=== PATIENT | female | born 1965 | race Caucasian/White ===

== ENCOUNTER 2016-07-04 14:58 | Emergency (ER) | payer MEDICARE, MEDICAID ==
--- NOTE | 2016-07-04 17:45 | ER Document Report ---
ED General <NICKOLAS GARCÍA - Last Filed: 07/04/16 20:34> - General Mode of Arrival: Ambulatory Information source: Patient TRAVEL OUTSIDE OF THE [place] IN LAST 30 DAYS: No - HPI Patient complains to provider of: Generalized Malaise Onset: Other - few days ago Associated symptoms: Other - see above <REINIER RAMOS - Last Filed: 07/04/16 23:05> - General Chief Complaint: Nausea/Vomiting Stated Complaint: WEAKNESS Notes: 50-year-old female with history of MS presents to the ED via EMS complaining of generalized malaise that began a few days ago. Patient states that she felt nauseous this morning and proceeded to have episodes of dry heaving and eventually vomited once. Patient denies any diarrhea. Patient states that this morning when she woke up she felt a little off and noticed that her blood sugar was 130 when it usually runs between 90 and 100. Patient states that she is borderline diabetic. Patient states that she has a history of UTIs. (REINIER RAMOS) - Related Data Allergies/Adverse Reactions: latex [Latex] Allergy (Unknown, Verified 07/22/14 17:35) Sulfa (Sulfonamide Antibiotics) Allergy (Verified 07/22/14 17:35) Past Medical History - General Information source: Patient - Social History Smoking Status: Unknown if Ever Smoked Family History: None, Reviewed & Not Pertinent - Past Medical History Cardiac Medical History: Reports: Hx Pulmonary Embolism - 2 years ago Endocrine Medical History: Reports: Hx Diabetes Mellitus Type 2 Musculoskeltal Medical History: Reports Hx Multiple Sclerosis Past Surgical History: Reports: Hx Section - x2, Hx Cholecystectomy - Immunizations Hx Diphtheria, Pertussis, Tetanus Vaccination: No <REINIER RAMOS - Last Filed: 07/04/16 23:05> Review of Systems - Review of Systems Constitutional: See HPI, Malaise EENT: No symptoms reported Cardiovascular: No symptoms reported Respiratory: No symptoms reported Gastrointestinal: See HPI, Nausea, Vomiting. denies: Diarrhea Genitourinary: No symptoms reported Female Genitourinary: No symptoms reported Musculoskeletal: No symptoms reported Skin: No symptoms reported Hematologic/Lymphatic: No symptoms reported Neurological/Psychological: No symptoms reported -: Yes All other systems reviewed and negative <REINIER RAMOS - Last Filed: 07/04/16 23:05> Physical Exam - General General appearance: Alert In distress: None - HEENT Head: Normocephalic, Atraumatic Eyes: Normal Extraocular movements intact: Yes Pupils: PERRL - Respiratory Respiratory status: No respiratory distress Breath sounds: Normal - Cardiovascular Rhythm: Regular Heart sounds: Normal auscultation - Abdominal Inspection: Normal Distension: No distension Bowel sounds: Normal Tenderness: Nontender - Back Back: Normal - Extremities General upper extremity: Normal inspection, Normal ROM General lower extremity: Normal inspection, Normal ROM - Neurological Neuro grossly intact: Yes Cognition: Normal Orientation: AAOx4 [place] Coma Scale Eye Opening: Spontaneous [place] Coma Scale Verbal: Oriented [place] Coma Scale Motor: Obeys Commands [place] Coma Scale Total: 15 Speech: Normal - Psychological Associated symptoms: Normal affect, Normal mood - Skin Skin Temperature: Warm Skin Moisture: Dry Skin Color: Normal <REINIER RAMOS - Last Filed: 07/04/16 23:05> - Vital signs Vitals: Temp Pulse Resp BP Pulse Ox 98.5 F 55 L 18 148/90 H 99 07/04/16 16:00 07/04/16 16:00 07/04/16 16:00 07/04/16 16:00 07/04/16 16:00 (NICKOLAS GARCÍA) Course - Laboratory Result Diagrams: 07/04/16 18:30 07/04/16 16:44 <NICKOLAS GARCÍA - Last Filed: 07/04/16 20:34> - Laboratory Result Diagrams: 07/04/16 18:30 07/04/16 16:44 <REINIER RAMOS - Last Filed: 07/04/16 23:05> - Re-evaluation Re-evalutation: 07/04/16 20:3 I personally performed the services described in the documentation, reviewed and edited the documentation which was dictated to my scribe in my presence, and it accurately records my words and actions. Patient with a history of multiple sclerosis bedbound nausea 2 episodes of vomiting and fatigue positive for urinary tract infection. No acute clinical concerns for pyelonephritis. Patient is able to tolerate by mouth fluids nausea vomiting is controlled fever shot of Rocephin will DC on Macrobid 1-2 day follow -up primary care physician and discussed reasons for ED return sooner (NICKOLAS GARCÍA) - Vital Signs Vital signs: Temp Pulse Resp BP Pulse Ox 98.5 F 55 L 18 148/90 H 99 07/04/16 16:00 07/04/16 16:00 07/04/16 16:00 07/04/16 16:00 07/04/16 16:00 (NICKOLAS GARCÍA) (REINIER RAMOS) - Laboratory Laboratory results interpreted by me: 07/04/16 07/04/16 16:44 19:02 Chloride 108 H Carbon Dioxide 21 L Creatinine 0.50 L Glucose 148 H Urine Ketones 20 H Urine Nitrite POSITIVE H Ur Leukocyte Esterase MODERATE H (NICKOLAS GARCÍA) Discharge <NICKOLAS GARCÍA - Last Filed: 07/04/16 20:34> <REINIER RAMOS - Last Filed: 07/04/16 23:05> - Discharge Clinical Impression: Vomiting Qualifiers: Vomiting type: unspecified Vomiting Intractability: unspecified Nausea presence : with nausea Qualified Code(s): R11.2 - Nausea with vomiting, unspecified UTI (urinary tract infection) Qualifiers: Urinary tract infection type: acute cystitis Hematuria presence: without hematuria Qualified Code(s): N30.00 - Acute cystitis without hematuria Condition: Stable Disposition: HOME, SELF-CARE Instructions: Urinary Tract Infection ([facility]), Vomiting ([facility]) Additional Instructions: Urinary Tract Infection Your evaluation indicates that you have a urinary tract infection. This is due to germs growing in the bladder. This is a common problem. This infection usually responds quickly to antibiotics. Your antibiotic should be taken exactly as prescribed. Drink plenty of fluids -- three to four quarts a day. Occasionally, a bladder anesthetic will be prescribed to help stop the feeling of urgency until the antibiotic has a chance to clear the infection. This may cause your urine to be dark orange. Certain urine infections require a culture. If the doctor obtained a culture, the results will be back in two days. You should call to see if a change in treatment is needed. A repeat urinalysis after you finish treatment is often recommended. The physician will let you know if further testing is required. Call the doctor if you develop fever, chills, flank pain, inability to urinate, or blood in the urine. Prescriptions: Nitrofurantoin/Nitrofuran Mac [Macrobid 100 mg Capsule] 1 tab PO BID #20 capsule Referrals: FRANK DESAI MD [Primary Care Provider] - Follow up tomorrow (in 1-2 days return to er sooner for increasing worsening or new symptoms) Scribe Documentation - Scribe Written by Earnest:: Earnest Awan, 07/04/2016 1854 acting as scribe for :: Nilson <REINIER RAMOS - Last Filed: 07/04/16 23:05>
[2016-07-04 17:47] LABS: ANION GAP 14 (5-19); BLOOD UREA NITROGEN 15 mg/dL (7-20); CARBON DIOXIDE 21 mmol/L (22-30); CHLORIDE 108 mmol/L (98-107); GLUCOSE 148 mg/dL (75-110); POTASSIUM 4.8 mmol/L (3.6-5.0); SODIUM 142.9 mmol/L (137-145)
[2016-07-04 19:04] LABS: ABSOLUTE EOSINOPHILS # (AUTO) 0.1 10^3/uL (0.0-0.6); ABSOLUTE LYMPHOCYTES (AUTO) 1.9 10^3/uL (0.5-4.7); ABSOLUTE MONOCYTES (AUTO) 0.5 10^3/uL (0.1-1.4); BASOPHILS % (AUTO) 0.2 % (0-2); EOSINOPHILS % (AUTO) 0.9 % (0-6); HEMATOCRIT 40.5 % (36.0-47.0); HEMOGLOBIN 13.5 g/dL (12.0-15.5); LYMPHOCYTES % (AUTO) 20.2 % (13-45); MEAN CORPUSCULAR HEMOGLOBIN 27.2 pg (27.0-33.4); MEAN CORPUSCULAR HGB CONC 33.4 g/dL (32.0-36.0); MEAN CORPUSCULAR VOLUME 82 fl (80-97); MONOCYTES % (AUTO) 5.5 % (3-13); RED BLOOD COUNT 4.97 10^6/uL (3.72-5.28); SEGMENTED NEUTROPHILS % (AUTO) 73.2 % (42-78); WHITE BLOOD COUNT 9.5 10^3/uL (4.0-10.5)
[2016-07-04 19:49] LABS: APPEARANCE,URINE SLIGHTLY-CLOUDY; BILIRUBIN,URINE NEGATIVE (NEGATIVE); GLUCOSE, URINE NEGATIVE (NEGATIVE); KETONES,URINE 20 mg/dL (NEGATIVE); LEUKOCYTE ESTERASE,URINE MODERATE (NEGATIVE); NITRITE,URINE POSITIVE (NEGATIVE); PROTEIN,URINE NEGATIVE (NEGATIVE); URINE SPECIFIC GRAVITY 1.013; UROBILINOGEN,URINE NEGATIVE mg/dL (<2.0)
[2016-07-04] MEDS ORDERED: CEFTRIAXONE INJ 1000 MG VIAL IM ONE (19:54)
[2016-07-04] MEDS ORDERED: LIDOCAINE 1% INJ-PF (10 MG/ML) 30 ML SDV ONE (20:54)
[2016-07-05 04:28] VITALS: BP 124/64
== END 2016-07-05 02:55 | disposition home or self-care (01) ==
LOC: ER 14:58
DX: N30.00 Acute cystitis without hematuria (principal); R11.2 Nausea with vomiting, unspecified; R53.1 Weakness; R53.81 Other malaise
CPT/HCPCS: 99285; 96372; 51701; 36415; 85025; 80048; 81001; 87804; J3490; J0696

== ENCOUNTER 2017-05-17 22:00 | Emergency (ER) | payer MEDICARE, MEDICAID ==
[2017-05-17] MEDS ORDERED: NORMAL SALINE 1000 ML 1,000 ML IV ONE (22:05)
--- NOTE | 2017-05-17 22:07 | ER Document Report ---
ED General - General Chief Complaint: Shortness Of Breath Stated Complaint: RESPIRATORY DISTRESS Time Seen by Provider: 05/17/17 22:05 Notes: 51-year-old lady with debilitating multiple sclerosis, bedbound at baseline with history of multiple infections, presenting with 1 week of "not feeling good " constant worsening now associated with moist cough and right-sided pleuritic chest pain. Hypoxic when EMS arrived. They did not describe any hypertension or tachycardia. No measured fevers. She has areas of concern on her skin in her left armpit and right buttock, the son states the right buttock is just a rash he has been addressing it, no skin breakdown. TRAVEL OUTSIDE OF THE [place] IN LAST 30 DAYS: No - Related Data Allergies/Adverse Reactions: latex [Latex] Allergy (Unknown, Verified 07/22/14 17:35) Sulfa (Sulfonamide Antibiotics) Allergy (Verified 07/22/14 17:35) Past Medical History - Social History Smoking Status: Never Smoker Family History: None, Reviewed & Not Pertinent - Past Medical History Cardiac Medical History: Reports: Hx Pulmonary Embolism - 2 years ago Denies: Hx Atrial Fibrillation, Hx Congestive Heart Failure, Hx Heart Attack , Hx Hypercholesterolemia, Hx Hypertension Pulmonary Medical History: Denies: Hx Asthma, Hx Bronchitis, Hx COPD, Hx Pneumonia, Hx Respiratory Failure, Hx Sleep Apnea, Hx Tuberculosis Neurological Medical History: Denies: Hx Cerebrovascular Accident, Hx Migraine, Hx Seizures Endocrine Medical History: Reports: Hx Diabetes Mellitus Type 2. Denies: Hx Diabetes Mellitus Type 1 Renal/ Medical History: Denies: Hx End Stage Renal Disease, Hx Kidney Stones Malignancy Medical History: Denies: Hx Leukemia, Hx Lung Cancer GI Medical History: Denies: Hx Gastroesophageal Reflux Disease, Hx Hiatal Hernia , Hx Ulcer Musculoskeltal Medical History: Denies Hx Arthritis, Reports Hx Multiple Sclerosis Psychiatric Medical History: Denies: Hx Attention Deficit Hyperactivity Disorder, Hx Bipolar Disorder, Hx Dementia, Hx Depression, Hx Schizophrenia Infectious Medical History: Denies: Hx HIV Past Surgical History: Reports: Hx Section - x2, Hx Cholecystectomy. Denies: Hx Appendectomy, Hx Bowel Surgery, Hx Coronary Artery Bypass Graft, Hx Gastric Bypass Surgery, Hx Herniorrhaphy, Hx Hysterectomy, Hx Mastectomy, Hx Pacemaker, Hx Tonsillectomy, Hx Tubal Ligation - Immunizations Hx Diphtheria, Pertussis, Tetanus Vaccination: No Review of Systems - Review of Systems Notes: REVIEW OF SYSTEMS GEN: D chills weakness ENT: Denies sore throat, nasal discharge, ear pain EYES: Denies blurry vision, eye pain, discharge CV: Denies chest pain, palpitations, edema RESP: D cough shortness of breath GI: Denies abdominal pain, nausea, vomiting, diarrhea MSK: Denies joint pain/swelling, edema, SKIN: Template redness LYMPH: Denies swollen glands/lymph nodes NEURO: Chronic debilitating weakness PSYCH: Denies depression, suicidal or homicidal ideation PHYSICAL EXAMINATION General: Mild respiratory distress chronically ill-appearing Head: Atraumatic, normocephalic ENT: Mouth normal, oropharynx moist, no exudates or tonsillar enlargement Eyes: Conjunctiva normal, pupils equal, lids normal Neck: No JVD, supple, no guarding CVS: Normal rate, regular rhythm, no murmurs Resp: Right-sided rhonchi, quite wet cough GI: Nondistended, soft, no tenderness to palpation, no rebound or guarding Ext: No deformities, no edema, normal range of motion in upper and lower ext Back: No CVA or midline TTP Skin: Erythema and maceration in the left armpit Lymphatic: No lymphadeopathy noted Neuro: Awake, alert. Face symmetric. GCS 15. Physical Exam - Vital signs Vitals: Resp 20 05/17/17 22:10 Course - Re-evaluation Re-evalutation: 05/17/17 22:07 Debilitated bedbound 51-year-old female presenting with signs and symptoms of pneumonia, sepsis. Sepsis protocol initiated. 05/17/17 22:52 Patient reassessed. Difficulty in getting IV access. Her chest x-ray does not show a pneumonia. We have not obtain a temperature either yet. Urine has not been done. On reexamining her, she has very low chest rise and is having trouble getting words out. She has a 4-6 L oxygen requirement. I think her MS is affecting her ability to breathe so I ordered a negative inspiratory force measurement. If this is decreased she will have to go to a higher level of care which has neurology. 05/17/17 23:24 Patient's negative inspiratory force is 3. This is compatible with neuromuscular respiratory failure. She is stable on 6 L of nasal cannula oxygen but is having trouble speaking. Ordered ABG and will transfer patient. Spoke with [facility] transfer center at 11:20 PM. 05/18/17 01:22 Continues to be stable. I looked at the CT scan and no it does show some fluid in the left subsegmental bronchi do not see any pulmonary emboli. Urine is positive and I have not given antibiotics yet. I verbalize an order for 1 g of Rocephin to the paramedics. I am comfortable with this given that the patient is not septic, she will be treated on the way to [facility]. [facility] transport is here for the patient and she is stable for transfer. 05/18/17 01:25 - Vital Signs Vital signs: Temp Pulse Resp BP Pulse Ox 18 134/78 H 95 05/18/17 01:06 05/17/17 23:51 05/18/17 01:06 - Laboratory Result Diagrams: 05/17/17 22:25 05/17/17 22:25 Laboratory results interpreted by me: 05/17/17 05/17/17 05/17/17 22:25 22:25 22:25 RDW 14.1 H ABG pO2 VBG pH 7.43 H Lactic Acid 0.6 L Urine Protein Urine Blood Urine Nitrite Urine Urobilinogen Ur Leukocyte Esterase 05/17/17 05/17/17 23:20 23:40 RDW ABG pO2 69.6 L VBG pH Lactic Acid Urine Protein 30 H Urine Blood LARGE H Urine Nitrite POSITIVE H Urine Urobilinogen 4.0 H Ur Leukocyte Esterase MODERATE H - Diagnostic Test Radiology reviewed: Image reviewed, Reports reviewed - EKG Interpretation by Me EKG shows normal: Sinus rhythm Rate: Normal Rhythm: NSR When compared to previous EKG there are: No significant change - Nonspecific lateral T-wave flattening unchanged Critical Care Note - Critical Care Note Total time excluding time spent on procedures (mins): 35 - The above patient is critically ill. Not including procedures, but including direct re-evaluations, speaking with patient and/or consultants, interpreting results, and documenting , I spent the total amount of minute listed listed above on critical care time Discharge - Discharge Clinical Impression: Acute respiratory failure with hypoxia Condition: Fair Disposition: [facility] Referrals: QUINN MARCANO MD [Primary Care Provider] - Follow up as needed
[2017-05-17 22:38] LABS: ABSOLUTE BASOPHILS # (AUTO) 0.1 10^3/uL (0.0-0.2); ABSOLUTE EOSINOPHILS # (AUTO) 0.2 10^3/uL (0.0-0.6); ABSOLUTE LYMPHOCYTES (AUTO) 2.1 10^3/uL (0.5-4.7); ABSOLUTE MONOCYTES (AUTO) 0.5 10^3/uL (0.1-1.4); ABSOLUTE NEUT (AUTO) 6.5 10^3/uL (1.7-8.2); EOSINOPHILS % (AUTO) 2.6 % (0-6); HEMATOCRIT 38.7 % (36.0-47.0); HEMOGLOBIN 12.9 g/dL (12.0-15.5); LYMPHOCYTES % (AUTO) 22.2 % (13-45); MEAN CORPUSCULAR HEMOGLOBIN 27.6 pg (27.0-33.4); MEAN CORPUSCULAR HGB CONC 33.4 g/dL (32.0-36.0); MEAN CORPUSCULAR VOLUME 83 fl (80-97); MONOCYTES % (AUTO) 5.3 % (3-13); RED BLOOD COUNT 4.68 10^6/uL (3.72-5.28); RED CELL DISTRIBUTION WIDTH 14.1 % (11.5-14.0); SEGMENTED NEUTROPHILS % (AUTO) 68.9 % (42-78); WHITE BLOOD COUNT 9.4 10^3/uL (4.0-10.5)
--- NOTE | 2017-05-17 22:39 | RADIOLOGY REPORT (SQ) ---
EXAM DESCRIPTION: CHEST SINGLE VIEW COMPLETED DATE/TIME: 05/17/2017 10:26 pm REASON FOR STUDY: SOB COMPARISON: 02/17/2016 EXAM PARAMETERS: NUMBER OF VIEWS: One view. TECHNIQUE: Single frontal radiographic view of the chest acquired. RADIATION DOSE: NA LIMITATIONS: None. FINDINGS: LUNGS AND PLEURA: No acute opacities, masses or pneumothorax. No pleural effusion. MEDIASTINUM AND HILAR STRUCTURES: No masses. Contour normal. HEART AND VASCULAR STRUCTURES: Heart normal in size. Normal vasculature. BONES: No acute findings. HARDWARE: None in the chest. OTHER: No other significant finding. IMPRESSION: NO ACUTE RADIOGRAPHIC FINDING IN THE CHEST. TECHNICAL DOCUMENTATION: JOB ID: [id number] [place]-72 2010 [employer]- All Rights Reserved
[2017-05-17 22:44] LABS: VENOUS BLOOD BASE EXCESS -0.4 mmol/L; VENOUS BLOOD HCO3 23.6 mmol/L (20-32); VENOUS BLOOD PCO2 36.5 mmHg (35-63); VENOUS BLOOD PH 7.43 (7.30-7.42)
[2017-05-17 22:51] LABS: PROTHROMBIN TIME 13.4 SEC (11.4-15.4)
[2017-05-17 23:00] LABS: ALANINE AMINOTRANSFERASE 33 U/L (9-52); ALBUMIN 4.2 g/dL (3.5-5.0); ALKALINE PHOSPHATASE 107 U/L (38-126); ANION GAP 13 (5-19); ASPARTATE AMINO TRANSFERASE 20 U/L (14-36); BILIRUBIN,DIRECT 0.3 mg/dL (0.0-0.4); BILIRUBIN,TOTAL 0.9 mg/dL (0.2-1.3); BLOOD UREA NITROGEN 15 mg/dL (7-20); CALCIUM 10.2 mg/dL (8.4-10.2); CARBON DIOXIDE 22 mmol/L (22-30); CHLORIDE 106 mmol/L (98-107); CREATININE RESULT 0.53 mg/dL (0.52-1.25); GLUCOSE 104 mg/dL (75-110); TOTAL PROTEIN 7.6 g/dL (6.3-8.2)
[2017-05-17 23:34] LABS: ARTERIAL BLOOD BASE EXCESS -0.6 mmol/L; ARTERIAL BLOOD O2 SATURATION 94.6 % (94-98)
[2017-05-18 00:05] VITALS: BP 134/78
[2017-05-18 00:07] LABS: APPEARANCE,URINE CLOUDY; BILIRUBIN,URINE NEGATIVE (NEGATIVE); GLUCOSE, URINE NEGATIVE (NEGATIVE); KETONES,URINE NEGATIVE (NEGATIVE); LEUKOCYTE ESTERASE,URINE MODERATE (NEGATIVE); NITRITE,URINE POSITIVE (NEGATIVE); PROTEIN,URINE 30 mg/dL (NEGATIVE); URINE SPECIFIC GRAVITY 1.018
--- NOTE | 2017-05-18 01:48 | RADIOLOGY REPORT (SQ) ---
EXAM DESCRIPTION: CTA CHEST CLINICAL HISTORY: 51 years Female, eval for PE. R pleuritic chest pain. COMPARISON: CR, same day. TECHNIQUE: 100 mL Isovue-370 IV contrast. Multiplanar reformatted. This exam was performed according to our departmental dose-optimization program, which includes automated exposure control, adjustment of the mA and/or kV according to patient size and/or use of iterative reconstruction technique. FINDINGS: Small left infrahilar, left lower lobar consolidate, and small streakiness of bilateral lung bases. No pulmonary embolus. No right ventricular strain. Inferior neck, axillae, mediastinum, cholecystectomy clips, upper abdomen, and musculoskeleton appear otherwise unremarkable. IMPRESSION: Small left lower lobar pneumonia. No pulmonary embolus.
--- NOTE | 2017-05-18 07:50 | EKG REPORT ---
SEVERITY:- ABNORMAL ECG - SINUS RHYTHM NONSPECIFIC T ABNORMALITIES, ANT-LAT LEADS : Confirmed by: Alin Gaspar MD 18-May-2017 07:49:18
== END 2017-05-18 01:21 | disposition short-term general hospital (02) ==
LOC: ER 22:00
DX: J96.01 Acute respiratory failure with hypoxia (principal); J18.9 Pneumonia, unspecified organism; R05 Cough; R07.81 Pleurodynia; R21 Rash and other nonspecific skin eruption; E11.9 Type 2 diabetes mellitus without complications; G35 Multiple sclerosis; Z74.01 Bed confinement status; Z91.040 Latex allergy status; Z88.2 Allergy status to sulfonamides; Z86.711 Personal history of pulmonary embolism; L53.9 Erythematous condition, unspecified
CPT/HCPCS: 93005; 99291; 96360; 51701; 36415; 87040; 87086; 82803 ×2; 85025; 85610; 87077; 87088; 80053; 81001; 87186; 83605; 71010; 71275; 93010; J7030

== ENCOUNTER 2018-06-20 01:09 | Inpatient (IN) | payer MEDICARE, MEDICAID ==
--- NOTE | 2018-06-20 02:00 | ER Document Report ---
ED Respiratory Problem - General Chief Complaint: Breathing Difficulty Stated Complaint: BREATHING PROBLEMS Time Seen by Provider: 06/20/18 01:41 Primary Care Provider: QUINN MARCANO MD [Primary Care Provider] - Follow up as needed Mode of Arrival: Stretcher Information source: Patient, Relative Cannot obtain history due to: Other - Weakness Notes: Patient is a 52-year-old female with a past medical history of multiple chronic health conditions including multiple sclerosis who presents with shortness of breath and weakness. Family states the patient has been having increased work of breathing for the past day, has had intermittent fevers, also redness to her left arm. Patient denies being in any pain. No cough or congestion. Onset: Yesterday Provocation: None Quality: Weakness, tightness Radiation: None Severity: Severe Timing: Constant TRAVEL OUTSIDE OF THE [place] IN LAST 30 DAYS: No - HPI Similar symptoms previously: No Recently seen / treated by doctor: No - Related Data Allergies/Adverse Reactions: latex [Latex] Allergy (Unknown, Verified 07/22/14 17:35) Sulfa (Sulfonamide Antibiotics) Allergy (Verified 07/22/14 17:35) Past Medical History - General Information source: Patient, Relative Cannot obtain history due to: Other - Weakness - Social History Smoking Status: Never Smoker Frequency of alcohol use: None Drug Abuse: None Lives with: Family Family History: None, Reviewed & Not Pertinent Patient has suicidal ideation: No Patient has homicidal ideation: No - Past Medical History Cardiac Medical History: Reports: Hx Pulmonary Embolism - 2 years ago Denies: Hx Atrial Fibrillation, Hx Congestive Heart Failure, Hx Heart Attack, Hx Hypercholesterolemia, Hx Hypertension Pulmonary Medical History: Reports: None Denies: Hx Asthma, Hx Bronchitis, Hx COPD, Hx Pneumonia, Hx Respiratory Failure, Hx Sleep Apnea, Hx Tuberculosis EENT Medical History: Reports: None Neurological Medical History: Reports: None. Denies: Hx Cerebrovascular Accident, Hx Migraine, Hx Seizures Endocrine Medical History: Reports: Hx Diabetes Mellitus Type 2. Denies: Hx Diabetes Mellitus Type 1 Renal/ Medical History: Reports: None. Denies: Hx End Stage Renal Disease, Hx Kidney Stones, Hx Peritoneal Dialysis Malignancy Medical History: Reports: None. Denies: Hx Leukemia, Hx Lung Cancer GI Medical History: Reports: None. Denies: Hx Gastroesophageal Reflux Disease, Hx Hiatal Hernia, Hx Ulcer Musculoskeletal Medical History: Denies Hx Arthritis, Reports Hx Multiple Sclerosis Skin Medical History: Reports None Psychiatric Medical History: Reports: None Denies: Hx Attention Deficit Hyperactivity Disorder, Hx Bipolar Disorder, Hx Dementia, Hx Depression, Hx Schizophrenia Traumatic Medical History: Reports: None Infectious Medical History: Reports: None. Denies: Hx HIV Past Surgical History: Reports: Hx Section - x2, Hx Cholecystectomy. Denies: Hx Appendectomy, Hx Bowel Surgery, Hx Coronary Artery Bypass Graft, Hx Gastric Bypass Surgery, Hx Herniorrhaphy, Hx Hysterectomy, Hx Mastectomy, Hx Pacemaker, Hx Tonsillectomy, Hx Tubal Ligation - Immunizations Immunizations up to date: Yes Hx Diphtheria, Pertussis, Tetanus Vaccination: Yes History of Influenza Vaccine for 02/2017 - 07/2017 Season: Unknown Review of Systems - Review of Systems Notes: REVIEW OF SYSTEMS: CONSTITUTIONAL : Positive fever, chills, and sweats. Denies recent illness. EENT: Denies eye, ear, throat, or mouth pain or symptoms. Denies nasal or sinus congestion. CARDIOVASCULAR: Denies chest pain. RESPIRATORY: Denies cough, cold, or chest congestion. Denies shortness of breath, difficulty breathing, or wheezing. GASTROINTESTINAL: Denies abdominal pain. Denies nausea, vomiting, or diarrhea. Denies constipation. GENITOURINARY: Denies difficulty urinating, painful urination, burning, frequency, or blood in urine. FEMALE GENITOURINARY: Denies vaginal bleeding, abnormal or irregular periods. MUSCULOSKELETAL: Denies neck or back pain or joint pain or swelling. Positive redness to the left arm. SKIN: Denies rash or skin lesions. HEMATOLOGIC : Denies easy bruising or bleeding. LYMPHATIC: Denies swollen, enlarged glands. NEUROLOGICAL: Denies altered mental status or loss of consciousness. Denies headache. Denies weakness or paralysis or loss of use of either side. Denies problems with gait or speech. Denies sensory or motor loss. PSYCHIATRIC: Denies anxiety or stress or depression. ALL OTHER SYSTEMS REVIEWED AND NEGATIVE. Physical Exam - Vital signs Vitals: Resp BP Pulse Ox 28 H 121/80 96 06/20/18 01:31 06/20/18 01:31 06/20/18 01:31 - Notes Notes: PHYSICAL EXAMINATION: GENERAL: Sick appearing in moderate to severe distress, diaphoretic, tachycardic, weak appearing. HEAD: Atraumatic, normocephalic. EYES: Pupils equal round and reactive to light, extraocular movements intact, sclera anicteric, conjunctiva are normal. ENT: nares patent, oropharynx clear without exudates. Moist mucous membranes. NECK: Normal range of motion, supple without lymphadenopathy LUNGS: Breath sounds diminished bilaterally with expiratory crackles and rhonchi, no wheezing. HEART: Tachycardia without murmurs, mildly delayed capillary refill. ABDOMEN: Soft, nontender, normoactive bowel sounds. No guarding, no rebound. No masses appreciated. EXTREMITIES: Normal range of motion, no pitting or edema. No cyanosis. NEUROLOGICAL: No focal neurological deficits. Moves all extremities spontaneously and on command. PSYCH: Normal mood, normal affect. SKIN: Warm, Dry, normal turgor, no rashes or lesions noted. Mild redness to the left upper and lower parts of the arm. Course - Re-evaluation Re-evalutation: 06/20/18 05:46 Labs are consistent with likely sepsis due to a urinary tract infection. Patient is admitted to the hospital. - Vital Signs Vital signs: Temp Pulse Resp BP Pulse Ox 27 H 109/77 96 06/20/18 03:30 06/20/18 03:30 06/20/18 03:30 - Laboratory Result Diagrams: 06/20/18 01:48 06/20/18 01:48 Laboratory results interpreted by me: 06/20/18 06/20/18 06/20/18 01:48 01:48 05:11 MCH 26.7 L RDW 14.2 H Seg Neutrophils % 88.8 H Lymphocytes % 7.1 L Carbonic Acid ABG pCO2 ABG HCO3 ABG Total CO2 Carbon Dioxide 21 L BUN 21 H Glucose 175 H Direct Bilirubin 0.6 H AST 55 H Alkaline Phosphatase 149 H Urine Protein >=500 H Urine Ketones 20 H Urine Blood SMALL H Urine Nitrite POSITIVE H Urine Urobilinogen 2.0 H Ur Leukocyte Esterase LARGE H 06/20/18 05:17 MCH RDW Seg Neutrophils % Lymphocytes % Carbonic Acid 0.95 L ABG pCO2 31.7 L ABG HCO3 19.0 L ABG Total CO2 19.9 L Carbon Dioxide BUN Glucose Direct Bilirubin AST Alkaline Phosphatase Urine Protein Urine Ketones Urine Blood Urine Nitrite Urine Urobilinogen Ur Leukocyte Esterase - Diagnostic Test Radiology reviewed: Image reviewed, Reports reviewed - EKG Interpretation by Me EKG shows normal: Sinus rhythm Rate: Tachycardia Rhythm: NSR [place]/QRS: No: Right axis deviation, Left axis deviation, RBBB, LBBB, IVCD, LAHB/LAFB, LPHB/LPFB, Bifasicular block Voltage: No: Increased voltage, Consistant with LVH, Decreased voltage, Throughout, Limb leads P Waves: No: EZEQUIEL, LAE, Absent, AV Dissociation, Other When compared to previous EKG there are: No significant change - Consults Dr. Marcano Time consulted: 05:45 - will admit Consulted provider: will come to ER Discharge - Discharge Clinical Impression: Sepsis Qualifiers: Sepsis type: sepsis due to unspecified organism Qualified Code(s): A41.9 - Sepsis, unspecified organism Urinary tract infection Qualifiers: Urinary tract infection type: acute cystitis Hematuria presence: without hematuria Qualified Code(s): N30.00 - Acute cystitis without hematuria Condition: Stable Disposition: ADMITTED INPATIENT Admitting Provider: Angie Unit Admitted: [facility] Referrals: QUINN MARCANO MD [Primary Care Provider] - Follow up as needed
--- NOTE | 2018-06-20 02:00 | ER Document Report ---
Sepsis - Sepsis Documentation Sepsis Patient: Yes - Vital Signs Interpretation: Tachycardic, Febrile - Cardiovascular Peripheral Pulse Strength: Normal Capillary refill: Delayed Rhythm: Tachycardia Heart Sounds: Normal auscultation - Respiratory Breath Sounds: Rhonchi, Decreased air movement Respiratory Status: Depressed respirations - Skin Skin Color: Pale, Mottled
[2018-06-20] MEDS ORDERED: VANCOMYCIN HCL INJ 1000 MG VIAL IV ONE (02:01)
[2018-06-20 02:17] LABS: ABSOLUTE LYMPHOCYTES (AUTO) 0.5 10^3/uL (0.5-4.7); ABSOLUTE MONOCYTES (AUTO) 0.3 10^3/uL (0.1-1.4); ABSOLUTE NEUT (AUTO) 6.9 10^3/uL (1.7-8.2); BASOPHILS % (AUTO) 0.3 % (0-2); HEMATOCRIT 42.7 % (36.0-47.0); LYMPHOCYTES % (AUTO) 7.1 % (13-45); MEAN CORPUSCULAR HEMOGLOBIN 26.7 pg (27.0-33.4); MEAN CORPUSCULAR HGB CONC 32.8 g/dL (32.0-36.0); MEAN CORPUSCULAR VOLUME 82 fl (80-97); MONOCYTES % (AUTO) 3.8 % (3-13); PLATELET COUNT 248 10^3/uL (150-450); RED BLOOD COUNT 5.24 10^6/uL (3.72-5.28); RED CELL DISTRIBUTION WIDTH 14.2 % (11.5-14.0); SEGMENTED NEUTROPHILS % (AUTO) 88.8 % (42-78); TOTAL CELLS COUNTED % (AUTO) 100 %; WHITE BLOOD COUNT 7.7 10^3/uL (4.0-10.5)
[2018-06-20 02:20] LABS: ALANINE AMINOTRANSFERASE 33 U/L (9-52); ALBUMIN 4.3 g/dL (3.5-5.0); ALKALINE PHOSPHATASE 149 U/L (38-126); ANION GAP 12 (5-19); ASPARTATE AMINO TRANSFERASE 55 U/L (14-36); BILIRUBIN,DIRECT 0.6 mg/dL (0.0-0.4); BILIRUBIN,TOTAL 0.8 mg/dL (0.2-1.3); BLOOD UREA NITROGEN 21 mg/dL (7-20); CALCIUM 9.6 mg/dL (8.4-10.2); CARBON DIOXIDE 21 mmol/L (22-30); CHLORIDE 107 mmol/L (98-107); CREATINE KINASE 90 U/L (30-135); GLUCOSE 175 mg/dL (75-110); POTASSIUM 4.4 mmol/L (3.6-5.0); SODIUM 140.1 mmol/L (137-145); TOTAL PROTEIN 8.1 g/dL (6.3-8.2)
[2018-06-20 02:28] LABS: CREATINE KINASE MB 0.61 ng/mL (<4.55)
--- NOTE | 2018-06-20 02:31 | RADIOLOGY REPORT (SQ) ---
EXAM DESCRIPTION: XR CHEST 1 VIEW COMPLETED DATE/TME: 06/20/2018 02:01 CLINICAL HISTORY: 52 years, Female, Cough COMPARISON: None. NUMBER OF VIEWS: One TECHNIQUE: AP view of the chest LIMITATIONS: None. FINDINGS: The lungs are clear. There are no pleural abnormalities. The cardiac silhouette and pulmonary vessels are normal. IMPRESSION: No acute cardiopulmonary disease. copyright 2010 [employer]- All Rights Reserved
[2018-06-20] MEDS ORDERED: NORMAL SALINE 1000 ML 1,000 ML IV ONE ×2 (02:34→18:49)
[2018-06-20 05:32] LABS: ARTERIAL BLOOD BASE EXCESS -4.8 mmol/L; ARTERIAL BLOOD H2CO3 0.95 mmol/L (1.05-1.35); ARTERIAL BLOOD O2 SATURATION 97.6 % (94-98); ARTERIAL BLOOD PCO2 31.7 mmHg (35-45); ARTERIAL BLOOD TOTAL CO2 19.9 mmol/L (21-25)
[2018-06-20 05:33] LABS: ARTERIAL BLOOD FIO2 3.5L
[2018-06-20 05:35] LABS: APPEARANCE,URINE TURBID; BILIRUBIN,URINE NEGATIVE (NEGATIVE); COLOR,URINE AMBER; GLUCOSE, URINE NEGATIVE (NEGATIVE); KETONES,URINE 20 mg/dL (NEGATIVE); LEUKOCYTE ESTERASE,URINE LARGE (NEGATIVE); NITRITE,URINE POSITIVE (NEGATIVE); PROTEIN,URINE >=500 mg/dL (NEGATIVE); URINE SPECIFIC GRAVITY 1.018
--- NOTE | 2018-06-20 08:04 | EKG REPORT ---
SEVERITY:- OTHERWISE NORMAL ECG - SINUS TACHYCARDIA : Confirmed by: Andree Hughes MD 20-Jun-2018 08:03:57
--- NOTE | 2018-06-20 08:05 | EKG REPORT ---
SEVERITY:- ABNORMAL ECG - SINUS TACHYCARDIA NONSPECIFIC REPOL ABNORMALITY, INFERIOR LEADS : Confirmed by: Andree Hughes MD 20-Jun-2018 08:04:07
[2018-06-20] MEDS ORDERED: ACETAMINOPHEN 650 MG SUPP.RECT PR PRN (13:27)
[2018-06-20] MEDS ORDERED: VANCOMYCIN HCL 0 MG in DEXTROSE 5%-WATER 250 ML IV NR (13:30)
[2018-06-20] MEDS: CEFEPIME 2 GM/D5W RTU 2 GM/50 ML RTUPB IV SCH (14:41)
[2018-06-20] MEDS: NORMAL SALINE 1000 ML 1,000 ML IV PRN (14:42)
[2018-06-20] MEDS: LEVOFLOXACIN 500 MG/D5W RTU 500 MG/100 ML RTUPB IV SCH (15:18)
[2018-06-20] MEDS: VANCOMYCIN HCL 1,250 MG in DEXTROSE 5%-WATER 250 ML IV SCH (18:06)
--- NOTE | 2018-06-20 18:45 | PDOC H&P ---
History of Present Illness Admission Date/PCP: 06[facility]20[facility]18 05[facility] complains of: Shortness of breath and weakness History of Present Illness: INO SALDIVAR is a 52 year old female known to my practice but not compliant with follow up in the office presented to the ED with family complaining about worsening difficulty with breathing, generalized weakness and at the time of my evaluation associated malodor to her urine for couple of days. She reported episodes of fever, chills, nausea, poor appetite and oral intake. She reported chest and sinus congestion, associated coughing with expectoration difficulty. No headache or facial pain. She denied any flank pain or definite pain with urination. She denied any blood in her urine. Her initial evaluation in the ED was significant for tachycardia, tachypnea, minimal verbal response and demonstrated alteration in her mental alertness. There was concern for possible sepsis due to associated low blood pressure and fever. Her laboratory evaluation with catheterized urine was suggestive of UTI with elevated BUN. Her morbidities include Multiple sclerosis with fatigue and malaise, Diabetes Mellitus type 2, Hypothyroidism, vitamin D deficiency, chronic constipation, Anemia, Allergic rh initis, and morbid obesity. She was advised hospitalization for further evaluation and management. Past Medical History Cardiac Medical History: Reports: Pulmonary Embolism - 2 years ago Denies: Atrial Fibrillation, Congestive Heart Failure, Myocardial Infarction, Hyperlipidema, Hypertension Pulmonary Medical History: Reports: None Denies: Asthma, Bronchitis, Chronic Obstructive Pulmonary Disease (COPD), Pneumonia, Respiratory Failure, Sleep Apnea, Tuberculosis EENT Medical History: Reports: None Neurological Medical History: Reports: None Denies: Migraine, Seizures Endocrine Medical History: Reports: Diabetes Mellitus Type 2, Hypothyroidism, Obesity, Other - Vitamin D deficiency Denies: Diabetes Mellitus Type 1 Renal/ Medical History: Reports: None Denies: End Stage Renal Disease Malignancy Medical History: Reports: None Denies: Leukemia, Lung Cancer GI Medical History: Reports: None, Other - chronic constipation Denies: Gastroesophageal Reflux Disease, Hiatal Hernia Musculoskeltal Medical History: Denies: Arthritis Skin Medical History: Reports: None Psychiatric Medical History: Reports: None, Other - Hypersomnia Denies: Attention Deficit Hyperactivity Disorder, Bipolar Disorder, Dementia, Depression Traumatic Medical History: Reports: None Hematology: Reports: Anemia Denies: Hemophilia, Sickle Cell Disease Infectious Medical History: Reports: None Denies: HIV Past Surgical History Past Surgical History: Reports: Section - x2, Cholecystectomy Denies: Appendectomy, Coronary Artery Bypass Graft, Gastric Bypass Surgery, Herniorrhaphy, Hysterectomy, Mastectomy, Pacemaker, Tonsillectomy, Tubal Ligation Social History Lives with: Family Smoking Status: Never Smoker Frequency of Alcohol Use: None Hx Recreational Drug Use: No Hx Prescription Drug Abuse: No - Advance Directive Resuscitation Status: Full Code Family History Family History: None, Reviewed & Not Pertinent Parental Family History Reviewed: Yes Children Family History Reviewed: Yes Sibling(s) Family History Reviewed.: Yes Medication/Allergy Home Medications: Acetaminophen [Tylenol Extra Strength 500 mg Tablet] 1,000 mg PO Q6 06/20/18 Baclofen [Baclofen 10 mg Tablet] 10 mg PO TID 06/20/18 Modafinil [Provigil] 200 mg PO DAILY 06/20/18 Allergies/Adverse Reactions: latex [Latex] Allergy (Intermediate, Verified 06/20/18 14:06) RASH/BLISTER Sulfa (Sulfonamide Antibiotics) Allergy (Intermediate, Verified 06/20/18 14:06) RASH/HIVES Review of Systems Constitutional: PRESENT: anorexia, fatigue, fever(s), weakness Eyes: ABSENT: visual disturbances Ears: ABSENT: hearing changes Nose, Mouth, and Throat: ABSENT: as per HPI, headache(s), mouth pain, sore throat, vertigo, other Cardiovascular: ABSENT: chest pain, dyspnea on exertion, edema, orthropnea, palpitations Respiratory: PRESENT: cough, dyspnea Gastrointestinal: PRESENT: nausea. ABSENT: as per HPI, abdominal pain, bloating, coffee ground emesis, constipation, diarrhea, dysphagia, heartburn, hematemesis, hematochezia, melena, vomiting, other Genitourinary: PRESENT: other - malodor. ABSENT: as per HPI, difficulty urinating, dysuria, hematuria, nocturia Musculoskeletal: PRESENT: deformity - related to spastic component of her multiple sclerosis. Integumentary: PRESENT: erythema - left forearm aroun her brace device.. ABSENT: as per HPI, diaphoresis, lesions, pruritus, rash, wounds, other Neurological: PRESENT: confusion Psychiatric: ABSENT: anxiety, depression, homidical ideation, suicidal ideation Endocrine: ABSENT: cold intolerance, heat intolerance, polydipsia, polyuria Hematologic/Lymphatic: ABSENT: easy bleeding, easy bruising, lymphadenopathy Allergic/Immunologic: ABSENT: seasonal rhinorrhea Physical Exam Vital Signs: Temp Pulse Resp BP Pulse Ox 98.8 F 118 H 31 H 98/72 L 97 06/20/18 16:00 06/20/18 17:23 06/20/18 16:00 06/20/18 16:00 06/20/18 16:00 Intake & Output 06/19/18 06/20/18 06/21/18 06:59 06:59 06:59 Intake Total 1000 150 Balance 1000 150 Weight 83.4 kg General appearance: PRESENT: no acute distress, well-developed, well-nourished Head exam: PRESENT: atraumatic, normocephalic Eye exam: PRESENT: conjunctiva pink, EOMI, PERRLA. ABSENT: scleral icterus Ear exam: PRESENT: normal external ear exam Mouth exam: PRESENT: dry mucosa Respiratory exam: PRESENT: clear to auscultation rome, decreased breath sounds - at lung bases Cardiovascular exam: PRESENT: RRR, +S1, +S2, tachycardia. ABSENT: diastolic murmur, systolic murmur Vascular exam: PRESENT: normal capillary refill. ABSENT: pallor GI/Abdominal exam: PRESENT: normal bowel sounds, soft. ABSENT: distended, guarding, mass, organolmegaly, rebound, tenderness Rectal exam: PRESENT: deferred Gentrourinary exam: PRESENT: indwelling catheter - with discolored concentrated urine. Extremities exam: ABSENT: pedal edema Neurological exam: PRESENT: alert, awake, oriented to person, oriented to place, oriented to time, oriented to situation, CN II-XII grossly intact. ABSENT: motor sensory deficit Psychiatric exam: PRESENT: appropriate affect, normal mood. ABSENT: homicidal ideation, suicidal ideation Skin exam: PRESENT: dry, erythema - around her forearm brace device, warm Results Laboratory Results: 06/20/18 01:48 06/20/18 01:48 06/20/18 06/20/18 06/20/18 01:48 01:48 01:48 WBC 7.7 RBC 5.24 Hgb 14.0 Hct 42.7 MCV 82 MCH 26.7 L MCHC 32.8 RDW 14.2 H Plt Count 248 Seg Neutrophils % 88.8 H Lymphocytes % 7.1 L Monocytes % 3.8 Eosinophils % 0.0 Basophils % 0.3 Absolute Neutrophils 6.9 Absolute Lymphocytes 0.5 Absolute Monocytes 0.3 Absolute Eosinophils 0.0 Absolute Basophils 0.0 Carbonic Acid HCO3/H2CO3 Ratio ABG pH ABG pCO2 ABG pO2 ABG HCO3 ABG O2 Saturation ABG Base Excess FiO2 Sodium 140.1 Potassium 4.4 Chloride 107 Carbon Dioxide 21 L Anion Gap 12 BUN 21 H Creatinine 0.55 Est GFR ( Amer) > 60 Est GFR (Non-Af Amer) > 60 Glucose 175 H Lactic Acid 0.9 Calcium 9.6 Total Bilirubin 0.8 AST 55 H ALT 33 Alkaline Phosphatase 149 H Total Protein 8.1 Albumin 4.3 Urine Color Urine Appearance Urine pH Ur Specific Lilly Urine Protein Urine Glucose (UA) Urine Ketones Urine Blood Urine Nitrite Ur Leukocyte Esterase Urine WBC (Auto) Urine RBC (Auto) 06/20/18 06/20/18 05:11 05:17 WBC RBC Hgb Hct MCV MCH MCHC RDW Plt Count Seg Neutrophils % Lymphocytes % Monocytes % Eosinophils % Basophils % Absolute Neutrophils Absolute Lymphocytes Absolute Monocytes Absolute Eosinophils Absolute Basophils Carbonic Acid 0.95 L HCO3/H2CO3 Ratio 20:1 ABG pH 7.40 ABG pCO2 31.7 L ABG pO2 100.0 ABG HCO3 19.0 L ABG O2 Saturation 97.6 ABG Base Excess -4.8 FiO2 3.5L Sodium Potassium Chloride Carbon Dioxide Anion Gap BUN Creatinine Est GFR ( Amer) Est GFR (Non-Af Amer) Glucose Lactic Acid Calcium Total Bilirubin AST ALT Alkaline Phosphatase Total Protein Albumin Urine Color SAH Urine Appearance TURBID Urine pH 7.0 Ur Specific Lilly 1.018 Urine Protein >=500 H Urine Glucose (UA) NEGATIVE Urine Ketones 20 H Urine Blood SMALL H Urine Nitrite POSITIVE H Ur Leukocyte Esterase LARGE H Urine WBC (Auto) >182 Urine RBC (Auto) 14 06/20/18 06/20/18 01:48 01:48 Creatine Kinase 90 CK-MB (CK-2) 0.61 NT-Pro-B Natriuret Pep 487 Impressions: Chest X-Ray 06/20/18 02:01 IMPRESSION: No acute cardiopulmonary disease. copyright 2011 [employer]- All Rights Reserved Assessment & Plan - Diagnosis (1) SIRS due to infectious process without acute organ dysfunction Is this a current diagnosis for this admission?: Yes Plan: Continue antibiotic therapy and IV fluid resuscitation therapy. (2) Urinary tract infection Qualifiers: Urinary tract infection type: acute cystitis Hematuria presence: without hematuria Qualified Code(s): N30.00 - Acute cystitis without hematuria Is this a current diagnosis for this admission?: Yes Plan: Maintain on IV fluid support with antibiotic therapy. There is concern for possible sepsis in view of her associated morbidities. Follow up on her blood and urine culture. (3) Diabetes mellitus type 2 in nonobese Is this a current diagnosis for this admission?: Yes Plan: Maintain on accucheck with sliding scale Humalog insulin coverage. (4) Hypothyroidism Qualifiers: Hypothyroidism type: unspecified Qualified Code(s): E03.9 - Hypothyroidism, unspecified Is this a current diagnosis for this admission?: Yes Plan: Continue to monitor for symptoms of decompensation related to thyroid function and treat ass indicated. (5) Vitamin D deficiency Is this a current diagnosis for this admission?: Yes Plan: Monitor level and treat and indicated. (6) Multiple sclerosis, primary chronic progressive Is this a current diagnosis for this admission?: Yes Plan: Continue supportive care t this time. - Time Time Spent: 50 to 70 Minutes Medications reviewed and adjusted accordingly: Yes Anticipated discharge: Home with Homehealth Within: Other - Inpatient Certification Based on my medical assessment, after consideration of the patient's comor bidities, presenting symptoms, or acuity I expect that the services needed warrant INPATIENT care.: Yes I certify that my determination is in accordance with my understanding of Medicare's requirements for reasonable and necessary INPATIENT services [42 CFR 412.3e].: Yes Medical Necessity: Need Close Monitoring Due to Risk of Patient Decompensation, Need For IV Fluids, Need For Continuous Telemetry Monitoring, Need for IV Antibiotics, Risk of Complication if Not Cared For in Hospital, Risk of Diagnosis Which Will Require Inpatient Eval/Care/Monitoring Post Hospital Care: D/C Die [employer] Documentation - Plan Summary Plan Summary: See admitting attending physician orders as per above outlined care plan. I had a witnessed discussion with patient regarding resuscitation, at this time she want to be a full code status.
[2018-06-20] MEDS ORDERED: PROMETHAZINE HCL INJ 25 MG/1 ML VIAL IV PRN (18:46)
[2018-06-20] MEDS ORDERED: DEXTROSE 40% GEL 15 GM TUBE PO PRN (18:47)
[2018-06-20] MEDS ORDERED: DEXTROSE 50%-WATER 25 GM/50 ML DISP.SYRIN IV PRN ×2 (18:47)
[2018-06-20] MEDS ORDERED: INSULIN LISPRO 100 UNIT/ML 3 ML VIAL SUBCUT PRN (18:47)
[2018-06-20] MEDS ORDERED: GLUCAGON,HUMAN RECOMB 1 MG INJ IM PRN (18:47)
[2018-06-21] MEDS: VANCOMYCIN HCL 1,250 MG in DEXTROSE 5%-WATER 250 ML IV SCH ×3 (02:43→18:09)
[2018-06-21] MEDS ORDERED: CEFEPIME 2 GM/D5W RTU 2 GM/50 ML RTUPB IV ONE (02:58)
[2018-06-21] MEDS: CEFEPIME 2 GM/D5W RTU 2 GM/50 ML RTUPB IV SCH ×2 (03:02→14:59)
[2018-06-21] MEDS: LANSOPRAZOLE 30 MG TAB.RAP.DR PO SCH (05:23)
[2018-06-21] MEDS: NORMAL SALINE 1000 ML 1,000 ML IV PRN ×2 (05:56→15:05)
[2018-06-21 06:03] LABS: MEAN CORPUSCULAR HGB CONC 33.6 g/dL (32.0-36.0); MEAN CORPUSCULAR VOLUME 80 fl (80-97); PLATELET COUNT 162 10^3/uL (150-450); RED BLOOD COUNT 4.35 10^6/uL (3.72-5.28); RED CELL DISTRIBUTION WIDTH 14.4 % (11.5-14.0); WHITE BLOOD COUNT 8.7 10^3/uL (4.0-10.5)
[2018-06-21 06:14] LABS: BLOOD UREA NITROGEN 21 mg/dL (7-20); CALCIUM 8.8 mg/dL (8.4-10.2); GLUCOSE 105 mg/dL (75-110); POTASSIUM 4.6 mmol/L (3.6-5.0)
[2018-06-21 06:19] LABS: CARBON DIOXIDE 23 mmol/L (22-30); CHLORIDE 111 mmol/L (98-107); SODIUM 137.2 mmol/L (137-145)
[2018-06-21 06:25] LABS: ANION GAP 3 (5-19)
[2018-06-21 06:32] LABS: ABSOLUTE LYMPHOCYTES# (MANUAL) 1.3 10^3/uL (0.5-4.7); ABSOLUTE MONOCYTES # (MANUAL) 0.2 10^3/uL (0.1-1.4); ABSOLUTE NEUTROPHILS# (MANUAL) 7.2 10^3/uL (1.7-8.2); BAND NEUTROPHILS % (MANUAL) 6 % (3-5); BASOPHILS % (MANUAL) 0 % (0-2); BURR CELLS SLIGHT; EOSINOPHILS % (MANUAL) 0 % (0-6); LYMPHOCYTES % (MANUAL) 15 % (13-45); METAMYELOCYTES % (MANUAL) 1 % (0); MONOCYTES % (MANUAL) 2 % (3-13); PLATELET COMMENT ADEQUATE; POIKILOCYTOSIS SLIGHT; SEGMENTED NEUTROPHILS % (MAN) 76 % (42-78); TOTAL CELLS COUNTED 100; TOXIC GRANULATION SLIGHT
[2018-06-21 06:34] LABS: HEMOGLOBIN 11.7 g/dL (12.0-15.5)
[2018-06-21] MEDS: ENOXAPARIN SODIUM INJ 40 MG/0.4 ML DISP.SYRIN SUBCUT SCH (09:28)
[2018-06-21] MEDS: LEVOFLOXACIN 500 MG/D5W RTU 500 MG/100 ML RTUPB IV SCH (11:45)
[2018-06-21] MEDS ORDERED: NYSTATIN TOPICAL POWDER 15 GM TP PRN (16:23)
--- NOTE | 2018-06-21 16:53 | PDOC PROGRESS REPORT ---
Subjective Progress Note for:: 06/21/18 Subjective:: Patient denied any fever or chills. No abdominal pain, nausea or vomiting. Tolerating oral feeding. No chest pain or difficulty with breathing. Reason For Visit: SEPSIS,POSSIBLE UTI Physical Exam Vital Signs: Temp Pulse Resp BP Pulse Ox 98.4 F 73 18 104/55 L 97 06/21/18 11:14 06/21/18 14:00 06/21/18 07:22 06/21/18 11:14 06/21/18 11:14 Intake & Output 06/20/18 06/21/18 06/22/18 06:59 06:59 06:59 Intake Total 1000 2800 1415 Output Total 725 150 Balance 1000 2075 1265 Weight 83.4 kg 103 kg General appearance: PRESENT: no acute distress, obese Head exam: PRESENT: atraumatic, normocephalic Eye exam: PRESENT: conjunctiva pink, EOMI, PERRLA. ABSENT: scleral icterus Ear exam: PRESENT: normal external ear exam Mouth exam: PRESENT: moist Respiratory exam: PRESENT: clear to auscultation rome, decreased breath sounds - at lung bases Cardiovascular exam: PRESENT: RRR. ABSENT: diastolic murmur, rubs, systolic murmur Vascular exam: PRESENT: normal capillary refill. ABSENT: pallor GI/Abdominal exam: PRESENT: normal bowel sounds, soft. ABSENT: distended, guarding, mass, organolmegaly, rebound, tenderness Gentrourinary exam: PRESENT: indwelling catheter Extremities exam: PRESENT: other - brace in use for upper extremity. ABSENT: pedal edema Musculoskeletal exam: PRESENT: deformity - related to spastic componenet of her multiple sclerosis Neurological exam: PRESENT: alert, awake, oriented to person, oriented to place, oriented to time, oriented to situation, CN II-XII grossly intact. ABSENT: m otor sensory deficit Psychiatric exam: PRESENT: appropriate affect, normal mood. ABSENT: homicidal ideation, suicidal ideation Skin exam: PRESENT: dry, rash - in beneath breast tissue and groin regions, warm Results Laboratory Results: 06/21/18 05:46 06/21/18 05:46 06/21/18 06/21/18 05:46 05:46 WBC 8.7 RBC 4.35 Hgb 11.7 L D Hct 35.0 L MCV 80 MCH 27.0 MCHC 33.6 RDW 14.4 H Plt Count 162 Seg Neutrophils % Not Reportable Lymphocytes % Not Reportable Monocytes % Not Reportable Eosinophils % Not Reportable Basophils % Not Reportable Absolute Neutrophils Not Reportable Absolute Lymphocytes Not Reportable Absolute Monocytes Not Reportable Absolute Eosinophils Not Reportable Absolute Basophils Not Reportable Sodium 137.2 Potassium 4.6 Chloride 111 H Carbon Dioxide 23 Anion Gap 3 L BUN 21 H Creatinine 0.50 L Est GFR ( Amer) > 60 Est GFR (Non-Af Amer) > 60 Glucose 105 Calcium 8.8 06/20/18 06/20/18 01:48 01:48 Creatine Kinase 90 CK-MB (CK-2) 0.61 NT-Pro-B Natriuret Pep 487 Impressions: Chest X-Ray 06/20/18 02:01 IMPRESSION: No acute cardiopulmonary disease. copyright 2010 [employer] All Rights Reserved Assessment & Plan - Diagnosis (1) SIRS due to infectious process without acute organ dysfunction Is this a current diagnosis for this admission?: Yes (2) Urinary tract infection Qualifiers: Urinary tract infection type: acute cystitis Hematuria presence: without hematuria Qualified Code(s): N30.00 - Acute cystitis without hematuria Is this a current diagnosis for this admission?: Yes (3) Diabetes mellitus type 2 in nonobese Is this a current diagnosis for this admission?: Yes (4) Hypothyroidism Qualifiers: Hypothyroidism type: unspecified Qualified Code(s): E03.9 - Hypothyroidism, unspecified Is this a current diagnosis for this admission?: Yes (5) Vitamin D deficiency Is this a current diagnosis for this admission?: Yes (6) Multiple sclerosis, primary chronic progressive Is this a current diagnosis for this admission?: Yes - Time Time Spent with patient: 25-34 minutes Medications reviewed and adjusted accordingly: Yes Anticipated discharge: Home with Homehealth Within: Other - Inpatient Certification Based on my medical assessment, after consideration of the patient's comorbidities, presenting symptoms, or acuity I expect that the services needed warrant INPATIENT care.: Yes I certify that my determination is in accordance with my understanding of Medicare's requirements for reasonable and necessary INPATIENT services [42 CFR 412.3e].: Yes Medical Necessity: Need Close Monitoring Due to Risk of Patient Decompensation, Need For IV Fluids, Need For Continuous Telemetry Monitoring, Need for IV Anti biotics, Risk of Complication if Not Cared For in Hospital Post Hospital Care: D/C Service Liaison Representative Documentation - Plan Summary Plan Summary: Continue triple antibiotic coverage pending her urine and blood culture final report findings. Her tachycardia is improving. Maintain on IV fluid support.
[2018-06-21 18:32] LABS: VANCOMYCIN,TROUGH 30.6 ug/mL (5.0-20.0)
[2018-06-21] MEDS ORDERED: DIPHENHYDRAMINE HCL 25 MG CAPSULE PO PRN (20:04)
[2018-06-22] MEDS: NORMAL SALINE 1000 ML 1,000 ML IV PRN ×3 (00:11→23:39)
[2018-06-22] MEDS: CEFEPIME 2 GM/D5W RTU 2 GM/50 ML RTUPB IV SCH ×3 (02:16→16:19)
[2018-06-22] MEDS: LANSOPRAZOLE 30 MG TAB.RAP.DR PO SCH (05:02)
[2018-06-22] MEDS: DEXTROSE 40% GEL 15 GM TUBE PO PRN (07:06)
[2018-06-22] MEDS: ENOXAPARIN SODIUM INJ 40 MG/0.4 ML DISP.SYRIN SUBCUT SCH (09:00)
[2018-06-22] MEDS: LEVOFLOXACIN 500 MG/D5W RTU 500 MG/100 ML RTUPB IV SCH (12:15)
--- NOTE | 2018-06-22 18:17 | PDOC PROGRESS REPORT ---
Subjective Progress Note for:: 06/22/18 Subjective:: Patient with advanced MS seen by the bedside, she has polymicrobial UTI, the pathogens sensitive to Levaquin, we will de-escalate antibiotic, DC vancomycin, DC cefepime Reason For Visit: SEPSIS,POSSIBLE UTI Physical Exam Vital Signs: Temp Pulse Resp BP Pulse Ox 98.7 F 107 H 18 127/71 H 98 06/22/18 15:02 06/22/18 15:02 06/22/18 15:02 06/22/18 15:02 06/22/18 15:02 Intake & Output 06/21/18 06/22/18 06/23/18 06:59 06:59 06:59 Intake Total 2800 2725 1218 Output Total 725 1225 250 Balance 2075 1500 968 Weight 103 kg 104 kg 104 kg General appearance: PRESENT: no acute distress Eye exam: PRESENT: PERRLA Respiratory exam: PRESENT: clear to auscultation rome Cardiovascular exam: PRESENT: +S1, +S2 GI/Abdominal exam: PRESENT: soft Neurological exam: PRESENT: alert Results Laboratory Results: 06/21/18 05:46 06/21/18 17:50 06/21/18 17:50 Creatinine 0.45 L Est GFR ( Amer) > 60 Est GFR (Non-Af Amer) > 60 06/20/18 05:11 Catheterized Urine Urine Culture - Final Klebsiella Pneumoniae Providencia Stuartii Group B Beta Streptococcus 06/20/18 06/20/18 01:48 01:48 Creatine Kinase 90 CK-MB (CK-2) 0.61 NT-Pro-B Natriuret Pep 487 Impressions: Chest X-Ray 06/20/18 02:01 IMPRESSION: No acute cardiopulmonary disease. copyright 2010 [employer]- All Rights Reserved Assessment & Plan - Diagnosis (1) Sepsis Qualifiers: Sepsis type: sepsis due to unspecified organism Qualified Code(s): A41.9 - Sepsis, unspecified organism Is this a current diagnosis for this admission?: Yes Plan: De-escalate antibiotic, continue Levaquin (2) Urinary tract infection Qualifiers: Urinary tract infection type: acute cystitis Hematuria presence: without hematuria Qualified Code(s): N30.00 - Acute cystitis without hematuria Is this a current diagnosis for this admission?: Yes (3) Multiple sclerosis Is this a current diagnosis for this admission?: Yes (4) Diabetes mellitus type 2 in obese Is this a current diagnosis for this admission?: Yes
[2018-06-23] MEDS: LANSOPRAZOLE 30 MG TAB.RAP.DR PO SCH (05:10)
[2018-06-23] MEDS: NORMAL SALINE 1000 ML 1,000 ML IV PRN ×2 (09:31→20:42)
[2018-06-23] MEDS: ENOXAPARIN SODIUM INJ 40 MG/0.4 ML DISP.SYRIN SUBCUT SCH (09:34)
[2018-06-23] MEDS: LEVOFLOXACIN 500 MG/D5W RTU 500 MG/100 ML RTUPB IV SCH (13:09)
[2018-06-23] MEDS: ACETAMINOPHEN 325 MG TABLET PO PRN (13:09)
--- NOTE | 2018-06-23 16:30 | PDOC PROGRESS REPORT ---
Subjective Progress Note for:: 06/23/18 Subjective:: Patient seen by the bedside there is no new complaints Reason For Visit: SEPSIS,POSSIBLE UTI Physical Exam Vital Signs: Temp Pulse Resp BP Pulse Ox 97.8 F 93 18 122/69 100 06/23/18 15:29 06/23/18 15:29 06/23/18 15:29 06/23/18 15:29 06/23/18 15:29 Intake & Output 06/22/18 06/23/18 06/24/18 06:59 06:59 06:59 Intake Total 2725 2338 1087 Output Total 1225 1525 200 Balance 1500 813 887 Weight 104 kg 103.1 kg General appearance: PRESENT: no acute distress Eye exam: PRESENT: PERRLA Respiratory exam: PRESENT: clear to auscultation rome Cardiovascular exam: PRESENT: +S1, +S2 GI/Abdominal exam: PRESENT: soft Results Laboratory Results: 06/21/18 05:46 06/21/18 17:50 06/20/18 06/20/18 01:48 01:48 Creatine Kinase 90 CK-MB (CK-2) 0.61 NT-Pro-B Natriuret Pep 487 Impressions: Chest X-Ray 06/20/18 02:01 IMPRESSION: No acute cardiopulmonary disease. copyright 2011 [employer]- All Rights Reserved Assessment & Plan - Diagnosis (1) Sepsis Qualifiers: Sepsis type: sepsis due to unspecified organism Qualified Code(s): A41.9 - Sepsis, unspecified organism Is this a current diagnosis for this admission?: Yes Plan: De-escalate antibiotic, continue Levaquin (2) Urinary tract infection Qualifiers: Urinary tract infection type: acute cystitis Hematuria presence: without hematuria Qualified Code(s): N30.00 - Acute cystitis without hematuria Is this a current diagnosis for this admission?: Yes (3) Multiple sclerosis Is this a current diagnosis for this admission?: Yes (4) Diabetes mellitus type 2 in obese Is this a current diagnosis for this admission?: Yes
[2018-06-24] MEDS: NORMAL SALINE 1000 ML 1,000 ML IV PRN ×2 (06:05→15:58)
[2018-06-24] MEDS: LANSOPRAZOLE 30 MG TAB.RAP.DR PO SCH (06:05)
--- NOTE | 2018-06-24 07:24 | PDOC PROGRESS REPORT ---
Subjective Progress Note for:: 06/24/18 Subjective:: Patient denied any fever or chills. No abdominal pain, nausea or vomiting. Tolerating oral feeding. No chest pain or difficulty with breathing. Remain on IV Levofloxacin coverage. Reason For Visit: SEPSIS,POSSIBLE UTI Physical Exam Vital Signs: Temp Pulse Resp BP Pulse Ox 97.9 F 81 20 135/72 H 99 06/24/18 05:25 06/24/18 05:25 06/24/18 05:25 06/24/18 05:25 06/24/18 05:25 Intake & Output 06/23/18 06/24/18 06/25/18 06:59 06:59 06:59 Intake Total 2338 3705 Output Total 1525 2000 Balance 813 1705 Weight 103.1 kg 108.4 kg Physical Exam: General appearance: PRESENT: no acute distress, obese Head exam: PRESENT: atraumatic, normocephalic Eye exam: PRESENT: conjunctiva pink, EOMI, PERRLA. ABSENT: pallor, scleral icterus Ear exam: PRESENT: normal external ear exam Mouth exam: PRESENT: moist Respiratory exam: PRESENT: clear to auscultation rome, decreased breath sounds - at lung bases Cardiovascular exam: PRESENT: RRR. ABSENT: diastolic murmur, rubs, systolic murmur GI/Abdominal exam: PRESENT: normal bowel sounds, soft. ABSENT: distended, guarding, mass, organomegaly, rebound, tenderness Genitourinary exam: PRESENT: indwelling catheter Extremities exam: PRESENT: other - brace in use for upper extremity. ABSENT: pedal edema Musculoskeletal exam: PRESENT: deformity - related to spastic component of her multiple sclerosis Neurological exam: PRESENT: alert, awake, oriented to person, oriented to place, oriented to time, oriented to situation, CN II-XII grossly intact. ABSENT: motor sensory deficit Psychiatric exam: PRESENT: appropriate affect, normal mood. ABSENT: homicidal ideation, suicidal ideation Skin exam: PRESENT: dry, rash - in beneath breast tissue and groin regions, warm Results Laboratory Results: 06/21/18 05:46 06/21/18 17:50 06/20/18 06/20/18 01:48 01:48 Creatine Kinase 90 CK-MB (CK-2) 0.61 NT-Pro-B Natriuret Pep 487 Impressions: Chest X-Ray 06/20/18 02:01 IMPRESSION: No acute cardiopulmonary disease. copyright 2010 [employer]- All Rights Reserved Assessment & Plan - Diagnosis (1) SIRS due to infectious process without acute organ dysfunction Is this a current diagnosis for this admission?: Yes (2) Urinary tract infection Qualifiers: Urinary tract infection type: acute cystitis Hematuria presence: without hematuria Qualified Code(s): N30.00 - Acute cystitis without hematuria Is this a current diagnosis for this admission?: Yes (3) Diabetes mellitus type 2 in nonobese Is this a current diagnosis for this admission?: Yes (4) Hypothyroidism Qualifiers: Hypothyroidism type: unspecified Qualified Code(s): E03.9 - Hypothyroidism, unspecified Is this a current diagnosis for this admission?: Yes (5) Vitamin D deficiency Is this a current diagnosis for this admission?: Yes (6) Multiple sclerosis, primary chronic progressive Is this a current diagnosis for this admission?: Yes - Time Time Spent with patient: 25-34 minutes Medications reviewed and adjusted accordingly: Yes Anticipated discharge: Home with Homehealth Within: Other - Inpatient Certification Based on my medical assessment, after consideration of the patient's comorbidities, presenting symptoms, or acuity I expect that the services needed warrant INPATIENT care.: Yes I certify that my determination is in accordance with my understanding of Medicare's requirements for reasonable and necessary INPATIENT services [42 CFR 412.3e].: Yes Medical Necessity: Need Close Monitoring Due to Risk of Patient Decompensation, Need For IV Fluids, Need For Continuous Telemetry Monitoring, Need for IV Antibiotics, Risk of Complication if Not Cared For in Hospital Post Hospital Care: D/C Travel Occupational Therapist Documentation - Plan Summary Plan Summary: D/C IV Levofloxacin. Start on Levofloxacin 500mg p.o daily. Maintain on all other current medication management.
[2018-06-24] MEDS: ENOXAPARIN SODIUM INJ 40 MG/0.4 ML DISP.SYRIN SUBCUT SCH (09:57)
[2018-06-24] MEDS: LEVOFLOXACIN 500 MG TABLET PO SCH (09:57)
[2018-06-24] MEDS: ACETAMINOPHEN 325 MG TABLET PO PRN (15:57)
[2018-06-25] MEDS: NORMAL SALINE 1000 ML 1,000 ML IV PRN (02:08)
[2018-06-25] MEDS: LANSOPRAZOLE 30 MG TAB.RAP.DR PO SCH (05:20)
--- NOTE | 2018-06-25 07:42 | PDOC DISCHARGE SUMMARY ---
General - Admit/Disc Date/PCP Admission Date/Primary Care Provider: 06/20/18 05:52 QUINN MARCANO Discharge Date: 06/25/18 - Discharge Diagnosis (1) SIRS due to infectious process without acute organ dysfunction Is this a current diagnosis for this admission?: Yes (2) Urinary tract infection Is this a current diagnosis for this admission?: Yes (3) Diabetes mellitus type 2 in nonobese Is this a current diagnosis for this admission?: Yes (4) Hypothyroidism Is this a current diagnosis for this admission?: Yes (5) Vitamin D deficiency Is this a current diagnosis for this admission?: Yes (6) Multiple sclerosis, primary chronic progressive Is this a current diagnosis for this admission?: Yes - Additional Information Resuscitation Status: Full Code Discharge Diet: As Tolerated Discharge Activity: Activity As Tolerated Prescriptions: Levofloxacin [Levaquin 500 mg Tablet] 500 mg PO DAILY #5 tablet Nystatin [Mycostatin Topical Powder 15 gm] 1 applic TP TIDP PRN #1 bottle PRN Reason: Home Medications: Acetaminophen [Tylenol Extra Strength 500 mg Tablet] 1,000 mg PO Q6 06/20/18 Baclofen [Baclofen 10 mg Tablet] 10 mg PO TID 06/20/18 Modafinil [Provigil] 200 mg PO DAILY 06/20/18 Levofloxacin [Levaquin 500 mg Tablet] 500 mg PO DAILY #5 tablet 06/25/18 Nystatin [Mycostatin Topical Powder 15 gm] 1 applic TP TIDP PRN #1 bottle 06/25/18 History of Present Illness Patient complains of: Worsening difficulty with breathing, Generalized weakness History of Present Illness: INO SALDIVAR is a 52 year old female known to my practice but not compliant with follow up in the office presented to the ED with family complaining about worsening difficulty with breathing, generalized weakness and at the time of my evaluation associated malodor to her urine for couple of days. She reported episodes of fever, chills, nausea, poor appetite and oral intake. She reported chest and sinus congestion, associated coughing with expectoration difficulty. No headache or facial pain. She denied any flank pain or definite pain with urination. She denied any blood in her urine. Her initial evaluation in the ED was significant for tachycardia, tachypnea, minimal verbal response and de monstrated alteration in her mental alertness. There was concern for possible sepsis due to associated low blood pressure and fever. Her laboratory evaluation with catheterized urine was suggestive of urinary tract infection with elevated BUN. Her morbidities include Multiple sclerosis with fatigue and malaise, Diabetes Mellitus type 2, Hypothyroidism, vitamin D deficiency, chronic constipation, Anemia, Allergic rhinitis, and morbid obesity. She was advised hospitalization for further evaluation and management. Hospital Course Hospital Course: She was admitted to [facility] and managed with fluid resuscitation and IV antibiotic therapy including Vancomycin, Cefepime and Levofloxacin in view of her presentation and concern for sepsis with septic shock. Her blood culture was no growth after 5 days. Her urine culture did grew significantly Klebsiella Pneum oniae and Providencia Stuartii both sensitive to Levofloxacin. Her other antibiotic coverage were discontinued. She was eventually transition to oral Levofloxacin. She remain afebrile and her clinical vitals stable in last 24 hours. She will be discharged home today with home health services. She will follow up in the office as instructed upon discharge. Physical Exam Vital Signs: Temp Pulse Resp BP Pulse Ox 97.2 F 79 20 132/76 H 94 06/25/18 02:52 06/25/18 07:00 06/25/18 02:52 06/25/18 02:52 06/25/18 02:52 Intake & Output 06/24/18 06/25/18 06/26/18 06:59 06:59 06:59 Intake Total 3705 2224 Output Total 2000 1550 Balance 1705 674 Weight 108.4 kg 106.9 kg Physical Exam: General appearance: PRESENT: no acute distress, obese Head exam: PRESENT: atraumatic, normocephalic Eye exam: PRESENT: conjunctiva pink, EOMI, PERRLA. ABSENT: pallor, scleral icterus Ear exam: PRESENT: normal external ear exam Mouth exam: PRESENT: moist Respiratory exam: PRESENT: clear to auscultation rome, decreased breath sounds - at lung bases Cardiovascular exam: PRESENT: RRR. ABSENT: diastolic murmur, rubs, systolic murmur GI/Abdominal exam: PRESENT: normal bowel sounds, soft. ABSENT: distended, guarding, mass, organomegaly, rebound, tenderness Genitourinary exam: PRESENT: indwelling catheter Extremities exam: PRESENT: other - brace in use for upper extremity. ABSENT: pedal edema Musculoskeletal exam: PRESENT: deformity - related to spastic component of her multiple sclerosis Neurological exam: PRESENT: alert, awake, oriented to person, oriented to place, oriented to time, oriented to situation, CN II-XII grossly intact. ABSENT: motor sensory deficit Psychiatric exam: PRESENT: appropriate affect, normal mood. ABSENT: homicidal ideation, suicidal ideation Skin exam: PRESENT: dry, warm, improving rash - beneath breast tissue and groin regions. Results Laboratory Results: 06/21/18 05:46 06/21/18 17:50 06/20/18 02:44 Blood Blood Culture - Final NO GROWTH IN 5 DAYS 06/20/18 01:48 Blood Blood Culture - Final NO GROWTH IN 5 DAYS 06/20/18 06/20/18 01:48 01:48 Creatine Kinase 90 CK-MB (CK-2) 0.61 NT-Pro-B Natriuret Pep 487 Impressions: Chest X-Ray 06/20/18 02:01 IMPRESSION: No acute cardiopulmonary disease. copyright 2010 [employer]- All Rights Reserved Qualifiers - * PATIENT BEING DISCHARGED WITH ANY OF THE FOLLOWING DIAGNOSIS: No Plan Discharge Plan: She will be discharged home today with home health services and follow up in the office as instructed.
[2018-06-25] MEDS: LEVOFLOXACIN 500 MG TABLET PO SCH (09:07)
[2018-06-25] MEDS: ACETAMINOPHEN 325 MG TABLET PO PRN (09:07)
[2018-06-25] MEDS: ENOXAPARIN SODIUM INJ 40 MG/0.4 ML DISP.SYRIN SUBCUT SCH (09:09)
[2018-06-25] MEDS ORDERED: INSULIN LISPRO 100 UNIT/ML 3 ML VIAL SUBCUT SCH (11:00)
[2018-06-25] MEDS: DEXTROSE 40% GEL 15 GM TUBE PO PRN (11:26)
[2018-06-25 13:58] VITALS: BP 135/72
== END 2018-06-25 14:20 | disposition home health service (06) | DRG 690 ==
LOC: ER 01:09 → EH 05:52 → 3S 16:46
PROVIDERS: ADMIT Internal Medicine Geriatric Medicine; ATTEND Internal Medicine Geriatric Medicine
DX: N30.00 Acute cystitis without hematuria (principal); E11.9 Type 2 diabetes mellitus without complications; E03.9 Hypothyroidism, unspecified; E55.9 Vitamin D deficiency, unspecified; G35 Multiple sclerosis; K59.09 Other constipation; D64.9 Anemia, unspecified; J30.9 Allergic rhinitis, unspecified; E66.01 Morbid (severe) obesity due to excess calories; B96.1 Klebsiella pneumoniae [K. pneumoniae] as the cause of diseases classified elsewhere; G47.10 Hypersomnia, unspecified; L21.9 Seborrheic dermatitis, unspecified; B95.1 Streptococcus, group B, as the cause of diseases classified elsewhere; Z91.19 Patient's noncompliance with other medical treatment and regimen; Z86.711 Personal history of pulmonary embolism; Z90.49 Acquired absence of other specified parts of digestive tract; Z79.899 Other long term (current) drug therapy; Z88.2 Allergy status to sulfonamides; Z91.040 Latex allergy status; Z88.8 Allergy status to other drugs, medicaments and biological substances; Z91.030 Bee allergy status; Z79.82 Long term (current) use of aspirin; Z82.61 Family history of arthritis; Z82.49 Family history of ischemic heart disease and other diseases of the circulatory system; Z80.9 Family history of malignant neoplasm, unspecified; Z83.3 Family history of diabetes mellitus; Z83.2 Family history of diseases of the blood and blood-forming organs and certain disorders involving the immune mechanism
CPT/HCPCS: 36415; 71045; 80048; 80053; 80202; 81001; 82550; 82553; 82565; 82803; 82962; 83605; 83880; 85025; 87040; 87086; 87088; 87186; 93005; 93010; 99285; J0692; J1650; J1956; J3370; J3490; J7030; J7060

== ENCOUNTER 2019-03-23 15:48 | Inpatient (IN) | payer MEDICARE, MEDICAID ==
[2019-03-23] MEDS ORDERED: MORPHINE SULFATE 10 MG/ML INJ IV ONE (16:14)
[2019-03-23] MEDS ORDERED: RINGERS SOLUTION,LACTATED 1,000 ML IV PRN (16:18)
[2019-03-23] MEDS ORDERED: CEFTRIAXONE 1 GM/D5W RTU 1 GM/50 ML RTUPB IV SCH (16:30)
[2019-03-23 16:44] LABS: ABSOLUTE BASOPHILS # (AUTO) 0.1 10^3/uL (0.0-0.2); ABSOLUTE EOSINOPHILS # (AUTO) 0.1 10^3/uL (0.0-0.6); ABSOLUTE MONOCYTES (AUTO) 0.7 10^3/uL (0.1-1.4); ABSOLUTE NEUT (AUTO) 13.5 10^3/uL (1.7-8.2); BASOPHILS % (AUTO) 0.4 % (0-2); EOSINOPHILS % (AUTO) 0.4 % (0-6); HEMATOCRIT 40.3 % (36.0-47.0); HEMOGLOBIN 13.1 g/dL (12.0-15.5); LYMPHOCYTES % (AUTO) 6.5 % (13-45); MEAN CORPUSCULAR HEMOGLOBIN 26.6 pg (27.0-33.4); MEAN CORPUSCULAR HGB CONC 32.6 g/dL (32.0-36.0); MEAN CORPUSCULAR VOLUME 82 fl (80-97); MONOCYTES % (AUTO) 4.6 % (3-13); PLATELET COUNT 308 10^3/uL (150-450); RED BLOOD COUNT 4.93 10^6/uL (3.72-5.28); RED CELL DISTRIBUTION WIDTH 14.1 % (11.5-14.0); SEGMENTED NEUTROPHILS % (AUTO) 88.1 % (42-78); TOTAL CELLS COUNTED % (AUTO) 100 %; WHITE BLOOD COUNT 15.3 10^3/uL (4.0-10.5)
--- NOTE | 2019-03-23 16:48 | ER Document Report ---
ED General - General Chief Complaint: Urinary Problem Stated Complaint: FEVER Time Seen by Provider: 03/23/19 16:18 Primary Care Provider: QUINN MARCANO MD [Primary Care Provider] - Follow up as needed Notes: HPI: Patient is a 53-year-old female with a past medical history of severe MS who presents secondary to some pain with urination around 3 days ago. Patient did not see a doctor. Temperature of 101 today. She denies any headache, runny nose, congestion, sore throat, cough, vomiting, or diarrhea. She denies any chest or abdominal pain. Patient is bedbound. She is cared for by her son. She does see a local primary care physician here. ROS: See HPI All other review of systems reviewed and otherwise negative Reviewed vital signs and nursing note as charted by RN. PHYSICAL EXAM: CONSTITUTIONAL: Alert and oriented. Patient is able to answer questions appropriately HEAD: Normocephalic; atraumatic EYES: PERRL; Conjunctivae clear, sclerae non-icteric ENT: Normal nose; no rhinorrhea; moist mucous membranes; pharynx without lesions noted NECK: Supple without meningismus; non-tender; no cervical lymphadenopathy, no masses CARD: Tachycardic and regular; no murmurs; symmetric distal pulses RESP: Normal chest excursion without splinting or tachypnea; breath sounds clear and equal bilaterally; no wheezes, no rhonchi, no rales ABD/GI: Normal bowel sounds; very elevated BMI; soft, non-tender; no palpable organomegaly or masses BACK: Patient was rolled showing minimal breakdown of the right lower lateral back with no fluctuance or induration EXT: Normal ROM in all joints; non-tender to palpation; no edema SKIN: Scaling, crusting skin to multiple sites NEURO: CN 2-12 intact; patient has very minimal movement of upperand lower extremities with bilateral wrist braces in place PSYCH: The patient's mood and manner are appropriate. Grooming and personal hygiene are appropriate. TRAVEL OUTSIDE OF THE [place] IN LAST 30 DAYS: No - Related Data Allergies/Adverse Reactions: latex [Latex] Allergy (Intermediate, Verified 06/20/18 14:06) RASH/BLISTER Sulfa (Sulfonamide Antibiotics) Allergy (Intermediate, Verified 06/20/18 14:06) RASH/HIVES Past Medical History - Social History Smoking Status: Unknown if Ever Smoked Family History: None, Reviewed & Not Pertinent Patient has suicidal ideation: No Patient has homicidal ideation: No - Past Medical History Cardiac Medical History: Reports: Hx Pulmonary Embolism - 2 years ago Denies: Hx Atrial Fibrillation, Hx Congestive Heart Failure, Hx Heart Attack, Hx Hypercholesterolemia, Hx Hypertension Pulmonary Medical History: Denies: Hx Asthma, Hx Bronchitis, Hx COPD, Hx Pneumonia, Hx Respiratory Failure, Hx Sleep Apnea, Hx Tuberculosis Neurological Medical History: Denies: Hx Cerebrovascular Accident, Hx Migraine, Hx Seizures, Hx Parkinson's Disease Endocrine Medical History: Reports: Hx Diabetes Mellitus Type 2, Hx Hypothyroidism. Denies: Hx Diabetes Mellitus Type 1 Renal/ Medical History: Denies: Hx End Stage Renal Disease, Hx Kidney Stones, Hx Peritoneal Dialysis Malignancy Medical History: Denies: Hx Leukemia, Hx Lung Cancer GI Medical History: Denies: Hx Gastroesophageal Reflux Disease, Hx Hiatal Hernia, Hx Ulcer Musculoskeletal Medical History: Denies Hx Arthritis, Reports Hx Multiple Sclerosis Psychiatric Medical History: Denies: Hx Attention Deficit Hyperactivity Disorder, Hx Bipolar Disorder, Hx Dementia, Hx Depression, Hx Schizophrenia Infectious Medical History: Denies: Hx HIV Past Surgical History: Reports: Hx Section - x2, Hx Cholecystectomy. Denies: Hx Appendectomy, Hx Bowel Surgery, Hx Coronary Artery Bypass Graft, Hx Gastric Bypass Surgery, Hx Herniorrhaphy, Hx Hysterectomy, Hx Mastectomy, Hx Pacemaker, Hx Tonsillectomy, Hx Tubal Ligation - Immunizations Immunizations up to date: Yes Hx Diphtheria, Pertussis, Tetanus Vaccination: Yes Physical Exam - Vital signs Vitals: Resp 17 03/23/19 16:07 Course - Re-evaluation Re-evalutation: Given the above history and physical, with possible source, we will order the sepsis protocol and provide lactated Ringer solution and Rocephin. 03/23/19 16:47 EKG shows a heart rate of 125, sinus tachycardia, left axis deviation, poor R wave progression, no ST elevation or depression. Flattening T waves in leads I, aVL, and laterally 03/23/19 18:33 Lactic acid and chemistry as recorded. Obvious urinary tract infection. Heart rate is currently 103. Lactic acid is recorded. Rocephin has been provided. Patient will be admitted to the [facility] for further assessment and treatment. - Vital Signs Vital signs: Temp Pulse Resp BP Pulse Ox 99.6 F 18 136/57 H 97 03/23/19 16:29 03/23/19 17:00 03/23/19 16:46 03/23/19 17:00 - Laboratory Result Diagrams: 03/23/19 16:14 03/23/19 17:20 Laboratory results interpreted by me: 03/23/19 03/23/19 03/23/19 16:14 16:30 16:41 WBC 15.3 H MCH 26.6 L RDW 14.1 H Lymph % (Auto) 6.5 L Absolute Neuts (auto) 13.5 H Seg Neutrophils % 88.1 H Chloride Carbon Dioxide Glucose POC Glucose 148 H Urine Protein 100 H Urine Ketones TRACE H Urine Blood MODERATE H Urine Nitrite (Reflex) POSITIVE H Urine Urobilinogen 4.0 H Leukocyte Esterase Rfl LARGE H 03/23/19 17:20 WBC MCH RDW Lymph % (Auto) Absolute Neuts (auto) Seg Neutrophils % Chloride 110 H Carbon Dioxide 21 L Glucose 174 H POC Glucose Urine Protein Urine Ketones Urine Blood Urine Nitrite (Reflex) Urine Urobilinogen Leukocyte Esterase Rfl Critical Care Note - Critical Care Note Total time excluding time spent on procedures (mins): 45 Discharge - Discharge Clinical Impression: Multiple sclerosis UTI (urinary tract infection) Qualifiers: Urinary tract infection type: site unspecified Hematuria presence: without hematuria Qualified Code(s): N39.0 - Urinary tract infection, site not specified Condition: Fair Disposition: ADMITTED INPATIENT Admitting Provider: Angie Unit Admitted: I[facility]U Referrals: QUINN MARCANO MD [Primary Care Provider] - Follow up as needed
[2019-03-23] MEDS ORDERED: RINGERS SOLUTION,LACTATED 1,000 ML IV ONE (16:55)
[2019-03-23] MEDS ORDERED: KETOROLAC TROMETHAMINE INJ/PF 30 MG/1 ML SDV IV ONE (16:56)
[2019-03-23 17:03] LABS: APPEARANCE,URINE CLOUDY; BILIRUBIN,URINE NEGATIVE (NEGATIVE); COLOR,URINE AMBER; GLUCOSE, URINE NEGATIVE (NEGATIVE); KETONES,URINE TRACE mg/dL (NEGATIVE); PROTEIN,URINE 100 mg/dL (NEGATIVE); URINE SPECIFIC GRAVITY 1.016
--- NOTE | 2019-03-23 17:05 | RADIOLOGY REPORT (SQ) ---
EXAM DESCRIPTION: CHEST SINGLE VIEW COMPLETED DATE/TIME: 03/23/2019 4:48 pm REASON FOR STUDY: 11; fever COMPARISON: 06/20/2018. EXAM PARAMETERS: NUMBER OF VIEWS: One view. TECHNIQUE: Single frontal radiographic view of the chest acquired. RADIATION DOSE: NA LIMITATIONS: None. FINDINGS: LUNGS AND PLEURA: No acute infiltrates or effusions. MEDIASTINUM AND HILAR STRUCTURES: No masses. Contour normal. HEART AND VASCULAR STRUCTURES: The heart is normal. The pulmonary vasculature is normal. . BONES: No acute findings. HARDWARE: None in the chest. OTHER: No other significant finding. IMPRESSION: NO ACUTE DISEASE. TECHNICAL DOCUMENTATION: JOB ID: [id number] 2010 [employer]- All Rights Reserved Reading location - IP/workstation name: [email or web address]
[2019-03-23 18:02] LABS: ALBUMIN 3.6 g/dL (3.5-5.0); ALKALINE PHOSPHATASE 121 U/L (38-126); ANION GAP 12 (5-19); ASPARTATE AMINO TRANSFERASE 25 U/L (14-36); BILIRUBIN,DIRECT 0.3 mg/dL (0.0-0.4); BILIRUBIN,TOTAL 0.8 mg/dL (0.2-1.3); BLOOD UREA NITROGEN 13 mg/dL (7-20); CALCIUM 9.8 mg/dL (8.4-10.2); CARBON DIOXIDE 21 mmol/L (22-30); CHLORIDE 110 mmol/L (98-107); GLUCOSE 174 mg/dL (75-110); TOTAL PROTEIN 7.2 g/dL (6.3-8.2)
[2019-03-23] MEDS ORDERED: ACETAMINOPHEN 325 MG TABLET PO PRN (18:52)
[2019-03-23] MEDS ORDERED: ONDANSETRON HCL INJ/PF 4 MG/2 ML SDV IV PRN (18:52)
[2019-03-23] MEDS ORDERED: NORMAL SALINE 1000 ML 1,000 ML IV ONE (18:55)
[2019-03-23] MEDS ORDERED: FENTANYL CITRATE INJ/PF 100 MCG/2 ML AMPUL IV ONE (18:55)
[2019-03-23 20:13] LABS: INTERNATIONAL RATION (INR) 1.04; PROTHROMBIN TIME 13.6 SEC (11.4-15.4)
--- NOTE | 2019-03-23 22:54 | EKG REPORT ---
SEVERITY:- BORDERLINE ECG - SINUS TACHYCARDIA LEFT AXIS DEVIATION CONSIDER ANTERIOR INFARCT : Confirmed by: Andree Hughes MD 23-Mar-2019 22:53:43
[2019-03-24] MEDS ORDERED: DEXTROSE 40% GEL 15 GM TUBE PO PRN ×2 (08:26)
[2019-03-24] MEDS ORDERED: DEXTROSE 50%-WATER 25 GM/50 ML DISP.SYRIN IV PRN ×2 (08:26)
[2019-03-24] MEDS ORDERED: GLUCAGON,HUMAN RECOMB 1 MG INJ IM PRN (08:26)
[2019-03-24] MEDS: INSULIN LISPRO 100 UNIT/ML 3 ML VIAL SUBCUT SCH ×3 (12:12→21:21)
[2019-03-24] MEDS: CEFTRIAXONE 1 GM/D5W RTU 1 GM/50 ML RTUPB IV SCH (17:23)
[2019-03-24] MEDS ORDERED: ACETAMINOPHEN 325 MG TABLET PO PRN (20:00)
--- NOTE | 2019-03-25 00:11 | PDOC H&P ---
History of Present Illness Admission Date/PCP: 03/23/19 18:37 QUINN MARCANO History of Present Illness: INO SALDIVAR is a 53 year old female known to my practice presented to the ED with family, daughter, reported change in mentation, dysuria, poor oral intake, dissociation in her gaze and episode of fever. Son at bedside concurred with reported symptoms for couple of days and patient usually present such symptoms with episodes of urinary tract infection. Patient has history of progressive multiple sclerosis and currently bedbound. Son remain primary caregiver at home. Her initial evaluation ion the Ed was significant for abnormal urinalysis with leukocytosis suggestive of urinary tract infection. She was advised hospitalization for further evaluation and management. Her morbidities are as listed below. Past Medical History Cardiac Medical History: Reports: Pulmonary Embolism - 2 years ago Denies: Atrial Fibrillation, Congestive Heart Failure, Myocardial Infarction, Hyperlipidema, Hypertension Pulmonary Medical History: Denies: Asthma, Bronchitis, Chronic Obstructive Pulmonary Disease (COPD), Pne [place], Respiratory Failure, Sleep Apnea, Tuberculosis Neurological Medical History: Reports: Multiple Sclerosis Denies: Migraine, Seizures Endocrine Medical History: Reports: Diabetes Mellitus Type 2, Hypothyroidism Denies: Diabetes Mellitus Type 1 Renal/ Medical History: Denies: End Stage Renal Disease Malignancy Medical History: Denies: Leukemia, Lung Cancer GI Medical History: Denies: Gastroesophageal Reflux Disease, Hiatal Hernia Musculoskeltal Medical History: Denies: Arthritis Psychiatric Medical History: Denies: Attention Deficit Hyperactivity Disorder, Bipolar Disorder, Dementia, Depression Hematology: Reports: Anemia Denies: Hemophilia, Sickle Cell Disease Infectious Medical History: Denies: HIV Past Surgical History Past Surgical History: Reports: Section - x2, Cholecystectomy Denies: Appendectomy, Coronary Artery Bypass Graft, Gastric Bypass Surgery, Herniorrhaphy, Hysterectomy, Mastectomy, Pacemaker, Tonsillectomy, Tubal Ligation Social History Smoking Status: Never Smoker Electronic Cigarette use?: No Frequency of Alcohol Use: None Hx Recreational Drug Use: No Drugs: None Hx Prescription Drug Abuse: No - Advance Directive Resuscitation Status: Full Code Family History Family History: None, Reviewed & Not Pertinent Parental Family History Reviewed: Yes Children Family History Reviewed: Yes Sibling(s) Family History Reviewed.: Yes Medication/Allergy Home Medications: Acetaminophen [Tylenol Extra Strength 500 mg Tablet] 1,000 mg PO Q6HP PRN 03/24/19 Baclofen [Baclofen 10 mg Tablet] 10 mg PO TIDP PRN 03/24/19 Multivitamin [Multiple Vitamins] 1 tab PO DAILY 03/24/19 Allergies/Adverse Reactions: latex [Latex] Allergy (Intermediate, Verified 06/20/18 14:06) RASH/BLISTER Sulfa (Sulfonamide Antibiotics) Allergy (Intermediate, Verified 06/20/18 14:06) RASH/HIVES Review of Systems All systems: reviewed and no additional remarkable complaints except as stated Physical Exam Vital Signs: Temp Pulse Resp BP Pulse Ox 97.4 F 90 20 121/60 100 03/24/19 03:20 03/24/19 07:00 03/24/19 03:20 03/24/19 03:20 03/24/19 03:20 Intake & Output 03/23/19 03/24/19 03/25/19 06:59 06:59 06:59 Intake Total 3300 Output Total 200 Balance 3100 Weight 83.5 kg General appearance: PRESENT: no acute distress Head exam: PRESENT: atraumatic, normocephalic Eye exam: PRESENT: conjunctiva pink, EOMI, PERRLA. ABSENT: scleral icterus Mouth exam: PRESENT: moist Respiratory exam: PRESENT: clear to auscultation rome, decreased breath sounds - at lung bases Cardiovascular exam: PRESENT: RRR. ABSENT: diastolic murmur, rubs, systolic murmur Vascular exam: ABSENT: pallor GI/Abdominal exam: PRESENT: normal bowel sounds, soft. ABSENT: distended, guarding, mass, organolmegaly, rebound, tenderness Gentrourinary exam: PRESENT: indwelling catheter Musculoskeletal exam: PRESENT: deformity - contractire deformity involving fingers and wrist joints Neurological exam: PRESENT: alert, awake, oriented to person, oriented to place, oriented to time, oriented to situation, abnormal gait - due to multiple sclerosis, other. ABSENT: normal gait - bedbound Skin exam: PRESENT: dry, warm, other - multiple areas of scaling on extremities, pressure ulcer on upper region Results Laboratory Results: 03/23/19 16:14 03/23/19 17:20 03/23/19 03/23/19 03/23/19 16:14 16:14 16:14 WBC 15.3 H RBC 4.93 Hgb 13.1 Hct 40.3 MCV 82 MCH 26.6 L MCHC 32.6 RDW 14.1 H Plt Count 308 Seg Neutrophils % 88.1 H Sodium Cancelled Potassium Cancelled Chloride Cancelled Carbon Dioxide Cancelled Anion Gap Cancelled BUN Cancelled Creatinine Cancelled Est GFR ( Amer) Cancelled Est GFR (Non-Af Amer) Cancelled Glucose Cancelled Lactic Acid 1.0 Calcium Cancelled Total Bilirubin Cancelled AST Cancelled Alkaline Phosphatase Cancelled Total Protein Cancelled Albumin Cancelled Urine Color Urine Appearance Urine pH Ur Specific [place] Urine Protein Urine Glucose (UA) Urine Ketones Urine Blood Urine RBC (Auto) 03/23/19 03/23/19 16:30 17:20 WBC RBC Hgb Hct MCV MCH MCHC RDW Plt Count Seg Neutrophils % Sodium 143.0 Potassium 4.0 Chloride 110 H Carbon Dioxide 21 L Anion Gap 12 BUN 13 Creatinine 0.55 Est GFR ( Amer) > 60 Est GFR (Non-Af Amer) Glucose 174 H Lactic Acid Calcium 9.8 Total Bilirubin 0.8 AST 25 Alkaline Phosphatase 121 Total Protein 7.2 Albumin 3.6 Urine Color ASH Urine Appearance CLOUDY Urine pH 7.0 Ur Specific [place] 1.016 Urine Protein 100 H Urine Glucose (UA) NEGATIVE Urine Ketones TRACE H Urine Blood MODERATE H Urine RBC (Auto) >182 Impressions: Chest X-Ray 03/23/19 16:18 IMPRESSION: NO ACUTE DISEASE. Assessment & Plan - Diagnosis (1) Urinary tract infection Qualifiers: Urinary tract infection type: site unspecified Hematuria presence: without hematuria Qualified Code(s): N39.0 - Urinary tract infection, site not specified Is this a current diagnosis for this admission?: Yes Plan: See admitting attending physician orders for details about care plan. (2) Diabetes mellitus type 2 in nonobese Is this a current diagnosis for this admission?: Yes Plan: See admitting attending physician orders for details about care plan. (3) Hypothyroidism Qualifiers: Hypothyroidism type: unspecified Qualified Code(s): E03.9 - Hypothyroidism, unspecified Is this a current diagnosis for this admission?: Yes Plan: See admitting attending physician orders for details about care plan. (4) Multiple sclerosis, primary chronic progressive Is this a current diagnosis for this admission?: Yes Plan: See admitting attending physician orders for details about care plan. - Time Time Spent: 50 to 70 Minutes Medications reviewed and adjusted accordingly: Yes Anticipated discharge: Home with Homehealth Within: Other - Inpatient Certification Based on my medical assessment, after consideration of the patient's comor bidities, presenting symptoms, or acuity I expect that the services needed warrant INPATIENT care.: Yes I certify that my determination is in accordance with my understanding of Medicare's requirements for reasonable and necessary INPATIENT services [42 CFR 412.3e].: Yes Medical Necessity: Significant Comorbidiites Make Outpatient Treatment Too Risky, Need Close Monitoring Due to Risk of Patient Decompensation, Need For IV Fluids, Need For Continuous Telemetry Monitoring, Need for IV Antibiotics, Risk of Complication if Not Cared For in Hospital, Risk of Diagnosis Which Will Require Inpatient Eval/Care/Monitoring 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
[2019-03-25] MEDS: INSULIN LISPRO 100 UNIT/ML 3 ML VIAL SUBCUT SCH ×4 (07:55→23:32)
[2019-03-25] MEDS: CEFTRIAXONE 1 GM/D5W RTU 1 GM/50 ML RTUPB IV SCH (18:16)
--- NOTE | 2019-03-25 19:31 | PDOC PROGRESS REPORT ---
Subjective Progress Note for:: 03/25/19 Subjective:: Patient denied any fever or chills. No nausea, vomiting or abdominal pain. No chest pain or difficulty with breathing. Remain on IV Ceftriaxone coverage Reason For Visit: UTI,MULTIPLE SCLEROSIS,DIABETES MELLITUS TYPE 2 Physical Exam Vital Signs: Temp Pulse Resp BP Pulse Ox 97.3 F 76 16 128/73 H 100 03/25/19 02:52 03/25/19 14:00 03/25/19 02:52 03/25/19 02:52 03/25/19 02:52 Intake & Output 03/24/19 03/25/19 03/26/19 06:59 06:59 06:59 Intake Total 3300 770 240 Output Total 297 967 4718 Balance 3100 395 -2660 Weight 83.5 kg 83.5 kg 83.5 kg General appearance: PRESENT: no acute distress Head exam: PRESENT: atraumatic, normocephalic Eye exam: PRESENT: conjunctiva pink. ABSENT: scleral icterus Ear exam: PRESENT: normal external ear exam Mouth exam: PRESENT: moist Respiratory exam: PRESENT: clear to auscultation [place], decreased breath sounds - at lung bases Cardiovascular exam: PRESENT: RRR. ABSENT: diastolic murmur, rubs, systolic murmur Vascular exam: ABSENT: pallor GI/Abdominal exam: PRESENT: normal bowel sounds, soft. ABSENT: distended, guarding, mass, organolmegaly, rebound, tenderness Extremities exam: ABSENT: pedal edema Neurological exam: PRESENT: alert, awake, oriented to person, oriented to place, oriented to time, oriented to situation Psychiatric exam: PRESENT: appropriate affect, normal mood. ABSENT: homicidal ideation, suicidal ideation Skin exam: PRESENT: dry, warm, other - stage 2 sacral pressure ulcer and easily bleeding abrassion wound on upper back region. Results Laboratory Results: 03/23/19 16:14 03/23/19 17:20 03/23/19 19:22 Blood Blood Culture (PCR) - Final Staphylococcus Species 03/23/19 16:30 Catheterized Urine Urine Culture - Final Escherichia Coli Proteus Mirabilis Impressions: Chest X-Ray 03/23/19 16:18 IMPRESSION: NO ACUTE DISEASE. Assessment & Plan - Diagnosis (1) Proteus mirabilis infection Is this a current diagnosis for this admission?: Yes Plan: Continue IV Ceftriaxone coverage. (2) E. coli UTI (urinary tract infection) Is this a current diagnosis for this admission?: Yes Plan: Continue IV Ceftriaxone coverage. (3) Urinary tract infection Qualifiers: Urinary tract infection type: site unspecified Hematuria presence: without hematuria Qualified Code(s): N39.0 - Urinary tract infection, site not spec ified Is this a current diagnosis for this admission?: Yes Plan: Due to E. Coli and Proteus Mirabilis as noted above. Both sensitive to Ceftria xone. (4) Diabetes mellitus type 2 in nonobese Is this a current diagnosis for this admission?: Yes Plan: Continue current medication management. (5) Hypothyroidism Qualifiers: Hypothyroidism type: unspecified Qualified Code(s): E03.9 - Hypothyroidism, unspecified Is this a current diagnosis for this admission?: Yes (6) Multiple sclerosis, primary chronic progressive Is this a current diagnosis for this admission?: Yes - Time Time Spent with patient: 25-34 minutes Medications reviewed and adjusted accordingly: Yes Anticipated discharge: Home with Homehealth Within: Other - Inpatient Certification Based on my medical assessment, after consideration of the patient's comorbidities, presenting symptoms, or acuity I expect that the services needed warrant INPATIENT care.: Yes I certify that my determination is in accordance with my understanding of Medicare's requirements for reasonable and necessary INPATIENT services [42 CFR 412.3e].: Yes Medical Necessity: Significant Comorbidiites Make Outpatient Treatment Too Risky, Need Close Monitoring Due to Risk of Patient Decompensation, Need For IV Fluids, Need For Continuous Telemetry Monitoring, Need for IV Antibiotics, Risk of Complication if Not Cared For in Hospital, Risk of Diagnosis Which Will Require Inpatient Eval/Care/Monitoring Post Hospital Care: D/C Insole Taper Documentation - Plan Summary Plan Summary: Continue current medication and wound dressing management. Patient will benefit from OPERATIONS PROJECT MANAGER services including VN, PT/OT, and aide upon discharge. She expressed need for wheelchair at home upon discharge. follow up on blood culture findings. Currently identifier as Staphylococcus species as per PCR and gram positive cocci in cluster on culture plate.
[2019-03-26] MEDS: INSULIN LISPRO 100 UNIT/ML 3 ML VIAL SUBCUT SCH ×4 (09:20→22:22)
[2019-03-26] MEDS: CEFTRIAXONE 1 GM/D5W RTU 1 GM/50 ML RTUPB IV SCH (17:44)
--- NOTE | 2019-03-26 21:39 | PDOC PROGRESS REPORT ---
Subjective Progress Note for:: 03/26/19 Subjective:: Patient denied chest pain or difficulty with breathing. Remain on IV Ceftriaxone coverage. No fever, chills, nausea, vomiting or abdominal pain. Reason For Visit: UTI,MULTIPLE SCLEROSIS,DIABETES MELLITUS TYPE 2 Physical Exam Vital Signs: Temp Pulse Resp BP Pulse Ox 97.3 F 63 16 128/73 H 100 03/25/19 02:52 03/26/19 14:00 03/25/19 02:52 03/25/19 02:52 03/25/19 02:52 Intake & Output 03/25/19 03/26/19 03/27/19 06:59 06:59 06:59 Intake Total 770 410 480 Output Total 375 2900 Balance 395 -2490 480 Weight 83.5 kg 83.5 kg Physical Exam: General appearance: PRESENT: no acute distress Head exam: PRESENT: atraumatic, normocephalic Eye exam: PRESENT: conjunctiva pink. ABSENT: pallor, scleral icterus Ear exam: PRESENT: normal external ear exam Mouth exam: PRESENT: moist Respiratory exam: PRESENT: clear to auscultation [place], decreased breath sounds - at lung bases Cardiovascular exam: PRESENT: RRR. ABSENT: diastolic murmur, rubs, systolic murmur GI/Abdominal exam: PRESENT: normal bowel sounds, soft. ABSENT: distended, guarding, mass, organomegaly, rebound, tenderness Extremities exam: ABSENT: pedal edema Neurological exam: PRESENT: alert, awake, oriented to person, oriented to place, oriented to time, oriented to situation Psychiatric exam: PRESENT: appropriate affect, normal mood. ABSENT: homicidal ideation, suicidal ideation Skin exam: PRESENT: dry, warm, other - abrasion skin open and stage 2 sacral pressure ulcer. Results Laboratory Results: 03/23/19 16:14 03/23/19 17:20 03/23/19 19:22 Blood Blood Culture (PCR) - Final Staphylococcus Species Impressions: Chest X-Ray 03/23/19 16:18 IMPRESSION: NO ACUTE DISEASE. Assessment & Plan - Diagnosis (1) Proteus mirabilis infection Is this a current diagnosis for this admission?: Yes (2) E. coli UTI (urinary tract infection) Is this a current diagnosis for this admission?: Yes (3) Urinary tract infection Qualifiers: Urinary tract infection type: site unspecified Hematuria presence: without hematuria Qualified Code(s): N39.0 - Urinary tract infection, site not specified Is this a current diagnosis for this admission?: Yes (4) Diabetes mellitus type 2 in nonobese Is this a current diagnosis for this admission?: Yes (5) Hypothyroidism Qualifiers: Hypothyroidism type: unspecified Qualified Code(s): E03.9 - Hypothyroidism, unspecified Is this a current diagnosis for this admission?: Yes (6) Multiple sclerosis, primary chronic progressive Is this a current diagnosis for this admission?: Yes - Time Time Spent with patient: 25-34 minutes Medications reviewed and adjusted accordingly: Yes Anticipated discharge: Home with Homehealth Within: Other - Inpatient Certification Based on my medical assessment, after consideration of the patient's comorbiditi es, presenting symptoms, or acuity I expect that the services needed warrant INPATIENT care.: Yes I certify that my determination is in accordance with my understanding of [facility]'s requirements for reasonable and necessary INPATIENT services [42 CFR 412.3e].: Yes Medical Necessity: Significant Comorbidiites Make Outpatient Treatment Too Risky, Need Close Monitoring Due to Risk of Patient Decompensation, Need For IV Fluids, Need For Continuous Telemetry Monitoring, Need for IV Antibiotics, Risk of Complication if Not Cared For in Hospital, Risk of Diagnosis Which Will Require Inpatient Eval/Care/Monitoring Post Hospital Care: D/C Master Craftsman Documentation - Plan Summary Plan Summary: Continue IV Ceftriaxone coverage. Follow up on blood culture findings. Obtain CBC with diff, BMP in am.
[2019-03-27] MEDS: INSULIN LISPRO 100 UNIT/ML 3 ML VIAL SUBCUT SCH ×4 (10:53→21:17)
[2019-03-27] MEDS ORDERED: BACLOFEN 10 MG TABLET PO PRN (17:38)
[2019-03-27] MEDS ORDERED: (PENDING PHARMACY ID) (Acetaminophen [Tylenol Extra Strength 500 Mg Tablet] 1,000 MG) PO PRN (17:38)
[2019-03-27] MEDS ORDERED: ACETAMINOPHEN 325 MG TABLET PO PRN (17:42)
--- NOTE | 2019-03-27 17:49 | PDOC PROGRESS REPORT ---
Subjective Progress Note for:: 03/27/19 Subjective:: Patient denied chest pain, difficulty with breathing, fever, chills, nausea, vomiting or abdominal pain. Remain on IV Rocephin coverage. Blood culture suggested resistance from Staph Epidermidis. Reason For Visit: UTI,MULTIPLE SCLEROSIS,DIABETES MELLITUS TYPE 2 Physical Exam Vital Signs: Temp Pulse Resp BP Pulse Ox 98.1 F 71 16 145/84 H 99 03/27/19 15:20 03/27/19 15:20 03/27/19 15:20 03/27/19 15:20 03/27/19 15:20 Intake & Output 03/26/19 03/27/19 03/28/19 06:59 06:59 06:59 Intake Total 410 530 Output Total 2900 700 Balance -2490 -170 Weight 83.5 kg 85.7 kg Physical Exam: General appearance: PRESENT: no acute distress Head exam: PRESENT: atraumatic, normocephalic Eye exam: PRESENT: conjunctiva pink. ABSENT: pallor, scleral icterus Ear exam: PRESENT: normal external ear exam Mouth exam: PRESENT: moist Respiratory exam: PRESENT: clear to auscultation bilaterally Cardiovascular exam: PRESENT: RRR. ABSENT: diastolic murmur, rubs, systolic murmur GI/Abdominal exam: PRESENT: normal bowel sounds, soft. ABSENT: distended, guarding, mass, organomegaly, rebound, tenderness Extremities exam: ABSENT: pedal edema Neurological exam: PRESENT: alert, awake, oriented to person, oriented to place, oriented to time, oriented to situation Psychiatric exam: PRESENT: appropriate affect, normal mood. ABSENT: homicidal ideation, suicidal ideation Skin exam: PRESENT: dry, warm, other - abrasion skin open and stage 2 sacral pressure ulcer. Results Laboratory Results: 03/23/19 16:14 03/23/19 17:20 03/23/19 19:22 Blood Blood Culture (PCR) - Final Staphylococcus Species 03/23/19 19:22 Blood Blood Culture - Final Staphylococcus Simulans Staphylococcus Epidermidis Impressions: Chest X-Ray 03/23/19 16:18 IMPRESSION: NO ACUTE DISEASE. Assessment & Plan - Diagnosis (1) Proteus mirabilis infection Is this a current diagnosis for this admission?: Yes (2) E. coli UTI (urinary tract infection) Is this a current diagnosis for this admission?: Yes (3) Urinary tract infection Qualifiers: Urinary tract infection type: site unspecified Hematuria presence: without hematuria Qualified Code(s): N39.0 - Urinary tract infection, site not specified Is this a current diagnosis for this admission?: Yes (4) Diabetes mellitus type 2 in nonobese Is this a current diagnosis for this admission?: Yes (5) Hypothyroidism Qualifiers: Hypothyroidism type: unspecified Qualified Code(s): E03.9 - Hypothyroidism, unspecified Is this a current diagnosis for this admission?: Yes (6) Multiple sclerosis, primary chronic progressive Is this a current diagnosis for this admission?: Yes - Time Time Spent with patient: 25-34 minutes Level of Care: IMCU Medications reviewed and adjusted accordingly: Yes Within: within 48 hours - Inpatient Certification Based on my medical assessment, after consideration of the patient's comorbidities, presenting symptoms, or acuity I expect that the services needed warrant INPATIENT care.: Yes I certify that my determination is in accordance with my understanding of Medicare's requirements for reasonable and necessary INPATIENT services [42 CFR 412.3e].: Yes Medical Necessity: Significant Comorbidiites Make Outpatient Treatment Too Risky, Need Close Monitoring Due to Risk of Patient Decompensation, Need For Continuous Telemetry Monitoring, Need for IV Antibiotics, Risk of Complication if Not Cared For in Hospital, Risk of Diagnosis Which Will Require Inpatient Eval/Care/Monitoring Post Hospital Care: D/C Package Delivery Room Service Runner Documentation - Plan Summary Plan Summary: Start on oral Doxycycline. Patient's allergy to sulfa drug limit use of Bactrim DS which would have covered all grown bacteria. Consider transition to Augmentin upon discharge. Continue all other current medication management. Obtain CBC with diff, BMP.
[2019-03-27] MEDS: CEFTRIAXONE 1 GM/D5W RTU 1 GM/50 ML RTUPB IV SCH (18:00)
[2019-03-27 18:41] LABS: ABSOLUTE BASOPHILS # (AUTO) 0.1 10^3/uL (0.0-0.2); ABSOLUTE EOSINOPHILS # (AUTO) 0.4 10^3/uL (0.0-0.6); ABSOLUTE MONOCYTES (AUTO) 0.4 10^3/uL (0.1-1.4); EOSINOPHILS % (AUTO) 6.2 % (0-6); HEMOGLOBIN 11.8 g/dL (12.0-15.5); PLATELET COUNT 282 10^3/uL (150-450); TOTAL CELLS COUNTED % (AUTO) 100 %; WHITE BLOOD COUNT 5.8 10^3/uL (4.0-10.5)
[2019-03-27 18:45] LABS: ABSOLUTE LYMPHOCYTES (AUTO) 2.8 10^3/uL (0.5-4.7); ABSOLUTE NEUT (AUTO) 2.2 10^3/uL (1.7-8.2); BASOPHILS % (AUTO) 0.9 % (0-2); HEMATOCRIT 34.8 % (36.0-47.0); LYMPHOCYTES % (AUTO) 47.6 % (13-45); MEAN CORPUSCULAR HEMOGLOBIN 27.4 pg (27.0-33.4); MEAN CORPUSCULAR HGB CONC 33.9 g/dL (32.0-36.0); MEAN CORPUSCULAR VOLUME 81 fl (80-97); MONOCYTES % (AUTO) 7.2 % (3-13); RED BLOOD COUNT 4.31 10^6/uL (3.72-5.28); RED CELL DISTRIBUTION WIDTH 13.5 % (11.5-14.0); SEGMENTED NEUTROPHILS % (AUTO) 38.1 % (42-78)
[2019-03-27] MEDS: DOXYCYCLINE HYCLATE 100 MG TABLET PO SCH (18:52)
[2019-03-27 19:02] LABS: ANION GAP 10 (5-19); BLOOD UREA NITROGEN 9 mg/dL (7-20); CALCIUM 9.9 mg/dL (8.4-10.2); CARBON DIOXIDE 24 mmol/L (22-30); CHLORIDE 110 mmol/L (98-107); GLUCOSE 87 mg/dL (75-110); POTASSIUM 3.8 mmol/L (3.6-5.0)
[2019-03-28] MEDS: DOXYCYCLINE HYCLATE 100 MG TABLET PO SCH ×2 (05:19→18:03)
[2019-03-28] MEDS: INSULIN LISPRO 100 UNIT/ML 3 ML VIAL SUBCUT SCH ×4 (08:18→21:29)
[2019-03-28] MEDS: MULTIVITAMIN TABLET PO SCH (09:37)
--- NOTE | 2019-03-28 15:30 | PDOC PROGRESS REPORT ---
Subjective Progress Note for:: 03/28/19 Subjective:: Patient denied chest pain, difficulty with breathing, fever, chills, nausea, vomiting or abdominal pain. Reason For Visit: UTI,MULTIPLE SCLEROSIS,DIABETES MELLITUS TYPE 2 Physical Exam Vital Signs: Temp Pulse Resp BP Pulse Ox 98.1 F 95 16 145/90 H 100 03/28/19 11:34 03/28/19 14:00 03/28/19 11:34 03/28/19 11:34 03/28/19 11:34 Intake & Output 03/27/19 03/28/19 03/29/19 06:59 06:59 06:59 Intake Total 530 350 Output Total 700 725 Balance -170 -375 Weight 85.7 kg 86.9 kg Physical Exam: General appearance: PRESENT: no acute distress Head exam: PRESENT: atraumatic, normocephalic Eye exam: PRESENT: conjunctiva pink. ABSENT: pallor, scleral icterus Ear exam: PRESENT: normal external ear exam Mouth exam: PRESENT: moist Respiratory exam: PRESENT: clear to auscultation bilaterally Cardiovascular exam: PRESENT: RRR. ABSENT: diastolic murmur, rubs, systolic murmur GI/Abdominal exam: PRESENT: normal bowel sounds, soft. ABSENT: distended, guarding, mass, organomegaly, rebound, tenderness Extremities exam: ABSENT: pedal edema Neurological exam: PRESENT: alert, awake, oriented to person, oriented to place, oriented to time, oriented to situation Psychiatric exam: PRESENT: appropriate affect, normal mood. ABSENT: homicidal ideation, suicidal ideation Skin exam: PRESENT: dry, warm, other - abrasion skin open and stage 2 sacral pressure ulcer. Results Laboratory Results: 03/27/19 18:19 03/27/19 18:19 03/27/19 03/27/19 18:19 18:19 WBC 5.8 RBC 4.31 Hgb 11.8 L Hct 34.8 L MCV 81 MCH 27.4 MCHC 33.9 RDW 13.5 Plt Count 282 Seg Neutrophils % 38.1 L Sodium 144.1 Potassium 3.8 Chloride 110 H Carbon Dioxide 24 Anion Gap 10 BUN 9 Creatinine 0.52 Est GFR ( Amer) > 60 Glucose 87 Calcium 9.9 Impressions: Chest X-Ray 03/23/19 16:18 IMPRESSION: NO ACUTE DISEASE. Assessment & Plan - Diagnosis (1) Proteus mirabilis infection Is this a current diagnosis for this admission?: Yes (2) E. coli UTI (urinary tract infection) Is this a current diagnosis for this admission?: Yes (3) Urinary tract infection Qualifiers: Urinary tract infection type: site unspecified Hematuria presence: without hematuria Qualified Code(s): N39.0 - Urinary tract infection, site not specified Is this a current diagnosis for this admission?: Yes (4) Diabetes mellitus type 2 in nonobese Is this a current diagnosis for this admission?: Yes (5) Hypothyroidism Qualifiers: Hypothyroidism type: unspecified Qualified Code(s): E03.9 - Hypothyroidism, unspecified Is this a current diagnosis for this admission?: Yes (6) Multiple sclerosis, primary chronic progressive Is this a current diagnosis for this admission?: Yes - Time Time Spent with patient: 25-34 minutes Medications reviewed and adjusted accordingly: Yes Anticipated discharge: Home with Homehealth Within: Other - Inpatient Certification Based on my medical assessment, after consideration of the patient's comorbidities, presenting symptoms, or acuity I expect that the services needed warrant INPATIENT care.: Yes I certify that my determination is in accordance with my understanding of Medicare's requirements for reasonable and necessary INPATIENT services [42 CFR 412.3e].: Yes Medical Necessity: Significant Comorbidiites Make Outpatient Treatment Too Risky, Need Close Monitoring Due to Risk of Patient Decompensation, Need For IV Fluids, Need For Continuous Telemetry Monitoring, Need for IV Antibiotics, Risk of Complication if Not Cared For in Hospital, Risk of Diagnosis Which Will Require Inpatient Eval/Care/Monitoring Post Hospital Care: D/C Process Inspector Documentation - Plan Summary Plan Summary: Continue current management. Follow up on blood culture findings.
[2019-03-28] MEDS: CEFTRIAXONE 1 GM/D5W RTU 1 GM/50 ML RTUPB IV SCH (18:03)
[2019-03-29] MEDS: DOXYCYCLINE HYCLATE 100 MG TABLET PO SCH ×2 (05:48→17:39)
[2019-03-29] MEDS: INSULIN LISPRO 100 UNIT/ML 3 ML VIAL SUBCUT SCH ×4 (09:20→22:00)
[2019-03-29] MEDS: MULTIVITAMIN TABLET PO SCH (10:03)
--- NOTE | 2019-03-29 16:59 | PDOC DISCHARGE SUMMARY ---
Impression - Admit/DC Date/PCP Admission Date/Primary Care Provider: 03/23/19 18:37 QUINN MARCANO Discharge Date: 03/29/19 - Discharge Diagnosis (1) Proteus mirabilis infection Is this a current diagnosis for this admission?: Yes (2) E. coli UTI (urinary tract infection) Is this a current diagnosis for this admission?: Yes (3) Urinary tract infection Is this a current diagnosis for this admission?: Yes (4) Diabetes mellitus type 2 in nonobese Is this a current diagnosis for this admission?: Yes (5) Hypothyroidism Is this a current diagnosis for this admission?: Yes (6) Multiple sclerosis, primary chronic progressive Is this a current diagnosis for this admission?: Yes - Assessment Summary: Patient was managed with IV Rocephin and oral Doxycycline based on her blood culture and urine culture findings and sensitivity report. She has history of allergy to sulfa drug limiting use of single antibiotic Bactrim DS. She will be discharged home with HOME ATTENDANT service including visiting nurse and physical therapy. She will follow up in the office as instructed upon discharge. - Additional Information Resuscitation Status: Full Code Discharge Diet: As Tolerated Discharge Activity: Activity As Tolerated, Supervised Activity Referrals: QUINN MARCANO MD [Primary Care Provider] - 04/10/19 10:00 am Prescriptions: Amoxicillin/Potassium Clav [Amox-Clav 875-125 mg Tablet] 1 each PO BID #10 tablet Doxycycline Hyclate [Vibramycin 100 mg Tablet] 100 mg PO Q12A #10 tablet Home Medications: Acetaminophen [Tylenol Extra Strength 500 mg Tablet] 1,000 mg PO Q6HP PRN 03/24/19 Baclofen [Baclofen 10 mg Tablet] 10 mg PO TIDP PRN 03/24/19 Multivitamin [Multiple Vitamins] 1 tab PO DAILY 03/24/19 Amoxicillin/Potassium Clav [Amox-Clav 875-125 mg Tablet] 1 each PO BID #10 tablet 03/29/19 Doxycycline Hyclate [Vibramycin 100 mg Tablet] 100 mg PO Q12A #10 tablet 03/29/19 History of Present Illiness History of Present Illness: INO SALDIVAR is a 53 year old female known to my practice presented to the ED with family, daughter, reported change in mentation, dysuria, poor oral intake, dissociation in her gaze and episode of fever. Son at bedside concurred with reported symptoms for couple of days and patient usually present such symptoms with episodes of urinary tract infection. Patient has history of progressive multiple sclerosis and currently bedbound. Son remain primary caregiver at home. Her initial evaluation in the ED was significant for abnormal urinalysis with leukocytosis suggestive of urinary tract infection. She was advised hospitalization for further evaluation and management. Her morbidities are as listed below. Hospital Course Hospital Course: Patient was managed with IV Rocephin and oral doxycycline based on her blood culture and urine culture findings and sensitivity report. She has history of allergy to sulfa drug limiting use of single antibiotic Bactrim DS. She will be discharged home with HOME ATTENDANT service including visiting nurse and physical therapy. She will follow up in the office as instructed upon discharge. Physical Exam Vital Signs: Temp Pulse Resp BP Pulse Ox 98.2 F 81 16 140/74 H 99 03/29/19 16:00 03/29/19 16:00 03/29/19 16:00 03/29/19 16:00 03/29/19 16:00 Intake & Output 03/28/19 03/29/19 03/30/19 06:59 06:59 05:59 Intake Total 350 250 Output Total 725 525 Balance -375 -275 Weight 86.9 kg 88.8 kg General appearance: PRESENT: no acute distress Head exam: PRESENT: atraumatic, normocephalic Eye exam: PRESENT: conjunctiva pink. ABSENT: pallor, scleral icterus Ear exam: PRESENT: normal external ear exam Mouth exam: PRESENT: moist Respiratory exam: PRESENT: clear to auscultation bilaterally Cardiovascular exam: PRESENT: RRR. ABSENT: diastolic murmur, rubs, systolic murmur GI/Abdominal exam: PRESENT: normal bowel sounds, soft. ABSENT: distended, guarding, mass, organomegaly, rebound, tenderness Extremities exam: ABSENT: pedal edema Neurological exam: PRESENT: alert, awake, oriented to person, oriented to place, oriented to time, oriented to situation Psychiatric exam: PRESENT: appropriate affect, normal mood. ABSENT: homicidal ideation, suicidal ideation Skin exam: PRESENT: dry, warm, other - abrasion skin open and stage 2 sacral pressure ulcer. Results Laboratory Results: WBC 5.8 10^3/uL (4.0-10.5) 03/27/19 18:19 RBC 4.31 10^6/uL (3.72-5.28) 10/31/19 18:19 Hgb 11.8 g/dL (12.0-15.5) L 03/27/19 18:19 Hct 34.8 % (36.0-47.0) L 03/27/19 18:19 MCV 81 fl (80-97) 03/27/19 18:19 MCH 27.4 pg (27.0-33.4) 03/27/19 18:19 MCHC 33.9 g/dL (32.0-36.0) 03/27/19 18:19 RDW 13.5 % (11.5-14.0) 03/27/19 18:19 Plt Count 282 10^3/uL (150-450) 03/27/19 18:19 Lymph % (Auto) 47.6 % (13-45) H 03/27/19 18:19 [place] % (Auto) 7.2 % (3-13) 03/27/19 18:19 Eos % (Auto) 6.2 % (0-6) H 03/27/19 18:19 Baso % (Auto) 0.9 % (0-2) 03/27/19 18:19 Absolute Neuts (auto) 2.2 10^3/uL (1.7-8.2) 03/27/19 18:19 Absolute Lymphs (auto) 2.8 10^3/uL (0.5-4.7) 03/27/19 18:19 Absolute Monos (auto) 0.4 10^3/uL (0.1-1.4) 03/27/19 18:19 Absolute Eos (auto) 0.4 10^3/uL (0.0-0.6) 03/27/19 18: Absolute Basos (auto) 0.1 10^3/uL (0.0-0.2) 03/27/19 18:19 Seg Neutrophils % 38.1 % (42-78) L 03/27/19 18:19 PT 13.6 SEC (11.4-15.4) 03/23/19 19:45 INR 1.04 03/23/19 19:45 Sodium 144.1 mmol/L (137-145) 03/27/19 18:19 Potassium 3.8 mmol/L (3.6-5.0) 03/27/19 18:19 Chloride 110 mmol/L (98-107) H 03/27/19 18:19 Carbon Dioxide 24 mmol/L (22-30) 03/27/19 18:19 Anion Gap 10 (5-19) 03/27/19 18:19 BUN 9 mg/dL (7-20) 03/27/19 18:19 Creatinine 0.52 mg/dL (0.52-1.25) 03/27/19 18:19 Est GFR ( Amer) > 60 (>60) 03/27/19 18:19 Est GFR (Non-Af Amer) Cancelled 03/23/19 16:14 Est GFR (MDRD) Non-Af > 60 (>60) 03/27/19 18:19 Glucose 87 mg/dL (75-110) 03/27/19 18:19 POC Glucose 80 mg/dL (70-110) 03/29/19 15:24 Lactic Acid 1.0 mmol/L (0.7-2.1) 03/23/19 16:14 Calcium 9.9 mg/dL (8.4-10.2) 03/27/19 18:19 Total Bilirubin 0.8 mg/dL (0.2-1.3) 03/23/19 17:20 Direct Bilirubin 0.3 mg/dL (0.0-0.4) 03/23/19 17:20 Neonat Total Bilirubin Not Reportable 03/23/19 17:20 Neonat Direct Bilirubin Not Reportable 03/23/19 17:20 Neonat Indirect Bili Not Reportable 03/23/19 17:20 AST 25 U/L (14-36) 03/23/19 17:20 ALT 16 U/L (<35) 03/23/19 17:20 Alkaline Phosphatase 121 U/L (38-126) 03/23/19 17:20 Total Protein 7.2 g/dL (6.3-8.2) 03/23/19 17:20 Albumin 3.6 g/dL (3.5-5.0) 03/23/19 17:20 EGFR Cancelled 03/23/19 16:14 Urine Color ASH 03/23/19 16:30 Urine Appearance CLOUDY 03/23/19 16:30 Urine pH 7.0 (5.0-9.0) 03/23/19 16:30 Ur Specific [place] 1.016 03/23/19 16:30 Urine Protein 100 mg/dL (NEGATIVE) H 03/23/19 16:30 Urine Glucose (UA) NEGATIVE mg/dL (NEGATIVE) 03/23/19 16:30 Urine Ketones TRACE mg/dL (NEGATIVE) H 03/23/19 16:30 Urine Blood MODERATE (NEGATIVE) H 03/23/19 16:30 Urine Nitrite (Reflex) POSITIVE (NEGATIVE) H 03/23/19 16:30 Urine Bilirubin NEGATIVE (NEGATIVE) 03/23/19 16:30 Urine Urobilinogen 4.0 mg/dL (<2.0) H 03/23/19 16:30 Leukocyte Esterase Rfl LARGE (NEGATIVE) H 03/23/19 16:30 Urine RBC (Auto) >182 /HPF 03/23/19 16:30 Urine Bacteria (Auto) 3+ /HPF 03/23/19 16:30 Urine WBC (Reflex) > 182 /HPF 03/23/19 16:30 Urine WBC Clumps MANY /HPF 03/23/19 16:30 Squamous Epi Cells Auto 10 /HPF 03/23/19 16:30 Urine Mucus (Auto) MOD /LPF 03/23/19 16:30 Urine Ascorbic Acid NEGATIVE (NEGATIVE) 03/23/19 16:30 Impressions: Chest X-Ray 03/23/19 16:18 IMPRESSION: NO ACUTE DISEASE. Plan Health Concerns: Progressive multiple sclerosis with high risk of fall and pressure ulcer. Plan of Treatment: Continue oral antibiotic coverage with Augmentin and Doxycycline x 5 days based on her culture sensitivity findings. Goals: Improve transfer function with physical therapy engagement and mobility devices. Time Spent: Greater than 30 Minutes - care cordination and discussion of post hospital care plan with family. Stroke Is this a Stroke Patient?: No Acute Heart Failure - Is this a Heart Failure Patient?: No
[2019-03-29] MEDS: CEFTRIAXONE 1 GM/D5W RTU 1 GM/50 ML RTUPB IV SCH (17:34)
[2019-03-29 23:46] VITALS: BP 127/67
== END 2019-03-30 03:03 | disposition home health service (06) | DRG 690 ==
LOC: ER 15:48 → EH 18:37 → 3N 19:57
PROVIDERS: ADMIT Internal Medicine Geriatric Medicine; ATTEND Internal Medicine Geriatric Medicine
DX: N39.0 Urinary tract infection, site not specified (principal); L89.132 Pressure ulcer of right lower back, stage 2; B96.20 Unspecified Escherichia coli [E. coli] as the cause of diseases classified elsewhere; B96.4 Proteus (mirabilis) (morganii) as the cause of diseases classified elsewhere; E11.8 Type 2 diabetes mellitus with unspecified complications; E03.9 Hypothyroidism, unspecified; G35 Multiple sclerosis; Z88.2 Allergy status to sulfonamides; Z86.711 Personal history of pulmonary embolism; Z91.040 Latex allergy status
CPT/HCPCS: 36415; 71045; 80048; 80053; 81001; 82962; 83605; 85025; 85610; 87040; 87077; 87086; 87088; 87150; 87186; 93005; 93010; 96361; 96365; 96375; 99291; J0696; J1885; J2270; J3490; J7030; J7120

== ENCOUNTER 2019-08-31 02:54 | Inpatient (IN) | payer MEDICARE, MEDICAID ==
[2019-08-31] MEDS ORDERED: KETOROLAC TROMETHAMINE INJ/PF 30 MG/1 ML SDV IV ONE (03:11)
[2019-08-31] MEDS ORDERED: NORMAL SALINE IV ONE (03:12)
[2019-08-31] MEDS ORDERED: PIPERACILLIN/TAZOBACTAM 4.5 GM VIAL IV ONE (03:12)
[2019-08-31] MEDS ORDERED: ACETAMINOPHEN 325 MG TABLET PO ONE (03:15)
[2019-08-31 03:26] LABS: ABSOLUTE LYMPHOCYTES (AUTO) 0.6 10^3/uL (0.5-4.7); ABSOLUTE MONOCYTES (AUTO) 0.1 10^3/uL (0.1-1.4); ABSOLUTE NEUT (AUTO) 9.6 10^3/uL (1.7-8.2); BASOPHILS % (AUTO) 0.2 % (0-2); EOSINOPHILS % (AUTO) 0.2 % (0-6); HEMOGLOBIN 14.6 g/dL (12.0-15.5); LYMPHOCYTES % (AUTO) 5.6 % (13-45); MEAN CORPUSCULAR HEMOGLOBIN 27.9 pg (27.0-33.4); MEAN CORPUSCULAR VOLUME 82 fl (80-97); MONOCYTES % (AUTO) 0.8 % (3-13); PLATELET COUNT 338 10^3/uL (150-450); RED BLOOD COUNT 5.25 10^6/uL (3.72-5.28); RED CELL DISTRIBUTION WIDTH 14.5 % (11.5-14.0); SEGMENTED NEUTROPHILS % (AUTO) 93.2 % (42-78); TOTAL CELLS COUNTED % (AUTO) 100 %; WHITE BLOOD COUNT 10.2 10^3/uL (4.0-10.5)
[2019-08-31 03:33] LABS: APPEARANCE,URINE TURBID; BILIRUBIN,URINE NEGATIVE (NEGATIVE); COLOR,URINE YELLOW; GLUCOSE, URINE NEGATIVE (NEGATIVE); KETONES,URINE TRACE mg/dL (NEGATIVE); PROTEIN,URINE 100 mg/dL (NEGATIVE); URINE SPECIFIC GRAVITY 1.011; UROBILINOGEN,URINE NEGATIVE mg/dL (<2.0)
[2019-08-31 03:36] LABS: INTERNATIONAL RATION (INR) 1.07; PROTHROMBIN TIME 13.9 SEC (11.4-15.4)
[2019-08-31 03:44] LABS: ALBUMIN 4.3 g/dL (3.5-5.0); ALKALINE PHOSPHATASE 148 U/L (38-126); ANION GAP 13 (5-19); ASPARTATE AMINO TRANSFERASE 32 U/L (14-36); BILIRUBIN,DIRECT 0.4 mg/dL (0.0-0.4); BLOOD UREA NITROGEN 14 mg/dL (7-20); CALCIUM 10.9 mg/dL (8.4-10.2); CARBON DIOXIDE 19 mmol/L (22-30); CHLORIDE 112 mmol/L (98-107); GLUCOSE 201 mg/dL (75-110); POTASSIUM 4.7 mmol/L (3.6-5.0); TOTAL PROTEIN 8.5 g/dL (6.3-8.2)
--- NOTE | 2019-08-31 03:59 | RADIOLOGY REPORT (SQ) ---
EXAM DESCRIPTION: XR CHEST 1 VIEW COMPLETED DATE/TME: 08/31/2019 03:08 CLINICAL HISTORY: dyspnea COMPARISON: 03/23/2019 FINDINGS: Single frontal view of the chest. Cardiomediastinal silhouette: Normal size and contour. Lungs: No consolidation, pneumothorax, or pleural effusion. Bones: No acute osseous abnormality. Leads overlie the chest. Upper abdomen: No abnormality identified. IMPRESSION: 1. No acute pulmonary process identified.
[2019-08-31 04:08] LABS: VENOUS BLOOD BASE EXCESS -7.7 mmol/L; VENOUS BLOOD HCO3 16.6 mmol/L (20-32); VENOUS BLOOD PCO2 30.5 mmHg (35-63); VENOUS BLOOD PH 7.35 (7.30-7.42)
--- NOTE | 2019-08-31 06:40 | ER Document Report ---
Doctor's Note Notes: 08/31/2019 06:[address] Adams, patient accepted for admission to telemetry floor. Chart updated. Dr. Alfred aware.
--- NOTE | 2019-08-31 07:55 | ER Document Report ---
Entered by ASIA CARRINGTON SCRIBE 08/31/19 0312 Acting as scribe for:ANUP SHIPMAN IV, MD ED General <ARLENCHAPARRO Hadley - Last Filed: 08/31/19 06:54> - General Mode of Arrival: Medic Information source: Emergency Med Personnel TRAVEL OUTSIDE OF THE [place] IN LAST 30 DAYS: No <ANUP SHIPMAN IV - Last Filed: 08/31/19 07:57> - General Chief Complaint: Fever Stated Complaint: FEVER Time Seen by Provider: 08/31/19 03:02 Notes: This 53 year old female patient with a history of multiple sclerosis, type 2 diabetes, hypothyroidism, and pulmonary embolism x2 years ago brought in by EMS presents to the ED today with complaints of fever and cough. Per EMS, they were originally called out by the patient's family for respiratory distress. EMS reports that the patient denies dyspnea when asked about her respiratory distress. EMS states that patient almost vomited en route and was making a "g lugging" sound, so they suctioned the oropharynx. EMS notes that the patient was initially 98% on RA, but after she started coughing, she dropped down to 95%, so they placed her on 3L supplemental O2 via NC. (ANUP SHIPMAN IV) - Related Data Allergies/Adverse Reactions: latex [Latex] Allergy (Intermediate, Verified 08/31/19 04:59) RASH/BLISTER Sulfa (Sulfonamide Antibiotics) Allergy (Intermediate, Verified 08/31/19 04:59) RASH/HIVES Past Medical History - General Information source: Emergency Med Personnel, [facility] Records - Social History Smoking Status: Never Smoker Cigarette use (# per day): No Chew tobacco use (# tins/day): No Smoking Education Provided: No Frequency of alcohol use: None Drug Abuse: None Lives with: Family Family History: Reviewed & Not Pertinent Patient has suicidal ideation: No Patient has homicidal ideation: No - Past Medical History Cardiac Medical History: Reports: Hx Pulmonary Embolism - 2 years ago Endocrine Medical History: Reports: Hx Diabetes Mellitus Type 2, Hx Hypothyroidism Musculoskeletal Medical History: Reports Hx Multiple Sclerosis Past Surgical History: Reports: Hx Section - x2, Hx Cholecystectomy - Immunizations Immunizations up to date: Yes Hx Diphtheria, Pertussis, Tetanus Vaccination: Yes <ANUP SHIPMAN IV - Last Filed: 08/31/19 07:57> Review of Systems - Review of Systems Constitutional: See HPI, Fever EENT: No symptoms reported Cardiovascular: See HPI. denies: Dyspnea Respiratory: See HPI, Cough, Sputum, Other - Chest congestion Gastrointestinal: No symptoms reported Genitourinary: No symptoms reported Female Genitourinary: No symptoms reported Musculoskeletal: No symptoms reported Skin: No symptoms reported Hematologic/Lymphatic: No symptoms reported Neurological/Psychological: No symptoms reported -: Yes All other systems reviewed and negative <ANUP SHIPMAN IV - Last Filed: 08/31/19 07:57> Physical Exam - General General appearance: Alert - HEENT Head: Normocephalic, Atraumatic Eyes: Normal Pupils: PERRL - Respiratory Respiratory status: Respiratory distress Chest status: Nontender Breath sounds: Rhonchi Chest palpation: Normal - Cardiovascular Rhythm: Regular, Tachycardia Heart sounds: Normal auscultation Murmur: No Friction rub: No Gallop: None auscultated - Abdominal Inspection: Normal Distension: No distension Bowel sounds: Normal Tenderness: Nontender - Abdomen soft Organomegaly: No organomegaly - Back Back: Normal, Nontender - Extremities General upper extremity: Normal inspection General lower extremity: Normal inspection - Neurological Neuro grossly intact: Yes - Psychological Associated symptoms: Normal affect, Normal mood - Skin Skin Temperature: Warm Skin Moisture: Dry Skin Color: Normal <ANUP SHIPMAN IV - Last Filed: 08/31/19 07:57> - Vital signs Vitals: Resp Pulse Ox 39 H 96 08/31/19 02:55 08/31/19 02:55 Course - Laboratory Result Diagrams: 08/31/19 02:58 08/31/19 02:58 <CHAPARRO MCKINLEY - Last Filed: 08/31/19 06:54> - Laboratory Result Diagrams: 08/31/19 02:58 08/31/19 02:58 - Consults rajendra Time consulted: 06:40 Consulted provider: will see as inpatient <ANUP SHIPMAN IV - Last Filed: 08/31/19 07:57> - Vital Signs Vital signs: Temp Pulse Resp BP Pulse Ox 100.4 F 25 H 107/63 96 08/31/19 04:36 08/31/19 07:31 08/31/19 07:31 08/31/19 07:31 - Laboratory Laboratory results interpreted by me: 08/31/19 08/31/19 08/31/19 02:58 02:58 02:58 RDW 14.5 H Lymph % (Auto) 5.6 L [place] % (Auto) 0.8 L Absolute Neuts (auto) 9.6 H Seg Neutrophils % 93.2 H VBG pCO2 VBG HCO3 Chloride 112 H Carbon Dioxide 19 L Glucose 201 H POC Glucose Lactic Acid 2.3 H Calcium 10.9 H Alkaline Phosphatase 148 H Total Protein 8.5 H Urine Protein Urine Ketones Urine Blood Urine Nitrite (Reflex) Leukocyte Esterase Rfl 08/31/19 08/31/19 08/31/19 03:08 03:28 03:51 RDW Lymph % (Auto) [place] % (Auto) Absolute Neuts (auto) Seg Neutrophils % VBG pCO2 30.5 L VBG HCO3 16.6 L Chloride Carbon Dioxide Glucose POC Glucose 184 H Lactic Acid Calcium Alkaline Phosphatase Total Protein Urine Protein 100 H Urine Ketones TRACE H Urine Blood MODERATE H Urine Nitrite (Reflex) POSITIVE H Leukocyte Esterase Rfl LARGE H 08/31/19 06:30 RDW Lymph % (Auto) [place] % (Auto) Absolute Neuts (auto) Seg Neutrophils % VBG pCO2 VBG HCO3 Chloride Carbon Dioxide Glucose POC Glucose Lactic Acid 2.5 H Calcium Alkaline Phosphatase Total Protein Urine Protein Urine Ketones Urine Blood Urine Nitrite (Reflex) Leukocyte Esterase Rfl - EKG Interpretation by Me Additional EKG results interpreted by me: 08/31/19 04:42 EKG obtained on 08/31/2019 at 0257 hrs. was interpreted by this MD. Findings: Sinus tachycardia with a rate of 158, normal axis, ST segments are nonspecific. Impression sinus tachycardia with nonspecific ST segments. (ANUP SHIPMAN IV) - Consults rajendra Reason for consultation: 08/31/19 07:56 sepsis (ANUP SHIPMAN IV) Critical Care Note - Critical Care Note Total time excluding time spent on procedures (mins): 90 <ANUP SHIPMAN IV - Last Filed: 08/31/19 07:57> Discharge - Discharge Admitting Provider: Rajendra Unit Admitted: Telemetry <CHAPARRO MCKINLEY - Last Filed: 08/31/19 06:54> - Discharge Admitting Provider: Rajendra Unit Admitted: Telemetry <ANUP SHIPMAN IV - Last Filed: 08/31/19 07:57> - Discharge Clinical Impression: Sepsis Qualifiers: Sepsis type: sepsis due to unspecified organism Sepsis acute organ dysfunction status: unspecified Qualified Code(s): A41.9 - Sepsis, unspecified organism Urinary tract infection Qualifiers: Urinary tract infection type: site unspecified Hematuria presence: with hematuria Qualified Code(s): N39.0 - Urinary tract infection, site not specified; R31.9 - Hematuria, unspecified Condition: Fair Disposition: ADMITTED INPATIENT I personally performed the services described in the documentation, reviewed and edited the documentation which was dictated to the scribe in my presence, and it accurately records my words and actions.
--- NOTE | 2019-08-31 10:56 | EKG REPORT ---
SEVERITY:- ABNORMAL ECG - SINUS TACHYCARDIA REPOLARIZATION ABNORMALITY, PROB RATE RELATED : Confirmed by: Ayesha Tomas 31-Aug-2019 10:55:51
[2019-08-31] MEDS ORDERED: GLUCAGON,HUMAN RECOMB 1 MG INJ IM PRN (12:00)
[2019-08-31] MEDS ORDERED: DEXTROSE 50%-WATER SYRINGE 12.5 GM/25 ML DOSE IV PRN (12:00)
[2019-08-31] MEDS ORDERED: DEXTROSE 50%-WATER SYRINGE 25 GM/50 ML DOSE IV PRN (12:00)
[2019-08-31] MEDS ORDERED: DEXTROSE 40% GEL 15 GM TUBE PO PRN (12:00)
[2019-08-31] MEDS ORDERED: DEXTROSE 40% GEL 15 GM TUBE X 2 PO PRN (12:00)
[2019-08-31] MEDS: CEFTRIAXONE 1 GM/D5W RTU 1 GM/50 ML RTUPB IV SCH (12:25)
[2019-08-31] MEDS: NORMAL SALINE 1000 ML 1,000 ML IV PRN (13:00)
[2019-08-31] MEDS: INSULIN LISPRO 100 UNIT/ML 3 ML VIAL SUBCUT SCH ×2 (15:38→22:15)
--- NOTE | 2019-08-31 22:56 | PDOC H&P ---
History of Present Illness Admission Date/PCP: 08/31/19 06:56 QUINN KRYS History of Present Illness: INO SALDIVAR is a 53 year old female known to my practice who was brought to the ED via EMS with family reporting fever, coughing, and difficulty with breathing. Patient's account was more of her daughter's claim that she was acting funny with funny eye movement. She denied any fever or chills. EMS staff reported incident of possible aspiration with desaturation and need for oropharyngeal suction to improve her oxygenation status en route to the ED. She was on supplemental oxygen at 3L/minute via nasal canula upon arrival in the ED. Her initial evaluation was significant for abnormal urinalysis suggestive of UTI with hypotension. She was treatment with IV fluid infusion and antibiotic coverage. SHe was advised hospitalization for further evaluation and management. Her morbidities are as listed below. Past Medical History Cardiac Medical History: Reports: Pulmonary Embolism - 2 years ago Denies: Atrial Fibrillation, Congestive Heart Failure, Myocardial Infarction, Hyperlipidema, Hypertension Pulmonary Medical History: Denies: Asthma, Bronchitis, Chronic Obstructive Pulmonary Disease (COPD), Pn eum[place], Respiratory Failure, Sleep Apnea, Tuberculosis Neurological Medical History: Denies: Migraine, Seizures Endocrine Medical History: Reports: Diabetes Mellitus Type 2, Hypothyroidism Denies: Diabetes Mellitus Type 1 Renal/ Medical History: Denies: End Stage Renal Disease Malignancy Medical History: Denies: Leukemia, Lung Cancer GI Medical History: Denies: Gastroesophageal Reflux Disease, Hiatal Hernia Musculoskeltal Medical History: Denies: Arthritis Psychiatric Medical History: Denies: Attention Deficit Hyperactivity Disorder, Bipolar Disorder, Dementia, Depression Hematology: Reports: Anemia Denies: Hemophilia, Sickle Cell Disease Infectious Medical History: Denies: HIV Past Surgical History Past Surgical History: Reports: Section - x2, Cholecystectomy Denies: Appendectomy, Coronary Artery Bypass Graft, Gastric Bypass Surgery, Herniorrhaphy, Hysterectomy, Mastectomy, Pacemaker, Tonsillectomy, Tubal Ligation Social History Lives with: Family Smoking Status: Never Smoker Electronic Cigarette use?: No Frequency of Alcohol Use: None Hx Recreational Drug Use: No Drugs: None Hx Prescription Drug Abuse: No - Advance Directive Resuscitation Status: Full Code Family History Family History: Reviewed & Not Pertinent Parental Family History Reviewed: Yes Children Family History Reviewed: Yes Sibling(s) Family History Reviewed.: Yes Medication/Allergy Home Medications: No Home Medications 08/31/19 Allergies/Adverse Reactions: latex [Latex] Allergy (Intermediate, Verified 08/31/19 04:59) RASH/BLISTER Sulfa (Sulfonamide Antibiotics) Allergy (Intermediate, Verified 08/31/19 04:59) RASH/HIVES bee venom protein (honey bee) Allergy (Verified 08/31/19 09:14) Anaphylaxis Review of Systems Constitutional: PRESENT: fever(s). ABSENT: chills, headache(s), weight gain, weight loss Eyes: ABSENT: visual disturbances Ears: ABSENT: hearing changes Cardiovascular: ABSENT: chest pain, dyspnea on exertion, edema, orthropnea, palpitations Respiratory: ABSENT: cough, hemoptysis Gastrointestinal: ABSENT: abdominal pain, constipation, diarrhea, hematemesis, hematochezia, nausea, vomiting Genitourinary: ABSENT: dysuria, hematuria Musculoskeletal: ABSENT: joint swelling Integumentary: ABSENT: rash, wounds Neurological: PRESENT: abnormal gait - bedbound related to her multiople sclerosis, focal weakness - related to her multiople sclerosis. ABSENT: abnormal speech, confusion, dizziness, syncope Psychiatric: ABSENT: anxiety, depression, homidical ideation, suicidal ideation Endocrine: ABSENT: cold intolerance, heat intolerance, menstrual abnormalities, polydipsia, polyuria Hematologic/Lymphatic: ABSENT: easy bleeding, easy bruising, lymphadenopathy Physical Exam Vital Signs: Temp Pulse Resp BP Pulse Ox 98.3 F 89 18 110/67 100 08/31/19 16:00 08/31/19 16:00 08/31/19 16:00 08/31/19 16:00 08/31/19 16:00 Intake & Output 08/30/19 08/31/19 09/01/19 06:59 06:59 06:59 Intake Total 2820 Output Total 400 Balance 2420 Weight 75.6 kg 75.4 kg General appearance: PRESENT: no acute distress, well-developed, well-nourished Head exam: PRESENT: atraumatic, normocephalic Eye exam: PRESENT: conjunctiva pink, EOMI, PERRLA. ABSENT: scleral icterus Ear exam: PRESENT: normal external ear exam Mouth exam: PRESENT: moist, tongue midline Neck exam: PRESENT: full ROM. ABSENT: carotid bruit, JVD, lymphadenopathy, thyromegaly Respiratory exam: PRESENT: chest wall tenderness, decreased breath sounds - at lung bases Cardiovascular exam: PRESENT: RRR, +S1, +S2. ABSENT: diastolic murmur, rubs, systolic murmur Vascular exam: PRESENT: normal capillary refill. ABSENT: pallor GI/Abdominal exam: PRESENT: normal bowel sounds, soft. ABSENT: distended, guarding, mass, organolmegaly, rebound, tenderness Rectal exam: PRESENT: deferred Musculoskeletal exam: PRESENT: deformity - related to contracture deformity from her multiople sclerosis Neurological exam: PRESENT: alert, awake, oriented to person, oriented to place, oriented to time, oriented to situation, CN II-XII grossly intact. ABSENT: mot or sensory deficit Psychiatric exam: PRESENT: appropriate affect, normal mood. ABSENT: homicidal ideation, suicidal ideation Skin exam: PRESENT: dry, intact, warm. ABSENT: cyanosis, rash Results Laboratory Results: 08/31/19 02:58 08/31/19 02:58 08/31/19 08/31/19 08/31/19 02:58 02:58 02:58 WBC 10.2 RBC 5.25 Hgb 14.6 Hct 43.0 MCV 82 MCH 27.9 MCHC 34.0 RDW 14.5 H Plt Count 338 Seg Neutrophils % 93.2 H VBG pH VBG pCO2 VBG HCO3 VBG Base Excess Sodium 143.5 Potassium 4.7 Chloride 112 H Carbon Dioxide 19 L Anion Gap 13 BUN 14 Creatinine 0.80 Est GFR ( Amer) > 60 Glucose 201 H Lactic Acid 2.3 H Calcium 10.9 H Total Bilirubin 1.0 AST 32 Alkaline Phosphatase 148 H Total Protein 8.5 H Albumin 4.3 Urine Color Urine Appearance Urine pH Ur Specific [place] Urine Protein Urine Glucose (UA) Urine Ketones Urine Blood Urine RBC (Auto) 08/31/19 08/31/19 08/31/19 03:08 03:51 06:30 WBC RBC Hgb Hct MCV MCH MCHC RDW Plt Count Seg Neutrophils % VBG pH 7.35 VBG pCO2 30.5 L VBG HCO3 16.6 L VBG Base Excess -7.7 Sodium Potassium Chloride Carbon Dioxide Anion Gap BUN Creatinine Est GFR ( Amer) Glucose Lactic Acid 2.5 H Calcium Total Bilirubin AST Alkaline Phosphatase Total Protein Albumin Urine Color YELLOW Urine Appearance TURBID Urine pH 7.0 Ur Specific [place] 1.011 Urine Protein 100 H Urine Glucose (UA) NEGATIVE Urine Ketones TRACE H Urine Blood MODERATE H Urine RBC (Auto) 134 08/31/19 09:45 WBC RBC Hgb Hct MCV MCH MCHC RDW Plt Count Seg Neutrophils % VBG pH VBG pCO2 VBG HCO3 VBG Base Excess Sodium Potassium Chloride Carbon Dioxide Anion Gap BUN Creatinine Est GFR ( Amer) Glucose Lactic Acid 3.3 H Calcium Total Bilirubin AST Alkaline Phosphatase Total Protein Albumin Urine Color Urine Appearance Urine pH Ur Specific [place] Urine Protein Urine Glucose (UA) Urine Ketones Urine Blood Urine RBC (Auto) Impressions: Chest X-Ray 08/31/19 03:08 IMPRESSION: 1. No acute pulmonary process identified. Assessment & Plan - Diagnosis (1) Urinary tract infection Qualifiers: Urinary tract infection type: site unspecified Hematuria presence: with hematuria Qualified Code(s): N39.0 - Urinary tract infection, site not specified; R31.9 - Hematuria, unspecified Is this a current diagnosis for this admission?: Yes Plan: See admitting attending physician orders for details about care plan. (2) Diabetes mellitus type 2 in nonobese Is this a current diagnosis for this admission?: Yes Plan: See admitting attending physician orders for details about care plan. (3) Multiple sclerosis, primary chronic progressive Is this a current diagnosis for this admission?: Yes Plan: See admitting attending physician orders for details about care plan. (4) Gait abnormality Is this a current diagnosis for this admission?: Yes Plan: See admitting attending physician orders for details about care plan. - Time Time Spent: 50 to 70 Minutes Medications reviewed and adjusted accordingly: Yes Anticipated discharge: Home with Homehealth Within: Other - Inpatient Certification Based on my medical assessment, after consideration of the patient's comorbidities, presenting symptoms, or acuity I expect that the services needed warrant INPATIENT care.: Yes I certify that my determination is in accordance with my understanding of Medicare's requirements for reasonable and necessary INPATIENT services [42 CFR 412.3e].: Yes Medical Necessity: Significant Comorbidiites Make Outpatient Treatment Too Risky, Need Close Monitoring Due to Risk of Patient Decompensation, Need For IV Fluids, Need For Continuous Telemetry Monitoring, Need for IV Antibiotics, Risk of Complication if Not Cared For in Hospital, Risk of Diagnosis Which Will Require Inpatient Eval/Care/Monitoring Post Hospital Care: D/C Computer Service Technician Documentation - Plan Summary Plan Summary: See admitting attending physician orders for details about care plan.
[2019-09-01] MEDS: ACETAMINOPHEN 325 MG TABLET PO PRN (01:07)
[2019-09-01] MEDS ORDERED: IBUPROFEN 400 MG TABLET PO ONE (03:00)
[2019-09-01] MEDS: INSULIN LISPRO 100 UNIT/ML 3 ML VIAL SUBCUT SCH ×4 (08:30→21:53)
[2019-09-01] MEDS: NORMAL SALINE 1000 ML 1,000 ML IV PRN ×2 (09:47→19:43)
--- NOTE | 2019-09-01 13:09 | CDI QUERY ---
CDI Query CDI Review: Dear Provider: To better reflect your patients severity of illness, morbidity, and resource utilization Please specify and document in the Progress Notes and Discharge Summary if you are monitoring / treating / evaluating any of the following conditions: Query Clinical indicators Sepsis 2/2 to Staphylococcus Staphylococcus Bacteremia Sepsis ruled out Unable to determine Other Per ED Notes: presents to the ED today with complaints of fever and cough. Per EMS, they were originally called out by the patient's family for respiratory distress. Clinical Impression: Sepsis Qualifiers: Sepsis type: sepsis due to unspecified organism Sepsis acute organ dysfunction status: unspecified Qualified Code(s): A41.9 - Sepsis, unspecified organism Temp Resp BP O2 sats 100.4 F 25 H 107/63 96 Blood cultures: Staphylococcus Species The terms probable, suspected, likely, possible or still to be ruled out may be used if you are unable to determine the exact nature of a condition. Thank you for your consideration, Clinical Documentation Physician Advisors MEJIA Carranza RN, BSN RN Office [phone] Office [phone]
[2019-09-01] MEDS: CEFTRIAXONE 1 GM/D5W RTU 1 GM/50 ML RTUPB IV SCH (13:17)
[2019-09-01 14:34] LABS: ABSOLUTE EOSINOPHILS # (AUTO) 0.1 10^3/uL (0.0-0.6); ABSOLUTE LYMPHOCYTES (AUTO) 0.8 10^3/uL (0.5-4.7); ABSOLUTE MONOCYTES (AUTO) 0.5 10^3/uL (0.1-1.4); ABSOLUTE NEUT (AUTO) 6.5 10^3/uL (1.7-8.2); BASOPHILS % (AUTO) 0.5 % (0-2); EOSINOPHILS % (AUTO) 1.8 % (0-6); HEMATOCRIT 32.4 % (36.0-47.0); LYMPHOCYTES % (AUTO) 10.2 % (13-45); MEAN CORPUSCULAR HEMOGLOBIN 27.7 pg (27.0-33.4); MEAN CORPUSCULAR HGB CONC 33.9 g/dL (32.0-36.0); MEAN CORPUSCULAR VOLUME 82 fl (80-97); MONOCYTES % (AUTO) 6.6 % (3-13); PLATELET COUNT 180 10^3/uL (150-450); RED BLOOD COUNT 3.97 10^6/uL (3.72-5.28); RED CELL DISTRIBUTION WIDTH 14.5 % (11.5-14.0); SEGMENTED NEUTROPHILS % (AUTO) 80.9 % (42-78); TOTAL CELLS COUNTED % (AUTO) 100 %
[2019-09-01 14:39] LABS: ALBUMIN 2.5 g/dL (3.5-5.0); ALKALINE PHOSPHATASE 93 U/L (38-126); ANION GAP 5 (5-19); ASPARTATE AMINO TRANSFERASE 28 U/L (14-36); BILIRUBIN,DIRECT 0.1 mg/dL (0.0-0.4); BILIRUBIN,TOTAL 0.7 mg/dL (0.2-1.3); BLOOD UREA NITROGEN 14 mg/dL (7-20); CALCIUM 8.8 mg/dL (8.4-10.2); CARBON DIOXIDE 19 mmol/L (22-30); CHLORIDE 114 mmol/L (98-107); GLUCOSE 109 mg/dL (75-110); POTASSIUM 3.6 mmol/L (3.6-5.0); TOTAL PROTEIN 5.6 g/dL (6.3-8.2)
[2019-09-01] MEDS ORDERED: BACLOFEN 10 MG TABLET PO PRN (15:08)
--- NOTE | 2019-09-01 15:16 | PDOC PROGRESS REPORT ---
Subjective Progress Note for:: 09/01/19 Subjective:: Patient expressed concern about restart of her Baclofen. She denied any fever or chills. No chest pain or difficulty with breathing. No nausea, vomiting, or abdominal pain. Tolerating oral feeding. Reason For Visit: SEPSIS,URINARY TRACT INFECTION Physical Exam Vital Signs: Temp Pulse Resp BP Pulse Ox 97.7 F 109 H 16 102/63 98 09/01/19 07:52 09/01/19 07:52 09/01/19 07:52 09/01/19 07:52 09/01/19 07:52 Intake & Output 08/31/19 09/01/19 09/02/19 06:59 06:59 06:59 Intake Total 3920 Output Total 950 Balance 2970 Weight 75.6 kg 82 kg Physical Exam: General appearance: PRESENT: no acute distress, well-developed, well-nourished Head exam: PRESENT: atraumatic, normocephalic Eye exam: PRESENT: conjunctiva pink ABSENT: pallor, scleral icterus Ear exam: PRESENT: normal external ear exam Mouth exam: PRESENT: moist, tongue midline Respiratory exam: PRESENT: chest wall tenderness, decreased breath sounds - at lung bases Cardiovascular exam: PRESENT: RRR, +S1, +S2. ABSENT: diastolic murmur, rubs, systolic murmur GI/Abdominal exam: PRESENT: normal bowel sounds, soft. ABSENT: distended, guarding, mass, organomegaly, rebound, tenderness Musculoskeletal exam: PRESENT: deformity - related to contracture deformity from her multiple sclerosis Neurological exam: PRESENT: alert, awake, oriented to person, oriented to place, oriented to time, oriented to situation, CN II-XII grossly intact. ABSENT: motor sensory deficit Psychiatric exam: PRESENT: appropriate affect, normal mood. ABSENT: homicidal ideation, suicidal ideation Skin exam: PRESENT: dry, intact, warm. ABSENT: cyanosis, rash Results Laboratory Results: 08/31/19 02:58 08/31/19 02:58 08/31/19 02:58 Blood Blood Culture (PCR) - Final Staphylococcus Species Impressions: Chest X-Ray 08/31/19 03:08 IMPRESSION: 1. No acute pulmonary process identified. Assessment & Plan - Diagnosis (1) Staphylococcus septicemia Is this a current diagnosis for this admission?: Yes Plan: Follow up on organism final identification and sensitivity. Continue IV Rocephin coverage. (2) Urinary tract infection Qualifiers: Urinary tract infection type: site unspecified Hematuria presence: with hematuria Qualified Code(s): N39.0 - Urinary tract infection, site not specified; R31.9 - Hematuria, unspecified Is this a current diagnosis for this admission?: Yes Plan: Obtain urine culture. Specimen was reported outside of 24 hours limit for same specimen culture. Obtain new specimen for urine culture. (3) Diabetes mellitus type 2 in nonobese Is this a current diagnosis for this admission?: Yes (4) Multiple sclerosis, primary chronic progressive Is this a current diagnosis for this admission?: Yes (5) Gait abnormality Is this a current diagnosis for this admission?: Yes - Time Time Spent with patient: 25-34 minutes Level of Care: TELE Medications reviewed and adjusted accordingly: Yes Anticipated discharge: Home with Homehealth Within: Other - Inpatient Certification Based on my medical assessment, after consideration of the patient's comorbidities, presenting symptoms, or acuity I expect that the services needed warrant INPATIENT care.: Yes I certify that my determination is in accordance with my understanding of Medicare's requirements for reasonable and necessary INPATIENT services [42 CFR 412.3e].: Yes Medical Necessity: Significant Comorbidiites Make Outpatient Treatment Too Risky, Need Close Monitoring Due to Risk of Patient Decompensation, Need For IV Fluids, Need For Continuous Telemetry Monitoring, Need for IV Antibiotics, Risk of Complication if Not Cared For in Hospital, Risk of Diagnosis Which Will Require Inpatient Eval/Care/Monitoring Post Hospital Care: D/C Paralegal Secretary Documentation - Plan Summary Plan Summary: Continue IV Rocephin coverage. follow up on blood and urine culture findings.
[2019-09-01] MEDS ORDERED: ERGOCALCIFEROL (VITAMIN D2) 50000 UNIT (1.25 MG) CAPSULE PO SCH (16:00)
[2019-09-02] MEDS: NORMAL SALINE 1000 ML 1,000 ML IV PRN ×2 (06:00→19:02)
[2019-09-02] MEDS: INSULIN LISPRO 100 UNIT/ML 3 ML VIAL SUBCUT SCH ×4 (07:24→21:44)
[2019-09-02] MEDS: DOXYCYCLINE HYCLATE 100 MG TABLET PO SCH ×2 (10:31→21:47)
--- NOTE | 2019-09-02 15:04 | PDOC PROGRESS REPORT ---
Subjective Progress Note for:: 09/02/19 Subjective:: Patient reported elbow pain that usually resolved with use of Tylenol at home. She denied any fever or chills. No chest pain or difficulty with breathing. No nausea, vomiting, or abdominal pain. Reason For Visit: SEPSIS,URINARY TRACT INFECTION Physical Exam Vital Signs: Temp Pulse Resp BP Pulse Ox 98.2 F 112 H 17 128/74 H 100 09/02/19 08:00 09/02/19 08:00 09/02/19 08:00 09/02/19 08:00 09/02/19 08:00 Intake & Output 09/01/19 09/02/19 09/03/19 06:59 06:59 06:59 Intake Total 3920 2653 Output Total 950 1050 Balance 2970 1603 Weight 82 kg 73.2 kg Physical Exam: General appearance: PRESENT: no acute distress, well-developed, well-nourished Head exam: PRESENT: atraumatic, normocephalic Eye exam: PRESENT: conjunctiva pink ABSENT: pallor, scleral icterus Ear exam: PRESENT: normal external ear exam Mouth exam: PRESENT: moist, tongue midline Respiratory exam: PRESENT: chest wall tenderness, decreased breath sounds - at lung bases Cardiovascular exam: PRESENT: RRR, +S1, +S2. ABSENT: diastolic murmur, rubs, systolic murmur GI/Abdominal exam: PRESENT: normal bowel sounds, soft. ABSENT: distended, guarding, mass, organomegaly, rebound, tenderness Musculoskeletal exam: PRESENT: deformity - related to contracture deformity from her multiple sclerosis Neurological exam: PRESENT: alert, awake, oriented to person, oriented to place, oriented to time, oriented to situation, CN II-XII grossly intact. ABSENT: motor sensory deficit Psychiatric exam: PRESENT: appropriate affect, normal mood. ABSENT: homicidal ideation, suicidal ideation Skin exam: PRESENT: dry, intact, warm. ABSENT: cyanosis, rash Results Laboratory Results: 09/01/19 13:54 09/01/19 13:54 09/01/19 09/01/19 13:54 13:54 WBC 8.0 RBC 3.97 Hgb 11.0 L D Hct 32.4 L MCV 82 MCH 27.7 MCHC 33.9 RDW 14.5 H Plt Count 180 Seg Neutrophils % 80.9 H Sodium 138.0 Potassium 3.6 Chloride 114 H Carbon Dioxide 19 L Anion Gap 5 BUN 14 Creatinine 0.73 Est GFR ( Amer) > 60 Glucose 109 Calcium 8.8 Total Bilirubin 0.7 AST 28 Alkaline Phosphatase 93 Total Protein 5.6 L Albumin 2.5 L 08/31/19 02:58 Blood Blood Culture (PCR) - Final Staphylococcus Species Impressions: Chest X-Ray 08/31/19 03:08 IMPRESSION: 1. No acute pulmonary process identified. Assessment & Plan - Diagnosis (1) Staphylococcus septicemia Is this a current diagnosis for this admission?: Yes Plan: Blood culture grew Staphy Simulans resistant to Ceftriaxone but sensitive to Tetracycline and Bactrim. Patient has allergy to sulfa drugs. She will d/c IV Rocephin. Start on Bactrim DS 1 tablet po bid. (2) Urinary tract infection Qualifiers: Urinary tract infection type: site unspecified Hematuria presence: with hematuria Qualified Code(s): N39.0 - Urinary tract infection, site not specified; R31.9 - Hematuria, unspecified Is this a current diagnosis for this admission?: Yes Plan: Urine culture grew Gram negative rods. (3) Diabetes mellitus type 2 in nonobese Is this a current diagnosis for this admission?: Yes (4) Multiple sclerosis, primary chronic progressive Is this a current diagnosis for this admission?: Yes (5) Gait abnormality Is this a current diagnosis for this admission?: Yes - Time Time Spent with patient: 25-34 minutes Level of Care: TELE Medications reviewed and adjusted accordingly: Yes Anticipated discharge: Home with Homehealth Within: Other - Inpatient Certification Based on my medical assessment, after consideration of the patient's comor bidities, presenting symptoms, or acuity I expect that the services needed warrant INPATIENT care.: Yes I certify that my determination is in accordance with my understanding of Medicare's requirements for reasonable and necessary INPATIENT services [42 CFR 412.3e].: Yes Medical Necessity: Significant Comorbidiites Make Outpatient Treatment Too Risky, Need Close Monitoring Due to Risk of Patient Decompensation, Need For IV Fluids, Need For Continuous Telemetry Monitoring, Need for IV Antibiotics, Risk of Complication if Not Cared For in Hospital, Risk of Diagnosis Which Will Require Inpatient Eval/Care/Monitoring Post 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 Start on oral Doxycycline 100 mg p.o bid. Continue all other current medication management.
[2019-09-02] MEDS: ACETAMINOPHEN 325 MG TABLET PO PRN (19:32)
[2019-09-03] MEDS: ACETAMINOPHEN 325 MG TABLET PO PRN (02:16)
[2019-09-03] MEDS: NORMAL SALINE 1000 ML 1,000 ML IV PRN (05:53)
[2019-09-03] MEDS: INSULIN LISPRO 100 UNIT/ML 3 ML VIAL SUBCUT SCH ×4 (08:00→22:11)
[2019-09-03] MEDS: DOXYCYCLINE HYCLATE 100 MG TABLET PO SCH ×2 (11:22→22:19)
--- NOTE | 2019-09-03 15:36 | PDOC PROGRESS REPORT ---
Subjective Progress Note for:: 09/03/19 Subjective:: Patient reported no fever or chills. No chest pain or difficulty with breathing. No nausea, vomiting, or abdominal pain. Reason For Visit: SEPSIS,URINARY TRACT INFECTION Physical Exam Vital Signs: Temp Pulse Resp BP Pulse Ox 97.9 F 82 16 150/103 H 100 09/03/19 11:08 09/03/19 11:08 09/03/19 11:08 09/03/19 11:08 09/03/19 11:08 Intake & Output 09/02/19 09/03/19 09/04/19 06:59 06:59 06:59 Intake Total 2653 2240 60 Output Total 1050 1475 500 Balance 1603 765 -440 Weight 73.2 kg 73.2 kg Physical Exam: General appearance: PRESENT: no acute distress, well-developed, well-nourished Head exam: PRESENT: atraumatic, normocephalic Eye exam: PRESENT: conjunctiva pink ABSENT: pallor, scleral icterus Ear exam: PRESENT: normal external ear exam Mouth exam: PRESENT: moist, tongue midline Respiratory exam: PRESENT: chest wall tenderness, decreased breath sounds - at lung bases Cardiovascular exam: PRESENT: RRR, +S1, +S2. ABSENT: diastolic murmur, rubs, systolic murmur GI/Abdominal exam: PRESENT: normal bowel sounds, soft. ABSENT: distended, guarding, mass, organomegaly, rebound, tenderness Musculoskeletal exam: PRESENT: deformity - related to contracture deformity from her multiple sclerosis Neurological exam: PRESENT: alert, awake, oriented to person, oriented to place, oriented to time, oriented to situation, CN II-XII grossly intact. ABSENT: motor sensory deficit Psychiatric exam: PRESENT: appropriate affect, normal mood. ABSENT: homicidal ideation, suicidal ideation Skin exam: PRESENT: dry, intact, warm. ABSENT: cyanosis, rash Results Laboratory Results: 09/01/19 13:54 09/01/19 13:54 09/01/19 15:13 Catheterized Urine Urine Culture - Final Escherichia Coli Impressions: Chest X-Ray 08/31/19 03:08 IMPRESSION: 1. No acute pulmonary process identified. Assessment & Plan - Diagnosis (1) Staphylococcus septicemia Is this a current diagnosis for this admission?: Yes (2) Urinary tract infection Qualifiers: Urinary tract infection type: site unspecified Hematuria presence: with hematuria Qualified Code(s): N39.0 - Urinary tract infection, site not specified; R31.9 - Hematuria, unspecified Is this a current diagnosis for this admission?: Yes (3) Diabetes mellitus type 2 in nonobese Is this a current diagnosis for this admission?: Yes (4) Multiple sclerosis, primary chronic progressive Is this a current diagnosis for this admission?: Yes (5) Gait abnormality Is this a current diagnosis for this admission?: Yes - Time Time Spent with patient: 25-34 minutes Level of Care: TELE Medications reviewed and adjusted accordingly: Yes Anticipated discharge: Home with Homehealth Within: Other - Inpatient Certification Based on my medical assessment, after consideration of the patient's comorbidities, presenting symptoms, or acuity I expect that the services needed warrant INPATIENT care.: Yes I certify that my determination is in accordance with my understanding of Medicare's requirements for reasonable and necessary INPATIENT services [42 CFR 412.3e].: Yes Medical Necessity: Significant Comorbidiites Make Outpatient Treatment Too Risky, Need Close Monitoring Due to Risk of Patient Decompensation, Need For Co ntinuous Telemetry Monitoring, Risk of Complication if Not Cared For in Hospital, Risk of Diagnosis Which Will Require Inpatient Eval/Care/Monitoring Post Hospital Care: D/C Manager Sales Support Documentation - Plan Summary Plan Summary: Continue current medication management. Obtain CBC with diff and BMP in am.
[2019-09-04 06:28] LABS: ABSOLUTE EOSINOPHILS # (AUTO) 0.2 10^3/uL (0.0-0.6); ABSOLUTE LYMPHOCYTES (AUTO) 1.3 10^3/uL (0.5-4.7); ABSOLUTE MONOCYTES (AUTO) 0.4 10^3/uL (0.1-1.4); ABSOLUTE NEUT (AUTO) 2.3 10^3/uL (1.7-8.2); BASOPHILS % (AUTO) 0.6 % (0-2); EOSINOPHILS % (AUTO) 4.5 % (0-6); HEMATOCRIT 33.6 % (36.0-47.0); HEMOGLOBIN 11.4 g/dL (12.0-15.5); LYMPHOCYTES % (AUTO) 31.5 % (13-45); MEAN CORPUSCULAR HEMOGLOBIN 27.1 pg (27.0-33.4); MEAN CORPUSCULAR VOLUME 80 fl (80-97); PLATELET COUNT 182 10^3/uL (150-450); RED BLOOD COUNT 4.21 10^6/uL (3.72-5.28); RED CELL DISTRIBUTION WIDTH 14.8 % (11.5-14.0); SEGMENTED NEUTROPHILS % (AUTO) 53.4 % (42-78); TOTAL CELLS COUNTED % (AUTO) 100 %; WHITE BLOOD COUNT 4.3 10^3/uL (4.0-10.5)
[2019-09-04 06:43] LABS: ANION GAP 5 (5-19); BLOOD UREA NITROGEN 4 mg/dL (7-20); CALCIUM 8.6 mg/dL (8.4-10.2); CARBON DIOXIDE 22 mmol/L (22-30); CHLORIDE 115 mmol/L (98-107); GLUCOSE 99 mg/dL (75-110); POTASSIUM 3.2 mmol/L (3.6-5.0)
[2019-09-04] MEDS: INSULIN LISPRO 100 UNIT/ML 3 ML VIAL SUBCUT SCH ×4 (08:07→21:58)
[2019-09-04] MEDS: POTASSIUM CHLORIDE 10 MEQ TABLET.ER PO SCH ×2 (10:00→13:58)
[2019-09-04] MEDS: DOXYCYCLINE HYCLATE 100 MG TABLET PO SCH ×2 (10:00→21:59)
[2019-09-04] MEDS ORDERED: MAGNESIUM SULFATE/D5W 1 GM/100 ML RTUPB IV ONE (11:00)
--- NOTE | 2019-09-04 15:53 | PDOC PROGRESS REPORT ---
Subjective Progress Note for:: 09/04/19 Subjective:: Patient denied chest pain or difficulty with breathing. No fever or chills. No nausea, vomiting, or abdominal pain. Reason For Visit: SEPSIS,URINARY TRACT INFECTION Physical Exam Vital Signs: Temp Pulse Resp BP Pulse Ox 98.1 F 72 19 152/90 H 99 09/04/19 00:14 09/04/19 07:00 09/04/19 00:14 09/04/19 00:14 09/04/19 00:14 Intake & Output 09/03/19 09/04/19 09/05/19 06:59 06:59 06:59 Intake Total 2240 1180 Output Total 1475 1550 Balance 765 -370 Weight 73.2 kg 73.2 kg Physical Exam: General appearance: PRESENT: no acute distress, well-developed, well-nourished Head exam: PRESENT: atraumatic, normocephalic Eye exam: PRESENT: conjunctiva pink ABSENT: pallor, scleral icterus Ear exam: PRESENT: normal external ear exam Mouth exam: PRESENT: moist, tongue midline Respiratory exam: PRESENT: chest wall tenderness, decreased breath sounds - at lung bases Cardiovascular exam: PRESENT: RRR, +S1, +S2. ABSENT: diastolic murmur, rubs, systolic murmur GI/Abdominal exam: PRESENT: normal bowel sounds, soft. ABSENT: distended, guarding, mass, organomegaly, rebound, tenderness Musculoskeletal exam: PRESENT: deformity - related to contracture deformity from her multiple sclerosis Neurological exam: PRESENT: alert, awake, oriented to person, oriented to place, oriented to time, oriented to situation, CN II-XII grossly intact. ABSENT: motor sensory deficit Psychiatric exam: PRESENT: appropriate affect, normal mood. ABSENT: homicidal ideation, suicidal ideation Skin exam: PRESENT: dry, warm. There is unstageable coccyxgeal pressure ulcer. ABSENT: cyanosis, rash Results Laboratory Results: 09/04/19 06:10 09/04/19 06:10 09/04/19 09/04/19 06:10 06:10 WBC 4.3 RBC 4.21 Hgb 11.4 L Hct 33.6 L MCV 80 MCH 27.1 MCHC 34.0 RDW 14.8 H Plt Count 182 Seg Neutrophils % 53.4 Sodium 141.8 Potassium 3.2 L Chloride 115 H Carbon Dioxide 22 Anion Gap 5 BUN 4 L Creatinine 0.42 L Est GFR ( Amer) > 60 Glucose 99 Calcium 8.6 09/01/19 15:13 Catheterized Urine Urine Culture - Final Escherichia Coli Impressions: Chest X-Ray 08/31/19 03:08 IMPRESSION: 1. No acute pulmonary process identified. Assessment & Plan - Diagnosis (1) Staphylococcus septicemia Is this a current diagnosis for this admission?: Yes (2) Urinary tract infection Qualifiers: Urinary tract infection type: site unspecified Hematuria presence: with hematuria Qualified Code(s): N39.0 - Urinary tract infection, site not specified; R31.9 - Hematuria, unspecified Is this a current diagnosis for this admission?: Yes (3) Diabetes mellitus type 2 in nonobese Is this a current diagnosis for this admission?: Yes (4) Multiple sclerosis, primary chronic progressive Is this a current diagnosis for this admission?: Yes (5) Gait abnormality Is this a current diagnosis for this admission?: Yes (6) Hypokalemia due to inadequate potassium intake Is this a current diagnosis for this admission?: Yes Plan: Patient will receive oral potassium replacement therapy. Obtain BMP post treatment later today. (7) Hypomagnesemia Is this a current diagnosis for this admission?: Yes Plan: She will receive 1gm of magnesium sulfate infusion today. Obtain serum level post treatment. (8) Pressure ulcer of coccygeal region, unstageable Is this a current diagnosis for this admission?: Yes Plan: Continue daily wet to dry with allevyn dressing. She will benefit from INSTITUTIONAL RESEARCH DIRECTOR service upon discharge for further skill nursing and aide service needs although family always profess that they are taking good care of the patient. - Time Time Spent with patient: 25-34 minutes Level of Care: TELE Medications reviewed and adjusted accordingly: Yes Anticipated discharge: Home with Homehealth Within: Other - Inpatient Certification Based on my medical assessment, after consideration of the patient's comorbidities, presenting symptoms, or acuity I expect that the services needed warrant INPATIENT care.: Yes I certify that my determination is in accordance with my understanding of Medicare's requirements for reasonable and necessary INPATIENT services [42 CFR 412.3e].: Yes Medical Necessity: Significant Comorbidiites Make Outpatient Treatment Too Risky, Need Close Monitoring Due to Risk of Patient Decompensation, Need For IV Fluids, Need For Continuous Telemetry Monitoring, Risk of Complication if Not Cared For in Hospital, Risk of Diagnosis Which Will Require Inpatient Eval/Care/Monitoring Post 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 Obtain post treatment BMP and Mag level. Possible discharge home tomorrow.
[2019-09-04 18:48] LABS: ANION GAP 5 (5-19); BLOOD UREA NITROGEN 5 mg/dL (7-20); CALCIUM 8.6 mg/dL (8.4-10.2); CARBON DIOXIDE 21 mmol/L (22-30); CHLORIDE 114 mmol/L (98-107); GLUCOSE 103 mg/dL (75-110)
[2019-09-04] MEDS: NORMAL SALINE 1000 ML 1,000 ML IV PRN (19:59)
[2019-09-05] MEDS: NORMAL SALINE 1000 ML 1,000 ML IV PRN (06:23)
[2019-09-05] MEDS: INSULIN LISPRO 100 UNIT/ML 3 ML VIAL SUBCUT SCH ×3 (07:35→16:26)
[2019-09-05] MEDS: DOXYCYCLINE HYCLATE 100 MG TABLET PO SCH (11:11)
[2019-09-05] MEDS: ACETAMINOPHEN 325 MG TABLET PO PRN (14:33)
[2019-09-05 16:36] VITALS: BP 137/84
--- NOTE | 2019-09-05 16:52 | PDOC DISCHARGE SUMMARY ---
Impression - Admit/DC Date/PCP Admission Date/Primary Care Provider: 08/31/19 06:56 QUINN MARCANO Discharge Date: 09/05/19 - Discharge Diagnosis (1) Staphylococcus septicemia Is this a current diagnosis for this admission?: Yes (2) Urinary tract infection Is this a current diagnosis for this admission?: Yes (3) Diabetes mellitus type 2 in nonobese Is this a current diagnosis for this admission?: Yes (4) Multiple sclerosis, primary chronic progressive Is this a current diagnosis for this admission?: Yes (5) Gait abnormality Is this a current diagnosis for this admission?: Yes (6) Hypokalemia due to inadequate potassium intake Is this a current diagnosis for this admission?: Yes (7) Hypomagnesemia Is this a current diagnosis for this admission?: Yes (8) Pressure ulcer of coccygeal region, unstageable Is this a current diagnosis for this admission?: Yes - Assessment Summary: Patient was admitted for UTI with concern for probable sepsis. Her urine culture grew E.coli and blood culture did grew staphylococcus simulans. She was treated with culture sensitivity reported appropriate antibiotics. She remained bed bound due to her advanced multiple sclerosis during this hospitalization. Her chronic coccyxgeal unstageable pressure ulcer was managed with wet to dry allevyn daily dressing. She will be discharged home today with home health agency services for skill nursing and aide. She will follow up on telehealth as indicated upon discharge. - Additional Information Resuscitation Status: Full Code Discharge Diet: Diabetic Discharge Activity: Activity As Tolerated Referrals: [facility] [Outside] QUINN MARCANO MD [Primary Care Provider] - 09/17/19 10:00 am Prescriptions: RX: Doxycycline Hyclate [Vibramycin 100 mg Tablet] 100 mg PO Q12 #7 tablet Home Medications: RX: Baclofen [Baclofen 10 mg Tablet] 10 mg PO Q8HP PRN 09/01/19 RX: Ergocalciferol (Vitamin D2) [Drisdol 50,000 unit (1.25MG) Capsule] 50,000 unit PO Q7D 09/01/19 RX: Doxycycline Hyclate [Vibramycin 100 mg Tablet] 100 mg PO Q12 #7 tablet 09/05/19 History of Present Illiness History of Present Illness: INO SALDIVAR is a 53 year old female known to my practice who was brought to the ED via EMS with family reporting fever, coughing, and difficulty with breathing. Patient's account was more of her daughter's claim that she was acting funny with funny eye movement. She denied any fever or chills. EMS staff reported incident of possible aspiration with desaturation and need for oropharyngeal suction to improve her oxygenation status en route to the ED. She was on supplemental oxygen at 3L/minute via nasal canula upon arrival in the ED. Her initial evaluation was significant for abnormal urinalysis suggestive of UTI with hypotension. She was treatment with IV fluid infusion and antibiotic coverage. She was advised hospitalization for further evaluation and management. Her morbidities are as listed below. Hospital Course Hospital Course: Patient was admitted for UTI with concern for probable sepsis. Her urine culture grew E.coli and blood culture did grew staphylococcus simulans. She was treated with culture sensitivity reported appropriate antibiotics. She remained bed bound due to her advanced multiple sclerosis during this hospitalization. Her chronic coccyxgeal unstageable pressure ulcer was managed with wet to dry allevyn daily dressing. She will be discharged home today with home health agency services for skill nursing and aide. She will follow up on telehealth as indicated upon discharge. Physical Exam Vital Signs: Temp Pulse Resp BP Pulse Ox 98.2 F 95 16 139/86 H 100 09/05/19 11:33 09/05/19 11:33 09/05/19 11:33 09/05/19 11:33 09/05/19 11:33 Intake & Output 09/04/19 09/05/19 09/06/19 06:59 06:59 06:59 Intake Total 1180 1490 30 Output Total 1550 1610 475 Balance -370 -120 -445 Weight 73.2 kg 74.1 kg General appearance: PRESENT: no acute distress, well-developed, well-nourished Head exam: PRESENT: atraumatic, normocephalic Eye exam: PRESENT: conjunctiva pink ABSENT: pallor, scleral icterus Ear exam: PRESENT: normal external ear exam Mouth exam: PRESENT: moist, tongue midline Respiratory exam: PRESENT: chest wall tenderness, decreased breath sounds - at lung bases Cardiovascular exam: PRESENT: RRR, +S1, +S2. ABSENT: diastolic murmur, rubs, systolic murmur GI/Abdominal exam: PRESENT: normal bowel sounds, soft. ABSENT: distended, guarding, mass, organomegaly, rebound, tenderness Musculoskeletal exam: PRESENT: deformity - related to contracture deformity from her multiple sclerosis Neurological exam: PRESENT: alert, awake, oriented to person, oriented to place, oriented to time, oriented to situation, CN II-XII grossly intact. ABSENT: motor sensory deficit Psychiatric exam: PRESENT: appropriate affect, normal mood. ABSENT: homicidal ideation, suicidal ideation Skin exam: PRESENT: dry, warm. There is unstageable coccyxgeal pressure ulcer. ABSENT: cyanosis, rash Results Laboratory Results: WBC 4.3 10^3/uL (4.0-10.5) 09/04/19 06:10 RBC 4.21 10^6/uL (3.72-5.28) 09/04/19 06:10 Hgb 11.4 g/dL (12.0-15.5) L 09/04/19 06:10 Hct 33.6 % (36.0-47.0) L 09/04/19 06:10 MCV 80 fl (80-97) 09/04/19 06:10 MCH 27.1 pg (27.0-33.4) 09/04/19 06:10 MCHC 34.0 g/dL (32.0-36.0) 09/04/19 06:10 RDW 14.8 % (11.5-14.0) H 09/04/19 06:10 Plt Count 182 10^3/uL (150-450) 09/04/19 06:10 Lymph % (Auto) 31.5 % (13-45) 09/04/19 06:10 Tripp % (Auto) 10.0 % (3-13) 09/04/19 06:10 Eos % (Auto) 4.5 % (0-6) 09/04/19 06:10 Baso % (Auto) 0.6 % (0-2) 09/04/19 06:10 Absolute Neuts (auto) 2.3 10^3/uL (1.7-8.2) 09/04/19 06:10 Absolute Lymphs (auto) 1.3 10^3/uL (0.5-4.7) 09/04/19 06:10 Absolute Monos (auto) 0.4 10^3/uL (0.1-1.4) 09/04/19 06:10 Absolute Eos (auto) 0.2 10^3/uL (0.0-0.6) 09/04/19 06:10 Absolute Basos (auto) 0.0 10^3/uL (0.0-0.2) 09/04/19 06:10 Seg Neutrophils % 53.4 % (42-78) 09/04/19 06:10 PT 13.9 SEC (11.4-15.4) 08/31/19 02:58 INR 1.07 08/31/19 02:58 VBG pH 7.35 (7.30-7.42) 08/31/19 03:51 VBG pCO2 30.5 mmHg (35-63) L 08/31/19 03:51 VBG HCO3 16.6 mmol/L (20-32) L 08/31/19 03:51 VBG Base Excess -7.7 mmol/L 08/31/19 03:51 Sodium 140.0 mmol/L (137-145) 09/04/19 17:56 Potassium 4.0 mmol/L (3.6-5.0) 09/04/19 17:56 Chloride 114 mmol/L (98-107) H 09/04/19 17:56 Carbon Dioxide 21 mmol/L (22-30) L 09/04/19 17:56 Anion Gap 5 (5-19) 09/04/19 17:56 BUN 5 mg/dL (7-20) L 09/04/19 17:56 Creatinine 0.37 mg/dL (0.52-1.25) L 09/04/19 17:56 Est GFR ( Amer) > 60 (>60) 09/04/19 17:56 Est GFR (MDRD) Non-Af > 60 (>60) 09/04/19 17:56 Glucose 103 mg/dL (75-110) 09/04/19 17:56 POC Glucose 83 mg/dL (70-110) 09/05/19 10:40 Lactic Acid 3.3 mmol/L (0.7-2.1) H 08/31/19 09:45 Calcium 8.6 mg/dL (8.4-10.2) 09/04/19 17:56 Magnesium 1.8 mg/dL (1.6-2.3) 09/04/19 17:56 Total Bilirubin 0.7 mg/dL (0.2-1.3) 09/01/19 13:54 Direct Bilirubin 0.1 mg/dL (0.0-0.4) 09/01/19 13:54 Neonat Total Bilirubin Not Reportable 09/01/19 13:54 Neonat Direct Bilirubin Not Reportable 09/01/19 13:54 Neonat Indirect Bili Not Reportable 09/01/19 13:54 AST 28 U/L (14-36) 09/01/19 13:54 ALT 21 U/L (<35) 09/01/19 13:54 Alkaline Phosphatase 93 U/L (38-126) 09/01/19 13:54 Total Protein 5.6 g/dL (6.3-8.2) L 09/01/19 13:54 Albumin 2.5 g/dL (3.5-5.0) L 09/01/19 13:54 Urine Color YELLOW 08/31/19 03:08 Urine Appearance TURBID 08/31/19 03:08 Urine pH 7.0 (5.0-9.0) 08/31/19 03:08 Ur Specific [place] 1.011 08/31/19 03:08 Urine Protein 100 mg/dL (NEGATIVE) H 08/31/19 03:08 Urine Glucose (UA) NEGATIVE mg/dL (NEGATIVE) 08/31/19 03:08 Urine Ketones TRACE mg/dL (NEGATIVE) H 08/31/19 03:08 Urine Blood MODERATE (NEGATIVE) H 08/31/19 03:08 Urine Nitrite (Reflex) POSITIVE (NEGATIVE) H 08/31/19 03:08 Urine Bilirubin NEGATIVE (NEGATIVE) 08/31/19 03:08 Urine Urobilinogen NEGATIVE mg/dL (<2.0) 08/31/19 03:08 Leukocyte Esterase Rfl LARGE (NEGATIVE) H 08/31/19 03:08 Urine RBC (Auto) 134 /HPF 08/31/19 03:08 Urine Bacteria (Auto) 1+ /HPF 08/31/19 03:08 Urine WBC (Reflex) > 182 /HPF 08/31/19 03:08 Urine WBC Clumps MANY /HPF 08/31/19 03:08 Squamous Epi Cells Auto 8 /HPF 08/31/19 03:08 U Non-Squamous Epis Auto 4 /HPF 08/31/19 03:08 Urine Mucus (Auto) RARE /LPF 08/31/19 03:08 Urine Ascorbic Acid NEGATIVE (NEGATIVE) 08/31/19 03:08 Impressions: Chest X-Ray 08/31/19 03:08 IMPRESSION: 1. No acute pulmonary process identified. Plan Health Concerns: Bed bound situation from her multiple sclerosis make her wound management a problem. She is high risk for readmission. Plan of Treatment: Maintain on Doxycyline therapy for 7 days. Goals: Close follow up and maintenance of home environment with family to reduce readmission risk. Stroke Is this a Stroke Patient?: No Acute Heart Failure - Is this a Heart Failure Patient?: No
== END 2019-09-05 16:40 | disposition home health service (06) | DRG 872 ==
LOC: ER 02:54 → EH 06:56 → 4N 08:10
PROVIDERS: ADMIT Internal Medicine Geriatric Medicine; ATTEND Internal Medicine Geriatric Medicine
DX: A41.2 Sepsis due to unspecified staphylococcus (principal); N39.0 Urinary tract infection, site not specified; Z16.19 Resistance to other specified beta lactam antibiotics; E11.9 Type 2 diabetes mellitus without complications; L89.150 Pressure ulcer of sacral region, unstageable; B96.20 Unspecified Escherichia coli [E. coli] as the cause of diseases classified elsewhere; E87.6 Hypokalemia; E83.42 Hypomagnesemia; G35 Multiple sclerosis; R31.9 Hematuria, unspecified; R26.9 Unspecified abnormalities of gait and mobility; Z86.711 Personal history of pulmonary embolism; Z88.2 Allergy status to sulfonamides; Z91.030 Bee allergy status; Z91.040 Latex allergy status; Z74.01 Bed confinement status
CPT/HCPCS: 36415; 51702; 71045; 80048; 80053; 81001; 82803; 82962; 83605; 83735; 85025; 85610; 87040; 87077; 87086; 87088; 87150; 87186; 93005; 93010; 96361; 96365; 96375; 99291; 99292; J0696; J1885; J2543; J3475; J3490; J7030

== ENCOUNTER 2019-10-14 15:26 | Inpatient (IN) | payer MEDICARE, MEDICAID ==
[2019-10-14] MEDS ORDERED: NORMAL SALINE 1000 ML 1,000 ML IV ONE (15:53)
[2019-10-14] MEDS: NORMAL SALINE 1000 ML 1,000 ML IV PRN ×2 (16:23→16:55)
[2019-10-14 16:27] LABS: VENOUS BLOOD BASE EXCESS -2.7 mmol/L; VENOUS BLOOD HCO3 21.2 mmol/L (20-32); VENOUS BLOOD PCO2 34.6 mmHg (35-63); VENOUS BLOOD PH 7.41 (7.30-7.42)
[2019-10-14 16:28] LABS: HEMATOCRIT 39.5 % (36.0-47.0); MEAN CORPUSCULAR VOLUME 82 fl (80-97); PLATELET COUNT 287 10^3/uL (150-450); RED BLOOD COUNT 4.83 10^6/uL (3.72-5.28); RED CELL DISTRIBUTION WIDTH 15.2 % (11.5-14.0); WHITE BLOOD COUNT 15.2 10^3/uL (4.0-10.5)
[2019-10-14 16:40] LABS: INTERNATIONAL RATION (INR) 0.99; PROTHROMBIN TIME 13.1 SEC (11.4-15.4)
[2019-10-14 16:43] LABS: ABSOLUTE LYMPHOCYTES# (MANUAL) 0.9 10^3/uL (0.5-4.7); ABSOLUTE MONOCYTES # (MANUAL) 0.6 10^3/uL (0.1-1.4); BAND NEUTROPHILS % (MANUAL) 1 % (3-5); BASOPHILS % (MANUAL) 0 % (0-2); EOSINOPHILS % (MANUAL) 1 % (0-6); LYMPHOCYTES % (MANUAL) 6 % (13-45); MONOCYTES % (MANUAL) 4 % (3-13); SEGMENTED NEUTROPHILS % (MAN) 88 % (42-78); TOTAL CELLS COUNTED 100
[2019-10-14 16:45] LABS: ANISOCYTOSIS SLIGHT; PLATELET COMMENT ADEQUATE
[2019-10-14 16:54] LABS: APPEARANCE,URINE CLOUDY; BILIRUBIN,URINE NEGATIVE (NEGATIVE); COLOR,URINE YELLOW; GLUCOSE, URINE NEGATIVE (NEGATIVE); KETONES,URINE 20 mg/dL (NEGATIVE); PROTEIN,URINE 30 mg/dL (NEGATIVE); URINE SPECIFIC GRAVITY 1.012; UROBILINOGEN,URINE NEGATIVE mg/dL (<2.0)
[2019-10-14 16:57] LABS: ALBUMIN 4.2 g/dL (3.5-5.0); ALKALINE PHOSPHATASE 115 U/L (38-126); ANION GAP 12 (5-19); ASPARTATE AMINO TRANSFERASE 30 U/L (14-36); BILIRUBIN,DIRECT 0.1 mg/dL (0.0-0.4); BILIRUBIN,TOTAL 1.2 mg/dL (0.2-1.3); BLOOD UREA NITROGEN 18 mg/dL (7-20); CALCIUM 10.7 mg/dL (8.4-10.2); CARBON DIOXIDE 22 mmol/L (22-30); CHLORIDE 106 mmol/L (98-107); GLUCOSE 136 mg/dL (75-110); POTASSIUM 4.8 mmol/L (3.6-5.0); TOTAL PROTEIN 8.3 g/dL (6.3-8.2)
[2019-10-14] MEDS ORDERED: VANCOMYCIN HCL INJ 1000 MG VIAL IV ONE (16:58)
[2019-10-14] MEDS ORDERED: CEFTRIAXONE 1 GM/D5W RTU 1 GM/50 ML RTUPB IV ONE (17:30)
--- NOTE | 2019-10-14 17:34 | RADIOLOGY REPORT (SQ) ---
EXAM DESCRIPTION: CHEST SINGLE VIEW IMAGES COMPLETED DATE/TIME: 10/14/2019 5:09 pm REASON FOR STUDY: eval sepsis COMPARISON: 08/31/2019 EXAM PARAMETERS: NUMBER OF VIEWS: One view. TECHNIQUE: Single frontal radiographic view of the chest acquired. RADIATION DOSE: NA LIMITATIONS: None. FINDINGS: LUNGS AND PLEURA: Low lung volumes. Slight left lung base atelectasis. No acute pulmona ry consolidation. No pneumothorax or pleural effusion. MEDIASTINUM AND HILAR STRUCTURES: No masses. Contour normal. HEART AND VASCULAR STRUCTURES: Heart normal in size. Normal vasculature. BONES: No acute findings. HARDWARE: Left basilar chest tube. OTHER: No other significant finding. IMPRESSION: 1. Low lung volumes. Slight left lung base atelectasis. No acute pulmonary consolidat ion. TECHNICAL DOCUMENTATION: JOB ID: [id number] 2010 [employer]- All Rights Reserved Reading location - IP/workstation name: [email or web address]
--- NOTE | 2019-10-14 17:50 | ER Document Report ---
ED General - General Chief Complaint: Fever Stated Complaint: FEVER Time Seen by Provider: 10/14/19 15:39 Primary Care Provider: QUINN MARCANO MD [Primary Care Provider] - Follow up as needed TRAVEL OUTSIDE OF THE [place] IN LAST 30 DAYS: No - HPI Notes: Patient is a 53-year-old female with a history of multiple sclerosis who presents to the emergency department for evaluation of fever and elevated heart rate. She states she had family members "watching out for sepsis." She denies any pain. She states she just feels weak. She is nonambulatory. - Related Data Allergies/Adverse Reactions: latex [Latex] Allergy (Intermediate, Verified 10/14/19 16:45) RASH/BLISTER Sulfa (Sulfonamide Antibiotics) Allergy (Intermediate, Verified 10/14/19 16:45) RASH/HIVES bee venom protein (honey bee) Allergy (Verified 10/14/19 16:45) Anaphylaxis Past Medical History - General Information source: Patient - Social History Smoking Status: Unknown if Ever Smoked Family History: Reviewed & Not Pertinent - Past Medical History Cardiac Medical History: Reports: Hx Pulmonary Embolism - 2 years ago Denies: Hx Atrial Fibrillation, Hx Congestive Heart Failure, Hx Heart Attack, Hx Hypercholesterolemia, Hx Hypertension Pulmonary Medical History: Denies: Hx Asthma, Hx Bronchitis, Hx COPD, Hx Pneumonia, Hx Respiratory Failure, Hx Sleep Apnea, Hx Tuberculosis Neurological Medical History: Reports: Other - Multiple sclerosis. Denies: Hx Cerebrovascular Accident, Hx Migraine, Hx Seizures, Hx Parkinson's Disease Endocrine Medical History: Reports: Hx Hypothyroidism. Denies: Hx Diabetes Mellitus Type 1 Renal/ Medical History: Denies: Hx End Stage Renal Disease, Hx Kidney Stones, Hx Peritoneal Dialysis Malignancy Medical History: Denies: Hx Leukemia, Hx Lung Cancer GI Medical History: Denies: Hx Gastroesophageal Reflux Disease, Hx Hiatal Hernia, Hx Ulcer Musculoskeletal Medical History: Denies Hx Arthritis, Reports Hx Multiple Sclerosis Psychiatric Medical History: Denies: Hx Attention Deficit Hyperactivity Disorder, Hx Bipolar Disorder, Hx Dementia, Hx Depression, Hx Schizophrenia Infectious Medical History: Denies: Hx HIV Past Surgical History: Reports: Hx Section - x2, Hx Cholecystectomy. Denies: Hx Appendectomy, Hx Bowel Surgery, Hx Coronary Artery Bypass Graft, Hx Gastric Bypass Surgery, Hx Herniorrhaphy, Hx Hysterectomy, Hx Mastectomy, Hx Pacemaker, Hx Tonsillectomy, Hx Tubal Ligation - Immunizations Immunizations up to date: Yes Hx Diphtheria, Pertussis, Tetanus Vaccination: Yes Review of Systems - Review of Systems Constitutional: See HPI -: Yes All other systems reviewed and negative Physical Exam - Vital signs Vitals: Pulse Ox 96 10/14/19 15:26 - Notes Notes: This is a frail-appearing 53-year-old female, who appears much older than her stated age in no acute distress. Head is normocephalic and atraumatic, pupils are equal round, reactive to light. Mucosa is moist. Uvula is midline. Heart is tachycardic with normal S1-S2. Lungs are clear station bilaterally. Abdomen is obese, nontender with normoactive bowel sounds. Extremities without cyanosis or clubbing. Peripheral pulses are equal, posterior calves are nontender. Examination of the skin yields multiple stage II and III ischial and sacral decubitus ulcers. Patient is awake and alert, cooperative examiner. Course - Re-evaluation Re-evalutation: 10/14/19 17:48 Patient presents to the emergency department for evaluation. She was markedly tachycardic but afebrile here. She did take Tylenol home, but she was unsure as to when. Patient was started on the sepsis protocol. She was given a bolus. She was found have a UTI. We did go ahead and treat with ceftriaxone. Because of concern regarding the decubiti being a source of infection, I did order vancomycin, as she has had some methicillin-resistant staph in the past. I spoke with Dr. Marcano. He will admit the patient for further care. - Vital Signs Vital signs: Temp Pulse Resp BP Pulse Ox 98.6 F 23 H 138/84 H 98 10/14/19 15:28 10/14/19 16:01 10/14/19 16:00 10/14/19 16:01 - Laboratory Result Diagrams: 10/14/19 15:46 10/14/19 15:46 Laboratory results interpreted by me: 10/14/19 10/14/19 10/14/19 15:46 15:46 15:46 WBC 15.2 H RDW 15.2 H Seg Neuts % (Manual) 88 H Band Neutrophils % 1 L Lymphocytes % (Manual) 6 L Abs Neuts (Manual) 13.5 H VBG pCO2 34.6 L Glucose 136 H Calcium 10.7 H Total Protein 8.3 H Urine Protein Urine Ketones Urine Blood Urine Nitrite (Reflex) Leukocyte Esterase Rfl 10/14/19 16:13 WBC RDW Seg Neuts % (Manual) Band Neutrophils % Lymphocytes % (Manual) Abs Neuts (Manual) VBG pCO2 Glucose Calcium Total Protein Urine Protein 30 H Urine Ketones 20 H Urine Blood MODERATE H Urine Nitrite (Reflex) POSITIVE H Leukocyte Esterase Rfl LARGE H - Diagnostic Test Radiology reviewed: Reports reviewed Radiology results interpreted by me: 10/14/19 17:49 Chest X-Ray 10/14/19 15:42 IMPRESSION: 1. Low lung volumes. Slight left lung base atelectasis. No acute pulmonary consolidation. Discharge - Discharge Clinical Impression: Urinary tract infection Qualifiers: Urinary tract infection type: site unspecified Hematuria presence: without hematuria Qualified Code(s): N39.0 - Urinary tract infection, site not specified Sepsis Qualifiers: Sepsis type: sepsis due to unspecified organism Severe sepsis shock status: without septic shock Condition: Stable Disposition: ADMITTED INPATIENT Admitting Provider: Angie Unit Admitted: Telemetry Referrals: QUINN MARCANO MD [Primary Care Provider] - Follow up as needed
--- NOTE | 2019-10-14 23:20 | PDOC H&P ---
History of Present Illness Admission Date/PCP: 10/14/19 18:06 [facility] History of Present Illness: INO SALDIVAR is a 53 year old female patient known to my practice who presented to the ED via EMS service with family complain about fever and high heart rate. Patient denied any chest pain, difficulty with breathing, nausea, vomiting, or abdominal pain. She has history of multiple sclerosis with severe contracture deformity and presently bedbound. There is her morbidity associated incontinence and reported skin breakdown in the sacral region. She admitted to associated weakness but denied dizziness, headache, and change in her mentation presently. Her initial ED evaluation was significant for leukocytosis and abnormal urinalysis suggestive of possible UTI and Her morbidities are as listed below. Past Medical History Cardiac Medical History: Reports: Pulmonary Embolism - 2 years ago Denies: Atrial Fibrillation, Congestive Heart Failure, Myocardial Infarction, Hyperlipidema, Hypertension Pulmonary Medical History: Denies: Asthma, Bronchitis, Chronic Obstructive Pulmonary Disease (COPD), Pneumonia, Respiratory Failure, Sleep Apnea, Tuberculosis Neurological Medical History: Reports: Other - Multiple sclerosis Denies: Migraine, Seizures Endocrine Medical History: Reports: Diabetes Mellitus Type 2, Hypothyroidism Denies: Diabetes Mellitus Type 1 Renal/ Medical History: Denies: End Stage Renal Disease Malignancy Medical History: Denies: Leukemia, Lung Cancer GI Medical History: Denies: Gastroesophageal Reflux Disease, Hiatal Hernia Musculoskeltal Medical History: Denies: Arthritis Psychiatric Medical History: Denies: Attention Deficit Hyperactivity Disorder, Bipolar Disorder, Dementia, Depression Hematology: Reports: Anemia Denies: Hemophilia, Sickle Cell Disease Infectious Medical History: Denies: HIV Past Surgical History Past Surgical History: Reports: Section - x2, Cholecystectomy Denies: Appendectomy, Coronary Artery Bypass Graft, Gastric Bypass Surgery, Herniorrhaphy, Hysterectomy, Mastectomy, Pacemaker, Tonsillectomy, Tubal Ligation Social History Smoking Status: Unknown if Ever Smoked Frequency of Alcohol Use: None Hx Recreational Drug Use: No Drugs: None Hx Prescription Drug Abuse: No - Advance Directive Resuscitation Status: Full Code Family History Family History: Reviewed & Not Pertinent Parental Family History Reviewed: Yes Children Family History Reviewed: Yes Sibling(s) Family History Reviewed.: Yes Medication/Allergy Home Medications: Baclofen [Baclofen 10 mg Tablet] 10 mg PO Q8HP PRN 09/01/19 Ergocalciferol (Vitamin D2) [Drisdol 50,000 unit (1.25MG) Capsule] 50,000 unit PO WE@1000 09/01/19 Allergies/Adverse Reactions: latex [Latex] Allergy (Intermediate, Verified 10/14/19 16:45) RASH/BLISTER Sulfa (Sulfonamide Antibiotics) Allergy (Intermediate, Verified 10/14/19 16:45) RASH/HIVES bee venom protein (honey bee) Allergy (Verified 10/14/19 16:45) Anaphylaxis Review of Systems Constitutional: PRESENT: weakness. ABSENT: chills, fever(s), headache(s), weight gain, weight loss Eyes: ABSENT: visual disturbances Ears: ABSENT: hearing changes Cardiovascular: ABSENT: chest pain, dyspnea on exertion, edema, orthropnea, palpitations Respiratory: ABSENT: cough, hemoptysis Gastrointestinal: ABSENT: abdominal pain, constipation, diarrhea, hematemesis, hematochezia, nausea, vomiting Genitourinary: ABSENT: dysuria, hematuria Musculoskeletal: ABSENT: joint swelling Integumentary: ABSENT: rash, wounds Neurological: PRESENT: abnormal speech - related to her multiple sclerosis, focal weakness - related to contracture deformity from her multiple sclerosis. ABSENT: confusion, dizziness, syncope Psychiatric: ABSENT: anxiety, depression, homidical ideation, suicidal ideation Endocrine: ABSENT: cold intolerance, heat intolerance, polydipsia, polyuria Hematologic/Lymphatic: ABSENT: easy bleeding, easy bruising, lymphadenopathy Physical Exam Vital Signs: Temp Pulse Resp BP Pulse Ox 97.9 F 16 99/77 L 99 10/14/19 18:45 10/14/19 20:01 10/14/19 20:00 10/14/19 20:01 Intake & Output 10/13/19 10/14/19 10/15/19 06:59 06:59 06:59 Intake Total 2617 Balance 2617 Weight 67.1 kg General appearance: PRESENT: no acute distress, disheveled Head exam: PRESENT: atraumatic, normocephalic Eye exam: PRESENT: conjunctiva pink, EOMI, PERRLA. ABSENT: scleral icterus Ear exam: PRESENT: normal external ear exam Mouth exam: PRESENT: moist, tongue midline Respiratory exam: PRESENT: clear to auscultation rome, decreased breath sounds - at lung bases Cardiovascular exam: PRESENT: RRR, +S1, +S2, tachycardia. ABSENT: diastolic murmur, rubs, systolic murmur Vascular exam: ABSENT: pallor GI/Abdominal exam: PRESENT: normal bowel sounds, soft. ABSENT: distended, guarding, mass, organolmegaly, rebound, tenderness Rectal exam: PRESENT: deferred Extremities exam: ABSENT: pedal edema Musculoskeletal exam: PRESENT: deformity - contracture deformities due to her multiple sclerosis Neurological exam: PRESENT: alert, awake, oriented to person, oriented to place, oriented to time, oriented to situation Psychiatric exam: PRESENT: appropriate affect, normal mood. ABSENT: homicidal ideation, suicidal ideation Skin exam: PRESENT: dry, rash - on scalp fro dry skin and seborrhea, warm Results Laboratory Results: 10/14/19 15:46 10/14/19 15:46 10/14/19 10/14/19 10/14/19 15:46 15:46 15:46 WBC 15.2 H RBC 4.83 Hgb 13.0 Hct 39.5 MCV 82 MCH 27.0 MCHC 33.0 RDW 15.2 H Plt Count 287 Seg Neutrophils % Not Reportable VBG pH 7.41 VBG pCO2 34.6 L VBG HCO3 21.2 VBG Base Excess -2.7 Sodium 139.9 Potassium 4.8 Chloride 106 Carbon Dioxide 22 Anion Gap 12 BUN 18 Creatinine 0.76 Est GFR ( Amer) > 60 Glucose 136 H Lactic Acid Calcium 10.7 H Total Bilirubin 1.2 AST 30 Alkaline Phosphatase 115 Total Protein 8.3 H Albumin 4.2 Urine Color Urine Appearance Urine pH Ur Specific [place] Urine Protein Urine Glucose (UA) Urine Ketones Urine Blood Urine RBC (Auto) 10/14/19 10/14/19 10/14/19 15:46 16:13 18:45 WBC RBC Hgb Hct MCV MCH MCHC RDW Plt Count Seg Neutrophils % VBG pH VBG pCO2 VBG HCO3 VBG Base Excess Sodium Potassium Chloride Carbon Dioxide Anion Gap BUN Creatinine Est GFR ( Amer) Glucose Lactic Acid 1.0 0.7 Calcium Total Bilirubin AST Alkaline Phosphatase Total Protein Albumin Urine Color YELLOW Urine Appearance CLOUDY Urine pH 5.0 Ur Specific [place] 1.012 Urine Protein 30 H Urine Glucose (UA) NEGATIVE Urine Ketones 20 H Urine Blood MODERATE H Urine RBC (Auto) 31 10/14/19 15:46 Troponin I < 0.012 Impressions: Chest X-Ray 10/14/19 15:42 IMPRESSION: 1. Low lung volumes. Slight left lung base atelectasis. No acute pulmonary consolidation. Assessment & Plan - Diagnosis (1) Urinary tract infection Qualifiers: Urinary tract infection type: site unspecified Hematuria presence: without hematuria Qualified Code(s): N39.0 - Urinary tract infection, site not specified Is this a current diagnosis for this admission?: Yes Plan: See admitting attending physician orders for details about her care plan. (2) Diabetes mellitus type 2 in nonobese Is this a current diagnosis for this admission?: Yes Plan: See admitting attending physician orders for details about her care plan. (3) Hypothyroidism Qualifiers: Hypothyroidism type: unspecified Qualified Code(s): E03.9 - Hypothyroidism, unspecified Is this a current diagnosis for this admission?: Yes Plan: See admitting attending physician orders for details about her care plan. (4) Vitamin D deficiency Is this a current diagnosis for this admission?: Yes Plan: See admitting attending physician orders for details about her care plan. (5) Multiple sclerosis, primary chronic progressive Is this a current diagnosis for this admission?: Yes Plan: See admitting attending physician orders for details about her care plan. - Time Time Spent: 50 to 70 Minutes Medications reviewed and adjusted accordingly: Yes Anticipated discharge: Home with Homehealth Within: Other - Inpatient Certification Based on my medical assessment, after consideration of the patient's comorbidities, presenting symptoms, or acuity I expect that the services needed warrant INPATIENT care.: Yes I certify that my determination is in accordance with my understanding of Medicare's requirements for reasonable and necessary INPATIENT services [42 CFR 412.3e].: Yes Medical Necessity: Significant Comorbidiites Make Outpatient Treatment Too Risky, Need Close Monitoring Due to Risk of Patient Decompensation, Need For IV Fluids, Need For Continuous Telemetry Monitoring, Need for IV Antibiotics, Risk of Complication if Not Cared For in Hospital, Risk of Diagnosis Which Will Require Inpatient Eval/Care/Monitoring Post Hospital Care: D/C Airport 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
[2019-10-14] MEDS ORDERED: GLUCAGON,HUMAN RECOMB 1 MG INJ IM PRN (23:24)
[2019-10-14] MEDS ORDERED: DEXTROSE 50%-WATER 25 GM/50 ML DISP.SYRIN IV PRN ×2 (23:24)
[2019-10-14] MEDS ORDERED: DEXTROSE 40% GEL 15 GM TUBE PO PRN ×2 (23:24)
[2019-10-15] MEDS: NORMAL SALINE 1000 ML 1,000 ML IV PRN ×2 (00:50→15:59)
[2019-10-15] MEDS: PANTOPRAZOLE SODIUM 40 MG TABLET.DR PO SCH (05:22)
[2019-10-15 05:59] LABS: ABSOLUTE EOSINOPHILS # (AUTO) 0.1 10^3/uL (0.0-0.6); ABSOLUTE LYMPHOCYTES (AUTO) 0.9 10^3/uL (0.5-4.7); ABSOLUTE MONOCYTES (AUTO) 0.7 10^3/uL (0.1-1.4); ABSOLUTE NEUT (AUTO) 6.2 10^3/uL (1.7-8.2); BASOPHILS % (AUTO) 0.5 % (0-2); EOSINOPHILS % (AUTO) 1.1 % (0-6); HEMATOCRIT 35.8 % (36.0-47.0); LYMPHOCYTES % (AUTO) 11.2 % (13-45); MEAN CORPUSCULAR HEMOGLOBIN 27.6 pg (27.0-33.4); MEAN CORPUSCULAR HGB CONC 33.5 g/dL (32.0-36.0); MEAN CORPUSCULAR VOLUME 82 fl (80-97); MONOCYTES % (AUTO) 8.5 % (3-13); PLATELET COUNT 217 10^3/uL (150-450); RED BLOOD COUNT 4.35 10^6/uL (3.72-5.28); RED CELL DISTRIBUTION WIDTH 15.2 % (11.5-14.0); SEGMENTED NEUTROPHILS % (AUTO) 78.7 % (42-78); TOTAL CELLS COUNTED % (AUTO) 100 %; WHITE BLOOD COUNT 7.8 10^3/uL (4.0-10.5)
[2019-10-15 06:19] LABS: ALBUMIN 3.2 g/dL (3.5-5.0); ALKALINE PHOSPHATASE 83 U/L (38-126); ANION GAP 8 (5-19); ASPARTATE AMINO TRANSFERASE 22 U/L (14-36); BILIRUBIN,DIRECT 0.1 mg/dL (0.0-0.4); BILIRUBIN,TOTAL 0.9 mg/dL (0.2-1.3); BLOOD UREA NITROGEN 14 mg/dL (7-20); CALCIUM 9.4 mg/dL (8.4-10.2); CARBON DIOXIDE 19 mmol/L (22-30); CHLORIDE 112 mmol/L (98-107); GLUCOSE 93 mg/dL (75-110); POTASSIUM 4.1 mmol/L (3.6-5.0); TOTAL PROTEIN 6.6 g/dL (6.3-8.2)
[2019-10-15] MEDS: INSULIN LISPRO 100 UNIT/ML 3 ML VIAL SUBCUT SCH ×4 (08:04→22:00)
[2019-10-15] MEDS: ACETAMINOPHEN 325 MG TABLET PO PRN ×2 (08:05→15:59)
[2019-10-15] MEDS: ENOXAPARIN SODIUM INJ 40 MG/0.4 ML DISP.SYRIN SUBCUT SCH (09:48)
[2019-10-15] MEDS: BACLOFEN 10 MG TABLET PO PRN ×2 (09:48→17:48)
[2019-10-15] MEDS ORDERED: ERGOCALCIFEROL (VITAMIN D2) 50000 UNIT (1.25 MG) CAPSULE PO SCH (10:00)
[2019-10-15] MEDS: CEFTRIAXONE 1 GM/D5W RTU 1 GM/50 ML RTUPB IV SCH (17:48)
[2019-10-15] MEDS ORDERED: VANCOMYCIN HCL 0 MG in DEXTROSE 5%-WATER 250 ML IV NR (18:30)
[2019-10-15] MEDS: VANCOMYCIN HCL 1,000 MG in DEXTROSE 5%-WATER 250 ML IV SCH (22:09)
--- NOTE | 2019-10-15 22:18 | PDOC PROGRESS REPORT ---
Subjective Progress Note for:: 10/15/19 Subjective:: Patient denied any fever or chills. No chest pain or difficulty with breathing. No nausea, vomiting, or abdominal pain. Remain on IV Rocephin. Her blood culture grew gram positive cocci in clusters. Reason For Visit: UTI,MS,DM TYPE 2,HYPOTHYROIDISM,VIT D DEFICIENCY Physical Exam Vital Signs: Temp Pulse Resp BP Pulse Ox 99.6 F 120 H 16 136/75 H 99 10/15/19 15:21 10/15/19 15:21 10/15/19 15:21 10/15/19 15:21 10/15/19 15:21 Intake & Output 10/14/19 10/15/19 10/16/19 06:59 06:59 06:59 Intake Total 3170 1200 Output Total 100 150 Balance 3070 1050 Weight 74.5 kg General appearance: PRESENT: no acute distress, well-developed, well-nourished Head exam: PRESENT: atraumatic, normocephalic Eye exam: PRESENT: conjunctiva pink. ABSENT: scleral icterus Mouth exam: PRESENT: moist Respiratory exam: PRESENT: clear to auscultation rome, decreased breath sounds - at lung bases Cardiovascular exam: PRESENT: +S1, +S2, tachycardia. ABSENT: diastolic murmur, systolic murmur Vascular exam: ABSENT: pallor GI/Abdominal exam: PRESENT: normal bowel sounds, soft. ABSENT: distended, guarding, mass, organolmegaly, rebound, tenderness Extremities exam: ABSENT: pedal edema Musculoskeletal exam: PRESENT: deformity - from extensive contraction Neurological exam: PRESENT: alert, awake Skin exam: PRESENT: dry, warm Results Laboratory Results: 10/15/19 05:40 10/15/19 05:40 10/14/19 10/14/19 10/15/19 18:45 22:16 05:40 WBC 7.8 RBC 4.35 Hgb 12.0 Hct 35.8 L MCV 82 MCH 27.6 MCHC 33.5 RDW 15.2 H Plt Count 217 Seg Neutrophils % 78.7 H Sodium Potassium Chloride Carbon Dioxide Anion Gap BUN Creatinine Est GFR ( Amer) Glucose Lactic Acid 0.7 1.4 Calcium Total Bilirubin AST Alkaline Phosphatase Total Protein Albumin 10/15/19 05:40 WBC RBC Hgb Hct MCV MCH MCHC RDW Plt Count Seg Neutrophils % Sodium 139.0 Potassium 4.1 Chloride 112 H Carbon Dioxide 19 L Anion Gap 8 BUN 14 Creatinine 0.75 Est GFR ( Amer) > 60 Glucose 93 Lactic Acid Calcium 9.4 Total Bilirubin 0.9 AST 22 Alkaline Phosphatase 83 Total Protein 6.6 Albumin 3.2 L 10/14/19 17:06 Blood Blood Culture (PCR) - Final Staphylococcus Species 10/14/19 15:46 Troponin I < 0.012 Impressions: Chest X-Ray 10/14/19 15:42 IMPRESSION: 1. Low lung volumes. Slight left lung base atelectasis. No acute pulmonary consolidation. Assessment & Plan - Diagnosis (1) Gram positive septicemia Is this a current diagnosis for this admission?: Yes Plan: Start on IV Vancomycin and maintain on V Rocephin pending final findings. (2) Urinary tract infection Qualifiers: Urinary tract infection type: site unspecified Hematuria presence: without hematuria Qualified Code(s): N39.0 - Urinary tract infection, site not specified Is this a current diagnosis for this admission?: Yes Plan: Urine growing gram negative rods. Maintain on IV Rocephin. Follow up on final report of urine culture. (3) Diabetes mellitus type 2 in nonobese Is this a current diagnosis for this admission?: Yes (4) Hypothyroidism Qualifiers: Hypothyroidism type: unspecified Qualified Code(s): E03.9 - Hypothyroidism, unspecified Is this a current diagnosis for this admission?: Yes (5) Vitamin D deficiency Is this a current diagnosis for this admission?: Yes (6) Multiple sclerosis, primary chronic progressive Is this a current diagnosis for this admission?: Yes - Time Time Spent with patient: 25-34 minutes Level of Care: TELE Medications reviewed and adjusted accordingly: Yes Anticipated discharge: Home with Homehealth Within: Other - Inpatient Certification Based on my medical assessment, after consideration of the patient's comorbidities, presenting symptoms, or acuity I expect that the services needed warrant INPATIENT care.: Yes I certify that my determination is in accordance with my understanding of Medicare's requirements for reasonable and necessary INPATIENT services [42 CFR 412.3e].: Yes Medical Necessity: Significant Comorbidiites Make Outpatient Treatment Too Risky, Need Close Monitoring Due to Risk of Patient Decompensation, Need For IV Fluids, Need For Continuous Telemetry Monitoring, Need for IV Antibiotics, Risk of Complication if Not Cared For in Hospital, Risk of Diagnosis Which Will Requ faheem Inpatient Eval/Care/Monitoring Post Hospital Care: D/C Ditching Machine 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 Follow up on culture findings.
[2019-10-16] MEDS: PANTOPRAZOLE SODIUM 40 MG TABLET.DR PO SCH ×2 (05:26→05:32)
--- NOTE | 2019-10-16 08:09 | PDOC PROGRESS REPORT ---
Subjective Progress Note for:: 10/16/19 Subjective:: No chest pain or difficulty with breathing. Patient denied any fever or chills. Remain on IV Rocephin and Vancomycin. No nausea, vomiting, or abdominal pain. Her blood culture grew gram positive cocci in clusters. Reason For Visit: UTI,MS,DM TYPE 2,HYPOTHYROIDISM,VIT D DEFICIENCY Physical Exam Vital Signs: Temp Pulse Resp BP Pulse Ox 98.5 F 109 H 17 129/64 H 99 10/15/19 23:59 10/16/19 02:00 10/15/19 23:59 10/15/19 23:59 10/15/19 23:59 Intake & Output 10/15/19 10/16/19 10/17/19 06:59 06:59 06:59 Intake Total 3170 1500 Output Total 100 850 Balance 3070 650 Weight 74.5 kg 74.2 kg Physical Exam: General appearance: PRESENT: no acute distress, well-developed, well-nourished Head exam: PRESENT: atraumatic, normocephalic Eye exam: PRESENT: conjunctiva pink. ABSENT: pallor, scleral icterus Mouth exam: PRESENT: moist Respiratory exam: PRESENT: clear to auscultation rome, decreased breath sounds - at lung bases Cardiovascular exam: PRESENT: +S1, +S2, tachycardia. ABSENT: diastolic murmur, systolic murmur GI/Abdominal exam: PRESENT: normal bowel sounds, soft. ABSENT: distended, guarding, mass, organomegaly, rebound, tenderness Extremities exam: ABSENT: pedal edema Musculoskeletal exam: PRESENT: deformity - from extensive contraction Neurological exam: PRESENT: alert, awake Skin exam: PRESENT: dry, warm Results Laboratory Results: 10/15/19 05:40 10/15/19 05:40 10/14/19 17:06 Blood Blood Culture (PCR) - Final Staphylococcus Species 10/14/19 15:46 Troponin I < 0.012 Impressions: Chest X-Ray 10/14/19 15:42 IMPRESSION: 1. Low lung volumes. Slight left lung base atelectasis. No acute pulmonary consolidation. Assessment & Plan - Diagnosis (1) Gram positive septicemia Is this a current diagnosis for this admission?: Yes (2) Urinary tract infection Qualifiers: Urinary tract infection type: site unspecified Hematuria presence: without hematuria Qualified Code(s): N39.0 - Urinary tract infection, site not specified Is this a current diagnosis for this admission?: Yes (3) Diabetes mellitus type 2 in nonobese Is this a current diagnosis for this admission?: Yes (4) Hypothyroidism Qualifiers: Hypothyroidism type: unspecified Qualified Code(s): E03.9 - Hypothyroidism, unspecified Is this a current diagnosis for this admission?: Yes (5) Vitamin D deficiency Is this a current diagnosis for this admission?: Yes (6) Multiple sclerosis, primary chronic progressive Is this a current diagnosis for this admission?: Yes - Time Time Spent with patient: 25-34 minutes Level of Care: TELE Medications reviewed and adjusted accordingly: Yes Anticipated discharge: Home with Homehealth Within: Other - Inpatient Certification Based on my medical assessment, after consideration of the patient's comorbidities, presenting symptoms, or acuity I expect that the services needed warrant INPATIENT care.: Yes I certify that my determination is in accordance with my understanding of Medicare's requirements for reasonable and necessary INPATIENT services [42 CFR 412.3e].: Yes Medical Necessity: Significant Comorbidiites Make Outpatient Treatment Too Risky, Need Close Monitoring Due to Risk of Patient Decompensation, Need For IV Fluids, Need For Continuous Telemetry Monitoring, Need for IV Antibiotics, Risk of Complication if Not Cared For in Hospital, Risk of Diagnosis Which Will Require Inpatient Eval/Care/Monitoring Post Hospital Care: D/C Auditor Medical Claims Documentation - Plan Summary Plan Summary: Continue IV Rocephin and Vancomycin therapy. Follow up on pending culture findings. Dr. Metzger will cover my service till 10/22/2019.
[2019-10-16] MEDS: INSULIN LISPRO 100 UNIT/ML 3 ML VIAL SUBCUT SCH ×3 (09:16→16:08)
[2019-10-16] MEDS: ENOXAPARIN SODIUM INJ 40 MG/0.4 ML DISP.SYRIN SUBCUT SCH (10:36)
[2019-10-16] MEDS: VANCOMYCIN HCL 1,000 MG in DEXTROSE 5%-WATER 250 ML IV SCH (10:37)
[2019-10-16] MEDS: CEFTRIAXONE 1 GM/D5W RTU 1 GM/50 ML RTUPB IV SCH (18:08)
[2019-10-16] MEDS: NORMAL SALINE 1000 ML 1,000 ML IV PRN (19:00)
[2019-10-16] MEDS: DILTIAZEM HCL/D5W 125 MG/125 ML RTUINJ IV PRN ×2 (19:04→21:55)
[2019-10-16] MEDS ORDERED: ACETAMINOPHEN 650 MG SUPP.RECT PR PRN (20:05)
--- NOTE | 2019-10-16 20:57 | EKG REPORT ---
SEVERITY:- ABNORMAL ECG - SINUS TACHYCARDIA REPOL ABNRM SUGGESTS ISCHEMIA, ANT-LAT LEADS : Confirmed by: Andree Hughes MD 16-Oct-2019 20:56:22
[2019-10-17] MEDS: VANCOMYCIN HCL 1,000 MG in DEXTROSE 5%-WATER 250 ML IV SCH ×2 (00:05→10:16)
[2019-10-17] MEDS: INSULIN LISPRO 100 UNIT/ML 3 ML VIAL SUBCUT SCH ×5 (00:25→21:50)
[2019-10-17] MEDS: DILTIAZEM HCL/D5W 125 MG/125 ML RTUINJ IV PRN ×3 (03:51→21:52)
[2019-10-17] MEDS: NORMAL SALINE 1000 ML 1,000 ML IV PRN ×2 (04:57→14:13)
[2019-10-17] MEDS: PANTOPRAZOLE SODIUM 40 MG TABLET.DR PO SCH (05:31)
[2019-10-17] MEDS: ENOXAPARIN SODIUM INJ 40 MG/0.4 ML DISP.SYRIN SUBCUT SCH (09:12)
[2019-10-17 10:40] LABS: VANCOMYCIN,TROUGH 21.9 ug/mL (5.0-20.0)
[2019-10-17] MEDS: CEFTRIAXONE 1 GM/D5W RTU 1 GM/50 ML RTUPB IV SCH (17:06)
--- NOTE | 2019-10-17 20:48 | PDOC PROGRESS REPORT ---
Subjective Progress Note for:: 10/17/19 Subjective:: Patient seen by the bedside, she was transferred from medical floor to a monitored bed in [facility] yesterday because of tachycardia, the heart rate was as high as 160, there was occasional SVT/A. fib. Patient does not communicate much, she was noticed to be retaining urine this morning a Padilla catheter was inserted copious amount of urine was collected, the urine appearance was very cloudy looks infected. The urine culture is polymicrobial but it seems that the predominant organism is Serratia with significant colony count, sensitive to ceftriaxone, patient already on ceftriaxone, the blood culture also grew gram- positive cocci in clusters not MRSA, coagulase-negative probably staph epi probably contamination, will DC vancomycin presently on hold Reason For Visit: UTI,MS,DM TYPE 2,HYPOTHYROIDISM,VIT D DEFICIENCY Physical Exam Vital Signs: Temp Pulse Resp BP Pulse Ox 98.3 F 100 24 H 101/51 L 98 10/17/19 08:14 10/17/19 18:00 10/17/19 04:19 10/17/19 18:00 10/17/19 16:12 Intake & Output 10/16/19 10/17/19 10/18/19 06:59 06:59 06:59 Intake Total 2500 1411 1685 Output Total 850 700 250 Balance 1171 797 6236 Weight 74.2 kg 72.2 kg General appearance: PRESENT: no acute distress Eye exam: PRESENT: PERRLA Respiratory exam: PRESENT: clear to auscultation rome Cardiovascular exam: PRESENT: +S1, +S2 GI/Abdominal exam: PRESENT: soft Neurological exam: PRESENT: alert Results Laboratory Results: 10/15/19 05:40 10/15/19 05:40 10/14/19 16:13 Catheterized Urine Urine Culture - Final Serratia Marcescens Proteus Mirabilis 10/14/19 15:46 Troponin I < 0.012 Impressions: Chest X-Ray 10/14/19 15:42 IMPRESSION: 1. Low lung volumes. Slight left lung base atelectasis. No acute pulmonary consolidation. Assessment & Plan - Diagnosis (1) Sepsis Qualifiers: Sepsis type: sepsis due to unspecified organism Severe sepsis shock status: without septic shock Is this a current diagnosis for this admission?: Yes Plan: She has sepsis syndrome due to UTI continue present treatment, Hydration antibiotic (2) Urinary tract infection Qualifiers: Urinary tract infection type: site unspecified Hematuria presence: without hematuria Qualified Code(s): N39.0 - Urinary tract infection, site not specified Is this a current diagnosis for this admission?: Yes Plan: The patient will continue ceftriaxone (3) Diabetes mellitus type 2 in obese Is this a current diagnosis for this admission?: Yes (4) Multiple sclerosis Is this a current diagnosis for this admission?: Yes (5) Paroxysmal atrial fibrillation Is this a current diagnosis for this admission?: Yes Plan: This is sepsis related continue Cardizem infusion - Time Time Spent with patient: 35 or more minutes Level of Care: IMCU
[2019-10-18] MEDS: NORMAL SALINE 1000 ML 1,000 ML IV PRN ×3 (00:15→20:48)
[2019-10-18] MEDS: PANTOPRAZOLE SODIUM 40 MG TABLET.DR PO SCH (05:42)
[2019-10-18 06:37] LABS: VANCOMYCIN,TROUGH 19.3 ug/mL (5.0-20.0)
[2019-10-18] MEDS: INSULIN LISPRO 100 UNIT/ML 3 ML VIAL SUBCUT SCH ×4 (08:24→22:37)
[2019-10-18] MEDS: DILTIAZEM HCL/D5W 125 MG/125 ML RTUINJ IV PRN ×2 (09:29→22:42)
[2019-10-18] MEDS: ENOXAPARIN SODIUM INJ 40 MG/0.4 ML DISP.SYRIN SUBCUT SCH (09:29)
--- NOTE | 2019-10-18 15:02 | PDOC PROGRESS REPORT ---
Subjective Progress Note for:: 10/18/19 Subjective:: Patient seen by the bedside, she is more alert today, she was able to engage in conversation, she is doing quite well compared to previous days Reason For Visit: UTI,MS,DM TYPE 2,HYPOTHYROIDISM,VIT D DEFICIENCY Physical Exam Vital Signs: Temp Pulse Resp BP Pulse Ox 98.3 F 106 H 12 122/52 L 99 10/18/19 11:21 10/18/19 14:00 10/17/19 19:34 10/18/19 12:00 10/18/19 11:21 Intake & Output 10/17/19 10/18/19 10/19/19 06:59 06:59 06:59 Intake Total 1411 2714 1039 Output Total 700 475 Balance 711 2239 1039 Weight 72.2 kg 72.2 kg General appearance: PRESENT: no acute distress Eye exam: PRESENT: PERRLA Respiratory exam: PRESENT: clear to auscultation rome Cardiovascular exam: PRESENT: +S1, +S2 GI/Abdominal exam: PRESENT: soft Neurological exam: PRESENT: alert Results Laboratory Results: 10/15/19 05:40 10/18/19 05:56 10/18/19 05:56 Creatinine 0.58 Est GFR ( Amer) > 60 10/14/19 17:06 Blood Blood Culture (PCR) - Final Staphylococcus Species 10/14/19 15:46 Troponin I < 0.012 Impressions: Chest X-Ray 10/14/19 15:42 IMPRESSION: 1. Low lung volumes. Slight left lung base atelectasis. No acute pulmonary consolidation. Assessment & Plan - Diagnosis (1) Sepsis Qualifiers: Sepsis type: sepsis due to unspecified organism Severe sepsis shock status: without septic shock Is this a current diagnosis for this admission?: Yes Plan: She has sepsis due to UTI, she is responding to antibiotic continue present line of management. She has Staphylococcus hominis from 1 culture bottle most likely contamination (2) Urinary tract infection Qualifiers: Urinary tract infection type: site unspecified Hematuria presence: without hematuria Qualified Code(s): N39.0 - Urinary tract infection, site not specified Is this a current diagnosis for this admission?: Yes Plan: Urine culture grew Serratia with significant colony count more than 100,000, continue antibiotic (3) Diabetes mellitus type 2 in obese Is this a current diagnosis for this admission?: Yes (4) Multiple sclerosis Is this a current diagnosis for this admission?: Yes Plan: She has multiple sclerosis, progressive type with loss of muscle function (5) Paroxysmal atrial fibrillation Is this a current diagnosis for this admission?: Yes Plan: She had episode of paroxysmal atrial fibrillation, she required Cardizem infusion for rate control, this is most likely sepsis related, questionable anticoagulation chronically, chads S2 score 1 - Time Time Spent with patient: 25-34 minutes Level of Care: IMCU
[2019-10-18] MEDS: CEFTRIAXONE 1 GM/D5W RTU 1 GM/50 ML RTUPB IV SCH (17:22)
[2019-10-19] MEDS: PANTOPRAZOLE SODIUM 40 MG TABLET.DR PO SCH (05:19)
[2019-10-19] MEDS: NORMAL SALINE 1000 ML 1,000 ML IV PRN ×2 (05:57→15:57)
[2019-10-19] MEDS: INSULIN LISPRO 100 UNIT/ML 3 ML VIAL SUBCUT SCH ×4 (09:47→21:45)
[2019-10-19] MEDS: ENOXAPARIN SODIUM INJ 40 MG/0.4 ML DISP.SYRIN SUBCUT SCH (09:55)
--- NOTE | 2019-10-19 17:22 | PDOC PROGRESS REPORT ---
Subjective Progress Note for:: 10/19/19 Subjective:: Patient seen by the bedside, no chest pain or shortness of breath Reason For Visit: UTI,MS,DM TYPE 2,HYPOTHYROIDISM,VIT D DEFICIENCY Physical Exam Vital Signs: Temp Pulse Resp BP Pulse Ox 97.6 F 101 H 12 113/66 100 10/19/19 07:33 10/19/19 15:00 10/17/19 19:34 10/19/19 15:00 10/19/19 07:33 Intake & Output 10/18/19 10/19/19 10/20/19 06:59 06:59 06:59 Intake Total 2714 3654 1000 Output Total 475 1375 Balance 2239 2279 1000 Weight 72.2 kg 74.2 kg 74.2 kg General appearance: PRESENT: no acute distress Eye exam: PRESENT: PERRLA Respiratory exam: PRESENT: clear to auscultation rome Cardiovascular exam: PRESENT: +S1, +S2 GI/Abdominal exam: PRESENT: soft Neurological exam: PRESENT: alert Results Laboratory Results: 10/15/19 05:40 10/18/19 05:56 10/14/19 15:46 Blood Blood Culture - Final NO GROWTH IN 5 DAYS 10/14/19 17:06 Blood Blood Culture (PCR) - Final Staphylococcus Species 10/14/19 17:06 Blood Blood Culture - Final Staphylococcus Hominis 10/14/19 15:46 Troponin I < 0.012 Impressions: Chest X-Ray 10/14/19 15:42 IMPRESSION: 1. Low lung volumes. Slight left lung base atelectasis. No acute pulmonary consolidation. Assessment & Plan - Diagnosis (1) Sepsis Qualifiers: Sepsis type: sepsis due to unspecified organism Severe sepsis shock status: without septic shock Is this a current diagnosis for this admission?: Yes (2) Urinary tract infection Qualifiers: Urinary tract infection type: site unspecified Hematuria presence: without hematuria Qualified Code(s): N39.0 - Urinary tract infection, site not specified Is this a current diagnosis for this admission?: Yes (3) Diabetes mellitus type 2 in obese Is this a current diagnosis for this admission?: Yes (4) Multiple sclerosis Is this a current diagnosis for this admission?: Yes (5) Paroxysmal atrial fibrillation Is this a current diagnosis for this admission?: Yes - Time Time Spent with patient: 25-34 minutes Level of Care: IMCU
[2019-10-19] MEDS: CEFTRIAXONE 1 GM/D5W RTU 1 GM/50 ML RTUPB IV SCH (17:49)
[2019-10-19 18:17] LABS: ABSOLUTE EOSINOPHILS # (AUTO) 0.3 10^3/uL (0.0-0.6); ABSOLUTE LYMPHOCYTES (AUTO) 1.1 10^3/uL (0.5-4.7); ABSOLUTE MONOCYTES (AUTO) 0.5 10^3/uL (0.1-1.4); ABSOLUTE NEUT (AUTO) 3.4 10^3/uL (1.7-8.2); BASOPHILS % (AUTO) 0.4 % (0-2); EOSINOPHILS % (AUTO) 5.7 % (0-6); HEMATOCRIT 30.4 % (36.0-47.0); HEMOGLOBIN 10.4 g/dL (12.0-15.5); LYMPHOCYTES % (AUTO) 20.7 % (13-45); MEAN CORPUSCULAR HGB CONC 34.2 g/dL (32.0-36.0); MEAN CORPUSCULAR VOLUME 79 fl (80-97); MONOCYTES % (AUTO) 9.2 % (3-13); PLATELET COUNT 131 10^3/uL (150-450); RED BLOOD COUNT 3.84 10^6/uL (3.72-5.28); RED CELL DISTRIBUTION WIDTH 15.7 % (11.5-14.0); TOTAL CELLS COUNTED % (AUTO) 100 %; WHITE BLOOD COUNT 5.3 10^3/uL (4.0-10.5)
[2019-10-19 18:31] LABS: ALBUMIN 2.3 g/dL (3.5-5.0); ALKALINE PHOSPHATASE 108 U/L (38-126); ANION GAP 7 (5-19); ASPARTATE AMINO TRANSFERASE 21 U/L (14-36); BILIRUBIN,DIRECT 0.1 mg/dL (0.0-0.4); BILIRUBIN,TOTAL 0.5 mg/dL (0.2-1.3); BLOOD UREA NITROGEN 5 mg/dL (7-20); CALCIUM 8.5 mg/dL (8.4-10.2); CARBON DIOXIDE 20 mmol/L (22-30); CHLORIDE 114 mmol/L (98-107); GLUCOSE 103 mg/dL (75-110); TOTAL PROTEIN 5.4 g/dL (6.3-8.2)
[2019-10-19 18:34] LABS: POTASSIUM 3.1 mmol/L (3.6-5.0)
[2019-10-20] MEDS: DILTIAZEM HCL/D5W 125 MG/125 ML RTUINJ IV PRN (00:01)
[2019-10-20] MEDS: PANTOPRAZOLE SODIUM 40 MG TABLET.DR PO SCH (05:45)
[2019-10-20] MEDS: NORMAL SALINE 1000 ML 1,000 ML IV PRN ×2 (05:46→13:55)
[2019-10-20] MEDS: INSULIN LISPRO 100 UNIT/ML 3 ML VIAL SUBCUT SCH ×4 (08:42→22:00)
[2019-10-20] MEDS: ENOXAPARIN SODIUM INJ 40 MG/0.4 ML DISP.SYRIN SUBCUT SCH (10:31)
--- NOTE | 2019-10-20 14:54 | PDOC PROGRESS REPORT ---
Subjective Progress Note for:: 10/20/19 Subjective:: Patient seen by the bedside, she is back to baseline, ready for discharge home, we will DC IV fluid, check electrolytes Reason For Visit: UTI,MS,DM TYPE 2,HYPOTHYROIDISM,VIT D DEFICIENCY Physical Exam Vital Signs: Temp Pulse Resp BP Pulse Ox 98.1 F 88 12 126/67 H 98 10/20/19 12:14 10/20/19 13:00 10/17/19 19:34 10/20/19 13:00 10/20/19 12:14 Intake & Output 10/19/19 10/20/19 10/21/19 06:59 06:59 06:59 Intake Total 3654 2497 994 Output Total 1375 2675 Balance 2279 -178 994 Weight 74.2 kg 74.4 kg General appearance: PRESENT: no acute distress Eye exam: PRESENT: PERRLA Respiratory exam: PRESENT: clear to auscultation rome Cardiovascular exam: PRESENT: +S1, +S2 GI/Abdominal exam: PRESENT: soft Neurological exam: PRESENT: alert Results Laboratory Results: 10/19/19 18:00 10/19/19 18:00 10/19/19 10/19/19 18:00 18:00 WBC 5.3 RBC 3.84 Hgb 10.4 L Hct 30.4 L MCV 79 L MCH 27.0 MCHC 34.2 RDW 15.7 H Plt Count 131 L Seg Neutrophils % 64.0 Sodium 140.9 Potassium 3.1 L Chloride 114 H Carbon Dioxide 20 L Anion Gap 7 BUN 5 L Creatinine 0.56 Est GFR ( Amer) > 60 Glucose 103 Calcium 8.5 Total Bilirubin 0.5 AST 21 Alkaline Phosphatase 108 Total Protein 5.4 L Albumin 2.3 L 10/14/19 17:06 Blood Blood Culture (PCR) - Final Staphylococcus Species 10/14/19 17:06 Blood Blood Culture - Final Staphylococcus Hominis 10/14/19 15:46 Blood Blood Culture - Final NO GROWTH IN 5 DAYS 10/14/19 15:46 Troponin I < 0.012 Impressions: Chest X-Ray 10/14/19 15:42 IMPRESSION: 1. Low lung volumes. Slight left lung base atelectasis. No acute pulmonary consolidation. Assessment & Plan - Diagnosis (1) Sepsis Qualifiers: Sepsis type: sepsis due to unspecified organism Severe sepsis shock status: without septic shock Is this a current diagnosis for this admission?: Yes Plan: This is resolved (2) Urinary tract infection Qualifiers: Urinary tract infection type: site unspecified Hematuria presence: without hematuria Qualified Code(s): N39.0 - Urinary tract infection, site not specified Is this a current diagnosis for this admission?: Yes Plan: Improved (3) Diabetes mellitus type 2 in obese Is this a current diagnosis for this admission?: Yes (4) Multiple sclerosis Is this a current diagnosis for this admission?: Yes (5) Paroxysmal atrial fibrillation Is this a current diagnosis for this admission?: Yes Plan: Discontinue Cardizem infusion, this is probably related to sepsis, no need for chronic anticoagulation (6) Hypokalemia Is this a current diagnosis for this admission?: Yes Plan: Replace potassium - Time Time Spent with patient: 25-34 minutes Level of Care: IMCU
[2019-10-20] MEDS ORDERED: POTASSIUM CHLORIDE 10 MEQ TABLET.ER PO ONE ×2 (15:15→23:05)
[2019-10-20 15:50] LABS: ALBUMIN 2.4 g/dL (3.5-5.0); ALKALINE PHOSPHATASE 110 U/L (38-126); ANION GAP 6 (5-19); ASPARTATE AMINO TRANSFERASE 23 U/L (14-36); BILIRUBIN,DIRECT 0.1 mg/dL (0.0-0.4); BILIRUBIN,TOTAL 0.5 mg/dL (0.2-1.3); BLOOD UREA NITROGEN 4 mg/dL (7-20); CALCIUM 8.4 mg/dL (8.4-10.2); CARBON DIOXIDE 22 mmol/L (22-30); CHLORIDE 113 mmol/L (98-107); GLUCOSE 87 mg/dL (75-110); TOTAL PROTEIN 5.7 g/dL (6.3-8.2)
[2019-10-20 15:56] LABS: POTASSIUM 2.9 mmol/L (3.6-5.0)
[2019-10-20] MEDS: CEFTRIAXONE 1 GM/D5W RTU 1 GM/50 ML RTUPB IV SCH (17:43)
[2019-10-21] MEDS: PANTOPRAZOLE SODIUM 40 MG TABLET.DR PO SCH (06:32)
[2019-10-21 06:44] LABS: ALBUMIN 2.4 g/dL (3.5-5.0); ALKALINE PHOSPHATASE 115 U/L (38-126); ASPARTATE AMINO TRANSFERASE 27 U/L (14-36); BILIRUBIN,TOTAL 0.4 mg/dL (0.2-1.3); BLOOD UREA NITROGEN 4 mg/dL (7-20); GLUCOSE 90 mg/dL (75-110); TOTAL PROTEIN 5.8 g/dL (6.3-8.2)
[2019-10-21 06:49] LABS: ANION GAP 5 (5-19); CARBON DIOXIDE 25 mmol/L (22-30); CHLORIDE 113 mmol/L (98-107)
[2019-10-21 07:10] LABS: POTASSIUM 4.1 mmol/L (3.6-5.0)
[2019-10-21] MEDS: INSULIN LISPRO 100 UNIT/ML 3 ML VIAL SUBCUT SCH ×3 (08:28→17:03)
[2019-10-21] MEDS: ENOXAPARIN SODIUM INJ 40 MG/0.4 ML DISP.SYRIN SUBCUT SCH (10:26)
[2019-10-21] MEDS: BACLOFEN 10 MG TABLET PO PRN (10:29)
[2019-10-21] MEDS: CEFTRIAXONE 1 GM/D5W RTU 1 GM/50 ML RTUPB IV SCH (17:10)
[2019-10-21 18:31] VITALS: BP 112/63
--- NOTE | 2019-10-21 19:41 | PDOC DISCHARGE SUMMARY ---
Impression - Admit/DC Date/PCP Admission Date/Primary Care Provider: 10/14/19 18:06 QUINN MARCANO Discharge Date: 10/21/19 - Discharge Diagnosis (1) Sepsis Is this a current diagnosis for this admission?: Yes (2) Urinary tract infection Is this a current diagnosis for this admission?: Yes (3) Diabetes mellitus type 2 in obese Is this a current diagnosis for this admission?: Yes (4) Multiple sclerosis Is this a current diagnosis for this admission?: Yes (5) Paroxysmal atrial fibrillation Is this a current diagnosis for this admission?: Yes (6) Hypokalemia Is this a current diagnosis for this admission?: Yes (7) Decubitus ulcer of sacral region, stage 1 Is this a current diagnosis for this admission?: Yes - Additional Information Resuscitation Status: Full Code Discharge Diet: As Tolerated Discharge Activity: Activity As Tolerated Referrals: QUINN MARCANO MD [Primary Care Provider] - Follow up as needed Home Medications: Baclofen [Baclofen 10 mg Tablet] 10 mg PO Q8HP PRN 09/01/19 Ergocalciferol (Vitamin D2) [Drisdol 50,000 unit (1.25MG) Capsule] 50,000 unit PO WE@1000 09/01/19 History of Present Illiness History of Present Illness: INO SALDIVAR is a 53 year old female ,she presented to the ED via EMS service with family .complain about fever and high heart rate. Patient denied any chest pain, difficulty with breathing, nausea, vomiting, or abdominal pain. She has history of multiple sclerosis with severe contracture deformity and presently bedbound. There is associated urinary incontinence and reported skin breakdown in the sacral region. She admitted to associated weakness but denied dizziness, headache, and change in her mentation presently. Her initial ED evaluation was significant for leukocytosis and abnormal urinalysis suggestive of possible UTI and Hospital Course Hospital Course: Patient was admitted for the management of urinary tract infection, sepsis due to UTI, she was treated empirically with IV ceftriaxone. Urine culture grew Serratia with significant colony count, Urine culture also grew Proteus mirabilis with insignificant colony count,50,000.Hospital course was complicated with paroxysmal atrial fibrillation with rapid regular response, she required Cardizem infusion for rate control, She has underlining multiple sclerosis essentially bedbound. There was associated metabolic encephalopathy due to sepsis.The blood culture grew staph hominis felt to be due to contamination. She also had hypokalemia that was replaced.Patient is much improved ready for d ischarge home today Physical Exam Vital Signs: Temp Pulse Resp BP Pulse Ox 98.4 F 103 H 17 112/63 100 10/21/19 18:26 10/21/19 18:26 10/21/19 18:26 10/21/19 18:26 10/21/19 18:26 Intake & Output 10/20/19 10/21/19 10/22/19 06:59 06:59 06:59 Intake Total 2547 1512 712 Output Total 3331 7505 800 Balance -128 -1113 -88 Weight 74.4 kg 73.3 kg General appearance: PRESENT: no acute distress Eye exam: PRESENT: PERRLA Respiratory exam: PRESENT: clear to auscultation rome Cardiovascular exam: PRESENT: +S1, +S2 GI/Abdominal exam: PRESENT: soft Neurological exam: PRESENT: alert, CN II-XII grossly intact Results Laboratory Results: WBC 5.3 10^3/uL (4.0-10.5) 10/19/19 18:00 RBC 3.84 10^6/uL (3.72-5.28) 10/19/19 18:00 Hgb 10.4 g/dL (12.0-15.5) L 10/19/19 18:00 Hct 30.4 % (36.0-47.0) L 10/19/19 18:00 MCV 79 fl (80-97) L 10/19/19 18:00 MCH 27.0 pg (27.0-33.4) 10/19/19 18:00 MCHC 34.2 g/dL (32.0-36.0) 10/19/19 18:00 RDW 15.7 % (11.5-14.0) H 10/19/19 18:00 Plt Count 131 10^3/uL (150-450) L 10/19/19 18:00 Lymph % (Auto) 20.7 % (13-45) 10/19/19 18:00 [place] % (Auto) 9.2 % (3-13) 10/19/19 18:00 Eos % (Auto) 5.7 % (0-6) 10/19/19 18:00 Baso % (Auto) 0.4 % (0-2) 10/19/19 18:00 Absolute Neuts (auto) 3.4 10^3/uL (1.7-8.2) 10/19/19 18:00 Absolute Lymphs (auto) 1.1 10^3/uL (0.5-4.7) 10/19/19 18:00 Absolute Monos (auto) 0.5 10^3/uL (0.1-1.4) 10/19/19 18:00 Absolute Eos (auto) 0.3 10^3/uL (0.0-0.6) 10/19/19 18:00 Absolute Basos (auto) 0.0 10^3/uL (0.0-0.2) 10/19/19 18:00 Total Counted 100 10/14/19 15:46 Seg Neutrophils % 64.0 % (42-78) 10/19/19 18:00 Seg Neuts % (Manual) 88 % (42-78) H 10/14/19 15:46 Band Neutrophils % 1 % (3-5) L 10/14/19 15:46 Lymphocytes % (Manual) 6 % (13-45) L 10/14/19 15:46 Monocytes % (Manual) 4 % (3-13) 10/14/19 15:46 Eosinophils % (Manual) 1 % (0-6) 10/14/19 15:46 Basophils % (Manual) 0 % (0-2) 10/14/19 15:46 Abs Neuts (Manual) 13.5 10^3/uL (1.7-8.2) H 10/14/19 15:46 Abs Lymphs (Manual) 0.9 10^3/uL (0.5-4.7) 10/14/19 15:46 Abs Monocytes (Manual) 0.6 10^3/uL (0.1-1.4) 10/14/19 15:46 Absolute Eos (Manual) 0.2 10^3/uL (0.0-0.6) 10/14/19 15:46 Abs Basophils (Manual) 0.0 10^3/uL (0.0-0.2) 10/14/19 15:46 Platelet Comment ADEQUATE 10/14/19 15:46 Anisocytosis SLIGHT 10/14/19 15:46 PT 13.1 SEC (11.4-15.4) 10/14/19 15:46 INR 0.99 10/14/19 15:46 VBG pH 7.41 (7.30-7.42) 10/14/19 15:46 VBG pCO2 34.6 mmHg (35-63) L 10/14/19 15:46 VBG HCO3 21.2 mmol/L (20-32) 10/14/19 15:46 VBG Base Excess -2.7 mmol/L 10/14/19 15:46 Sodium 143.0 mmol/L (137-145) 10/21/19 05:59 Potassium 4.1 mmol/L (3.6-5.0) D 10/21/19 05:59 Chloride 113 mmol/L (98-107) H 10/21/19 05:59 Carbon Dioxide 25 mmol/L (22-30) 10/21/19 05:59 Anion Gap 5 (5-19) 10/21/19 05:59 BUN 4 mg/dL (7-20) L 10/21/19 05:59 Creatinine 0.50 mg/dL (0.52-1.25) L 10/21/19 05:59 Est GFR ( Amer) > 60 (>60) 10/21/19 05:59 Est GFR (MDRD) Non-Af > 60 (>60) 10/21/19 05:59 Glucose 90 mg/dL (75-110) 10/21/19 05:59 POC Glucose 75 mg/dL (70-110) 10/21/19 16:41 Lactic Acid 1.4 mmol/L (0.7-2.1) 10/14/19 22:16 Calcium 9.0 mg/dL (8.4-10.2) 10/21/19 05:59 Total Bilirubin 0.4 mg/dL (0.2-1.3) 10/21/19 05:59 Direct Bilirubin 0.0 mg/dL (0.0-0.4) 10/21/19 05:59 Neonat Total Bilirubin Not Reportable 10/21/19 05:59 Neonat Direct Bilirubin Not Reportable 10/21/19 05:59 Neonat Indirect Bili Not Reportable 10/21/19 05:59 AST 27 U/L (14-36) 10/21/19 05:59 ALT 17 U/L (<35) 10/21/19 05:59 Alkaline Phosphatase 115 U/L (38-126) 10/21/19 05:59 Troponin I < 0.012 ng/mL 10/14/19 15:46 Total Protein 5.8 g/dL (6.3-8.2) L 10/21/19 05:59 Albumin 2.4 g/dL (3.5-5.0) L 10/21/19 05:59 Urine Color YELLOW 10/14/19 16:13 Urine Appearance CLOUDY 10/14/19 16:13 Urine pH 5.0 (5.0-9.0) 10/14/19 16:13 Ur Specific [place] 1.012 10/14/19 16:13 Urine Protein 30 mg/dL (NEGATIVE) H 10/14/19 16:13 Urine Glucose (UA) NEGATIVE mg/dL (NEGATIVE) 10/14/19 16:13 Urine Ketones 20 mg/dL (NEGATIVE) H 10/14/19 16:13 Urine Blood MODERATE (NEGATIVE) H 10/14/19 16:13 Urine Nitrite (Reflex) POSITIVE (NEGATIVE) H 10/14/19 16:13 Urine Bilirubin NEGATIVE (NEGATIVE) 10/14/19 16:13 Urine Urobilinogen NEGATIVE mg/dL (<2.0) 10/14/19 16:13 Leukocyte Esterase Rfl LARGE (NEGATIVE) H 10/14/19 16:13 Urine RBC (Auto) 31 /HPF 10/14/19 16:13 Urine Bacteria (Auto) 3+ /HPF 10/14/19 16:13 Urine WBC (Reflex) > 182 /HPF 10/14/19 16:13 Urine WBC Clumps MANY /HPF 10/14/19 16:13 Squamous Epi Cells Auto 3 /HPF 10/14/19 16:13 Urine Mucus (Auto) RARE /LPF 10/14/19 16:13 Urine Ascorbic Acid NEGATIVE (NEGATIVE) 10/14/19 16:13 Time Trough Drawn 0556 10/18/19 05:56 Vancomycin Trough 19.3 ug/mL (5.0-20.0) 10/18/19 05:56 10/14/19 15:46 Troponin I < 0.012 Impressions: Chest X-Ray 10/14/19 15:42 IMPRESSION: 1. Low lung volumes. Slight left lung base atelectasis. No acute pulmonary consolidation. Stroke Is this a Stroke Patient?: No Acute Heart Failure - Is this a Heart Failure Patient?: No
== END 2019-10-21 21:00 | disposition home or self-care (01) | DRG 871 ==
LOC: ER 15:26 → EH 18:06 → 4S 22:08 → 3S 10-16 18:36
PROVIDERS: ADMIT Internal Medicine Geriatric Medicine; ATTEND Internal Medicine Geriatric Medicine
DX: A41.9 Sepsis, unspecified organism (principal); G93.41 Metabolic encephalopathy; N39.0 Urinary tract infection, site not specified; G35 Multiple sclerosis; L89.151 Pressure ulcer of sacral region, stage 1; E55.9 Vitamin D deficiency, unspecified; B96.89 Other specified bacterial agents as the cause of diseases classified elsewhere; E87.6 Hypokalemia; B96.4 Proteus (mirabilis) (morganii) as the cause of diseases classified elsewhere; E03.9 Hypothyroidism, unspecified; I48.0 Paroxysmal atrial fibrillation; E11.9 Type 2 diabetes mellitus without complications; Z74.01 Bed confinement status; Z86.711 Personal history of pulmonary embolism; Z88.2 Allergy status to sulfonamides; Z91.030 Bee allergy status; Z91.040 Latex allergy status
CPT/HCPCS: 36415; 71045; 80053; 80202; 81001; 82565; 82803; 82962; 83605; 84484; 85025; 85610; 87040; 87077; 87086; 87088; 87150; 87186; 93005; 93010; 96365; 99285; J0696; J1650; J3370; J3490; J7030; J7060

== ENCOUNTER 2019-11-23 12:44 | Inpatient (IN) | payer MEDICARE, MEDICAID ==
[2019-11-23 13:07] LABS: ABSOLUTE BASOPHILS # (AUTO) 0.1 10^3/uL (0.0-0.2); ABSOLUTE EOSINOPHILS # (AUTO) 0.1 10^3/uL (0.0-0.6); ABSOLUTE LYMPHOCYTES (AUTO) 1.2 10^3/uL (0.5-4.7); ABSOLUTE MONOCYTES (AUTO) 0.7 10^3/uL (0.1-1.4); ABSOLUTE NEUT (AUTO) 7.4 10^3/uL (1.7-8.2); BASOPHILS % (AUTO) 0.6 % (0-2); HEMATOCRIT 37.4 % (36.0-47.0); HEMOGLOBIN 12.4 g/dL (12.0-15.5); LYMPHOCYTES % (AUTO) 12.7 % (13-45); MEAN CORPUSCULAR HGB CONC 33.3 g/dL (32.0-36.0); MEAN CORPUSCULAR VOLUME 81 fl (80-97); MONOCYTES % (AUTO) 7.7 % (3-13); PLATELET COUNT 310 10^3/uL (150-450); RED CELL DISTRIBUTION WIDTH 15.1 % (11.5-14.0); TOTAL CELLS COUNTED % (AUTO) 100 %; WHITE BLOOD COUNT 9.5 10^3/uL (4.0-10.5)
[2019-11-23 13:25] LABS: ALBUMIN 3.9 g/dL (3.5-5.0); ALCOHOL < 10 mg/dL (NONE DETECTED); ALKALINE PHOSPHATASE 125 U/L (38-126); ANION GAP 9 (5-19); ASPARTATE AMINO TRANSFERASE 23 U/L (14-36); BILIRUBIN,DIRECT 0.1 mg/dL (0.0-0.4); BILIRUBIN,TOTAL 0.7 mg/dL (0.2-1.3); BLOOD UREA NITROGEN 32 mg/dL (7-20); CALCIUM 10.7 mg/dL (8.4-10.2); CARBON DIOXIDE 19 mmol/L (22-30); CHLORIDE 112 mmol/L (98-107); GLUCOSE 146 mg/dL (75-110); TOTAL PROTEIN 8.1 g/dL (6.3-8.2)
[2019-11-23 14:14] LABS: APPEARANCE,URINE TURBID; BILIRUBIN,URINE NEGATIVE (NEGATIVE); COLOR,URINE YELLOW; GLUCOSE, URINE NEGATIVE (NEGATIVE); KETONES,URINE NEGATIVE (NEGATIVE); LEUKOCYTE ESTERASE,URINE LARGE (NEGATIVE); NITRITE,URINE POSITIVE (NEGATIVE); PROTEIN,URINE 100 mg/dL (NEGATIVE); URINE SPECIFIC GRAVITY 1.016; UROBILINOGEN,URINE NEGATIVE mg/dL (<2.0)
[2019-11-23 14:25] LABS: URINE AMPHETAMINES SCREEN NEGATIVE; URINE BARBITURATES SCREEN NEGATIVE; URINE BENZODIAZEPINES SCREEN NEGATIVE; URINE COCAINE SCREEN NEGATIVE; URINE MARIJUANA (THC) SCREEN NEGATIVE; URINE METHADONE SCREEN NEGATIVE; URINE PHENCYCLIDINE SCREEN NEGATIVE
[2019-11-23] MEDS ORDERED: LEVOFLOXACIN 750 MG/D5W RTU 750 MG/150 ML RTUPB IV ONE (14:57)
[2019-11-23 15:20] LABS: VENOUS BLOOD BASE EXCESS -7.5 mmol/L; VENOUS BLOOD HCO3 17.7 mmol/L (20-32); VENOUS BLOOD PCO2 34.9 mmHg (35-63); VENOUS BLOOD PH 7.32 (7.30-7.42)
[2019-11-23] MEDS ORDERED: RINGERS SOLUTION,LACTATED 1,000 ML IV ONE (15:59)
--- NOTE | 2019-11-23 16:39 | ER Document Report ---
Entered by VENTURA BONNER SCRIBE 11/23/19 1454 Acting as scribe for:TY TAVAREZ MD ED General - General Chief Complaint: Altered Mental Status Stated Complaint: ALTERED MENTAL STATUS Time Seen by Provider: 11/23/19 14:47 Primary Care Provider: QUINN MARCANO MD [Primary Care Provider] - Follow up as needed Information source: Emergency Med Personnel, [facility] Records Cannot obtain history due to: Altered mental status Notes: This 54 year old female patient presents to the emergency department today with an altered mental status. Patient's history was obtained by [facility] records and EMS personnel. Patient had difficulty speaking and was not making sense this morning. Urine was reported to have a odor this morning. Patient has a history of urinary tract infections and has had similar episodes in the past. Patient was hospitalized x2 this year because of sepsis from UTI's. Patient is alert and states she feels fine compared to earlier today. TRAVEL OUTSIDE OF THE [place] IN LAST 30 DAYS: No - Related Data Allergies/Adverse Reactions: latex [Latex] Allergy (Intermediate, Verified 10/14/19 16:45) RASH/BLISTER Sulfa (Sulfonamide Antibiotics) Allergy (Intermediate, Verified 10/14/19 16:45) RASH/HIVES bee venom protein (honey bee) Allergy (Verified 10/14/19 16:45) Anaphylaxis Past Medical History - General Information source: Emergency Med Personnel, [facility] Records Cannot obtain history due to: Altered mental status - Social History Smoking Status: Unknown if Ever Smoked Frequency of alcohol use: None Drug Abuse: None Family History: Reviewed & Not Pertinent - Past Medical History Cardiac Medical History: Reports: Hx Pulmonary Embolism - 2 years ago Endocrine Medical History: Reports: Hx Diabetes Mellitus Type 2, Hx Hypothyroidism Musculoskeletal Medical History: Reports Hx Multiple Sclerosis Past Surgical History: Reports: Hx Section - x2, Hx Cholecystectomy - Immunizations Immunizations up to date: Yes Hx Diphtheria, Pertussis, Tetanus Vaccination: Yes Review of Systems - Review of Systems -: Yes ROS unobtainable due to patient's medical condition Physical Exam - Vital signs Vitals: Resp Pulse Ox 29 H 96 11/23/19 12:48 11/23/19 12:48 - General General appearance: Appears well, Alert - HEENT Head: Normocephalic, Atraumatic Eyes: Normal Pupils: PERRL - Respiratory Respiratory status: No respiratory distress Chest status: Nontender Breath sounds: Normal Chest palpation: Normal - Cardiovascular Rhythm: Regular Heart sounds: Normal auscultation Murmur: No - Abdominal Inspection: Normal - Soft, Obese Distension: No distension Bowel sounds: Normal Tenderness: Nontender - Extremities General lower extremity: Normal inspection. No: Edema Notes: Hypersupination of the right arm with minimal to no control. - Neurological Neuro grossly intact: Yes Cognition: Normal Orientation: AAOx4 Speech: Normal - Psychological Associated symptoms: Normal affect, Normal mood - Skin Skin Temperature: Warm Skin Moisture: Dry Skin Color: Normal Course - Vital Signs Vital signs: Temp Pulse Resp BP Pulse Ox 98.2 F 22 H 117/84 98 11/23/19 13:14 11/23/19 15:00 11/23/19 14:05 11/23/19 15:00 - Laboratory Result Diagrams: 11/23/19 12:55 11/23/19 12:55 Laboratory results interpreted by me: 11/23/19 11/23/19 11/23/19 12:55 12:55 12:55 RDW 15.1 H Lymph % (Auto) 12.7 L VBG pCO2 VBG HCO3 Chloride 112 H Carbon Dioxide 19 L BUN 32 H Glucose 146 H Lactic Acid 0.6 L Calcium 10.7 H Urine Protein Urine Blood Urine Nitrite Ur Leukocyte Esterase Urine Ascorbic Acid 11/23/19 11/23/19 13:51 14:57 RDW Lymph % (Auto) VBG pCO2 34.9 L VBG HCO3 17.7 L Chloride Carbon Dioxide BUN Glucose Lactic Acid Calcium Urine Protein 100 H Urine Blood MODERATE H Urine Nitrite POSITIVE H Ur Leukocyte Esterase LARGE H Urine Ascorbic Acid 40 H - EKG Interpretation by Me EKG shows normal: Sinus rhythm, [place], Intervals. abnormal: QRS Complexes - Borderline R wave progression in the anterior leads, ST-T Waves - Nonspecific diffuse T abnormalities Rate: Tachycardia - 123 [place]/QRS: Left axis deviation When compared to previous EKG there are: No significant change - Consults Dr. Marcano Time consulted: 15:50 Consulted provider: will see as inpatient - Medical floor admission. Discharge - Discharge Clinical Impression: Multiple sclerosis, primary chronic progressive, Tachycardia, Dehydration Urinary tract infection Qualifiers: Urinary tract infection type: site unspecified Hematuria presence: with hematuria Qualified Code(s): N39.0 - Urinary tract infection, site not specified; R31.9 - Hematuria, unspecified Altered mental status Qualifiers: Altered mental status type: unspecified Qualified Code(s): R41.82 - Altered mental status, unspecified Condition: Good Disposition: ADMITTED INPATIENT Admitting Provider: Angie Unit Admitted: Medical Floor Referrals: QUINN MARCANO MD [Primary Care Provider] - Follow up as needed I personally performed the services described in the documentation, reviewed and edited the documentation which was dictated to the scribe in my presence, and it accurately records my words and actions.
--- NOTE | 2019-11-23 18:38 | EKG REPORT ---
SEVERITY:- ABNORMAL ECG - SINUS TACHYCARDIA BORDERLINE LEFT AXIS DEVIATION BORDERLINE R WAVE PROGRESSION, ANTERIOR LEADS NONSPECIFIC T ABNORMALITIES, DIFFUSE LEADS : Confirmed by: Ayesha Tomas 23-Nov-2019 18:37:57
[2019-11-23] MEDS: NORMAL SALINE 1000 ML 1,000 ML IV PRN (21:59)
[2019-11-24] MEDS: PANTOPRAZOLE SODIUM 40 MG TABLET.DR PO SCH (06:12)
[2019-11-24 06:42] LABS: ABSOLUTE LYMPHOCYTES (AUTO) 1.3 10^3/uL (0.5-4.7); ABSOLUTE MONOCYTES (AUTO) 0.9 10^3/uL (0.1-1.4); ABSOLUTE NEUT (AUTO) 6.8 10^3/uL (1.7-8.2); BASOPHILS % (AUTO) 0.2 % (0-2); EOSINOPHILS % (AUTO) 0.3 % (0-6); HEMATOCRIT 38.2 % (36.0-47.0); HEMOGLOBIN 12.7 g/dL (12.0-15.5); LYMPHOCYTES % (AUTO) 14.2 % (13-45); MEAN CORPUSCULAR HEMOGLOBIN 27.1 pg (27.0-33.4); MEAN CORPUSCULAR HGB CONC 33.3 g/dL (32.0-36.0); MEAN CORPUSCULAR VOLUME 81 fl (80-97); MONOCYTES % (AUTO) 9.7 % (3-13); PLATELET COUNT 257 10^3/uL (150-450); RED BLOOD COUNT 4.69 10^6/uL (3.72-5.28); RED CELL DISTRIBUTION WIDTH 15.5 % (11.5-14.0); SEGMENTED NEUTROPHILS % (AUTO) 75.6 % (42-78); TOTAL CELLS COUNTED % (AUTO) 100 %; WHITE BLOOD COUNT 8.9 10^3/uL (4.0-10.5)
[2019-11-24 07:07] LABS: ALBUMIN 3.4 g/dL (3.5-5.0); ALKALINE PHOSPHATASE 110 U/L (38-126); ANION GAP 11 (5-19); ASPARTATE AMINO TRANSFERASE 18 U/L (14-36); BILIRUBIN,DIRECT 0.1 mg/dL (0.0-0.4); BILIRUBIN,TOTAL 0.5 mg/dL (0.2-1.3); BLOOD UREA NITROGEN 23 mg/dL (7-20); CALCIUM 10.5 mg/dL (8.4-10.2); CARBON DIOXIDE 19 mmol/L (22-30); CHLORIDE 112 mmol/L (98-107); GLUCOSE 92 mg/dL (75-110); POTASSIUM 4.2 mmol/L (3.6-5.0); TOTAL PROTEIN 7.4 g/dL (6.3-8.2)
[2019-11-24] MEDS: NORMAL SALINE 1000 ML 1,000 ML IV PRN (09:20)
[2019-11-24] MEDS: LEVOFLOXACIN 500 MG/D5W RTU 500 MG/100 ML RTUPB IV SCH (09:26)
--- NOTE | 2019-11-24 14:29 | PDOC H&P ---
History of Present Illness Admission Date/PCP: 11/23/19 16:54 QUINN KRYS History of Present Illness: INO SALDIVAR is a 54 year old female patient known to my practice who presented via EMS to the ED with report of altered mental state with difficulty speaking and incoherent in her conversation. Her symptoms started this morning as per report of the EMS personnel. Her initial ED evaluation was significant for tachypnea, tachycardia, hypercalcemia, hyperglycemia, pre-renal azotemia, and abnormal urinalysis suggestive of UTI. Her presentation is similar to her usual ED visit with UTI. She was treated with IV fluid and IV Levofloxacin based on her prior culture results. Patient demonstrated improvement in her mental state after these interventions. she was advised hospitalization for further evaluation and management. Her morbidities as as listed below. Past Medical History Cardiac Medical History: Reports: Pulmonary Embolism - 2 years ago Denies: Atrial Fibrillation, Congestive Heart Failure, Myocardial Infarction, Hyperlipidema, Hypertension Pulmonary Medical History: Denies: Asthma, Bronchitis, Chronic Obstructive Pulmonary Disease (COPD), Pneumonia, Respiratory Failure, Sleep Apnea, Tuberculosis Neurological Medical History: Denies: Migraine, Seizures Endocrine Medical History: Reports: Diabetes Mellitus Type 2, Hypothyroidism Denies: Diabetes Mellitus Type 1 Renal/ Medical History: Denies: End Stage Renal Disease Malignancy Medical History: Denies: Leukemia, Lung Cancer GI Medical History: Denies: Gastroesophageal Reflux Disease, Hiatal Hernia Musculoskeltal Medical History: Denies: Arthritis Psychiatric Medical History: Denies: Attention Deficit Hyperactivity Disorder, Bipolar Disorder, Dementia, Depression Hematology: Reports: Anemia Denies: Hemophilia, Sickle Cell Disease Infectious Medical History: Denies: HIV Past Surgical History Past Surgical History: Reports: Section - x2, Cholecystectomy Denies: Appendectomy, Coronary Artery Bypass Graft, Gastric Bypass Surgery, Herniorrhaphy, Hysterectomy, Mastectomy, Pacemaker, Tonsillectomy, Tubal Ligation Social History Smoking Status: Never Smoker Frequency of Alcohol Use: None Hx Recreational Drug Use: No Drugs: None Hx Prescription Drug Abuse: No - Advance Directive Resuscitation Status: Full Code Family History Family History: Reviewed & Not Pertinent Parental Family History Reviewed: Yes Children Family History Reviewed: Yes Sibling(s) Family History Reviewed.: Yes Medication/Allergy Home Medications: Acetaminophen [Tylenol 325 mg Tablet] 650 mg PO Q6HP PRN 11/24/19 Baclofen [Baclofen 10 mg Tablet] 10 mg PO Q8HP PRN 11/24/19 Allergies/Adverse Reactions: latex [Latex] Allergy (Intermediate, Verified 10/14/19 16:45) RASH/BLISTER Sulfa (Sulfonamide Antibiotics) Allergy (Intermediate, Verified 10/14/19 16:45) RASH/HIVES bee venom protein (honey bee) Allergy (Verified 10/14/19 16:45) Anaphylaxis Review of Systems Constitutional: PRESENT: chills Eyes: ABSENT: visual disturbances Ears: ABSENT: hearing changes Nose, Mouth, and Throat: ABSENT: headache(s), mouth pain, sore throat, vertigo Cardiovascular: ABSENT: chest pain, edema, palpitations Respiratory: PRESENT: dyspnea. ABSENT: cough, hemoptysis, sputum Gastrointestinal: ABSENT: abdominal pain, constipation, diarrhea, hematemesis, hematochezia, nausea, vomiting Genitourinary: PRESENT: difficulty urinating, dysuria, nocturia Musculoskeletal: PRESENT: deformity - related to her advanced multiple sclerosis Integumentary: ABSENT: rash, wounds Neurological: PRESENT: abnormal gait - bed bound due to advance multiple sclerosis, abnormal speech, confusion, focal weakness - due to advance multiple sclerosis. ABSENT: dizziness, syncope Psychiatric: ABSENT: anxiety, depression, homidical ideation, suicidal ideation Endocrine: ABSENT: cold intolerance, heat intolerance, polydipsia, polyuria Allergic/Immunologic: ABSENT: seasonal rhinorrhea Physical Exam Vital Signs: Temp Pulse Resp BP Pulse Ox 98.6 F 121 H 28 H 135/81 H 97 11/23/19 18:26 11/23/19 18:26 11/23/19 18:26 11/23/19 18:26 11/23/19 18:26 Intake & Output 11/22/19 11/23/19 11/24/19 06:59 06:59 06:59 Intake Total 1150 Balance 1150 Weight 72 kg Physical Exam: General appearance: PRESENT: no acute distress, disheveled Head exam: PRESENT: atraumatic, normocephalic Eye exam: PRESENT: conjunctiva pink, EOMI, PERRLA. ABSENT: scleral icterus Ear exam: PRESENT: normal external ear exam Mouth exam: PRESENT: moist, tongue midline Respiratory exam: PRESENT: clear to auscultation rome, decreased breath sounds - at lung bases Cardiovascular exam: PRESENT: RRR, +S1, +S2, tachycardia. ABSENT: diastolic murmur, rubs, systolic murmur Vascular exam: ABSENT: pallor GI/Abdominal exam: PRESENT: normal bowel sounds, soft. ABSENT: distended, guarding, mass, organolmegaly, rebound, tenderness Rectal exam: PRESENT: deferred Extremities exam: ABSENT: pedal edema Musculoskeletal exam: PRESENT: deformity - contracture deformities due to her multiple sclerosis Neurological exam: PRESENT: alert, awake, oriented to person, oriented to place, oriented to time, oriented to situation Psychiatric exam: PRESENT: appropriate affect, normal mood. ABSENT: homicidal ideation, suicidal ideation Skin exam: PRESENT: dry, rash - dry skin and seborrhea, warm, unstageable bilateral buttocks and sacral stage 2 pressure ulcers Results Laboratory Results: 11/23/19 12:55 11/23/19 12:55 11/23/19 11/23/19 11/23/19 12:55 12:55 12:55 WBC 9.5 RBC 4.60 Hgb 12.4 Hct 37.4 MCV 81 MCH 27.0 MCHC 33.3 RDW 15.1 H Plt Count 310 Seg Neutrophils % 78.0 VBG pH VBG pCO2 VBG HCO3 VBG Base Excess Sodium 140.2 Potassium 4.0 Chloride 112 H Carbon Dioxide 19 L Anion Gap 9 BUN 32 H Creatinine 0.76 Est GFR ( Amer) > 60 Glucose 146 H Lactic Acid 0.6 L Calcium 10.7 H Magnesium 2.0 Total Bilirubin 0.7 AST 23 Alkaline Phosphatase 125 Total Protein 8.1 Albumin 3.9 Urine Color Urine Appearance Urine pH Ur Specific Whitmer Urine Protein Urine Glucose (UA) Urine Ketones Urine Blood Urine Nitrite Ur Leukocyte Esterase Urine WBC (Auto) Urine RBC (Auto) 11/23/19 11/23/19 11/23/19 13:51 14:57 15:55 WBC RBC Hgb Hct MCV MCH MCHC RDW Plt Count Seg Neutrophils % VBG pH 7.32 VBG pCO2 34.9 L VBG HCO3 17.7 L VBG Base Excess -7.5 Sodium Potassium Chloride Carbon Dioxide Anion Gap BUN Creatinine Est GFR ( Amer) Glucose Lactic Acid 0.9 Calcium Magnesium Total Bilirubin AST Alkaline Phosphatase Total Protein Albumin Urine Color YELLOW Urine Appearance TURBID Urine pH 6.0 Ur Specific Whitmer 1.016 Urine Protein 100 H Urine Glucose (UA) NEGATIVE Urine Ketones NEGATIVE Urine Blood MODERATE H Urine Nitrite POSITIVE H Ur Leukocyte Esterase LARGE H Urine WBC (Auto) >182 Urine RBC (Auto) 43 11/23/19 17:35 WBC RBC Hgb Hct MCV MCH MCHC RDW Plt Count Seg Neutrophils % VBG pH VBG pCO2 VBG HCO3 VBG Base Excess Sodium Potassium Chloride Carbon Dioxide Anion Gap BUN Creatinine Est GFR ( Amer) Glucose Lactic Acid 1.7 Calcium Magnesium Total Bilirubin AST Alkaline Phosphatase Total Protein Albumin Urine Color Urine Appearance Urine pH Ur Specific Whitmer Urine Protein Urine Glucose (UA) Urine Ketones Urine Blood Urine Nitrite Ur Leukocyte Esterase Urine WBC (Auto) Urine RBC (Auto) Assessment & Plan - Diagnosis (1) Altered mental status Qualifiers: Altered mental status type: unspecified Qualified Code(s): R41.82 - Altered mental status, unspecified Is this a current diagnosis for this admission?: Yes Plan: See admitting attending physician orders for details about care plan. (2) Urinary tract infection Qualifiers: Urinary tract infection type: site unspecified Hematuria presence: with hematuria Qualified Code(s): N39.0 - Urinary tract infection, site not specified; R31.9 - Hematuria, unspecified Is this a current diagnosis for this admission?: Yes Plan: See admitting attending physician orders for details about care plan. (3) Dehydration Is this a current diagnosis for this admission?: Yes Plan: See admitting attending physician orders for details about care plan. (4) Decubitus ulcer of buttock, unstageable Qualifiers: Laterality: unspecified laterality Qualified Code(s): L89.300 - Pressure ulcer of unspecified buttock, unstageable Is this a current diagnosis for this admission?: Yes Plan: See admitting attending physician orders for details about care plan. Will request surgical consultation for wound evaluation for possible debridement. (5) Multiple sclerosis, primary chronic progressive Is this a current diagnosis for this admission?: Yes Plan: See admitting attending physician orders for details about care plan. (6) Vitamin D deficiency Is this a current diagnosis for this admission?: Yes Plan: See admitting attending physician orders for details about care plan. - Time Time Spent: 50 to 70 Minutes Medications reviewed and adjusted accordingly: Yes Anticipated discharge: Home with Homehealth - Inpatient Certification Based on my medical assessment, after consideration of the patient's comorbidities, presenting symptoms, or acuity I expect that the services needed warrant INPATIENT care.: Yes I certify that my determination is in accordance with my understanding of Medicare's requirements for reasonable and necessary INPATIENT services [42 CFR 412.3e].: Yes Medical Necessity: Significant Comorbidiites Make Outpatient Treatment Too Risky, Need Close Monitoring Due to Risk of Patient Decompensation, Need For IV Fluids, Need for IV Antibiotics, Risk of Complication if Not Cared For in Hospital, Risk of Diagnosis Which Will Require Inpatient Eval/Care/Monitoring Post Hospital Care: D/C Braid Cutter Documentation - Plan Summary Plan Summary: See admitting attending physician orders for details about care plan.
--- NOTE | 2019-11-24 14:33 | PDOC PROGRESS REPORT ---
Subjective Progress Note for:: 11/24/19 Subjective:: Patient remain alter and appropriate in responses. Denied any chest pain or difficulty with breathing. No reported fever. No nausea, vomiting, or abdominal pain. PO intake remain a challenge. Reason For Visit: METABOLIC ENCEPHALOPATHY,UTI,DEHYDRATION,ADVANCE Physical Exam Vital Signs: Temp Pulse Resp BP Pulse Ox 98.4 F 125 H 15 129/68 H 100 11/24/19 12:13 11/24/19 12:13 11/24/19 12:13 11/24/19 12:13 11/24/19 12:13 Intake & Output 11/23/19 11/24/19 11/25/19 06:59 06:59 06:59 Intake Total 1150 1340 Output Total 200 500 Balance 950 840 Weight 72 kg General appearance: PRESENT: no acute distress Head exam: PRESENT: atraumatic, normocephalic Eye exam: PRESENT: conjunctiva pink. ABSENT: scleral icterus Mouth exam: PRESENT: moist Respiratory exam: PRESENT: clear to auscultation rome, decreased breath sounds - at lung bases Cardiovascular exam: PRESENT: RRR, +S1, +S2. ABSENT: diastolic murmur, rubs, systolic murmur GI/Abdominal exam: PRESENT: normal bowel sounds, soft. ABSENT: tenderness Extremities exam: ABSENT: pedal edema Musculoskeletal exam: PRESENT: deformity - related to multiple sclerosis spasticity Neurological exam: PRESENT: alert, awake Psychiatric exam: PRESENT: appropriate affect, normal mood. ABSENT: homicidal ideation, suicidal ideation Skin exam: PRESENT: dry, warm, other - bilateral buttock and sacral stage 2 pressure ulcers. Results Laboratory Results: 11/24/19 06:26 11/24/19 06:26 11/23/19 11/23/19 11/23/19 12:55 14:57 15:55 WBC RBC Hgb Hct MCV MCH MCHC RDW Plt Count Seg Neutrophils % VBG pH 7.32 VBG pCO2 34.9 L VBG HCO3 17.7 L VBG Base Excess -7.5 Sodium Potassium Chloride Carbon Dioxide Anion Gap BUN Creatinine Est GFR ( Amer) Glucose Lactic Acid 0.6 L 0.9 Calcium Total Bilirubin AST Alkaline Phosphatase Total Protein Albumin 11/23/19 11/24/19 11/24/19 17:35 06:26 06: WBC 8.9 RBC 4.69 Hgb 12.7 Hct 38.2 MCV 81 MCH 27.1 MCHC 33.3 RDW 15.5 H Plt Count 257 Seg Neutrophils % 75.6 VBG pH VBG pCO2 VBG HCO3 VBG Base Excess Sodium 141.9 Potassium 4.2 Chloride 112 H Carbon Dioxide 19 L Anion Gap 11 BUN 23 H Creatinine 0.64 Est GFR ( Amer) > 60 Glucose 92 Lactic Acid 1.7 Calcium 10.5 H Total Bilirubin 0.5 AST 18 Alkaline Phosphatase 110 Total Protein 7.4 Albumin 3.4 L Assessment & Plan - Diagnosis (1) Altered mental status Qualifiers: Altered mental status type: unspecified Qualified Code(s): R41.82 - Altered mental status, unspecified Is this a current diagnosis for this admission?: Yes (2) Urinary tract infection Qualifiers: Urinary tract infection type: site unspecified Hematuria presence: with hematuria Qualified Code(s): N39.0 - Urinary tract infection, site not s pecified; R31.9 - Hematuria, unspecified Is this a current diagnosis for this admission?: Yes (3) Dehydration Is this a current diagnosis for this admission?: Yes (4) Decubitus ulcer of buttock, unstageable Qualifiers: Laterality: unspecified laterality Qualified Code(s): L89.300 - Pressure ulcer of unspecified buttock, unstageable Is this a current diagnosis for this admission?: Yes (5) Multiple sclerosis, primary chronic progressive Is this a current diagnosis for this admission?: Yes (6) Vitamin D deficiency Is this a current diagnosis for this admission?: Yes - Time Time Spent with patient: 25-34 minutes Level of Care: MEDICAL Medications reviewed and adjusted accordingly: Yes Anticipated discharge: Home with Homehealth Within: Other - Inpatient Certification Based on my medical assessment, after consideration of the patient's comorbidities, presenting symptoms, or acuity I expect that the services needed warrant INPATIENT care.: Yes I certify that my determination is in accordance with my understanding of Medicare's requirements for reasonable and necessary INPATIENT services [42 CFR 412.3e].: Yes Medical Necessity: Significant Comorbidiites Make Outpatient Treatment Too Risky, Need Close Monitoring Due to Risk of Patient Decompensation, Need For IV Fluids, Need for IV Antibiotics, Need for Surgery, Risk of Complication if Not Cared For in Hospital, Risk of Diagnosis Which Will Require Inpatient Eval/Care/Monitoring Post Hospital Care: D/C Water Project Engineer Documentation - Plan Summary Plan Summary: Continue current medication management. Follow up on surgicalist consultation request regarding need for possible pressure ulcer debridement.
[2019-11-24] MEDS ORDERED: BACLOFEN 10 MG TABLET PO PRN (14:34)
[2019-11-24] MEDS ORDERED: LIDOCAINE 1%/EPINEPHRINE INJ 20 ML VIAL INJ PRN (19:30)
[2019-11-25] MEDS: PANTOPRAZOLE SODIUM 40 MG TABLET.DR PO SCH (05:40)
[2019-11-25] MEDS: ACETAMINOPHEN 325 MG TABLET PO PRN ×2 (05:40→09:47)
--- NOTE | 2019-11-25 07:56 | PDOC CONSULTATION ---
Consultation Consult Date: 11/24/19 Provider Consulted: SURGICAL SURGICALIST Consult reason:: Bilateral heel decubitus ulcers History of Present Illness Admission Date/PCP: 11/23/19 16:54 QUINN MARCANO History of Present Illness: INO SALDIVAR is a 54 year old female seen in consultation at the request of Dr. Marcano. Patient has multiple sclerosis, and is now bed ridden. She has developed bilateral ischial tuberosity decubiti. Surgery was consulted to evaluate the ulcers and determine the need for debridement. The patient denies fevers, chills, nausea, vomiting, headache, dizziness, blurry vision, chest pain, shortness of breath. The patient was admitted to the hospital with mental status changes related to a urinary tract infection. The symptoms have all but resolved. The patient is mentating normally now. The patient cannot see any ulcers, so she is unsure of any drainage or bleeding. The nurse denies any foul smell, purulent discharge, or erythema. Past Medical History Cardiac Medical History: Reports: Pulmonary Embolism - 2 years ago Denies: Atrial Fibrillation, Congestive Heart Failure, Myocardial Infarction, Hyperlipidema, Hypertension Pulmonary Medical History: Denies: Asthma, Bronchitis, Chronic Obstructive Pulmonary Disease (COPD), Pneumonia, Respiratory Failure, Sleep Apnea, Tuberculosis Neurological Medical History: Denies: Migraine, Seizures Endocrine Medical History: Reports: Diabetes Mellitus Type 2, Hypothyroidism Denies: Diabetes Mellitus Type 1 Renal/ Medical History: Denies: End Stage Renal Disease Malignancy Medical History: Denies: Leukemia, Lung Cancer GI Medical History: Denies: Gastroesophageal Reflux Disease, Hiatal Hernia Musculoskeltal Medical History: Denies: Arthritis Psychiatric Medical History: Denies: Attention Deficit Hyperactivity Disorder, Bipolar Disorder, Dementia, Depression Hematology: Reports: Anemia Denies: Hemophilia, Sickle Cell Disease Infectious Medical History: Denies: HIV Past Surgical History Past Surgical History: Reports: Section - x2, Cholecystectomy Denies: Appendectomy, Coronary Artery Bypass Graft, Gastric Bypass Surgery, Herniorrhaphy, Hysterectomy, Mastectomy, Pacemaker, Tonsillectomy, Tubal Ligation Social History Smoking Status: Never Smoker Frequency of Alcohol Use: None Hx Recreational Drug Use: No Drugs: None Hx Prescription Drug Abuse: No - Advance Directive Resuscitation Status: Full Code Family History Family History: Reviewed & Not Pertinent Parental Family History Reviewed: Yes Children Family History Reviewed: Yes Sibling(s) Family History Reviewed.: Yes Medication/Allergy Home Medications: Acetaminophen [Tylenol 325 mg Tablet] 650 mg PO Q6HP PRN 11/24/19 Baclofen [Baclofen 10 mg Tablet] 10 mg PO Q8HP PRN 11/24/19 Allergies/Adverse Reactions: latex [Latex] Allergy (Intermediate, Verified 10/14/19 16:45) RASH/BLISTER Sulfa (Sulfonamide Antibiotics) Allergy (Intermediate, Verified 10/14/19 16:45) RASH/HIVES bee venom protein (honey bee) Allergy (Verified 10/14/19 16:45) Anaphylaxis Review of Systems Constitutional: PRESENT: weakness. ABSENT: anorexia, chills, fatigue Eyes: ABSENT: visual disturbances Ears: ABSENT: hearing changes Nose, Mouth, and Throat: ABSENT: sore throat Cardiovascular: ABSENT: chest pain Respiratory: ABSENT: cough Gastrointestinal: ABSENT: abdominal pain, hematemesis, hematochezia, melena, nausea, vomiting Genitourinary: PRESENT: dysuria Musculoskeletal: ABSENT: back pain Integumentary: PRESENT: wounds - Ischial tuberosity decubitus ulcers. ABSENT: pruritus Neurological: PRESENT: confusion - On admission, now resolved. ABSENT: dizziness Psychiatric: ABSENT: anxiety, depression Endocrine: ABSENT: cold intolerance, heat intolerance Hematologic/Lymphatic: ABSENT: easy bleeding, easy bruising Physical Exam Vital Signs: Temp Pulse Resp BP Pulse Ox 98.4 F 125 H 15 129/68 H 100 11/24/19 12:13 11/24/19 12:13 11/24/19 12:13 11/24/19 12:13 11/24/19 12:13 Intake & Output 11/23/19 11/24/19 11/25/19 06:59 06:59 06:59 Intake Total 1150 1340 Output Total 200 500 Balance 950 840 Weight 72 kg General appearance: PRESENT: no acute distress Head exam: PRESENT: atraumatic Eye exam: ABSENT: scleral icterus Mouth exam: PRESENT: moist, neck supple Neck exam: ABSENT: meningismus, tenderness, thyromegaly, tracheal deviation Respiratory exam: PRESENT: unlabored. ABSENT: tachypnea, wheezes Cardiovascular exam: PRESENT: tachycardia Pulses: PRESENT: normal radial pulses Vascular exam: PRESENT: normal capillary refill GI/Abdominal exam: PRESENT: soft. ABSENT: rigid, tenderness Rectal exam: PRESENT: deferred Neurological exam: PRESENT: alert, awake, oriented to person, oriented to place, CN II-XII grossly intact Psychiatric exam: ABSENT: agitated, anxious, depressed Focused psych exam: ABSENT: delusional Skin exam: PRESENT: other - Bilateral ischial tuberosity decubitus ulcers present. There is a small amount of necrotic tissue present. There is no erythema or purulent drainage present. Results Laboratory Results: 11/24/19 06:26 11/24/19 06:26 11/23/19 11/24/19 11/24/19 17:35 06:26 06:26 WBC 8.9 RBC 4.69 Hgb 12.7 Hct 38.2 MCV 81 MCH 27.1 MCHC 33.3 RDW 15.5 H Plt Count 257 Seg Neutrophils % 75.6 Sodium 141.9 Potassium 4.2 Chloride 112 H Carbon Dioxide 19 L Anion Gap 11 BUN 23 H Creatinine 0.64 Est GFR ( Amer) > 60 Glucose 92 Lactic Acid 1.7 Calcium 10.5 H Total Bilirubin 0.5 AST 18 Alkaline Phosphatase 110 Total Protein 7.4 Albumin 3.4 L Assessment & Plan - Diagnosis (1) Decubitus ulcer of ischium, stage 3 Qualifiers: Laterality: unspecified laterality Qualified Code(s): L89.303 - Pressure ulcer of unspecified buttock, stage 3 Is this a current diagnosis for this admission?: Yes - Plan Summary Plan Summary: This is a 54-year-old female with bilateral ischial tuberosity decubitus ulcers. They are small, and appear noninfected. There is unhealthy skin present. I believe she would benefit from local debridement. They appear to extend into the subcutaneous fatty tissue. I believe they are stage III. The patient has agreed to bedside debridement. I will plan for bedside debridement today or tomorrow. I will have the nursing staff perform damp to dry dressing changes after debridement has been performed. It is imperative that the patient receive every 2 hour turning, as well as supplemental nutrition (protein supplements). Surgery will follow.
[2019-11-25] MEDS: LEVOFLOXACIN 500 MG/D5W RTU 500 MG/100 ML RTUPB IV SCH (09:45)
--- NOTE | 2019-11-25 17:39 | Operative Report ---
Nonrecallable Operative Report DATE OF SURGERY: 11/25/19 PREOPERATIVE DIAGNOSIS: Bilateral ischial decubitus ulcers. POSTOPERATIVE DIAGNOSIS: Same as above OPERATION: 1. Sharp, excisional debridement of skin and fatty soft tissue of the left ischial decubitus ulcer (2 cm x 2 cm x 2 cm debrided). 2. Sharp, excisional debridement of skin and fatty soft tissue of the right ischial decubitus ulcer (2 cm x 2 cm x 2 cm debridement). SURGEON: JOSE COLEMAN ANESTHESIA: Local TISSUE REMOVED OR ALTERED: Necrotic skin and fatty soft tissue. COMPLICATIONS: None apparent ESTIMATED BLOOD LOSS: 20 cc PROCEDURE: Drains/implants: 4 x 4 gauze packing. Procedure in detail: After informed consent was obtained, the patient was laid in the left lateral decubitus position in the hospital room. The right ischial tuberosity decubitus was prepped and draped. 1% lidocaine with epinephrine was infiltrated into the skin. All necrotic appearing skin and fatty soft tissue was debrided away sharply with an 11 blade scalpel. This measured approximately 2 cm x 2 cm x 2 cm. A dressing was then placed, using 4 x 4 gauze. Attention was then turned to the left side. The patient was rolled into the right lateral decubitus position. The left ischial decubitus ulcer was prepped and draped. 1% lidocaine with epinephrine was used to anesthetize the skin. An 11 blade scalpel was used to sharply and excisionally debride away necrotic skin and fatty soft tissue. The area excised measured approximately 2 cm x 2 cm x 2 cm. A dressing was then placed, and the procedure was concluded. All sponge, instrument, and needle counts were correct x2. Condition: Stable.
[2019-11-25] MEDS: NORMAL SALINE 1000 ML 1,000 ML IV PRN (17:44)
--- NOTE | 2019-11-25 20:04 | PDOC PROGRESS REPORT ---
Subjective Progress Note for:: 11/25/19 Subjective:: Patient denied any chest pain or difficulty with breathing.No fever or chills. No nausea, vomiting or abdominal sandhu. Her p.o intake remain a challenge. She is schedule for buttock regions wound debridement today. Reason For Visit: METABOLIC ENCEPHALOPATHY,UTI,DEHYDRATION,ADVANCE Physical Exam Vital Signs: Temp Pulse Resp BP Pulse Ox 98.4 F 114 H 17 132/67 H 100 11/25/19 15:12 11/25/19 15:12 11/25/19 15:12 11/25/19 15:12 11/25/19 15:12 Intake & Output 11/24/19 11/25/19 11/26/19 06:59 06:59 06:59 Intake Total 1150 2580 350 Output Total 200 1500 Balance 950 1080 350 Weight 72 kg 82.3 kg 82.3 kg General appearance: PRESENT: no acute distress Head exam: PRESENT: atraumatic, normocephalic Eye exam: PRESENT: conjunctiva pink, scleral icterus Mouth exam: PRESENT: moist Respiratory exam: PRESENT: clear to auscultation rome, decreased breath sounds - at lung bases Cardiovascular exam: PRESENT: RRR. ABSENT: diastolic murmur, rubs, systolic murmur Vascular exam: ABSENT: pallor GI/Abdominal exam: PRESENT: normal bowel sounds, soft. ABSENT: tenderness Musculoskeletal exam: PRESENT: deformity - due to her advanced mulytiple sclerosis Neurological exam: PRESENT: altered, awake, oriented to person, oriented to place, oriented to situation Psychiatric exam: PRESENT: appropriate affect, normal mood. ABSENT: homicidal ideation, suicidal ideation Skin exam: PRESENT: dry, warm, other - multiple sacral region pressure ulcers Results Laboratory Results: 11/24/19 06:26 11/24/19 06:26 11/23/19 14:57 Blood Blood Culture (PCR) - Final Staphylococcus Species Assessment & Plan - Diagnosis (1) Altered mental status Qualifiers: Altered mental status type: unspecified Qualified Code(s): R41.82 - Altered mental status, unspecified Is this a current diagnosis for this admission?: Yes (2) Urinary tract infection Qualifiers: Urinary tract infection type: site unspecified Hematuria presence: with hematuria Qualified Code(s): N39.0 - Urinary tract infection, site not specified; R31.9 - Hematuria, unspecified Is this a current diagnosis for this admission?: Yes (3) Dehydration Is this a current diagnosis for this admission?: Yes (4) Decubitus ulcer of buttock, unstageable Qualifiers: Laterality: unspecified laterality Qualified Code(s): L89.300 - Pressure ulcer of unspecified buttock, unstageable Is this a current diagnosis for this admission?: Yes (5) Multiple sclerosis, primary chronic progressive Is this a current diagnosis for this admission?: Yes (6) Vitamin D deficiency Is this a current diagnosis for this admission?: Yes - Time Time Spent with patient: 25-34 minutes Level of Care: MEDICAL Medications reviewed and adjusted accordingly: Yes Anticipated discharge: Home with Homehealth Within: Other - Inpatient Certification Based on my medical assessment, after consideration of the patient's comorbidities, presenting symptoms, or acuity I expect that the services needed warrant INPATIENT care.: Yes I certify that my determination is in accordance with my understanding of Medicare's requirements for reasonable and necessary INPATIENT services [42 CFR 412.3e].: Yes Medical Necessity: Significant Comorbidiites Make Outpatient Treatment Too [place], Need Close Monitoring Due to Risk of Patient Decompensation, Need For Continuous Telemetry Monitoring, Need for IV Antibiotics, Risk of Complication if Not Cared For in Hospital, Risk of Diagnosis Which Will Require Inpatient Eval/Care/Monitoring Post Hospital Care: D/C Home Health Registered Nurse Documentation - Plan Summary Plan Summary: Continue current medication management. Obtain CBC with diff and CMP in am. Follow up with surgical recommendations.
[2019-11-26] MEDS: PANTOPRAZOLE SODIUM 40 MG TABLET.DR PO SCH (05:55)
[2019-11-26] MEDS: ACETAMINOPHEN 325 MG TABLET PO PRN ×2 (05:55→17:22)
[2019-11-26 06:23] LABS: ABSOLUTE EOSINOPHILS # (AUTO) 0.1 10^3/uL (0.0-0.6); ABSOLUTE LYMPHOCYTES (AUTO) 1.1 10^3/uL (0.5-4.7); ABSOLUTE MONOCYTES (AUTO) 0.6 10^3/uL (0.1-1.4); ABSOLUTE NEUT (AUTO) 4.7 10^3/uL (1.7-8.2); BASOPHILS % (AUTO) 0.5 % (0-2); EOSINOPHILS % (AUTO) 1.4 % (0-6); HEMATOCRIT 30.2 % (36.0-47.0); LYMPHOCYTES % (AUTO) 17.1 % (13-45); MEAN CORPUSCULAR HEMOGLOBIN 27.1 pg (27.0-33.4); MEAN CORPUSCULAR HGB CONC 33.5 g/dL (32.0-36.0); MEAN CORPUSCULAR VOLUME 81 fl (80-97); MONOCYTES % (AUTO) 8.8 % (3-13); PLATELET COUNT 266 10^3/uL (150-450); RED BLOOD COUNT 3.73 10^6/uL (3.72-5.28); RED CELL DISTRIBUTION WIDTH 15.4 % (11.5-14.0); SEGMENTED NEUTROPHILS % (AUTO) 72.2 % (42-78); TOTAL CELLS COUNTED % (AUTO) 100 %; WHITE BLOOD COUNT 6.5 10^3/uL (4.0-10.5)
[2019-11-26 06:32] LABS: HEMOGLOBIN 10.1 g/dL (12.0-15.5)
[2019-11-26 06:41] LABS: ALBUMIN 2.8 g/dL (3.5-5.0); ALKALINE PHOSPHATASE 88 U/L (38-126); ANION GAP 6 (5-19); ASPARTATE AMINO TRANSFERASE 22 U/L (14-36); BILIRUBIN,DIRECT 0.1 mg/dL (0.0-0.4); BILIRUBIN,TOTAL 0.5 mg/dL (0.2-1.3); BLOOD UREA NITROGEN 9 mg/dL (7-20); CALCIUM 9.4 mg/dL (8.4-10.2); CARBON DIOXIDE 18 mmol/L (22-30); CHLORIDE 115 mmol/L (98-107); GLUCOSE 101 mg/dL (75-110); POTASSIUM 3.6 mmol/L (3.6-5.0); TOTAL PROTEIN 6.5 g/dL (6.3-8.2)
[2019-11-26] MEDS: LEVOFLOXACIN 500 MG/D5W RTU 500 MG/100 ML RTUPB IV SCH (09:28)
[2019-11-26] MEDS: NORMAL SALINE 1000 ML 1,000 ML IV PRN (13:28)
--- NOTE | 2019-11-26 15:50 | PDOC PROGRESS REPORT ---
Subjective Reason For Visit: METABOLIC ENCEPHALOPATHY,UTI,DEHYDRATION,ADVANCE Patient laying supine, unable to move any of her extremities. Physical Exam Vital Signs: Temp Pulse Resp BP Pulse Ox 98.5 F 112 H 17 132/66 H 100 11/26/19 11:50 11/26/19 11:50 11/26/19 08:00 11/26/19 11:50 11/26/19 11:50 Intake & Output 11/25/19 11/26/19 11/27/19 06:59 06:59 06:59 Intake Total 2580 1600 100 Output Total 1500 800 900 Balance 1080 800 -800 Weight 82.3 kg 83.8 kg Skin exam: PRESENT: other - Wounds examined. Patient has each 3 bilateral issue wounds; status post debridement at bedside yesterday; packing removed, wounds irrigated and repacked. Results Laboratory Results: 11/26/19 05:43 11/26/19 05:43 11/26/19 11/26/19 05:43 05:43 WBC 6.5 RBC 3.73 Hgb 10.1 L D Hct 30.2 L MCV 81 MCH 27.1 MCHC 33.5 RDW 15.4 H Plt Count 266 Seg Neutrophils % 72.2 Sodium 139.3 Potassium 3.6 Chloride 115 H Carbon Dioxide 18 L Anion Gap 6 BUN 9 Creatinine 0.47 L Est GFR ( Amer) > 60 Glucose 101 Calcium 9.4 Total Bilirubin 0.5 AST 22 Alkaline Phosphatase 88 Total Protein 6.5 Albumin 2.8 L 11/23/19 14:57 Blood Blood Culture (PCR) - Final Staphylococcus Species Assessment & Plan - Diagnosis (1) Decubitus ulcer of ischium, stage 3 Qualifiers: Laterality: unspecified laterality Qualified Code(s): L89.303 - Pressure ulcer of unspecified buttock, stage 3 Is this a current diagnosis for this admission?: Yes Plan: Impression: Patient with a bilateral stage III initial decubiti, status post bedside debridement, wound is cleaning up nicely. No indication for the debridement Plan: 1. We will start dressing changes; orders written and reviewed with nursing staff 2. Pressure offloading would be of use will be difficult to manage with this patient who has 0 mobility. 3. Surgery will sign off; reconsult if clinically indicated.
--- NOTE | 2019-11-26 19:44 | PDOC PROGRESS REPORT ---
Subjective Progress Note for:: 11/26/19 Subjective:: No chest pain or difficulty with breathing. No fever or chills. No nausea, vomiting or abdominal sandhu. Reason For Visit: METABOLIC ENCEPHALOPATHY,UTI,DEHYDRATION,ADVANCE Physical Exam Vital Signs: Temp Pulse Resp BP Pulse Ox 98.5 F 112 H 17 132/66 H 100 11/26/19 11:50 11/26/19 11:50 11/26/19 08:00 11/26/19 11:50 11/26/19 11:50 Intake & Output 11/25/19 11/26/19 11/27/19 06:59 06:59 06:59 Intake Total 2580 1600 150 Output Total 1500 800 900 Balance 1080 800 -750 Weight 82.3 kg 83.8 kg Physical Exam: General appearance: PRESENT: no acute distress Head exam: PRESENT: atraumatic, normocephalic Eye exam: PRESENT: conjunctiva pink, pallor, scleral icterus Mouth exam: PRESENT: moist Respiratory exam: PRESENT: clear to auscultation rome, decreased breath sounds - at lung bases Cardiovascular exam: PRESENT: RRR. ABSENT: diastolic murmur, rubs, systolic murmur GI/Abdominal exam: PRESENT: normal bowel sounds, soft. ABSENT: tenderness Musculoskeletal exam: PRESENT: deformity - due to her advanced multiple sclerosis Neurological exam: PRESENT: altered, awake, oriented to person, oriented to place, oriented to situation Psychiatric exam: PRESENT: appropriate affect, normal mood. ABSENT: homicidal i deation, suicidal ideation Skin exam: PRESENT: dry, warm, other - multiple sacral region pressure ulcers Results Laboratory Results: 11/26/19 05:43 11/26/19 05:43 11/26/19 11/26/19 05:43 05:43 WBC 6.5 RBC 3.73 Hgb 10.1 L D Hct 30.2 L MCV 81 MCH 27.1 MCHC 33.5 RDW 15.4 H Plt Count 266 Seg Neutrophils % 72.2 Sodium 139.3 Potassium 3.6 Chloride 115 H Carbon Dioxide 18 L Anion Gap 6 BUN 9 Creatinine 0.47 L Est GFR ( Amer) > 60 Glucose 101 Calcium 9.4 Total Bilirubin 0.5 AST 22 Alkaline Phosphatase 88 Total Protein 6.5 Albumin 2.8 L 11/23/19 14:57 Blood Blood Culture (PCR) - Final Staphylococcus Species Assessment & Plan - Diagnosis (1) Altered mental status Qualifiers: Altered mental status type: unspecified Qualified Code(s): R41.82 - Altered mental status, unspecified Is this a current diagnosis for this admission?: Yes (2) Urinary tract infection Qualifiers: Urinary tract infection type: site unspecified Hematuria presence: with hematuria Qualified Code(s): N39.0 - Urinary tract infection, site not specified; R31.9 - Hematuria, unspecified Is this a current diagnosis for this admission?: Yes (3) Dehydration Is this a current diagnosis for this admission?: Yes (4) Decubitus ulcer of buttock, unstageable Qualifiers: Laterality: unspecified laterality Qualified Code(s): L89.300 - Pressure ulcer of unspecified buttock, unstageable Is this a current diagnosis for this admission?: Yes (5) Multiple sclerosis, primary chronic progressive Is this a current diagnosis for this admission?: Yes (6) Vitamin D deficiency Is this a current diagnosis for this admission?: Yes - Time Time Spent with patient: 25-34 minutes Level of Care: IMCU Medications reviewed and adjusted accordingly: Yes Anticipated discharge: Home with Homehealth Within: Other - Inpatient Certification Based on my medical assessment, after consideration of the patient's comorbidities, presenting symptoms, or acuity I expect that the services needed warrant INPATIENT care.: Yes I certify that my determination is in accordance with my understanding of Medicare's requirements for reasonable and necessary INPATIENT services [42 CFR 412.3e].: Yes Medical Necessity: Significant Comorbidiites Make Outpatient Treatment Too Risky, Need Close Monitoring Due to Risk of Patient Decompensation, Need For IV Fluids, Need for IV Antibiotics, Risk of Complication if Not Cared For in Hospital, Risk of Diagnosis Which Will Require Inpatient Eval/Care/Monitoring Post Hospital Care: D/C Implant Coordinator Documentation - Plan Summary Plan Summary: Continue current medication management. Follow up on culture definite findings.
[2019-11-27] MEDS: PANTOPRAZOLE SODIUM 40 MG TABLET.DR PO SCH (08:51)
[2019-11-27] MEDS: NORMAL SALINE 1000 ML 1,000 ML IV PRN (08:54)
[2019-11-27] MEDS: LEVOFLOXACIN 500 MG/D5W RTU 500 MG/100 ML RTUPB IV SCH (09:23)
--- NOTE | 2019-11-27 17:30 | PDOC PROGRESS REPORT ---
Subjective Progress Note for:: 11/27/19 Subjective:: No chest pain or difficulty with breathing. No fever or chills. No nausea, vomiting or abdominal sandhu. There is concern about inability of the DME supplier to meet patient's need for alternating air mattress during this November 28 holiday. Reason For Visit: METABOLIC ENCEPHALOPATHY,UTI,DEHYDRATION,ADVANCE Physical Exam Vital Signs: Temp Pulse Resp BP Pulse Ox 98.5 F 106 H 16 141/77 H 100 11/27/19 16:08 11/27/19 16:08 11/27/19 16:08 11/27/19 16:08 11/27/19 16:08 Intake & Output 11/26/19 11/27/19 11/28/19 06:59 06:59 06:59 Intake Total 1600 1487 380 Output Total 800 1200 300 Balance 800 287 80 Weight 83.8 kg 84.4 kg 84.4 kg Physical Exam: General appearance: PRESENT: no acute distress Head exam: PRESENT: atraumatic, normocephalic Eye exam: PRESENT: conjunctiva pink, pallor, scleral icterus Mouth exam: PRESENT: moist Respiratory exam: PRESENT: clear to auscultation rome, decreased breath sounds - at lung bases Cardiovascular exam: PRESENT: RRR. ABSENT: diastolic murmur, rubs, systolic murmur GI/Abdominal exam: PRESENT: normal bowel sounds, soft. ABSENT: tenderness Musculoskeletal exam: PRESENT: deformity - due to her advanced multiple sclerosis Neurological exam: PRESENT: altered, awake, oriented to person, oriented to place, oriented to situation Psychiatric exam: PRESENT: appropriate affect, normal mood. ABSENT: homicidal ideation, suicidal ideation Skin exam: PRESENT: dry, warm, other - multiple sacral region pressure ulcers s/p surgical debridement. Results Laboratory Results: 11/26/19 05:43 11/26/19 05:43 11/23/19 14:57 Blood Blood Culture (PCR) - Final Staphylococcus Species 11/23/19 14:57 Blood Blood Culture - Final Staphylococcus Capitis Assessment & Plan - Diagnosis (1) Altered mental status Qualifiers: Altered mental status type: unspecified Qualified Code(s): R41.82 - Altered mental status, unspecified Is this a current diagnosis for this admission?: Yes (2) Urinary tract infection Qualifiers: Urinary tract infection type: site unspecified Hematuria presence: with hematuria Qualified Code(s): N39.0 - Urinary tract infection, site not specified; R31.9 - Hematuria, unspecified Is this a current diagnosis for this admission?: Yes (3) Dehydration Is this a current diagnosis for this admission?: Yes (4) Decubitus ulcer of buttock, unstageable Qualifiers: Laterality: unspecified laterality Qualified Code(s): L89.300 - Pressure ulcer of unspecified buttock, unstageable Is this a current diagnosis for this admission?: Yes (5) Multiple sclerosis, primary chronic progressive Is this a current diagnosis for this admission?: Yes (6) Vitamin D deficiency Is this a current diagnosis for this admission?: Yes - Time Time Spent with patient: 25-34 minutes Level of Care: IMCU Medications reviewed and adjusted accordingly: Yes Anticipated discharge: Home with Homehealth Within: Other - Inpatient Certification Based on my medical assessment, after consideration of the patient's comorbidities, presenting symptoms, or acuity I expect that the services needed warrant INPATIENT care.: Yes I certify that my determination is in accordance with my understanding of Medicare's requirements for reasonable and necessary INPATIENT services [42 CFR 412.3e].: Yes Medical Necessity: Significant Comorbidiites Make Outpatient Treatment Too Risky, Need Close Monitoring Due to Risk of Patient Decompensation, Need For IV Fluids, Need For Continuous Telemetry Monitoring, Need for IV Antibiotics, Risk of Complication if Not Cared For in Hospital, Risk of Diagnosis Which Will Require Inpatient Eval/Care/Monitoring Post Hospital Care: D/C Aeronautical Test Engineer Documentation - Plan Summary Plan Summary: Continue current medication management.
[2019-11-28] MEDS: PANTOPRAZOLE SODIUM 40 MG TABLET.DR PO SCH (05:52)
[2019-11-28] MEDS: LEVOFLOXACIN 500 MG/D5W RTU 500 MG/100 ML RTUPB IV SCH (09:30)
--- NOTE | 2019-11-28 17:21 | PDOC PROGRESS REPORT ---
Subjective Progress Note for:: 11/28/19 Subjective:: Patient seen by the bedside, history of multiple sclerosis Reason For Visit: METABOLIC ENCEPHALOPATHY,UTI,DEHYDRATION,ADVANCE Physical Exam Vital Signs: Temp Pulse Resp BP Pulse Ox 98.6 F 105 H 18 127/73 H 100 11/28/19 15:51 11/28/19 15:51 11/28/19 15:51 11/28/19 15:51 11/28/19 15:51 Intake & Output 11/27/19 11/28/19 11/29/19 06:59 06:59 06:59 Intake Total 1487 990 100 Output Total 1200 1550 Balance 287 -560 100 Weight 84.4 kg 85.2 kg General appearance: PRESENT: no acute distress Respiratory exam: PRESENT: clear to auscultation rome Cardiovascular exam: PRESENT: +S1, +S2 GI/Abdominal exam: PRESENT: soft Neurological exam: PRESENT: alert Results Laboratory Results: 11/26/19 05:43 11/26/19 05:43 11/23/19 15:55 Blood Blood Culture - Final NO GROWTH IN 5 DAYS Assessment & Plan - Diagnosis (1) Multiple sclerosis Is this a current diagnosis for this admission?: Yes (2) Pressure ulcer of unspecified buttock, stage 3 Qualifiers: Laterality: unspecified laterality Qualified Code(s): L89.303 - Pressure ul cer of unspecified buttock, stage 3 Is this a current diagnosis for this admission?: Yes (3) Urinary tract infection Qualifiers: Urinary tract infection type: site unspecified Hematuria presence: with hematuria Qualified Code(s): N39.0 - Urinary tract infection, site not specified; R31.9 - Hematuria, unspecified Is this a current diagnosis for this admission?: Yes - Time Time Spent with patient: 15-24 minutes Level of Care: IMCU - Plan Summary Plan Summary: Continue treatment
[2019-11-28] MEDS: NORMAL SALINE 1000 ML 1,000 ML IV PRN (17:27)
[2019-11-29] MEDS: PANTOPRAZOLE SODIUM 40 MG TABLET.DR PO SCH (05:03)
[2019-11-29] MEDS: NORMAL SALINE 1000 ML 1,000 ML IV PRN ×2 (07:00→16:25)
[2019-11-29] MEDS: LEVOFLOXACIN 500 MG/D5W RTU 500 MG/100 ML RTUPB IV SCH (09:44)
[2019-11-29] MEDS: ACETAMINOPHEN 325 MG TABLET PO PRN (11:29)
--- NOTE | 2019-11-29 17:44 | PDOC PROGRESS REPORT ---
Subjective Progress Note for:: 11/29/19 Subjective:: Patient seen by the bedside, history of multiple sclerosis Reason For Visit: METABOLIC ENCEPHALOPATHY,UTI,DEHYDRATION,ADVANCE Physical Exam Vital Signs: Temp Pulse Resp BP Pulse Ox 98.5 F 108 H 16 146/85 H 100 11/29/19 15:37 11/29/19 15:37 11/29/19 15:37 11/29/19 15:37 11/29/19 15:37 Intake & Output 11/28/19 11/29/19 11/30/19 06:59 06:59 06:59 Intake Total 1989 1100 1160 Output Total 1550 850 300 Balance 440 250 860 Weight 85.2 kg 86.4 kg General appearance: PRESENT: no acute distress Eye exam: PRESENT: PERRLA Respiratory exam: PRESENT: clear to auscultation rome Cardiovascular exam: PRESENT: +S1, +S2 GI/Abdominal exam: PRESENT: soft Neurological exam: PRESENT: alert Results Laboratory Results: 11/26/19 05:43 11/26/19 05:43 11/23/19 15:55 Blood Blood Culture - Final NO GROWTH IN 5 DAYS Assessment & Plan - Diagnosis (1) Multiple sclerosis Is this a current diagnosis for this admission?: Yes (2) Pressure ulcer of unspecified buttock, stage 3 Qualifiers: Laterality: unspecified laterality Qualified Code(s): L89.303 - Pressure ulcer of unspecified buttock, stage 3 Is this a current diagnosis for this admission?: Yes (3) Urinary tract infection Qualifiers: Urinary tract infection type: site unspecified Hematuria presence: with hematuria Qualified Code(s): N39.0 - Urinary tract infection, site not specified; R31.9 - Hematuria, unspecified Is this a current diagnosis for this admission?: Yes - Time Time Spent with patient: 15-24 minutes Level of Care: MEDICAL
[2019-11-30] MEDS: PANTOPRAZOLE SODIUM 40 MG TABLET.DR PO SCH (05:16)
[2019-11-30] MEDS: NORMAL SALINE 1000 ML 1,000 ML IV PRN ×2 (07:47→19:39)
[2019-11-30] MEDS: LEVOFLOXACIN 500 MG/D5W RTU 500 MG/100 ML RTUPB IV SCH (10:24)
--- NOTE | 2019-11-30 16:36 | PDOC PROGRESS REPORT ---
Subjective Progress Note for:: 11/30/19 Subjective:: Patient seen by the bedside, history of multiple sclerosis Reason For Visit: METABOLIC ENCEPHALOPATHY,UTI,DEHYDRATION,ADVANCE Physical Exam Vital Signs: Temp Pulse Resp BP Pulse Ox 98.9 F 118 H 17 152/85 H 100 11/30/19 07:05 11/30/19 07:05 11/30/19 07:05 11/30/19 07:05 11/30/19 07:05 Intake & Output 11/29/19 11/30/19 12/01/19 06:59 06:59 06:59 Intake Total 1100 2160 100 Output Total 850 1200 Balance 250 960 100 Weight 86.4 kg 86.4 kg General appearance: PRESENT: no acute distress Eye exam: PRESENT: PERRLA Respiratory exam: PRESENT: clear to auscultation rome Cardiovascular exam: PRESENT: +S1, +S2 GI/Abdominal exam: PRESENT: soft Results Laboratory Results: 11/26/19 05:43 11/26/19 05:43 Assessment & Plan - Diagnosis (1) Multiple sclerosis Is this a current diagnosis for this admission?: Yes (2) Pressure ulcer of unspecified buttock, stage 3 Qualifiers: Laterality: unspecified laterality Qualified Code(s): L89.303 - Pressure ulcer of unspecified buttock, stage 3 Is this a current diagnosis for this admission?: Yes (3) Urinary tract infection Qualifiers: Urinary tract infection type: site unspecified Hematuria presence: with hematuria Qualified Code(s): N39.0 - Urinary tract infection, site not specified; R31.9 - Hematuria, unspecified Is this a current diagnosis for this admission?: Yes - Time Time Spent with patient: 25-34 minutes Level of Care: MEDICAL
[2019-12-01] MEDS: PANTOPRAZOLE SODIUM 40 MG TABLET.DR PO SCH (05:28)
[2019-12-01] MEDS: NORMAL SALINE 1000 ML 1,000 ML IV PRN (08:52)
--- NOTE | 2019-12-01 16:29 | PDOC DISCHARGE SUMMARY ---
Impression - Admit/DC Date/PCP Admission Date/Primary Care Provider: 11/23/19 16:54 QUINN MARCANO Discharge Date: 12/01/19 - Discharge Diagnosis (1) Altered mental status Is this a current diagnosis for this admission?: Yes (2) Urinary tract infection Is this a current diagnosis for this admission?: Yes (3) Dehydration Is this a current diagnosis for this admission?: Yes (4) Decubitus ulcer of buttock, unstageable Is this a current diagnosis for this admission?: Yes (5) Multiple sclerosis, primary chronic progressive Is this a current diagnosis for this admission?: Yes (6) Vitamin D deficiency Is this a current diagnosis for this admission?: Yes - Assessment Summary: Patient presented with alteration in her mental state due to urinary tract infec tion and dehydration. She responded well to IV fluid and IV Levofloxacin administration. She remain on both while on admission with continued improvement in her symptoms. Her presenting bilateral sacral decubitii were surgically debrided and granulating satisfactorily at this time. Presently both are stage 3 pressure ulcer level. She will be discharged home today with home health nurse service for wound dressing and alternating air mattress for wound management. She will follow up with the surgical team and myself in the office as instructed upon discharge. - Additional Information Resuscitation Status: Full Code Referrals: SURGICALIST,SURGICAL MD [ACTIVE STAFF] - QUINN MARCANO MD [Primary Care Provider] - 12/10/19 10:00 am Prescriptions: Whey Protein Isolate [Beneprotein] 227 gm PO TID #90 powder Vitamin A [Vitamin A 10,000 Unit Capsule] 10,000 unit PO DAILY #30 capsule Ascorbic Acid [Vitamin C] 1,000 mg PO DAILY #30 tablet Zinc Sulfate [Zinc-220 Capsule] 220 mg PO DAILY #30 capsule Home Medications: Acetaminophen [Tylenol 325 mg Tablet] 650 mg PO Q6HP PRN 11/24/19 Baclofen [Baclofen 10 mg Tablet] 10 mg PO Q8HP PRN 11/24/19 Ascorbic Acid [Vitamin C] 1,000 mg PO DAILY #30 tablet 12/01/19 Vitamin A [Vitamin A 10,000 Unit Capsule] 10,000 unit PO DAILY #30 capsule 12/01/19 Whey Protein Isolate [Beneprotein] 227 gm PO TID #90 powder 07/06/20 Zinc Sulfate [Zinc-220 Capsule] 220 mg PO DAILY #30 capsule 12/01/19 History of Present Illiness History of Present Illness: INO SALDIVAR is a 54 year old female patient known to my practice who presented via EMS to the ED with report of altered mental state with difficulty speaking and incoherent in her conversation. Her symptoms started this morning as per report of the EMS personnel. Her initial ED evaluation was significant for tachypnea, tachycardia, hypercalcemia, hyperglycemia, pre-renal azotemia, and abnormal urinalysis suggestive of UTI. Her presentation is similar to her usual ED visit with UTI. She was treated with IV fluid and IV Levofloxacin based on her prior culture results. Patient demonstrated improvement in her mental state after these interventions. she was advised hospitalization for further evaluation and management. Her morbidities as as listed below. Hospital Course Hospital Course: Patient presented with alteration in her mental state due to urinary tract infection and dehydration. She responded well to IV fluid and IV Levofloxacin administration. She remain on both while on admission with continued improvement in her symptoms. Her presenting bilateral sacral decubitii were surgically debrided and granulating satisfactorily at this time. Presently both are stage 3 pressure ulcer level. She will be discharged home today with home health nurse service for wound dressing and alternating air mattress for wound management. She will follow up with the surgical team and myself in the office as instructed upon discharge. Physical Exam Vital Signs: Temp Pulse Resp BP Pulse Ox 97.6 F 117 H 16 144/86 H 100 12/01/19 08:35 12/01/19 08:35 12/01/19 08:35 12/01/19 08:35 12/01/19 08:35 Intake & Output 11/30/19 12/01/19 12/02/19 06:59 06:59 06:59 Intake Total 2160 2100 Output Total 1200 300 Balance 960 1800 Weight 86.4 kg 86.4 kg General appearance: PRESENT: no acute distress Head exam: PRESENT: atraumatic, normocephalic Eye exam: PRESENT: conjunctiva pink, pallor, scleral icterus Mouth exam: PRESENT: moist Respiratory exam: PRESENT: clear to auscultation rome, decreased breath sounds - at lung bases Cardiovascular exam: PRESENT: RRR. ABSENT: diastolic murmur, rubs, systolic murmur GI/Abdominal exam: PRESENT: normal bowel sounds, soft. ABSENT: tenderness Musculoskeletal exam: PRESENT: deformity - due to her advanced multiple sclerosis Neurological exam: PRESENT: altered, awake, oriented to person, oriented to place, oriented to situation Psychiatric exam: PRESENT: appropriate affect, normal mood. ABSENT: homicidal ideation, suicidal ideation Skin exam: PRESENT: dry, warm, other - multiple sacral region pressure ulcers s/p surgical debridement. Results Laboratory Results: WBC 6.5 10^3/uL (4.0-10.5) 11/26/19 05:43 RBC 3.73 10^6/uL (3.72-5.28) 11/26/19 05:43 Hgb 10.1 g/dL (12.0-15.5) L D 11/26/19 05:43 Hct 30.2 % (36.0-47.0) L 11/26/19 05:43 MCV 81 fl (80-97) 11/26/19 05:43 MCH 27.1 pg (27.0-33.4) 11/26/19 05:43 MCHC 33.5 g/dL (32.0-36.0) 11/26/19 05:43 RDW 15.4 % (11.5-14.0) H 11/26/19 05:43 Plt Count 266 10^3/uL (150-450) 11/26/19 05:43 Lymph % (Auto) 17.1 % (13-45) 11/26/19 05:43 Cabell % (Auto) 8.8 % (3-13) 11/26/19 05:43 Eos % (Auto) 1.4 % (0-6) 11/26/19 05:43 Baso % (Auto) 0.5 % (0-2) 11/26/19 05:43 Absolute Neuts (auto) 4.7 10^3/uL (1.7-8.2) 11/26/19 05:43 Absolute Lymphs (auto) 1.1 10^3/uL (0.5-4.7) 11/26/19 05:43 Absolute Monos (auto) 0.6 10^3/uL (0.1-1.4) 11/26/19 05:43 Absolute Eos (auto) 0.1 10^3/uL (0.0-0.6) 11/26/19 05:43 Absolute Basos (auto) 0.0 10^3/uL (0.0-0.2) 11/26/19 05:43 Seg Neutrophils % 72.2 % (42-78) 11/26/19 05:43 VBG pH 7.32 (7.30-7.42) 11/23/19 14:57 VBG pCO2 34.9 mmHg (35-63) L 11/23/19 14:57 VBG HCO3 17.7 mmol/L (20-32) L 11/23/19 14:57 VBG Base Excess -7.5 mmol/L 11/23/19 14:57 Sodium 139.3 mmol/L (137-145) 11/26/19 05:43 Potassium 3.6 mmol/L (3.6-5.0) 11/26/19 05:43 Chloride 115 mmol/L (98-107) H 11/26/19 05:43 Carbon Dioxide 18 mmol/L (22-30) L 11/26/19 05:43 Anion Gap 6 (5-19) 11/26/19 05:43 BUN 9 mg/dL (7-20) 11/26/19 05:43 Creatinine 0.47 mg/dL (0.52-1.25) L 11/26/19 05:43 Est GFR ( Amer) > 60 (>60) 11/26/19 05:43 Est GFR (MDRD) Non-Af > 60 (>60) 11/26/19 05:43 Glucose 101 mg/dL (75-110) 11/26/19 05:43 Lactic Acid 1.7 mmol/L (0.7-2.1) 11/23/19 17:35 Calcium 9.4 mg/dL (8.4-10.2) 11/26/19 05:43 Magnesium 2.0 mg/dL (1.6-2.3) 11/23/19 12:55 Total Bilirubin 0.5 mg/dL (0.2-1.3) 11/26/19 05:43 Direct Bilirubin 0.1 mg/dL (0.0-0.4) 11/26/19 05:43 Neonat Total Bilirubin Not Reportable 11/26/19 05:43 Neonat Direct Bilirubin Not Reportable 11/26/19 05:43 Neonat Indirect Bili Not Reportable 11/26/19 05:43 AST 22 U/L (14-36) 11/26/19 05:43 ALT 16 U/L (<35) 11/26/19 05:43 Alkaline Phosphatase 88 U/L (38-126) 11/26/19 05:43 Total Protein 6.5 g/dL (6.3-8.2) 11/26/19 05:43 Albumin 2.8 g/dL (3.5-5.0) L 11/26/19 05:43 Urine Color YELLOW 11/23/19 13:51 Urine Appearance TURBID 11/23/19 13:51 Urine pH 6.0 (5.0-9.0) 11/23/19 13:51 Ur Specific Brant 1.016 11/23/19 13:51 Urine Protein 100 mg/dL (NEGATIVE) H 11/23/19 13:51 Urine Glucose (UA) NEGATIVE mg/dL (NEGATIVE) 11/23/19 13:51 Urine Ketones NEGATIVE mg/dL (NEGATIVE) 11/23/19 13:51 Urine Blood MODERATE (NEGATIVE) H 11/23/19 13:51 Urine Nitrite POSITIVE (NEGATIVE) H 11/23/19 13:51 Urine Bilirubin NEGATIVE (NEGATIVE) 11/23/19 13:51 Urine Urobilinogen NEGATIVE mg/dL (<2.0) 11/23/19 13:51 Ur Leukocyte Esterase LARGE (NEGATIVE) H 11/23/19 13:51 Urine WBC (Auto) >182 /HPF 11/23/19 13:51 Urine RBC (Auto) 43 /HPF 11/23/19 13:51 Urine Bacteria (Auto) 3+ /HPF 11/23/19 13:51 Urine WBC Clumps MANY /HPF 11/23/19 13:51 Squamous Epi Cells Auto 23 /HPF 11/23/19 13:51 Urine Mucus (Auto) OCC /LPF 11/23/19 13:51 Urine Ascorbic Acid 40 (NEGATIVE) H 11/23/19 13:51 Urine Opiates Screen UNCONFIRMED POSITIVE 11/23/19 13:51 Urine Methadone Screen NEGATIVE 11/23/19 13:51 Ur Barbiturates Screen NEGATIVE 11/23/19 13:51 Ur Phencyclidine Scrn NEGATIVE 11/23/19 13:51 Ur Amphetamines Screen NEGATIVE 11/23/19 13:51 U Benzodiazepines Scrn NEGATIVE 11/23/19 13:51 Urine Cocaine Screen NEGATIVE 11/23/19 13:51 U Marijuana (THC) Screen NEGATIVE 11/23/19 13:51 Serum Alcohol < 10 mg/dL (NONE DETECTED) 11/23/19 12:55 SARS-CoV-2 (PCR) NEGATIVE (NEGATIVE) 11/25/19 15:20 Plan Health Concerns: Poor nutritional status with high risk of worsening decubitii ulcers and readmission. Plan of Treatment: Wound management with nutritional supplementation. Goals: Improve wound healing conditions, improve nutritional status, and reduce level of readmission risk. Time Spent: Greater than 30 Minutes - I discussed her post discharge care plan with nursing staff and senior program planner. Stroke Is this a Stroke Patient?: No Acute Heart Failure - Is this a Heart Failure Patient?: No
[2019-12-01 17:09] VITALS: BP 130/73
== END 2019-12-01 17:40 | disposition home health service (06) | DRG 673 ==
LOC: ER 12:44 → EH 16:54 → 4S 18:20
PROVIDERS: ADMIT Internal Medicine Geriatric Medicine; ATTEND Internal Medicine Geriatric Medicine
PROC: 0JB90ZZ Excision of Buttock Subcutaneous Tissue and Fascia, Open Approach (ICD-10-PCS; principal; 2019-11-25)
DX: N39.0 Urinary tract infection, site not specified (principal); G93.41 Metabolic encephalopathy; L89.323 Pressure ulcer of left buttock, stage 3; L89.313 Pressure ulcer of right buttock, stage 3; L89.152 Pressure ulcer of sacral region, stage 2; E86.0 Dehydration; G35 Multiple sclerosis; E55.9 Vitamin D deficiency, unspecified; R31.9 Hematuria, unspecified; E11.9 Type 2 diabetes mellitus without complications; E03.9 Hypothyroidism, unspecified; B95.8 Unspecified staphylococcus as the cause of diseases classified elsewhere; Z74.01 Bed confinement status; Z03.818 Encounter for observation for suspected exposure to other biological agents ruled out; Z86.711 Personal history of pulmonary embolism; Z88.2 Allergy status to sulfonamides; Z91.030 Bee allergy status; Z91.040 Latex allergy status
CPT/HCPCS: 36415; 80053; 80307; 81001; 82803; 83605; 83735; 85025; 87040; 87077; 87150; 87186; 87635; 93005; 93010; 96365; 99285; C9803; J1956; J3490; J7030; J7120

== ENCOUNTER 2019-12-03 12:31 | Inpatient (IN) | payer MEDICARE, MEDICAID ==
[2019-12-03] MEDS ORDERED: NORMAL SALINE 1000 ML 1,000 ML IV ONE (12:49)
--- NOTE | 2019-12-03 12:51 | ER Document Report ---
ED General - General Stated Complaint: HEART PROBLEMS Time Seen by Provider: 12/03/19 12:44 Notes: See other note dated today. TRAVEL OUTSIDE OF THE [place] IN LAST 30 DAYS: No - Related Data Allergies/Adverse Reactions: latex [Latex] Allergy (Intermediate, Verified 10/14/19 16:45) RASH/BLISTER Sulfa (Sulfonamide Antibiotics) Allergy (Intermediate, Verified 10/14/19 16:45) RASH/HIVES bee venom protein (honey bee) Allergy (Verified 10/14/19 16:45) Anaphylaxis Past Medical History - Social History Smoking Status: Never Smoker Family History: Reviewed & Not Pertinent - Past Medical History Cardiac Medical History: Reports: Hx Pulmonary Embolism - 2 years ago Denies: Hx Atrial Fibrillation, Hx Congestive Heart Failure, Hx Heart Attack, Hx Hypercholesterolemia, Hx Hypertension Pulmonary Medical History: Denies: Hx Asthma, Hx Bronchitis, Hx COPD, Hx Pneumonia, Hx Respiratory Failure, Hx Sleep Apnea, Hx Tuberculosis Neurological Medical History: Denies: Hx Cerebrovascular Accident, Hx Migraine, Hx Seizures, Hx Parkinson's Disease Endocrine Medical History: Reports: Hx Diabetes Mellitus Type 2, Hx Hypothyroidism. Denies: Hx Diabetes Mellitus Type 1 Renal/ Medical History: Denies: Hx End Stage Renal Disease, Hx Kidney Stones, Hx Peritoneal Dialysis Malignancy Medical History: Denies: Hx Leukemia, Hx Lung Cancer GI Medical History: Denies: Hx Gastroesophageal Reflux Disease, Hx Hiatal Hernia, Hx Ulcer Musculoskeletal Medical History: Denies Hx Arthritis, Reports Hx Multiple Sclerosis Psychiatric Medical History: Denies: Hx Attention Deficit Hyperactivity Disorder, Hx Bipolar Disorder, Hx Dementia, Hx Depression, Hx Schizophrenia Infectious Medical History: Denies: Hx HIV Past Surgical History: Reports: Hx Section - x2, Hx Cholecystectomy. Denies: Hx Appendectomy, Hx Bowel Surgery, Hx Coronary Artery Bypass Graft, Hx Gastric Bypass Surgery, Hx Herniorrhaphy, Hx Hysterectomy, Hx Mastectomy, Hx Pacemaker, Hx Tonsillectomy, Hx Tubal Ligation - Immunizations Immunizations up to date: Yes Hx Diphtheria, Pertussis, Tetanus Vaccination: Yes Physical Exam - Vital signs Vitals: Temp Resp Pulse Ox 98.8 F 27 H 96 12/03/19 12:45 12/03/19 12:45 12/03/19 12:45 Course - Vital Signs Vital signs: Temp Pulse Resp BP Pulse Ox 98.8 F 26 H 129/83 H 96 12/03/19 12:45 12/03/19 14:05 12/03/19 13:01 12/03/19 13:21 - Laboratory Result Diagrams: 12/03/19 12:57 12/03/19 12:57 Laboratory results interpreted by me: 12/03/19 12/03/19 12/03/19 12:57 12:57 13:08 WBC 21.9 H Hgb 9.9 L Hct 30.2 L MCV 78 L MCH 25.4 L RDW 15.5 H Seg Neuts % (Manual) 87 H Lymphocytes % (Manual) 3 L Abs Neuts (Manual) 19.7 H Potassium 2.8 L* Chloride 110 H Glucose 131 H AST 53 H Alkaline Phosphatase 176 H Total Protein 6.1 L Albumin 2.4 L Urine Protein 30 H Urine Blood MODERATE H Leukocyte Esterase Rfl MODERATE H - Diagnostic Test Radiology reviewed: Image reviewed, Reports reviewed - EKG Interpretation by Me EKG shows normal: Sinus rhythm Rate: Tachycardia Rhythm: NSR Voltage: Decreased voltage, Throughout When compared to previous EKG there are: No significant change Critical Care Note - Critical Care Note Total time excluding time spent on procedures (mins): 32 Comments: The above patient is critically ill. Not including procedures, but including direct re-evaluations, speaking with patient and/or consultants, interpreting results, and documenting, I spent the total amount of minute listed listed above on critical care time Discharge - Discharge Clinical Impression: Pyelonephritis, Hypokalemia Sepsis Qualifiers: Sepsis type: sepsis due to unspecified organism Sepsis acute organ dysfunction status: unspecified Qualified Code(s): A41.9 - Sepsis, unspecified organism Condition: Fair Disposition: ADMITTED INPATIENT
--- NOTE | 2019-12-03 13:07 | ER Document Report ---
ED General - General Stated Complaint: HEART PROBLEMS Time Seen by Provider: 12/03/19 12:44 Primary Care Provider: QUINN MARCANO MD [Primary Care Provider] - Follow up as needed Notes: Ms. Jacobson is a 54-year-old lady with debilitating MS she was essentially bedbound with decubitus ulcers she was recently discharged by Dr. Marcano for UTI and encephalopathy. She presents today for "heart problems" which is what the paramedics said however her actual issue is that she had a low-grade temperature at home yesterday and home health today noticed that she had a slightly elevated temperature as well. She denies acute pain right now. She denies shortness of breath. She is noted to be slightly encephalopathic, and tachycardic in the room. TRAVEL OUTSIDE OF THE [place] IN LAST 30 DAYS: No - Related Data Allergies/Adverse Reactions: latex [Latex] Allergy (Intermediate, Verified 10/14/19 16:45) RASH/BLISTER Sulfa (Sulfonamide Antibiotics) Allergy (Intermediate, Verified 10/14/19 16:45) RASH/HIVES bee venom protein (honey bee) Allergy (Verified 10/14/19 16:45) Anaphylaxis Past Medical History - General Information source: Patient Cannot obtain history due to: Dementia - Social History Smoking Status: Unknown if Ever Smoked Family History: Reviewed & Not Pertinent - Past Medical History Cardiac Medical History: Reports: Hx Pulmonary Embolism - 2 years ago Denies: Hx Atrial Fibrillation, Hx Congestive Heart Failure, Hx Heart Attack, Hx Hypercholesterolemia, Hx Hypertension Pulmonary Medical History: Denies: Hx Asthma, Hx Bronchitis, Hx COPD, Hx Pneumonia, Hx Respiratory Failure, Hx Sleep Apnea, Hx Tuberculosis Neurological Medical History: Denies: Hx Cerebrovascular Accident, Hx Migraine, Hx Seizures, Hx Parkinson's Disease Endocrine Medical History: Reports: Hx Diabetes Mellitus Type 2, Hx Hypothyroidism. Denies: Hx Diabetes Mellitus Type 1 Renal/ Medical History: Denies: Hx End Stage Renal Disease, Hx Kidney Stones, Hx Peritoneal Dialysis Malignancy Medical History: Denies: Hx Leukemia, Hx Lung Cancer GI Medical History: Denies: Hx Gastroesophageal Reflux Disease, Hx Hiatal Hernia, Hx Ulcer Musculoskeletal Medical History: Denies Hx Arthritis, Reports Hx Multiple Sclerosis Psychiatric Medical History: Denies: Hx Attention Deficit Hyperactivity Disorder, Hx Bipolar Disorder, Hx Dementia, Hx Depression, Hx Schizophrenia Infectious Medical History: Denies: Hx HIV Past Surgical History: Reports: Hx Section - x2, Hx Cholecystectomy. Denies: Hx Appendectomy, Hx Bowel Surgery, Hx Coronary Artery Bypass Graft, Hx Gastric Bypass Surgery, Hx Herniorrhaphy, Hx Hysterectomy, Hx Mastectomy, Hx Pacemaker, Hx Tonsillectomy, Hx Tubal Ligation - Immunizations Immunizations up to date: Yes Hx Diphtheria, Pertussis, Tetanus Vaccination: Yes Review of Systems - Review of Systems Notes: REVIEW OF SYSTEMS By dementia PHYSICAL EXAMINATION General: Chronically ill and wasted Head: Atraumatic, normocephalic ENT: Mouth normal, oropharynx moist, no exudates or tonsillar enlargement Eyes: Conjunctiva normal, pupils equal, lids normal Neck: No JVD, supple, no guarding CVS: Tachycardic regular rhythm, no murmurs Resp: No resp distress, equal and normal breath sounds bilaterally GI: Nondistended, soft, no tenderness to palpation, no rebound or guarding Ext: No deformities, no edema, normal range of motion in upper and lower ext Back: No CVA or midline TTP Skin: No rash, warm Lymphatic: No lymphadeopathy noted Neuro: Flaccid paralysis of both upper extremities and generalized weakness in the legs with atrophy Physical Exam - Vital signs Vitals: Pulse Ox 96 12/03/19 13:21 Course - Re-evaluation Re-evalutation: 12/03/19 13:06 Patient with end-stage MS bedbound decubitus ulcers presents with tachycardia and essentially an unknown story of may be fever She is afebrile here by rectal. Her decubitus looks good We will hydrate her, check for acute kidney injury and sepsis although it will have a source now we will check a cath UA 12/03/19 14:04 Patient's labs consistent with pyelonephritis. Her cultures from last admission are pending but has been sensitive to cefepime in the past Ordered cefepime. Ordered fluids. Order potassium 12/03/19 14:46 Discussed with Angie for admission. - Vital Signs Vital signs: Temp Pulse Resp BP Pulse Ox 96 12/03/19 13:21 - Laboratory Result Diagrams: 12/03/19 12:57 12/03/19 12:57 Laboratory results interpreted by me: 12/03/19 12/03/19 12/03/19 12:57 12:57 13:08 WBC 21.9 H Hgb 9.9 L Hct 30.2 L MCV 78 L MCH 25.4 L RDW 15.5 H Seg Neuts % (Manual) 87 H Lymphocytes % (Manual) 3 L Abs Neuts (Manual) 19.7 H Potassium 2.8 L* Chloride 110 H Glucose 131 H AST 53 H Alkaline Phosphatase 176 H Total Protein 6.1 L Albumin 2.4 L Urine Protein 30 H Urine Blood MODERATE H Leukocyte Esterase Rfl MODERATE H - Diagnostic Test Radiology reviewed: Image reviewed, Reports reviewed - EKG Interpretation by Me EKG shows normal: Sinus rhythm Rate: Normal Rhythm: NSR When compared to previous EKG there are: Previous EKG unavailable Critical Care Note - Critical Care Note Total time excluding time spent on procedures (mins): 34 Comments: The above patient is critically ill. Not including procedures, but including direct re-evaluations, speaking with patient and/or consultants, interpreting results, and documenting, I spent the total amount of minute listed listed above on critical care time Discharge - Discharge Clinical Impression: Pyelonephritis, Hypokalemia Sepsis Qualifiers: Sepsis type: sepsis due to unspecified organism Sepsis acute organ dysfunction status: unspecified Qualified Code(s): A41.9 - Sepsis, unspecified organism Condition: Fair Disposition: ADMITTED INPATIENT Admitting Provider: Angie Unit Admitted: Medical Floor Referrals: QUINN MARCANO MD [Primary Care Provider] - Follow up as needed
[2019-12-03 13:10] LABS: HEMATOCRIT 30.2 % (36.0-47.0); HEMOGLOBIN 9.9 g/dL (12.0-15.5); MEAN CORPUSCULAR HEMOGLOBIN 25.4 pg (27.0-33.4); MEAN CORPUSCULAR HGB CONC 32.7 g/dL (32.0-36.0); MEAN CORPUSCULAR VOLUME 78 fl (80-97); PLATELET COUNT 330 10^3/uL (150-450); RED BLOOD COUNT 3.89 10^6/uL (3.72-5.28); RED CELL DISTRIBUTION WIDTH 15.5 % (11.5-14.0); WHITE BLOOD COUNT 21.9 10^3/uL (4.0-10.5)
[2019-12-03 13:15] LABS: INTERNATIONAL RATION (INR) 1.06; PROTHROMBIN TIME 13.8 SEC (11.4-15.4)
--- NOTE | 2019-12-03 13:16 | RADIOLOGY REPORT (SQ) ---
EXAM DESCRIPTION: CHEST SINGLE VIEW IMAGES COMPLETED DATE/TIME: 12/03/2019 1:07 pm REASON FOR STUDY: tachycardia COMPARISON: 10/14/2019 EXAM PARAMETERS: NUMBER OF VIEWS: One view. TECHNIQUE: Single frontal radiographic view of the chest acquired. RADIATION DOSE: NA LIMITATIONS: None. FINDINGS: LUNGS AND PLEURA: No opacities, masses or pneumothorax. No pleural effusion. MEDIASTINUM AND HILAR STRUCTURES: No masses. Contour normal. HEART AND VASCULAR STRUCTURES: Heart normal in size. Normal vasculature. BONES: No acute findings. HARDWARE: None in the chest. OTHER: No other significant finding. IMPRESSION: NO ACUTE RADIOGRAPHIC FINDING IN THE CHEST. TECHNICAL DOCUMENTATION: JOB ID: [id number] 2010 [employer]- All Rights Reserved Reading location - IP/workstation name: [email or web address]
[2019-12-03 13:26] LABS: ABSOLUTE LYMPHOCYTES# (MANUAL) 0.7 10^3/uL (0.5-4.7); ABSOLUTE MONOCYTES # (MANUAL) 1.3 10^3/uL (0.1-1.4); BAND NEUTROPHILS % (MANUAL) 3 % (3-5); BASOPHILS % (MANUAL) 0 % (0-2); EOSINOPHILS % (MANUAL) 1 % (0-6); LYMPHOCYTES % (MANUAL) 3 % (13-45); MONOCYTES % (MANUAL) 6 % (3-13); SEGMENTED NEUTROPHILS % (MAN) 87 % (42-78); TOTAL CELLS COUNTED 100
[2019-12-03 13:27] LABS: ANISOCYTOSIS SLIGHT
[2019-12-03 13:28] LABS: PLATELET CLUMPS PRESENT; PLATELET COMMENT ADEQUATE
[2019-12-03 13:30] LABS: ALBUMIN 2.4 g/dL (3.5-5.0); ALKALINE PHOSPHATASE 176 U/L (38-126); ANION GAP 5 (5-19); ASPARTATE AMINO TRANSFERASE 53 U/L (14-36); BILIRUBIN,DIRECT 0.2 mg/dL (0.0-0.4); BILIRUBIN,TOTAL 0.7 mg/dL (0.2-1.3); BLOOD UREA NITROGEN 12 mg/dL (7-20); CALCIUM 8.9 mg/dL (8.4-10.2); CARBON DIOXIDE 26 mmol/L (22-30); CHLORIDE 110 mmol/L (98-107); GLUCOSE 131 mg/dL (75-110); TOTAL PROTEIN 6.1 g/dL (6.3-8.2)
[2019-12-03 13:41] LABS: APPEARANCE,URINE SLIGHTLY-CLOUDY; BILIRUBIN,URINE NEGATIVE (NEGATIVE); COLOR,URINE YELLOW; GLUCOSE, URINE NEGATIVE (NEGATIVE); KETONES,URINE NEGATIVE (NEGATIVE); PROTEIN,URINE 30 mg/dL (NEGATIVE); URINE SPECIFIC GRAVITY 1.013; UROBILINOGEN,URINE NEGATIVE mg/dL (<2.0)
[2019-12-03 13:43] LABS: POTASSIUM 2.8 mmol/L (3.6-5.0)
[2019-12-03] MEDS ORDERED: CEFEPIME 1 GM/D5W RTU 1 GM/50 ML RTUPB IV SCH (14:00)
[2019-12-03 14:02] LABS: VENOUS BLOOD BASE EXCESS 0.9 mmol/L; VENOUS BLOOD HCO3 25.5 mmol/L (20-32); VENOUS BLOOD PCO2 40.6 mmHg (35-63); VENOUS BLOOD PH 7.42 (7.30-7.42)
--- NOTE | 2019-12-03 14:39 | RADIOLOGY REPORT (SQ) ---
EXAM DESCRIPTION: CT ABD/PELVIS NO ORAL OR IV IMAGES COMPLETED DATE/TIME: 12/03/2019 2:09 pm REASON FOR STUDY: r/o kidney stone COMPARISON: AP chest 12/03/2019 CT abdomen pelvis 04/01/2011 TECHNIQUE: CT scan of the abdomen and pelvis performed without intravenous or oral contrast. Images reviewed with lung, soft tissue, and bone windows. Reconstructed coronal and sagittal MPR images revi ewed. All images stored on PACS. All CT scanners at this facility use dose modulation, iterative reconstruction, and/or weight based d osing when appropriate to reduce radiation dose to as low as reasonably achievable (ALARA). [facility]: Dose Right [facility]: CareDose [facility]: Dose Right [facility]: Teradose 4D [facility]: [employer] RADIATION DOSE: CT Rad equipment meets quality standard of care and radiation dose reduction techniq ues were employed. CTDIvol: 22.5 mGy. DLP: 1360 mGy-cm.mGy. LIMITATIONS: None. FINDINGS: A 1.6 x 0.8 cm stone is present in the proximal left ureter, causing moderate left hydrone phrosis. Stone is best shown on coronal image 49 and axial image 45. Elsewhere within the left kidney, a staghorn calculus involving the upper pole, midpole, lower pole, and renal pelvis present measuring 860 Hounsfield units in density. Left lower pole 3 cm complex cys t versus cystic mass, coronal image 44. Renal ultrasound would be useful for further characterizatio n No distal left ureteral stone. LOWER CHEST: No significant findings. No nodules or infiltrates. NON-CONTRASTED LIVER, SPLEEN, ADRENALS: Evaluation limited by lack of IV contrast. No identified sign ificant masses. Borderline splenomegaly 14 cm in length PANCREAS: No masses. No peripancreatic inflammatory changes. GALLBLADDER: Surgically absent RIGHT KIDNEY AND URETER: No suspicious masses. Assessment limited by lack of IV contrast. Staghorn calculus in the right upper pole, mid and lower pole, and renal pelvis. Stone measures 860 Hounsfiel d units. No right ureteral calculi. No hydronephrosis or hydroureter. LEFT KIDNEY AND URETER: As above. AORTA AND RETROPERITONEUM: No aneurysm. No retroperitoneal masses or adenopathy. BOWEL AND PERITONEAL CAVITY: No obvious masses or inflammatory changes. No free fluid. APPENDIX: Normal. PELVIS, BLADDER, AND ABDOMINAL WALL:No abnormal masses. No free fluid. Bladder normal. Normal size f emale pelvic organs BONES: No significant findings. OTHER: Left ischial decubitus ulcer axial image 98 IMPRESSION: 1.6 x 0.8 cm left proximal ureteral stone with moderate left hydronephrosis Bilateral intrarenal staghorn calculi Complex cyst versus cystic mass left lower pole kidney. Ultrasound may be useful for further charact erization COMMENT: Quality ID # [id number]: Final reports with documentation of one or more dose reduction techniques (e.g., Automated exposure control, adjustment of the mA and/or kV according to patient size, use of iterative reconstruction technique) TECHNICAL DOCUMENTATION: JOB ID: [id number] 2010 [employer]- All Rights Reserved Reading location - IP/workstation name: [email or web address]
[2019-12-03] MEDS: POTASSI CL 20 MEQ/50 ML RIDER 20 MEQ/50 ML RTUPB IV SCH ×2 (15:22→17:34)
--- NOTE | 2019-12-03 16:23 | EKG REPORT ---
SEVERITY:- BORDERLINE ECG - SINUS TACHYCARDIA BORDERLINE T WAVE ABNORMALITIES : Confirmed by: Alin Gaspar MD 03-Dec-2019 16:23:03
[2019-12-03] MEDS ORDERED: ONDANSETRON HCL INJ/PF 4 MG/2 ML SDV IV PRN (17:12)
[2019-12-03] MEDS ORDERED: ACETAMINOPHEN 325 MG TABLET PO PRN (17:12)
[2019-12-03] MEDS ORDERED: BACLOFEN 10 MG TABLET PO PRN (17:16)
[2019-12-03] MEDS ORDERED: WHEY PROTEIN ISOLATE PO SCH (18:00)
[2019-12-03] MEDS: ENOXAPARIN SODIUM INJ 40 MG/0.4 ML DISP.SYRIN SUBCUT SCH (20:26)
[2019-12-03] MEDS: PIPERACILLIN SODIUM/TAZOBACTAM 3.375 GM in NORMAL SALINE 100 ML IV SCH ×2 (20:27→23:26)
[2019-12-04 06:18] LABS: ALBUMIN 2.3 g/dL (3.5-5.0); ALKALINE PHOSPHATASE 148 U/L (38-126); ANION GAP 7 (5-19); ASPARTATE AMINO TRANSFERASE 48 U/L (14-36); BILIRUBIN,DIRECT 0.3 mg/dL (0.0-0.4); BILIRUBIN,TOTAL 0.9 mg/dL (0.2-1.3); BLOOD UREA NITROGEN 11 mg/dL (7-20); CALCIUM 8.4 mg/dL (8.4-10.2); CARBON DIOXIDE 23 mmol/L (22-30); CHLORIDE 112 mmol/L (98-107); GLUCOSE 101 mg/dL (75-110); POTASSIUM 3.4 mmol/L (3.6-5.0); TOTAL PROTEIN 5.8 g/dL (6.3-8.2)
[2019-12-04 06:27] LABS: ABSOLUTE LYMPHOCYTES (AUTO) 0.9 10^3/uL (0.5-4.7); ABSOLUTE MONOCYTES (AUTO) 0.7 10^3/uL (0.1-1.4); ABSOLUTE NEUT (AUTO) 13.8 10^3/uL (1.7-8.2); BASOPHILS % (AUTO) 0.3 % (0-2); EOSINOPHILS % (AUTO) 0.1 % (0-6); HEMATOCRIT 28.8 % (36.0-47.0); HEMOGLOBIN 9.6 g/dL (12.0-15.5); LYMPHOCYTES % (AUTO) 5.7 % (13-45); MEAN CORPUSCULAR HEMOGLOBIN 25.8 pg (27.0-33.4); MEAN CORPUSCULAR HGB CONC 33.1 g/dL (32.0-36.0); MEAN CORPUSCULAR VOLUME 78 fl (80-97); MONOCYTES % (AUTO) 4.8 % (3-13); PLATELET COUNT 247 10^3/uL (150-450); RED CELL DISTRIBUTION WIDTH 15.6 % (11.5-14.0); SEGMENTED NEUTROPHILS % (AUTO) 89.1 % (42-78); TOTAL CELLS COUNTED % (AUTO) 100 %; WHITE BLOOD COUNT 15.5 10^3/uL (4.0-10.5)
[2019-12-04] MEDS: PIPERACILLIN SODIUM/TAZOBACTAM 3.375 GM in NORMAL SALINE 100 ML IV SCH ×3 (06:57→17:54)
[2019-12-04] MEDS: PANTOPRAZOLE SODIUM 40 MG TABLET.DR PO SCH (06:57)
[2019-12-04] MEDS: NORMAL SALINE 1000 ML 1,000 ML IV PRN ×2 (06:58→17:57)
--- NOTE | 2019-12-04 07:51 | EKG REPORT ---
SEVERITY:- ABNORMAL ECG - SINUS TACHYCARDIA LEFT AXIS DEVIATION PROBABLE ANTEROSEPTAL INFARCT, OLD LATERAL LEADS ARE ALSO INVOLVED : Confirmed by: Alin Gaspar MD 04-Dec-2019 07:50:24
[2019-12-04] MEDS ORDERED: POTASSIUM CHLORIDE 10 MEQ TABLET.ER PO SCH (10:00)
[2019-12-04] MEDS: ASCORBIC ACID 500 MG TABLET PO SCH (11:36)
[2019-12-04] MEDS: VITAMIN A 10,000 UNIT CAPSULE PO SCH (11:37)
[2019-12-04] MEDS: ENOXAPARIN SODIUM INJ 40 MG/0.4 ML DISP.SYRIN SUBCUT SCH (11:37)
[2019-12-04] MEDS: ZINC SULFATE 220 MG CAPSULE PO SCH (11:37)
[2019-12-04] MEDS: POTASSIUM CHLORIDE 10 MEQ TABLET.ER PO SCH ×3 (11:41→20:16)
--- NOTE | 2019-12-04 15:28 | RADIOLOGY REPORT (SQ) ---
EXAM DESCRIPTION: U/S RETROPERITON (RENAL/AORTA) IMAGES COMPLETED DATE/TIME: 12/04/2019 2:48 pm REASON FOR STUDY: Left kidney lower pole complex vs cystic mass COMPARISON: None. TECHNIQUE: Dynamic and static grayscale images acquired of the kidneys and bladder and recorded on P ACS. Additional selected color Doppler and spectral images recorded. LIMITATIONS: None. FINDINGS: RIGHT KIDNEY: Normal size. No solid or suspicious masses. No hydronephrosis. Re- demons tration of staghorn calculi. LEFT KIDNEY: Normal size. No solid or suspicious masses. Abnormal findings on comparison CT imagin g involving the inferior pole the left kidney correlates to a hypoechoic structure which is poorly ch aracterized due to acoustic impedance. BLADDER: No masses. OTHER FINDINGS: No other significant finding. IMPRESSION: Queried left kidney inferior pole lesion is poorly characterized due to acoustic impedan ce. Recommend dedicated renal CT or renal MR imaging for definitive characterization. TECHNICAL DOCUMENTATION: JOB ID: [id number] 2010 [employer]- All Rights Reserved Reading location - IP/workstation name: [email or web address]
--- NOTE | 2019-12-04 18:09 | PDOC H&P ---
History of Present Illness Admission Date/PCP: 12/03/19 14:39 QUINN KRYS History of Present Illness: INO SALDIVAR is a 54 year old female patient known to my practice who presented to the ED via EMS for reported low grade fever and questionable heart problem. Her initial ED evaluation was significant for demonstrable confusion and tachycardia. Her laboratory evaluation revealed significant leukocytosis and abnormal urinalysis with CT abdomen and Pelvis confirming bilateral staghorn calculi, left proximal urethral stone with moderate left hydronephrosis, and complex versus cystic mass in the lower pole of the left kidney. She was advised hospitalization for further evaluation and management. Her morbidities are listed below. Past Medical History Cardiac Medical History: Reports: Pulmonary Embolism - 2 years ago Denies: Atrial Fibrillation, Congestive Heart Failure, Myocardial Infarction, Hyperlipidema, Hypertension Pulmonary Medical History: Denies: Asthma, Bronchitis, Chronic Obstructive Pulmonary Disease (COPD), Pneumonia, Respiratory Failure, Sleep Apnea, Tuberculosis Neurological Medical History: Denies: Migraine, Seizures Endocrine Medical History: Reports: Diabetes Mellitus Type 2, Hypothyroidism Denies: Diabetes Mellitus Type 1 Renal/ Medical History: Denies: End Stage Renal Disease Malignancy Medical History: Denies: Leukemia, Lung Cancer GI Medical History: Denies: Gastroesophageal Reflux Disease, Hiatal Hernia Musculoskeltal Medical History: Denies: Arthritis Psychiatric Medical History: Denies: Attention Deficit Hyperactivity Disorder, Bipolar Disorder, Dementia, Depression Hematology: Reports: Anemia Denies: Hemophilia, Sickle Cell Disease Infectious Medical History: Denies: HIV Past Surgical History Past Surgical History: Reports: Section - x2, Cholecystectomy Denies: Appendectomy, Coronary Artery Bypass Graft, Gastric Bypass Surgery, Herniorrhaphy, Hysterectomy, Mastectomy, Pacemaker, Tonsillectomy, Tubal Ligation Social History Smoking Status: Never Smoker Frequency of Alcohol Use: None Hx Recreational Drug Use: No Drugs: None Hx Prescription Drug Abuse: No - Advance Directive Resuscitation Status: Full Code Family History Family History: Reviewed & Not Pertinent Parental Family History Reviewed: Yes Children Family History Reviewed: Yes Sibling(s) Family History Reviewed.: Yes Medication/Allergy Home Medications: Acetaminophen [Tylenol 325 mg Tablet] 650 mg PO Q6HP PRN 11/24/19 Baclofen [Baclofen 10 mg Tablet] 10 mg PO Q8HP PRN 11/24/19 Ascorbic Acid [Vitamin C] 1,000 mg PO DAILY #30 tablet 12/01/19 Vitamin A [Vitamin A 10,000 Unit Capsule] 10,000 unit PO DAILY #30 capsule 12/01/19 Whey Protein Isolate [Beneprotein] 227 gm PO TID #90 powder 12/01/19 Zinc Sulfate [Zinc-220 Capsule] 220 mg PO DAILY #30 capsule 12/01/19 Allergies/Adverse Reactions: latex [Latex] Allergy (Intermediate, Verified 10/14/19 16:45) RASH/BLISTER Sulfa (Sulfonamide Antibiotics) Allergy (Intermediate, Verified 10/14/19 16:45) RASH/HIVES bee venom protein (honey bee) Allergy (Verified 10/14/19 16:45) Anaphylaxis Review of Systems Constitutional: PRESENT: chills, fatigue, fever(s), weakness Eyes: ABSENT: visual disturbances Ears: ABSENT: hearing changes Nose, Mouth, and Throat: ABSENT: headache(s), mouth pain, sore throat, vertigo Cardiovascular: ABSENT: chest pain, orthropnea Respiratory: ABSENT: cough, dyspnea, hemoptysis, sputum Gastrointestinal: ABSENT: abdominal pain, constipation, diarrhea, hematemesis, hematochezia, nausea, vomiting Genitourinary: PRESENT: difficulty urinating, other - malodor, cloudy Musculoskeletal: PRESENT: muscle weakness - generaly relasted to her multiple sclerosis Integumentary: PRESENT: diaphoresis, wounds - buttocks Neurological: PRESENT: abnormal speech - related to her multiple sclerosi. ABSENT: abnormal gait, confusion, dizziness, focal weakness, syncope Psychiatric: ABSENT: anxiety, depression, homidical ideation, suicidal ideation Endocrine: ABSENT: cold intolerance, heat intolerance, polydipsia, polyuria Hematologic/Lymphatic: ABSENT: easy bleeding, easy bruising, lymphadenopathy Allergic/Immunologic: ABSENT: seasonal rhinorrhea Physical Exam Vital Signs: Temp Pulse Resp BP Pulse Ox 98.8 F 17 145/75 H 94 12/03/19 12:45 12/03/19 16:01 12/03/19 16:01 12/03/19 16:01 Intake & Output 12/02/19 12/03/19 12/04/19 06:59 06:59 06:59 Intake Total 1050 Balance 1050 Weight 78.9 kg General appearance: PRESENT: no acute distress Head exam: PRESENT: atraumatic, normocephalic Eye exam: PRESENT: conjunctiva pink, EOMI, PERRLA. ABSENT: scleral icterus Ear exam: PRESENT: normal external ear exam Mouth exam: PRESENT: dry mucosa Neck exam: ABSENT: thyromegaly Respiratory exam: PRESENT: clear to auscultation [place], decreased breath sounds - at lung bases Cardiovascular exam: PRESENT: RRR, +S1, +S2, tachycardia. ABSENT: diastolic murmur, rubs, systolic murmur Vascular exam: ABSENT: pallor GI/Abdominal exam: PRESENT: normal bowel sounds, soft. ABSENT: distended, guarding, mass, organolmegaly, rebound, tenderness Rectal exam: PRESENT: deferred Extremities exam: ABSENT: pedal edema Musculoskeletal exam: PRESENT: deformity - related to her advanced multiple sclerosis spastic contracture deformity Neurological exam: PRESENT: alert, awake, oriented to person, oriented to place, oriented to time, oriented to situation, abnormal gait - bedbound due to advanced multiple sclerosi Psychiatric exam: PRESENT: appropriate affect, normal mood. ABSENT: homicidal ideation, suicidal ideation Skin exam: PRESENT: dry, warm, other - stage 3 bilateral sacral decubitii ulcers Results Laboratory Results: 12/03/19 12:57 12/03/19 12:57 12/03/19 12/03/19 12/03/19 12:57 12:57 13:08 WBC 21.9 H RBC 3.89 Hgb 9.9 L Hct 30.2 L MCV 78 L MCH 25.4 L MCHC 32.7 RDW 15.5 H Plt Count 330 Seg Neutrophils % Not Reportable VBG pH VBG pCO2 VBG HCO3 VBG Base Excess Sodium 141.1 Potassium 2.8 L* Chloride 110 H Carbon Dioxide 26 Anion Gap 5 BUN 12 Creatinine 0.52 Est GFR ( Amer) > 60 Glucose 131 H Lactic Acid Calcium 8.9 Total Bilirubin 0.7 AST 53 H Alkaline Phosphatase 176 H Total Protein 6.1 L Albumin 2.4 L Urine Color YELLOW Urine Appearance SLIGHTLY-CLOUDY Urine pH 5.0 Ur Specific [place] 1.013 Urine Protein 30 H Urine Glucose (UA) NEGATIVE Urine Ketones NEGATIVE Urine Blood MODERATE H Urine RBC (Auto) 30 12/03/19 12/03/19 13:30 13:30 WBC RBC Hgb Hct MCV MCH MCHC RDW Plt Count Seg Neutrophils % VBG pH 7.42 VBG pCO2 40.6 VBG HCO3 25.5 VBG Base Excess 0.9 Sodium Potassium Chloride Carbon Dioxide Anion Gap BUN Creatinine Est GFR ( Amer) Glucose Lactic Acid 1.1 Calcium Total Bilirubin AST Alkaline Phosphatase Total Protein Albumin Urine Color Urine Appearance Urine pH Ur Specific [place] Urine Protein Urine Glucose (UA) Urine Ketones Urine Blood Urine RBC (Auto) Impressions: Chest X-Ray 12/03/19 12:39 IMPRESSION: NO ACUTE RADIOGRAPHIC FINDING IN THE CHEST. Abdomen/Pelvis CT 12/03/19 13:35 IMPRESSION: 1.6 x 0.8 cm left proximal ureteral stone with moderate left hydronephrosis Bilateral intrarenal staghorn calculi Complex cyst versus cystic mass left lower pole kidney. Ultrasound may be useful for further characterization Assessment & Plan - Diagnosis (1) Recurrent UTI (urinary tract infection) Is this a current diagnosis for this admission?: Yes Plan: See admitting attending physician orders for details about care plan. (2) Sepsis with metabolic encephalopathy Is this a current diagnosis for this admission?: Yes Plan: See admitting attending physician orders for details about care plan. (3) Hypokalemia Is this a current diagnosis for this admission?: Yes Plan: See admitting attending physician orders for details about care plan. (4) Staghorn kidney stones Is this a current diagnosis for this admission?: Yes Plan: See admitting attending physician orders for details about care plan. (5) Hydronephrosis of left kidney Is this a current diagnosis for this admission?: Yes Plan: See admitting attending physician orders for details about care plan. (6) Pressure ulcer of unspecified buttock, stage 3 Qualifiers: Laterality: unspecified laterality Qualified Code(s): L89.303 - Pressure ulcer of unspecified buttock, stage 3 Is this a current diagnosis for this admission?: Yes Plan: See admitting attending physician orders for details about care plan. (7) Multiple sclerosis, primary chronic progressive Is this a current diagnosis for this admission?: Yes Plan: See admitting attending physician orders for details about care plan. - Time Time Spent: 50 to 70 Minutes Medications reviewed and adjusted accordingly: Yes Anticipated discharge: Home with Homehealth Within: Other - Inpatient Certification Based on my medical assessment, after consideration of the patient's comorbidities, presenting symptoms, or acuity I expect that the services needed warrant INPATIENT care.: Yes I certify that my determination is in accordance with my understanding of Medicare's requirements for reasonable and necessary INPATIENT services [42 CFR 412.3e].: Yes Medical Necessity: Significant Comorbidiites Make Outpatient Treatment Too Risky, Need Close Monitoring Due to Risk of Patient Decompensation, Need For IV Fluids, Need for IV Antibiotics, Risk of Complication if Not Cared For in Hospital, Risk of Diagnosis Which Will Require Inpatient Eval/Care/Monitoring 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
[2019-12-04] MEDS: MAGNESIUM SULFATE/D5W 1 GM/100 ML RTUPB IV SCH ×2 (19:29→22:31)
[2019-12-04] MEDS: POTASSI CL 20 MEQ/50 ML RIDER 20 MEQ/50 ML RTUPB IV SCH ×2 (20:36→23:54)
--- NOTE | 2019-12-04 22:19 | PDOC PROGRESS REPORT ---
Subjective Progress Note for:: 12/04/19 Subjective:: Patient's continence is much better today and she was able to contribute to her medical history. She denied any fever or chills. No chest pain or difficulty with breathing. Patient's food intake remain very poor. Reason For Visit: RECURRENT UTI WIHT UROSEPSIS,SACRAL DECUBITUS ULCE Physical Exam Vital Signs: Temp Pulse Resp BP Pulse Ox 97.9 F 115 H 16 120/72 88 L 12/04/19 15:12 12/04/19 15:12 12/04/19 15:12 12/04/19 15:12 12/04/19 15:12 Intake & Output 12/03/19 12/04/19 12/05/19 06:59 06:59 06:59 Intake Total 1450 1200 Output Total 150 250 Balance 1300 950 Weight 76.5 kg 76.5 kg General appearance: PRESENT: no acute distress Head exam: PRESENT: atraumatic, normocephalic Eye exam: PRESENT: conjunctiva pink. ABSENT: scleral icterus Respiratory exam: PRESENT: decreased breath sounds - at lung bases Cardiovascular exam: PRESENT: RRR, +S1, +S2. ABSENT: diastolic murmur, rubs, systolic murmur Vascular exam: ABSENT: pallor GI/Abdominal exam: PRESENT: normal bowel sounds, soft. ABSENT: distended, guarding, mass, organolmegaly, rebound, tenderness Extremities exam: ABSENT: pedal edema Neurological exam: PRESENT: alert, awake, oriented to person, oriented to place, oriented to time, oriented to situation Psychiatric exam: ABSENT: agitated, anxious Skin exam: PRESENT: dry, warm. ABSENT: intact - bilateral sacral region stage 3 decubitii Results Laboratory Results: 12/04/19 04:55 12/04/19 04:55 12/03/19 12/03/19 12/04/19 18:52 21:50 04:55 WBC 15.5 H RBC 3.70 L Hgb 9.6 L Hct 28.8 L MCV 78 L MCH 25.8 L MCHC 33.1 RDW 15.6 H Plt Count 247 Seg Neutrophils % 89.1 H Sodium Potassium Chloride Carbon Dioxide Anion Gap BUN Creatinine Est GFR ( Amer) Glucose Lactic Acid 1.0 2.7 H Calcium Magnesium Total Bilirubin AST Alkaline Phosphatase Total Protein Albumin 12/04/19 12/04/19 04:55 04:55 WBC RBC Hgb Hct MCV MCH MCHC RDW Plt Count Seg Neutrophils % Sodium 142.1 Potassium 3.4 L Chloride 112 H Carbon Dioxide 23 Anion Gap 7 BUN 11 Creatinine 0.47 L Est GFR ( Amer) > 60 Glucose 101 Lactic Acid Calcium 8.4 Magnesium 1.5 L Total Bilirubin 0.9 AST 48 H Alkaline Phosphatase 148 H Total Protein 5.8 L Albumin 2.3 L Impressions: Chest X-Ray 12/03/19 12:39 IMPRESSION: NO ACUTE RADIOGRAPHIC FINDING IN THE CHEST. Abdomen/Pelvis CT 12/03/19 13:35 IMPRESSION: 1.6 x 0.8 cm left proximal ureteral stone with moderate left hydronephrosis Bilateral intrarenal staghorn calculi Complex cyst versus cystic mass left lower pole kidney. Ultrasound may be use ful for further characterization Renal Ultrasound 12/04/19 00:00 IMPRESSION: Queried left kidney inferior pole lesion is poorly characterized due to acoustic impedance. Recommend dedicated renal CT or renal MR imaging for definitive characterization. Assessment & Plan - Diagnosis (1) Recurrent UTI (urinary tract infection) Is this a current diagnosis for this admission?: Yes (2) Sepsis with metabolic encephalopathy Is this a current diagnosis for this admission?: Yes (3) Hypokalemia Is this a current diagnosis for this admission?: Yes (4) Staghorn kidney stones Is this a current diagnosis for this admission?: Yes (5) Hydronephrosis of left kidney Is this a current diagnosis for this admission?: Yes (6) Pressure ulcer of unspecified buttock, stage 3 Qualifiers: Laterality: unspecified laterality Qualified Code(s): L89.303 - Pressure ulcer of unspecified buttock, stage 3 Is this a current diagnosis for this admission?: Yes (7) Multiple sclerosis, primary chronic progressive Is this a current diagnosis for this admission?: Yes - Time Time Spent with patient: 25-34 minutes Level of Care: MEDICAL Medications reviewed and adjusted accordingly: Yes Anticipated discharge: Home with Homehealth Within: Other - Inpatient Certification Based on my medical assessment, after consideration of the patient's comorbidities, presenting symptoms, or acuity I expect that the services needed warrant INPATIENT care.: Yes I certify that my determination is in accordance with my understanding of Medicare's requirements for reasonable and necessary INPATIENT services [42 CFR 412.3e].: Yes Medical Necessity: Significant Comorbidiites Make Outpatient Treatment Too Risky, Need Close Monitoring Due to Risk of Patient Decompensation, Need For IV Fluids, Need for IV Antibiotics, Risk of Complication if Not Cared For in Hospital, Risk of Diagnosis Which Will Require Inpatient Eval/Care/Monitoring 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 D/C oral Potassium due to expressed difficult with swallowing. Patient will receive IV rider for potassium 40 mEq and Magnesium 2 gm. Obtain CBC with diff, mag, and CMP in am. Overall prognosis remain very poor in view of her advance multiple sclerosis and kidney findings. Follow up on urine culture findings.
[2019-12-05] MEDS: PIPERACILLIN SODIUM/TAZOBACTAM 3.375 GM in NORMAL SALINE 100 ML IV SCH ×4 (00:40→17:25)
[2019-12-05 05:46] LABS: ABSOLUTE BASOPHILS # (AUTO) 0.1 10^3/uL (0.0-0.2); ABSOLUTE EOSINOPHILS # (AUTO) 0.2 10^3/uL (0.0-0.6); ABSOLUTE LYMPHOCYTES (AUTO) 1.1 10^3/uL (0.5-4.7); ABSOLUTE MONOCYTES (AUTO) 0.7 10^3/uL (0.1-1.4); ABSOLUTE NEUT (AUTO) 10.4 10^3/uL (1.7-8.2); BASOPHILS % (AUTO) 0.5 % (0-2); EOSINOPHILS % (AUTO) 1.4 % (0-6); HEMATOCRIT 28.5 % (36.0-47.0); HEMOGLOBIN 9.3 g/dL (12.0-15.5); MEAN CORPUSCULAR HEMOGLOBIN 25.5 pg (27.0-33.4); MEAN CORPUSCULAR HGB CONC 32.8 g/dL (32.0-36.0); MEAN CORPUSCULAR VOLUME 78 fl (80-97); MONOCYTES % (AUTO) 5.3 % (3-13); PLATELET COUNT 254 10^3/uL (150-450); RED BLOOD COUNT 3.66 10^6/uL (3.72-5.28); RED CELL DISTRIBUTION WIDTH 15.9 % (11.5-14.0); SEGMENTED NEUTROPHILS % (AUTO) 83.8 % (42-78); TOTAL CELLS COUNTED % (AUTO) 100 %; WHITE BLOOD COUNT 12.4 10^3/uL (4.0-10.5)
[2019-12-05 06:08] LABS: ALBUMIN 2.3 g/dL (3.5-5.0); ALKALINE PHOSPHATASE 139 U/L (38-126); ANION GAP 6 (5-19); ASPARTATE AMINO TRANSFERASE 30 U/L (14-36); BILIRUBIN,DIRECT 0.3 mg/dL (0.0-0.4); BILIRUBIN,TOTAL 0.8 mg/dL (0.2-1.3); BLOOD UREA NITROGEN 11 mg/dL (7-20); CALCIUM 8.4 mg/dL (8.4-10.2); CARBON DIOXIDE 21 mmol/L (22-30); CHLORIDE 113 mmol/L (98-107); GLUCOSE 102 mg/dL (75-110); POTASSIUM 4.7 mmol/L (3.6-5.0)
[2019-12-05] MEDS: PANTOPRAZOLE SODIUM 40 MG TABLET.DR PO SCH (06:08)
[2019-12-05] MEDS: ENOXAPARIN SODIUM INJ 40 MG/0.4 ML DISP.SYRIN SUBCUT SCH (11:08)
[2019-12-05] MEDS: ASCORBIC ACID 500 MG TABLET PO SCH (11:09)
[2019-12-05] MEDS: VITAMIN A 10,000 UNIT CAPSULE PO SCH (11:10)
[2019-12-05] MEDS: ZINC SULFATE 220 MG CAPSULE PO SCH (11:10)
[2019-12-05] MEDS: NORMAL SALINE 1000 ML 1,000 ML IV PRN (17:27)
[2019-12-06] MEDS: PIPERACILLIN SODIUM/TAZOBACTAM 3.375 GM in NORMAL SALINE 100 ML IV SCH ×3 (05:22)
[2019-12-06] MEDS: NORMAL SALINE 1000 ML 1,000 ML IV PRN ×2 (05:22→14:59)
[2019-12-06] MEDS: PANTOPRAZOLE SODIUM 40 MG TABLET.DR PO SCH (05:24)
[2019-12-06] MEDS ORDERED: IPRATROPIUM/ALBUTEROL 0.5-2.5 MG/3 ML AMPUL NEB PRN (08:55)
[2019-12-06 09:33] LABS: ARTERIAL BLOOD BASE EXCESS -3.6 mmol/L; ARTERIAL BLOOD FIO2 4L; ARTERIAL BLOOD H2CO3 1.31 mmol/L (1.05-1.35); ARTERIAL BLOOD HCO3 22.3 mmol/L (20-24); ARTERIAL BLOOD O2 SATURATION 84.9 % (94-98); ARTERIAL BLOOD PCO2 43.5 mmHg (35-45); ARTERIAL BLOOD PH 7.33 (7.35-7.45); ARTERIAL BLOOD PO2 52.8 mmHg (80-100); ARTERIAL BLOOD TOTAL CO2 23.6 mmol/L (21-25)
--- NOTE | 2019-12-06 09:41 | RADIOLOGY REPORT (SQ) ---
EXAM DESCRIPTION: CHEST SINGLE VIEW IMAGES COMPLETED DATE/TIME: 12/06/2019 9:02 am REASON FOR STUDY: aspiration, low o2 sat COMPARISON: None. EXAM PARAMETERS: NUMBER OF VIEWS: One view. TECHNIQUE: Single frontal radiographic view of the chest acquired. RADIATION DOSE: NA LIMITATIONS: Patient rotation FINDINGS: LUNGS AND PLEURA: Faint left lower lung airspace opacities and interval development of a s mall left-sided pleural effusion. No pneumothorax. MEDIASTINUM AND HILAR STRUCTURES: No masses. Contour normal. HEART AND VASCULAR STRUCTURES: Heart normal in size. Normal vasculature. BONES: No acute findings. HARDWARE: None in the chest. OTHER: No other significant finding. IMPRESSION: Examination somewhat limited due to patient rotation. However, there appears to be vladimir t airspace opacities involving the left lower lung, which may represent developing airspace disease t o include clinically suspected aspiration. TECHNICAL DOCUMENTATION: JOB ID: [id number] 2010 [email or web address]- All Rights Reserved Reading location - IP/workstation name: [email or web address]
--- NOTE | 2019-12-06 10:03 | CRITICAL CARE ADMISSION REPORT ---
HPI Date:: 12/06/19 Time:: 09:00 Reason for ICU Reason:: Respiratory distress and likely needs intubation Admission Date/Time & PCP: Admission Date/Time: 12/03/19 14:39 Primary Care Provider: QUINN MARCANO HPI: This patient is a 54 yo woman who has MS and recurrent UTIs. She was admitted with lucila in urine and staghorn calculus with moderate R hydronephrosis. Today she was eating and had a witnessed aspiration. She is non-verbal, not much different than baseline. She also has gruntng respirations and if she does not quickly improve, as many aspirations do, she will need intubation. History obtained from:: Old records and nursing staff. - Diagnosis/Plan (1) Aspiration into lower respiratory tract Qualifiers: Encounter type: initial encounter Qualified Code(s): T17.800A - Unspecified foreign body in other parts of respiratory tract causing asphyxiation, initial encounter Is this a current diagnosis for this admission?: Yes Plan: This is a common problem with MS and frequently leads to intubation. She was said to have aspirated on pears. Going forward her diet will likely need to be amended. (2) Acute respiratory distress Is this a current diagnosis for this admission?: Yes Plan: Her mental status may not be much different but her clinical picture may merit intubation if she does not improved quickly. (3) Hydronephrosis of left kidney Is this a current diagnosis for this admission?: Yes Plan: Likely due to stones (4) Recurrent UTI (urinary tract infection) Is this a current diagnosis for this admission?: Yes Plan: At this point it is candiduria without evidence of systemic candidiasis. Also diabetic. Will add IV diflucan. (5) Staghorn kidney stones Is this a current diagnosis for this admission?: Yes Plan: She will likely need a urology referral and lithotripsy as the stone is > 1.5 cm. (6) Diabetes mellitus type 2 in nonobese Is this a current diagnosis for this admission?: Yes Plan: Controlled. (7) Hypoalbuminemia Is this a current diagnosis for this admission?: Yes Plan: This will make her custodial recovery difficult. If intubated will need NG feeds. Plan Summary: If this patient does not rally quickly in the ICU she will need intubation Past Medical History Cardiac Medical History: Reports: Pulmonary Embolism - 2 years ago Denies: Atrial Fibrillation, Congestive Heart Failure, Myocardial Infarction, Hyperlipidema, Hypertension Pulmonary Medical History: Denies: Asthma, Bronchitis, Chronic Obstructive Pulmonary Disease (COPD), Pneumonia, Respiratory Failure, Sleep Apnea, Tuberculosis Neurological Medical History: Denies: Migraine, Seizures Endocrine Medical History: Reports: Diabetes Mellitus Type 2, Hypothyroidism Denies: Diabetes Mellitus Type 1 Renal/ Medical History: Denies: End Stage Renal Disease Malignancy Medical History: Denies: Leukemia, Lung Cancer GI Medical History: Denies: Gastroesophageal Reflux Disease, Hiatal Hernia Musculoskeltal Medical History: Denies: Arthritis Psychiatric Medical History: Denies: Attention Deficit Hyperactivity Disorder, Bipolar Disorder, Dementia, Depression Hematology: Reports: Anemia Denies: Hemophilia, Sickle Cell Disease Infectious Medical History: Denies: HIV Past Surgical History Past Surgical History: Reports: Section - x2, Cholecystectomy Denies: Appendectomy, Coronary Artery Bypass Graft, Gastric Bypass Surgery, Herniorrhaphy, Hysterectomy, Mastectomy, Pacemaker, Tonsillectomy, Tubal Ligation Social/Family History - Social History Smoking Status: Never Smoker Frequency of Alcohol Use: None Hx Recreational Drug Use: No Drugs: None Hx Prescription Drug Abuse: No - Medication/Allergies Home Medications: Acetaminophen [Tylenol 325 mg Tablet] 650 mg PO Q6HP PRN 11/24/19 Baclofen [Baclofen 10 mg Tablet] 10 mg PO Q8HP PRN 11/24/19 Ascorbic Acid [Vitamin C] 1,000 mg PO DAILY #30 tablet 12/01/19 Vitamin A [Vitamin A 10,000 Unit Capsule] 10,000 unit PO DAILY #30 capsule 12/01/19 Whey Protein Isolate [Beneprotein] 227 gm PO TID #90 powder 12/01/19 Zinc Sulfate [Zinc-220 Capsule] 220 mg PO DAILY #30 capsule 12/01/19 Allergies/Adverse Reactions: latex [Latex] Allergy (Intermediate, Verified 10/14/19 16:45) RASH/BLISTER Sulfa (Sulfonamide Antibiotics) Allergy (Intermediate, Verified 10/14/19 16:45) RASH/HIVES bee venom protein (honey bee) Allergy (Verified 10/14/19 16:45) Anaphylaxis Review of Systems ROS unobtainable: Due to mental status Physical Exam Vital Signs: Temp Pulse Resp BP Pulse Ox 98.8 F 112 H 18 118/79 95 12/06/19 00:02 12/06/19 00:02 12/06/19 00:02 12/06/19 00:02 12/06/19 00:02 Intake & Output 12/05/19 12/06/19 12/07/19 06:59 06:59 06:59 Intake Total 2850 1600 Output Total 850 1400 Balance 2000 200 Weight 76 kg 80.3 kg Weight/Height Weight 80.3 kg Height 5 ft 7 in General appearance: PRESENT: disheveled, mild distress, other - Cohen face C/W chronic steroids. Head exam: PRESENT: atraumatic, normocephalic Eye exam: PRESENT: conjunctiva pink, EOMI, PERRLA. ABSENT: scleral icterus Ear exam: PRESENT: normal external ear exam Mouth exam: PRESENT: moist, tongue midline Respiratory exam: PRESENT: accessory muscle use, clear to auscultation rome, retraction, rhonchi Cardiovascular exam: PRESENT: tachycardia GI/Abdominal exam: PRESENT: normal bowel sounds, soft. ABSENT: distended, guarding, mass, organolmegaly, rebound, tenderness Rectal exam: PRESENT: deferred Gentrourinary exam: PRESENT: indwelling catheter Extremities exam: PRESENT: full ROM. ABSENT: calf tenderness, clubbing, pedal edema Musculoskeletal exam: PRESENT: normal inspection Neurological exam: PRESENT: altered, CN II-XII grossly intact Skin exam: PRESENT: dry, intact, warm. ABSENT: cyanosis, rash Laboratory/Radiographs Laboratory Results: 12/05/19 04:57 12/05/19 04:57 12/06/19 08:57 Carbonic Acid 1.31 HCO3/H2CO3 Ratio 17:1 ABG pH 7.33 L ABG pCO2 43.5 ABG pO2 52.8 L ABG HCO3 22.3 ABG O2 Saturation 84.9 L ABG Base Excess -3.6 FiO2 4L 12/03/19 13:08 Catheterized Urine Urine Culture - Final Yeast, Not Lucila Albicans Impressions: Abdomen/Pelvis CT 12/03/19 13:35 IMPRESSION: 1.6 x 0.8 cm left proximal ureteral stone with moderate left hydronephrosis Bilateral intrarenal staghorn calculi Complex cyst versus cystic mass left lower pole kidney. Ultrasound may be useful for further characterization Renal Ultrasound 12/04/19 00:00 IMPRESSION: Queried left kidney inferior pole lesion is poorly characterized due to acoustic impedance. Recommend dedicated renal CT or renal MR imaging for definitive characterization. Chest X-Ray 12/06/19 00:00 IMPRESSION: Examination somewhat limited due to patient rotation. However, there appears to be faint airspace opacities involving the left lower lung, which may represent developing airspace disease to include clinically suspected aspiration. EKG: ST All labs, radiographs, diagnostic studies and EKGs were personally reviewed: Yes In addition, reports of radiographic and diagnostic studies were read: Yes Critical Time Critical Time (minutes): 40 -: The care of a critically ill patient is dynamic. This note represents a static moment in the admission process. Orders and treatments may be given simultaneously and urgently, and time is not direct sales representative of the treatment process. This patient requires Critical Care secondary to life threatening organ or limb dysfunction. Without Critical Care services, the patient is at risk for increased mortality and morbidity.
[2019-12-06] MEDS ORDERED: PHARMACY COMMUNICATION ORDER MC NR (10:15)
[2019-12-06 10:16] LABS: ABSOLUTE BASOPHILS # (AUTO) 0.2 10^3/uL (0.0-0.2); ABSOLUTE EOSINOPHILS # (AUTO) 0.5 10^3/uL (0.0-0.6); ABSOLUTE MONOCYTES (AUTO) 0.7 10^3/uL (0.1-1.4); ABSOLUTE NEUT (AUTO) 13.5 10^3/uL (1.7-8.2); BASOPHILS % (AUTO) 0.9 % (0-2); EOSINOPHILS % (AUTO) 2.7 % (0-6); HEMATOCRIT 30.9 % (36.0-47.0); HEMOGLOBIN 10.2 g/dL (12.0-15.5); LYMPHOCYTES % (AUTO) 17.1 % (13-45); MEAN CORPUSCULAR HEMOGLOBIN 25.9 pg (27.0-33.4); MEAN CORPUSCULAR HGB CONC 32.9 g/dL (32.0-36.0); MEAN CORPUSCULAR VOLUME 79 fl (80-97); MONOCYTES % (AUTO) 3.7 % (3-13); RED BLOOD COUNT 3.92 10^6/uL (3.72-5.28); SEGMENTED NEUTROPHILS % (AUTO) 75.6 % (42-78); TOTAL CELLS COUNTED % (AUTO) 100 %; WHITE BLOOD COUNT 17.9 10^3/uL (4.0-10.5)
[2019-12-06 10:19] LABS: PLATELET COUNT 330 10^3/uL (150-450)
[2019-12-06] MEDS ORDERED: FLUCONAZOLE 200 MG/NS RTU 200 MG/100 ML RTUPB IV SCH (10:30)
[2019-12-06] MEDS ORDERED: BACLOFEN 10 MG TABLET NG PRN (10:30)
[2019-12-06 10:32] LABS: ALBUMIN 2.5 g/dL (3.5-5.0); ALKALINE PHOSPHATASE 139 U/L (38-126); ANION GAP 7 (5-19); ASPARTATE AMINO TRANSFERASE 35 U/L (14-36); BILIRUBIN,DIRECT 0.3 mg/dL (0.0-0.4); BILIRUBIN,TOTAL 0.9 mg/dL (0.2-1.3); BLOOD UREA NITROGEN 9 mg/dL (7-20); CALCIUM 8.9 mg/dL (8.4-10.2); CARBON DIOXIDE 19 mmol/L (22-30); CHLORIDE 114 mmol/L (98-107); GLUCOSE 144 mg/dL (75-110); POTASSIUM 4.7 mmol/L (3.6-5.0); TOTAL PROTEIN 6.5 g/dL (6.3-8.2)
[2019-12-06] MEDS: ENOXAPARIN SODIUM INJ 40 MG/0.4 ML DISP.SYRIN SUBCUT SCH (11:06)
[2019-12-06] MEDS ORDERED: GLUCAGON,HUMAN RECOMB 1 MG INJ SUBCUT PRN (12:46)
[2019-12-06] MEDS ORDERED: DEXTROSE 50%-WATER 25 GM/50 ML DISP.SYRIN IV PRN ×2 (12:46)
[2019-12-06] MEDS ORDERED: DEXTROSE 40% GEL 15 GM TUBE PO PRN ×2 (12:46)
[2019-12-06] MEDS: VITAMIN A 10,000 UNIT CAPSULE PO SCH (12:52)
[2019-12-06] MEDS: ASCORBIC ACID 500 MG TABLET PO SCH (12:53)
[2019-12-06] MEDS: ZINC SULFATE 220 MG CAPSULE PO SCH (12:53)
--- NOTE | 2019-12-06 16:14 | EKG REPORT ---
SEVERITY:- ABNORMAL ECG - SINUS TACHYCARDIA BORDERLINE LEFT AXIS DEVIATION CONSIDER ANTEROSEPTAL INFARCT , RECENT ABNORMAL T, CONSIDER ISCHEMIA, LATERAL LEADS : Confirmed by: Alin Gaspar MD 06-Dec-2019 16:13:59
[2019-12-07] MEDS: NORMAL SALINE 1000 ML 1,000 ML IV PRN ×2 (02:33→15:19)
[2019-12-07 04:42] LABS: ABSOLUTE EOSINOPHILS # (AUTO) 0.1 10^3/uL (0.0-0.6); ABSOLUTE LYMPHOCYTES (AUTO) 2.1 10^3/uL (0.5-4.7); ABSOLUTE MONOCYTES (AUTO) 0.6 10^3/uL (0.1-1.4); ABSOLUTE NEUT (AUTO) 6.9 10^3/uL (1.7-8.2); BASOPHILS % (AUTO) 0.4 % (0-2); EOSINOPHILS % (AUTO) 1.3 % (0-6); HEMATOCRIT 29.1 % (36.0-47.0); HEMOGLOBIN 9.4 g/dL (12.0-15.5); LYMPHOCYTES % (AUTO) 21.2 % (13-45); MEAN CORPUSCULAR HEMOGLOBIN 25.1 pg (27.0-33.4); MEAN CORPUSCULAR HGB CONC 32.2 g/dL (32.0-36.0); MEAN CORPUSCULAR VOLUME 78 fl (80-97); MONOCYTES % (AUTO) 6.2 % (3-13); PLATELET COUNT 246 10^3/uL (150-450); RED BLOOD COUNT 3.73 10^6/uL (3.72-5.28); RED CELL DISTRIBUTION WIDTH 15.6 % (11.5-14.0); SEGMENTED NEUTROPHILS % (AUTO) 70.9 % (42-78); TOTAL CELLS COUNTED % (AUTO) 100 %; WHITE BLOOD COUNT 9.8 10^3/uL (4.0-10.5)
[2019-12-07] MEDS ORDERED: PANTOPRAZOLE SODIUM 40 MG PACKET.DR NG SCH (06:00)
--- NOTE | 2019-12-07 07:42 | PDOC CRITICAL CARE PROG REPORT ---
General Date:: 12/07/19 ICU Day:: 1 Hospital Day:: 4 Resuscitation Status: Full Code Events in the past 12 to 24 Hours:: Never intubated. Off and on bipap. Ready for IMC. Review of systems relevant to events:: Neurologic, pulmonary. Reason for ICU Addmission:: Intubation risk much less. - Medications: Medications reviewed and adjusted accordingly: Yes Vasopressors:: None Sedation:: None Physical Exam Vital Signs: Temp Pulse Resp BP Pulse Ox 98 F 115 H 14 109/61 100 12/07/19 00:00 12/06/19 15:09 12/07/19 04:11 12/07/19 04:11 12/07/19 04:11 Intake & Output 12/06/19 12/07/19 12/08/19 06:59 06:59 06:59 Intake Total 1600 1962 Output Total 1400 2 Balance 200 1960 Weight 80.3 kg 82.1 kg Weight/Height Weight 82.1 kg Height 5 ft 7 in General appearance: PRESENT: no acute distress, cooperative Head exam: PRESENT: atraumatic, normocephalic Eye exam: PRESENT: conjunctiva pink, EOMI, PERRLA. ABSENT: scleral icterus Ear exam: PRESENT: normal external ear exam Mouth exam: PRESENT: moist, tongue midline Respiratory exam: PRESENT: clear to auscultation rome, decreased breath sounds. ABSENT: rales, rhonchi, wheezes Cardiovascular exam: PRESENT: RRR, tachycardia - Mild. ABSENT: diastolic murmu r, rubs, systolic murmur GI/Abdominal exam: PRESENT: normal bowel sounds, soft. ABSENT: distended, guarding, mass, organolmegaly, rebound, tenderness Rectal exam: PRESENT: deferred Gentrourinary exam: PRESENT: indwelling catheter Extremities exam: PRESENT: full ROM, +1 edema. ABSENT: calf tenderness, clubbing, pedal edema Musculoskeletal exam: PRESENT: normal inspection Neurological exam: PRESENT: alert, awake, oriented to person, oriented to place, oriented to time, oriented to situation, CN II-XII grossly intact, other - Due to her MS, she is responsive and oriented but not very verbal. Daughter said yesterday she is back to baseline. Psychiatric exam: PRESENT: appropriate affect, normal mood. ABSENT: homicidal ideation, suicidal ideation Skin exam: PRESENT: dry, intact, warm. ABSENT: cyanosis, rash Laboratory/Radiographs Laboratory Results: 12/07/19 04:25 12/06/19 09:55 12/06/19 12/06/19 12/06/19 08:57 09:55 09:55 WBC 17.9 H RBC 3.92 Hgb 10.2 L Hct 30.9 L MCV 79 L MCH 25.9 L MCHC 32.9 RDW 16.0 H Plt Count 330 Seg Neutrophils % 75.6 Carbonic Acid 1.31 HCO3/H2CO3 Ratio 17:1 ABG pH 7.33 L ABG pCO2 43.5 ABG pO2 52.8 L ABG HCO3 22.3 ABG O2 Saturation 84.9 L ABG Base Excess -3.6 FiO2 4L Sodium 140.0 Potassium 4.7 Chloride 114 H Carbon Dioxide 19 L Anion Gap 7 BUN 9 Creatinine 0.48 L Est GFR ( Amer) > 60 Glucose 144 H Calcium 8.9 Total Bilirubin 0.9 AST 35 Alkaline Phosphatase 139 H Total Protein 6.5 Albumin 2.5 L 12/07/19 04:25 WBC 9.8 RBC 3.73 Hgb 9.4 L Hct 29.1 L MCV 78 L MCH 25.1 L MCHC 32.2 RDW 15.6 H Plt Count 246 Seg Neutrophils % 70.9 Carbonic Acid HCO3/H2CO3 Ratio ABG pH ABG pCO2 ABG pO2 ABG HCO3 ABG O2 Saturation ABG Base Excess FiO2 Sodium Potassium Chloride Carbon Dioxide Anion Gap BUN Creatinine Est GFR ( Amer) Glucose Calcium Total Bilirubin AST Alkaline Phosphatase Total Protein Albumin Impressions: Abdomen/Pelvis CT 12/03/19 13:35 IMPRESSION: 1.6 x 0.8 cm left proximal ureteral stone with moderate left hydronephrosis Bilateral intrarenal staghorn calculi Complex cyst versus cystic mass left lower pole kidney. Ultrasound may be useful for further characterization Renal Ultrasound 12/04/19 00:00 IMPRESSION: Queried left kidney inferior pole lesion is poorly characterized due to acoustic impedance. Recommend dedicated renal CT or renal MR imaging for definitive characterization. Chest X-Ray 12/06/19 00:00 IMPRESSION: Examination somewhat limited due to patient rotation. However, there appears to be faint airspace opacities involving the left lower lung, which may represent developing airspace disease to include clinically suspected aspiration. All labs, radiographs, diagnostic studies and EKGs were personally reviewed: Yes In addition, reports of radiographic and diagnostic studies were read: Yes Assessment and Plan - Diagnosis (1) Aspiration into lower respiratory tract Qualifiers: Encounter type: initial encounter Qualified Code(s): T17.800A - Unspecified foreign body in other parts of respiratory tract causing asphyxiation, initial encounter Is this a current diagnosis for this admission?: Yes Plan: Clinically she has no significant findings. Her daughter says she has not aspirated before, but coughs when eating. My sense is there has been a low level of chronic aspiration as this is common with severe MS for years. Speech evaluation ordered and she would likely benefir from NG feedings, however getting a speech evaluatin without the encumbrance of an NG is in order. (2) Acute respiratory distress Is this a current diagnosis for this admission?: Yes Plan: She is in no distress but has been off and on bipap. (3) Hydronephrosis of left kidney Is this a current diagnosis for this admission?: Yes Plan: Probaby chronic. (4) Recurrent UTI (urinary tract infection) Is this a current diagnosis for this admission?: Yes Plan: Final urine culture with yeast. On diflucan, no signs of systemic candidiasis. (5) Staghorn kidney stones Is this a current diagnosis for this admission?: Yes Plan: Needs urological opinion when stable and discharged. (6) Diabetes mellitus type 2 in nonobese Is this a current diagnosis for this admission?: Yes (7) Hypoalbuminemia Is this a current diagnosis for this admission?: Yes Plan: Controlled. BG 100-144. Plan Summary: She is stable to go [place] [facility] [place] Critical Time Critical Time (minutes): 30 Level of Care: IMCU Anticipated discharge: Home with Homehealth Within: Other -: 1. The care of a critical patient is a dynamic process. This note is a represe ntative synopsis but static in nature. The timeframe for treatments given in order is not necessarily the actual time these treatments may have been done. 2. This patient requires critical care secondary to ongoing requirements for therapy not offered or safe outside the critical care environment. Transfer to a lower level of care will result in altered life or limb morbidity and mortality. 3. Multidisciplinary rounds completed. 4. ABCDE bundle addressed.
[2019-12-07] MEDS: VITAMIN A 10,000 UNIT CAPSULE PO SCH (09:08)
[2019-12-07] MEDS: ASCORBIC ACID 500 MG TABLET NG SCH (09:08)
[2019-12-07] MEDS: ZINC SULFATE 220 MG CAPSULE NG SCH (09:08)
[2019-12-07] MEDS: ENOXAPARIN SODIUM INJ 40 MG/0.4 ML DISP.SYRIN SUBCUT SCH (10:51)
[2019-12-08 07:55] LABS: ABSOLUTE EOSINOPHILS # (AUTO) 0.2 10^3/uL (0.0-0.6); ABSOLUTE LYMPHOCYTES (AUTO) 1.9 10^3/uL (0.5-4.7); ABSOLUTE MONOCYTES (AUTO) 0.5 10^3/uL (0.1-1.4); ABSOLUTE NEUT (AUTO) 3.5 10^3/uL (1.7-8.2); BASOPHILS % (AUTO) 0.6 % (0-2); HEMATOCRIT 25.3 % (36.0-47.0); HEMOGLOBIN 8.3 g/dL (12.0-15.5); LYMPHOCYTES % (AUTO) 30.3 % (13-45); MEAN CORPUSCULAR HEMOGLOBIN 25.8 pg (27.0-33.4); MEAN CORPUSCULAR HGB CONC 32.6 g/dL (32.0-36.0); MEAN CORPUSCULAR VOLUME 79 fl (80-97); MONOCYTES % (AUTO) 7.9 % (3-13); PLATELET COUNT 255 10^3/uL (150-450); RED BLOOD COUNT 3.21 10^6/uL (3.72-5.28); RED CELL DISTRIBUTION WIDTH 15.5 % (11.5-14.0); SEGMENTED NEUTROPHILS % (AUTO) 57.2 % (42-78); TOTAL CELLS COUNTED % (AUTO) 100 %; WHITE BLOOD COUNT 6.2 10^3/uL (4.0-10.5)
[2019-12-08 08:22] LABS: BLOOD UREA NITROGEN 4 mg/dL (7-20); CALCIUM 8.3 mg/dL (8.4-10.2); CARBON DIOXIDE 23 mmol/L (22-30); CHLORIDE 112 mmol/L (98-107); GLUCOSE 77 mg/dL (75-110); POTASSIUM 3.7 mmol/L (3.6-5.0)
[2019-12-08 08:24] LABS: ANION GAP 4 (5-19)
[2019-12-08] MEDS: ENOXAPARIN SODIUM INJ 40 MG/0.4 ML DISP.SYRIN SUBCUT SCH (09:35)
[2019-12-08] MEDS: NORMAL SALINE 1000 ML 1,000 ML IV PRN ×2 (09:35→21:03)
[2019-12-08] MEDS: VITAMIN A 10,000 UNIT CAPSULE PO SCH (10:24)
[2019-12-08] MEDS: ASCORBIC ACID 500 MG TABLET NG SCH (10:25)
[2019-12-08] MEDS: ZINC SULFATE 220 MG CAPSULE NG SCH (10:25)
--- NOTE | 2019-12-08 16:22 | PDOC PROGRESS REPORT ---
Subjective Progress Note for:: 12/05/19 Subjective:: Patient's any fever or chills. No chest pain or difficulty with breathing. Patient's food intake remain very poor. Reason For Visit: RECURRENT UTI WIHT UROSEPSIS,SACRAL DECUBITUS ULCE Physical Exam Vital Signs: Temp Pulse Resp BP Pulse Ox 97.3 F 116 H 16 105/63 97 12/05/19 08:03 12/05/19 08:03 12/05/19 08:03 12/05/19 08:03 12/05/19 08:03 Intake & Output 12/04/19 12/05/19 12/06/19 06:59 06:59 06:59 Intake Total 1450 1850 Output Total 150 850 Balance 1300 1000 Weight 76.5 kg 76 kg Physical Exam: General appearance: PRESENT: no acute distress Head exam: PRESENT: atraumatic, normocephalic Eye exam: PRESENT: conjunctiva pink. ABSENT: pallor, scleral icterus Respiratory exam: PRESENT: decreased breath sounds - at lung bases Cardiovascular exam: PRESENT: RRR, +S1, +S2. ABSENT: diastolic murmur, rubs, systolic murmur GI/Abdominal exam: PRESENT: normal bowel sounds, soft. ABSENT: distended, gu arding, mass, organomegaly, rebound, tenderness Extremities exam: ABSENT: pedal edema Neurological exam: PRESENT: alert, awake, oriented to person, oriented to place, oriented to time, oriented to situation Psychiatric exam: ABSENT: agitated, anxious Skin exam: PRESENT: dry, warm. ABSENT: intact - bilateral sacral region stage 3 decubitii Results Laboratory Results: 12/05/19 04:57 12/05/19 04:57 12/04/19 12/05/19 12/05/19 04:55 04:57 04:57 WBC 12.4 H RBC 3.66 L Hgb 9.3 L Hct 28.5 L MCV 78 L MCH 25.5 L MCHC 32.8 RDW 15.9 H Plt Count 254 Seg Neutrophils % 83.8 H Sodium 140.3 Potassium 4.7 Chloride 113 H Carbon Dioxide 21 L Anion Gap 6 BUN 11 Creatinine 0.45 L Est GFR ( Amer) > 60 Glucose 102 Calcium 8.4 Magnesium 1.5 L 2.2 Total Bilirubin 0.8 AST 30 Alkaline Phosphatase 139 H Total Protein 6.0 L Albumin 2.3 L Impressions: Chest X-Ray 12/03/19 12:39 IMPRESSION: NO ACUTE RADIOGRAPHIC FINDING IN THE CHEST. Abdomen/Pelvis CT 12/03/19 13:35 IMPRESSION: 1.6 x 0.8 cm left proximal ureteral stone with moderate left hydronephrosis Bilateral intrarenal staghorn calculi Complex cyst versus cystic mass left lower pole kidney. Ultrasound may be useful for further characterization Renal Ultrasound 12/04/19 00:00 IMPRESSION: Queried left kidney inferior pole lesion is poorly characterized due to acoustic impedance. Recommend dedicated renal CT or renal MR imaging for definitive characterization. Assessment & Plan - Diagnosis (1) Recurrent UTI (urinary tract infection) Is this a current diagnosis for this admission?: Yes (2) Sepsis with metabolic encephalopathy Is this a current diagnosis for this admission?: Yes (3) Hypokalemia Is this a current diagnosis for this admission?: Yes (4) Staghorn kidney stones Is this a current diagnosis for this admission?: Yes (5) Hydronephrosis of left kidney Is this a current diagnosis for this admission?: Yes (6) Pressure ulcer of unspecified buttock, stage 3 Qualifiers: Laterality: unspecified laterality Qualified Code(s): L89.303 - Pressure ulcer of unspecified buttock, stage 3 Is this a current diagnosis for this admission?: Yes (7) Multiple sclerosis, primary chronic progressive Is this a current diagnosis for this admission?: Yes - Time Time Spent with patient: 25-34 minutes Level of Care: MEDICAL Medications reviewed and adjusted accordingly: Yes Anticipated discharge: Home with Homehealth Within: Other - Inpatient Certification Based on my medical assessment, after consideration of the patient's comorbidities, presenting symptoms, or acuity I expect that the services needed warrant INPATIENT care.: Yes I certify that my determination is in accordance with my understanding of Medicare's requirements for reasonable and necessary INPATIENT services [42 CFR 412.3e].: Yes Medical Necessity: Significant Comorbidiites Make Outpatient Treatment Too Risky, Need Close Monitoring Due to Risk of Patient Decompensation, Need For IV Fluids, Need for IV Antibiotics, Risk of Complication if Not Cared For in [place] [facility], Risk of Diagnosis Which Will Require Inpatient Eval/Care/Monitoring Post Hospital Care: D/C Sustainability Project Manager Documentation - Plan Summary Plan Summary: Continue current antibiotic therapy and follow up on culture results.
[2019-12-08] MEDS ORDERED: FLUCONAZOLE 400 MG/NS RTU 400 MG/200 ML RTUPB IV ONE (16:30)
--- NOTE | 2019-12-08 16:43 | PDOC PROGRESS REPORT ---
Subjective Progress Note for:: 12/08/19 Subjective:: Patient had episode aspiration necessitating transfer to ICU for possible ventilatory support. She was managed conservatively and presently back on IMCU. No reported fever or chills. No chest pain or difficulty with breathing. Patient's food intake remain very poor. She was seen in consultation by speech pathologist with recommendation for mechanical soft ground meat consistency. Reason For Visit: RECURRENT UTI WIHT UROSEPSIS,SACRAL DECUBITUS ULCE Physical Exam Vital Signs: Temp Pulse Resp BP Pulse Ox 97.4 F 94 18 134/68 H 100 12/08/19 12:51 12/08/19 14:00 12/08/19 12:51 12/08/19 12:51 12/08/19 12:51 Intake & Output 12/07/19 12/08/19 12/09/19 06:59 06:59 06:59 Intake Total 1961 1999 Output Total 2 1000 Balance 1959 1000 Weight 82.1 kg 80 kg 80 kg Physical Exam: General appearance: PRESENT: no acute distress Head exam: PRESENT: atraumatic, normocephalic Eye exam: PRESENT: conjunctiva pink. ABSENT: pallor, scleral icterus Respiratory exam: PRESENT: decreased breath sounds - at lung bases Cardiovascular exam: PRESENT: RRR, +S1, +S2. ABSENT: diastolic murmur, rubs, systolic murmur GI/Abdominal exam: PRESENT: normal bowel sounds, soft. ABSENT: distended, guarding, mass, organomegaly, rebound, tenderness Extremities exam: ABSENT: pedal edema Neurological exam: PRESENT: alert, awake, oriented to person, oriented to place, oriented to time, oriented to situation Psychiatric exam: ABSENT: agitated, anxious Skin exam: PRESENT: dry, warm. ABSENT: intact - bilateral sacral region stage 3 decubitii Results Laboratory Results: 12/08/19 06:57 12/08/19 06:57 12/08/19 12/08/19 06:57 06:57 WBC 6.2 RBC 3.21 L Hgb 8.3 L Hct 25.3 L MCV 79 L MCH 25.8 L MCHC 32.6 RDW 15.5 H Plt Count 255 Seg Neutrophils % 57.2 Sodium 139.4 Potassium 3.7 Chloride 112 H Carbon Dioxide 23 Anion Gap 4 L BUN 4 L Creatinine 0.44 L Est GFR ( Amer) > 60 Glucose 77 Calcium 8.3 L 12/03/19 13:30 Blood Blood Culture - Final NO GROWTH IN 5 DAYS 12/03/19 12:57 Blood Blood Culture - Final NO GROWTH IN 5 DAYS Impressions: Abdomen/Pelvis CT 12/03/19 13:35 IMPRESSION: 1.6 x 0.8 cm left proximal ureteral stone with moderate left hydronephrosis Bilateral intrarenal staghorn calculi Complex cyst versus cystic mass left lower pole kidney. Ultrasound may be useful for further characterization Renal Ultrasound 12/04/19 00:00 IMPRESSION: Queried left kidney inferior pole lesion is poorly characterized due to acoustic impedance. Recommend dedicated renal CT or renal MR imaging for definitive characterization. Chest X-Ray 12/06/19 00:00 IMPRESSION: Examination somewhat limited due to patient rotation. However, there appears to be faint airspace opacities involving the left lower lung, which may represent developing airspace disease to include clinically suspected aspiration. Assessment & Plan - Diagnosis (1) Recurrent UTI (urinary tract infection) Is this a current diagnosis for this admission?: Yes (2) Sepsis with metabolic encephalopathy Is this a current diagnosis for this admission?: Yes (3) Hypokalemia Is this a current diagnosis for this admission?: Yes (4) Staghorn kidney stones Is this a current diagnosis for this admission?: Yes (5) Hydronephrosis of left kidney Is this a current diagnosis for this admission?: Yes (6) Pressure ulcer of unspecified buttock, stage 3 Qualifiers: Laterality: unspecified laterality Qualified Code(s): L89.303 - Pressure ulcer of unspecified buttock, stage 3 Is this a current diagnosis for this admission?: Yes (7) Multiple sclerosis, primary chronic progressive Is this a current diagnosis for this admission?: Yes (8) Acute respiratory distress Is this a current diagnosis for this admission?: Yes Plan: Improving breathing status with good saturation. (9) Aspiration into lower respiratory tract Qualifiers: Encounter type: subsequent encounter Qualified Code(s): T17.800D - Unspecified foreign body in other parts of respiratory tract causing asphyxiation, subsequent encounter Is this a current diagnosis for this admission?: Yes Plan: Improving breathing status with good saturation. (10) Lucila cystitis Is this a current diagnosis for this admission?: Yes Plan: Start on IV Diflucan therapy. - Time Time Spent with patient: 25-34 minutes Level of Care: IMCU Medications reviewed and adjusted accordingly: Yes Anticipated discharge: Home with Homehealth Within: Other - Inpatient Certification Medical Necessity: Significant Comorbidiites Make Outpatient Treatment Too Risky, Need Close Monitoring Due to Risk of Patient Decompensation, Need For IV Fluids, Need For Continuous Telemetry Monitoring, Risk of Complication if Not Cared For in Hospital, Risk of Diagnosis Which Will Require Inpatient Eval/Care/Monitoring Post Hospital Care: D/C Residential Program Manager Documentation - Plan Summary Plan Summary: Interval events and input noted. Start on IV Diflucan for Lucila Cystitis in view of her recurrent infection and CT scan findings. We will try oral feeding but if unsuccessful consider tube feeding option with the patient. Her dysphagia probable due to her advance multiple sclerosis.
[2019-12-09] MEDS: NORMAL SALINE 1000 ML 1,000 ML IV PRN ×2 (08:36→18:14)
[2019-12-09] MEDS: ZINC SULFATE 220 MG CAPSULE NG SCH (10:36)
[2019-12-09] MEDS: VITAMIN A 10,000 UNIT CAPSULE PO SCH (10:37)
[2019-12-09] MEDS: ENOXAPARIN SODIUM INJ 40 MG/0.4 ML DISP.SYRIN SUBCUT SCH (10:37)
[2019-12-09] MEDS: ASCORBIC ACID 500 MG TABLET NG SCH (10:37)
--- NOTE | 2019-12-09 17:36 | PDOC PROGRESS REPORT ---
Subjective Progress Note for:: 12/09/19 Subjective:: No reported fever or chills. No chest pain or difficulty with breathing. No nausea, vomiting, or abdominal pain. Oral intake remain a challenge. Urinary incontinence is hampering her wound care. There is reported groin region skin yeast rash. Reason For Visit: RECURRENT UTI WIHT UROSEPSIS,SACRAL DECUBITUS ULCE Physical Exam Vital Signs: Temp Pulse Resp BP Pulse Ox 97.8 F 100 16 146/77 H 92 12/09/19 16:24 12/09/19 16:46 12/09/19 16:46 12/09/19 16:24 12/09/19 16:46 Intake & Output 12/08/19 12/09/19 12/10/19 06:59 06:59 06:59 Intake Total 2000 1260 1000 Output Total 1000 1450 1050 Balance 1000 -190 -50 Weight 80 kg 97.2 kg Results Laboratory Results: 12/08/19 06:57 12/08/19 06:57 12/03/19 13:30 Blood Blood Culture - Final NO GROWTH IN 5 DAYS Impressions: Abdomen/Pelvis CT 12/03/19 13:35 IMPRESSION: 1.6 x 0.8 cm left proximal ureteral stone with moderate left hydronephrosis Bilateral intrarenal staghorn calculi Complex cyst versus cystic mass left lower pole kidney. Ultrasound may be useful for further characterization Renal Ultrasound 12/04/19 00:00 IMPRESSION: Queried left kidney inferior pole lesion is poorly characterized due to acoustic impedance. Recommend dedicated renal CT or renal MR imaging for definitive characterization. Chest X-Ray 12/06/19 00:00 IMPRESSION: Examination somewhat limited due to patient rotation. However, there appears to be faint airspace opacities involving the left lower lung, which may represent developing airspace disease to include clinically suspected aspiration. Assessment & Plan - Diagnosis (1) Recurrent UTI (urinary tract infection) Is this a current diagnosis for this admission?: Yes (2) Sepsis with metabolic encephalopathy Is this a current diagnosis for this admission?: Yes (3) Hypokalemia Is this a current diagnosis for this admission?: Yes (4) Staghorn kidney stones Is this a current diagnosis for this admission?: Yes (5) Hydronephrosis of left kidney Is this a current diagnosis for this admission?: Yes (6) Pressure ulcer of unspecified buttock, stage 3 Qualifiers: Laterality: unspecified laterality Qualified Code(s): L89.303 - Pressure ulcer of unspecified buttock, stage 3 Is this a current diagnosis for this admission?: Yes (7) Multiple sclerosis, primary chronic progressive Is this a current diagnosis for this admission?: Yes (8) Acute respiratory distress Is this a current diagnosis for this admission?: Yes (9) Aspiration into lower respiratory tract Qualifiers: Encounter type: subsequent encounter Qualified Code(s): T17.800D - Unspecified foreign body in other parts of respiratory tract causing asphyxiation, subsequent encounter Is this a current diagnosis for this admission?: Yes (10) Lucila cystitis Is this a current diagnosis for this admission?: Yes (11) Urinary incontinence due to immobility Is this a current diagnosis for this admission?: Yes Plan: Insert Padilla catheter for incontinence and wound management. (12) Yeast dermatitis Is this a current diagnosis for this admission?: Yes Plan: Start on Nystatin cream topically to affected region bid. - Time Time Spent with patient: 25-34 minutes Level of Care: IMCU Medications reviewed and adjusted accordingly: Yes Anticipated discharge: Home with Homehealth, SNF Within: Other - Inpatient Certification Based on my medical assessment, after consideration of the patient's comorbidities, presenting symptoms, or acuity I expect that the services needed warrant INPATIENT care.: Yes I certify that my determination is in accordance with my understanding of Medicare's requirements for reasonable and necessary INPATIENT services [42 CFR 412.3e].: Yes Medical Necessity: Significant Comorbidiites Make Outpatient Treatment Too Risky, Need Close Monitoring Due to Risk of Patient Decompensation, Need For IV Fluids, Need For Continuous Telemetry Monitoring, Need for IV Antibiotics, Risk of Complication if Not Cared For in Hospital, Risk of Diagnosis Which Will Requ faheem Inpatient Eval/Care/Monitoring Post Hospital Care: D/C Circulating Process Inspector Documentation - Plan Summary Plan Summary: See attending physician orders for details about care plan.
[2019-12-09] MEDS: FLUCONAZOLE 200 MG/NS RTU 200 MG/100 ML RTUPB IV SCH (18:15)
[2019-12-09] MEDS: NYSTATIN CREAM 15 GM TP SCH (19:43)
[2019-12-10] MEDS: NORMAL SALINE 1000 ML 1,000 ML IV PRN (05:34)
[2019-12-10 06:57] LABS: ABSOLUTE EOSINOPHILS # (AUTO) 0.2 10^3/uL (0.0-0.6); ABSOLUTE LYMPHOCYTES (AUTO) 2.1 10^3/uL (0.5-4.7); ABSOLUTE MONOCYTES (AUTO) 0.6 10^3/uL (0.1-1.4); ABSOLUTE NEUT (AUTO) 6.9 10^3/uL (1.7-8.2); BASOPHILS % (AUTO) 0.5 % (0-2); EOSINOPHILS % (AUTO) 1.8 % (0-6); HEMATOCRIT 28.2 % (36.0-47.0); HEMOGLOBIN 9.2 g/dL (12.0-15.5); LYMPHOCYTES % (AUTO) 21.3 % (13-45); MEAN CORPUSCULAR HEMOGLOBIN 25.8 pg (27.0-33.4); MEAN CORPUSCULAR HGB CONC 32.6 g/dL (32.0-36.0); MEAN CORPUSCULAR VOLUME 79 fl (80-97); MONOCYTES % (AUTO) 6.4 % (3-13); PLATELET COUNT 352 10^3/uL (150-450); RED BLOOD COUNT 3.55 10^6/uL (3.72-5.28); RED CELL DISTRIBUTION WIDTH 15.6 % (11.5-14.0); TOTAL CELLS COUNTED % (AUTO) 100 %; WHITE BLOOD COUNT 9.8 10^3/uL (4.0-10.5)
[2019-12-10 07:24] LABS: ALBUMIN 2.3 g/dL (3.5-5.0); ALKALINE PHOSPHATASE 101 U/L (38-126); ANION GAP 5 (5-19); ASPARTATE AMINO TRANSFERASE 22 U/L (14-36); BILIRUBIN,DIRECT 0.1 mg/dL (0.0-0.4); BILIRUBIN,TOTAL 0.6 mg/dL (0.2-1.3); BLOOD UREA NITROGEN 2 mg/dL (7-20); CALCIUM 8.5 mg/dL (8.4-10.2); CARBON DIOXIDE 24 mmol/L (22-30); CHLORIDE 110 mmol/L (98-107); GLUCOSE 73 mg/dL (75-110); POTASSIUM 3.9 mmol/L (3.6-5.0); TOTAL PROTEIN 5.9 g/dL (6.3-8.2)
[2019-12-10] MEDS: VITAMIN A 10,000 UNIT CAPSULE PO SCH (09:52)
[2019-12-10] MEDS: ASCORBIC ACID 500 MG TABLET NG SCH (09:52)
[2019-12-10] MEDS: NYSTATIN CREAM 15 GM TP SCH ×2 (09:52→17:28)
[2019-12-10] MEDS: ZINC SULFATE 220 MG CAPSULE NG SCH (09:52)
[2019-12-10] MEDS: ENOXAPARIN SODIUM INJ 40 MG/0.4 ML DISP.SYRIN SUBCUT SCH (09:52)
[2019-12-10] MEDS: FLUCONAZOLE 200 MG/NS RTU 200 MG/100 ML RTUPB IV SCH (17:22)
--- NOTE | 2019-12-10 17:25 | PDOC PROGRESS REPORT ---
Subjective Progress Note for:: 12/10/19 Subjective:: No reported fever or chills. No chest pain or difficulty with breathing. PO intake remain a problem. About 25% of lunch consumed so far today. No nausea, vomiting, or abdominal pain. Reason For Visit: RECURRENT UTI WIHT UROSEPSIS,SACRAL DECUBITUS ULCE Physical Exam Vital Signs: Temp Pulse Resp BP Pulse Ox 98.0 F 121 H 14 127/68 H 100 12/10/19 12:16 12/10/19 16:49 12/10/19 16:49 12/10/19 16:49 12/10/19 16:49 Intake & Output 12/09/19 12/10/19 12/11/19 06:59 06:59 06:59 Intake Total 1260 3063 430 Output Total 1450 1635 Balance -190 1428 430 Weight 97.2 kg 99.4 kg Physical Exam: General appearance: PRESENT: no acute distress Head exam: PRESENT: atraumatic, normocephalic Eye exam: PRESENT: conjunctiva pink. ABSENT: pallor, scleral icterus Respiratory exam: PRESENT: decreased breath sounds - at lung bases Cardiovascular exam: PRESENT: RRR, +S1, +S2. ABSENT: diastolic murmur, rubs, systolic murmur GI/Abdominal exam: PRESENT: normal bowel sounds, soft. ABSENT: distended, guarding, mass, organomegaly, rebound, tenderness Extremities exam: ABSENT: pedal edema Neurological exam: PRESENT: alert, awake, oriented to person, oriented to place, oriented to time, oriented to situation Psychiatric exam: ABSENT: agitated, anxious Skin exam: PRESENT: dry, warm. ABSENT: intact - bilateral sacral region stage 3 decubitii Results Laboratory Results: 12/10/19 06:03 12/10/19 06:03 12/10/19 12/10/19 06:03 06:03 WBC 9.8 RBC 3.55 L Hgb 9.2 L Hct 28.2 L MCV 79 L MCH 25.8 L MCHC 32.6 RDW 15.6 H Plt Count 352 Seg Neutrophils % 70.0 Sodium 138.8 Potassium 3.9 Chloride 110 H Carbon Dioxide 24 Anion Gap 5 BUN 2 L Creatinine 0.41 L Est GFR ( Amer) > 60 Glucose 73 L Calcium 8.5 Total Bilirubin 0.6 AST 22 Alkaline Phosphatase 101 Total Protein 5.9 L Albumin 2.3 L Impressions: Abdomen/Pelvis CT 12/03/19 13:35 IMPRESSION: 1.6 x 0.8 cm left proximal ureteral stone with moderate left hydronephrosis Bilateral intrarenal staghorn calculi Complex cyst versus cystic mass left lower pole kidney. Ultrasound may be useful for further characterization Renal Ultrasound 12/04/19 00:00 IMPRESSION: Queried left kidney inferior pole lesion is poorly characterized due to acoustic impedance. Recommend dedicated renal CT or renal MR imaging for definitive characterization. Chest X-Ray 12/06/19 00:00 IMPRESSION: Examination somewhat limited due to patient rotation. However, there appears to be faint airspace opacities involving the left lower lung, which may represent developing airspace disease to include clinically suspected aspiration. Assessment & Plan - Diagnosis (1) Recurrent UTI (urinary tract infection) Is this a current diagnosis for this admission?: Yes (2) Sepsis with metabolic encephalopathy Is this a current diagnosis for this admission?: Yes (3) Hypokalemia Is this a current diagnosis for this admission?: Yes (4) Staghorn kidney stones Is this a current diagnosis for this admission?: Yes (5) Hydronephrosis of left kidney Is this a current diagnosis for this admission?: Yes (6) Pressure ulcer of unspecified buttock, stage 3 Qualifiers: Laterality: unspecified laterality Qualified Code(s): L89.303 - Pressure ulcer of unspecified buttock, stage 3 Is this a current diagnosis for this admission?: Yes (7) Multiple sclerosis, primary chronic progressive Is this a current diagnosis for this admission?: Yes (8) Acute respiratory distress Is this a current diagnosis for this admission?: Yes (9) Aspiration into lower respiratory tract Qualifiers: Encounter type: subsequent encounter Qualified Code(s): T17.800D - Unspecified foreign body in other parts of respiratory tract causing asphyxiation, subsequent encounter Is this a current diagnosis for this admission?: Yes (10) Lucila cystitis Is this a current diagnosis for this admission?: Yes (11) Urinary incontinence due to immobility Is this a current diagnosis for this admission?: Yes (12) Yeast dermatitis Is this a current diagnosis for this admission?: Yes - Time Time Spent with patient: 25-34 minutes Level of Care: IMCU Medications reviewed and adjusted accordingly: Yes Anticipated discharge: Home with Homehealth Within: Other - Inpatient Certification Based on my medical assessment, after consideration of the patient's comorbidities, presenting symptoms, or acuity I expect that the services needed warrant INPATIENT care.: Yes I certify that my determination is in accordance with my understanding of Medicare's requirements for reasonable and necessary INPATIENT services [42 CFR 412.3e].: Yes Medical Necessity: Significant Comorbidiites Make Outpatient Treatment Too Risky, Need Close Monitoring Due to Risk of Patient Decompensation, Need For IV Fluids, Need For Continuous Telemetry Monitoring, Need for IV Antibiotics, Risk of Complication if Not Cared For in Hospital, Risk of Diagnosis Which Will Require Inpatient Eval/Care/Monitoring Post Hospital Care: D/C Childcare Center Director Documentation - Plan Summary Plan Summary: Continue current medication management. Start on oral supplementation to meet nutritional needs for wound healing.
[2019-12-11] MEDS: NORMAL SALINE 1000 ML 1,000 ML IV PRN (05:28)
[2019-12-11] MEDS: ZINC SULFATE 220 MG CAPSULE NG SCH (09:50)
[2019-12-11] MEDS: ASCORBIC ACID 500 MG TABLET NG SCH (09:50)
[2019-12-11] MEDS: VITAMIN A 10,000 UNIT CAPSULE PO SCH (09:50)
[2019-12-11] MEDS: ENOXAPARIN SODIUM INJ 40 MG/0.4 ML DISP.SYRIN SUBCUT SCH (09:50)
[2019-12-11] MEDS: NYSTATIN CREAM 15 GM TP SCH ×2 (09:53→17:44)
[2019-12-11] MEDS: METOPROLOL TARTRATE 25 MG TABLET PO SCH (17:39)
[2019-12-11] MEDS: FLUCONAZOLE 200 MG/NS RTU 200 MG/100 ML RTUPB IV SCH (17:43)
--- NOTE | 2019-12-11 20:02 | PDOC PROGRESS REPORT ---
Subjective Progress Note for:: 12/11/19 Subjective:: No reported fever or chills. No chest pain or difficulty with breathing. No nausea, vomiting, or abdominal pain. Oral intake remain a challenge with patient expressed preference for [employer] [place] shake supplement! Reason For Visit: RECURRENT UTI WIHT UROSEPSIS,SACRAL DECUBITUS ULCE Physical Exam Vital Signs: Temp Pulse Resp BP Pulse Ox 99.2 F 139 H 23 H 145/83 H 100 12/11/19 16:31 12/11/19 16:31 12/11/19 16:31 12/11/19 16:31 12/11/19 16:31 Intake & Output 12/10/19 12/11/19 12/12/19 06:59 06:59 06:59 Intake Total 3063 1310 Output Total 1635 2175 Balance 1428 -865 Weight 99.4 kg 101.3 kg 101.3 kg Physical Exam: General appearance: PRESENT: no acute distress Head exam: PRESENT: atraumatic, normocephalic Eye exam: PRESENT: conjunctiva pink. ABSENT: pallor, scleral icterus Respiratory exam: PRESENT: decreased breath sounds - at lung bases Cardiovascular exam: PRESENT: RRR, +S1, +S2. ABSENT: diastolic murmur, rubs, systolic murmur GI/Abdominal exam: PRESENT: normal bowel sounds, soft. ABSENT: distended, guarding, mass, organomegaly, rebound, tenderness Extremities exam: ABSENT: pedal edema Neurological exam: PRESENT: alert, awake, oriented to person, oriented to place, oriented to time, oriented to situation Psychiatric exam: ABSENT: agitated, anxious Skin exam: PRESENT: dry, warm. ABSENT: intact - bilateral sacral region stage 3 decubitii Results Laboratory Results: 12/10/19 06:03 12/10/19 06:03 Impressions: Abdomen/Pelvis CT 12/03/19 13:35 IMPRESSION: 1.6 x 0.8 cm left proximal ureteral stone with moderate left hydronephrosis Bilateral intrarenal staghorn calculi Complex cyst versus cystic mass left lower pole kidney. Ultrasound may be useful for further characterization Renal Ultrasound 12/04/19 00:00 IMPRESSION: Queried left kidney inferior pole lesion is poorly characterized due to acoustic impedance. Recommend dedicated renal CT or renal MR imaging for definitive characterization. Chest X-Ray 12/06/19 00:00 IMPRESSION: Examination somewhat limited due to patient rotation. However, there appears to be faint airspace opacities involving the left lower lung, which may represent developing airspace disease to include clinically suspected aspiration. Assessment & Plan - Diagnosis (1) Recurrent UTI (urinary tract infection) Is this a current diagnosis for this admission?: Yes (2) Sepsis with metabolic encephalopathy Is this a current diagnosis for this admission?: Yes (3) Hypokalemia Is this a current diagnosis for this admission?: Yes (4) Staghorn kidney stones Is this a current diagnosis for this admission?: Yes (5) Hydronephrosis of left kidney Is this a current diagnosis for this admission?: Yes (6) Pressure ulcer of unspecified buttock, stage 3 Qualifiers: Laterality: unspecified laterality Qualified Code(s): L89.303 - Pressure ulcer of unspecified buttock, stage 3 Is this a current diagnosis for this admission?: Yes (7) Multiple sclerosis, primary chronic progressive Is this a current diagnosis for this admission?: Yes (8) Acute respiratory distress Is this a current diagnosis for this admission?: Yes (9) Aspiration into lower respiratory tract Qualifiers: Encounter type: subsequent encounter Qualified Code(s): T17.800D - Unspecified foreign body in other parts of respiratory tract causing asphyxia tion, subsequent encounter Is this a current diagnosis for this admission?: Yes (10) Lucila cystitis Is this a current diagnosis for this admission?: Yes (11) Urinary incontinence due to immobility Is this a current diagnosis for this admission?: Yes (12) Yeast dermatitis Is this a current diagnosis for this admission?: Yes - Time Time Spent with patient: 25-34 minutes Level of Care: IMCU Medications reviewed and adjusted accordingly: Yes Anticipated discharge: Home with Homehealth Within: Other - Inpatient Certification Based on my medical assessment, after consideration of the patient's comorbidities, presenting symptoms, or acuity I expect that the services needed warrant INPATIENT care.: Yes I certify that my determination is in accordance with my understanding of Medicare's requirements for reasonable and necessary INPATIENT services [42 CFR 412.3e].: Yes Medical Necessity: Significant Comorbidiites Make Outpatient Treatment Too Risky, Need Close Monitoring Due to Risk of Patient Decompensation, Need For IV Fluids, Need For Continuous Telemetry Monitoring, Need for IV Antibiotics, Risk of Complication if Not Cared For in Hospital, Risk of Diagnosis Which Will Require Inpatient Eval/Care/Monitoring Post Hospital Care: D/C [employer] Documentation - Plan Summary Plan Summary: Start on Metoprolol Tartrate 12.65 mg p.o bid. D/C IV Diflucan. Start on Diflucan 200 mg p.o daily. Continue all other current medication management.
--- NOTE | 2019-12-11 22:20 | RADIOLOGY REPORT (SQ) ---
CLINICAL INDICATION: possible aspiration and respiratory distress. TECHNIQUE: A single portable AP view was obtained of the chest at 2139 hours. COMPARISON: December 06, 2019. FINDINGS: The cardiomediastinal silhouette is top normal but stable. The lungs demonstrate progressive airspace disease left lung base with small adjacent effusion. Right lung is grossly clear.. No pneumothorax. IMPRESSION: Progressive airspace disease left lung base and adjacent small pleural effusion..
[2019-12-12] MEDS: METOPROLOL TARTRATE 25 MG TABLET PO SCH ×2 (06:11→17:45)
[2019-12-12] MEDS: VITAMIN A 10,000 UNIT CAPSULE PO SCH (09:50)
[2019-12-12] MEDS: ZINC SULFATE 220 MG CAPSULE NG SCH (09:50)
[2019-12-12] MEDS: ASCORBIC ACID 500 MG TABLET NG SCH (09:50)
[2019-12-12] MEDS: ENOXAPARIN SODIUM INJ 40 MG/0.4 ML DISP.SYRIN SUBCUT SCH (09:51)
[2019-12-12] MEDS: NYSTATIN CREAM 15 GM TP SCH ×2 (09:56→17:45)
[2019-12-12] MEDS: ACETAMINOPHEN 325 MG TABLET NG PRN (11:56)
--- NOTE | 2019-12-12 16:22 | PDOC PROGRESS REPORT ---
Subjective Progress Note for:: 12/12/19 Subjective:: Patient had episode of aspiration with desaturation last night with need for BiPAP support. There was reported fever earlier this afternoon. Her chest X ray revealed progressive consolidation nd effusion in left lung lower lobe. No reported chest pain. No nausea, vomiting, or abdominal pain. Oral intake is slightly better so far today. Reason For Visit: RECURRENT UTI WIHT UROSEPSIS,SACRAL DECUBITUS ULCE Physical Exam Vital Signs: Temp Pulse Resp BP Pulse Ox 99.7 F 118 H 22 H 98/47 L 97 12/12/19 12:56 12/12/19 14:00 12/12/19 11:37 12/12/19 11:37 12/12/19 11:37 Intake & Output 12/11/19 12/12/19 12/13/19 06:59 06:59 06:59 Intake Total 1310 400 118 Output Total 2175 875 Balance -865 -475 118 Weight 101.3 kg 98.2 kg Physical Exam: General appearance: PRESENT: no acute distress Head exam: PRESENT: atraumatic, normocephalic Eye exam: PRESENT: conjunctiva pink. ABSENT: pallor, scleral icterus Respiratory exam: PRESENT: decreased breath sounds - at lung bases Cardiovascular exam: PRESENT: RRR, +S1, +S2. ABSENT: diastolic murmur, rubs, systolic murmur GI/Abdominal exam: PRESENT: normal bowel sounds, soft. ABSENT: distended, guarding, mass, organomegaly, rebound, tenderness Extremities exam: ABSENT: pedal edema Neurological exam: PRESENT: alert, awake, oriented to person, oriented to place, oriented to time, oriented to situation Psychiatric exam: ABSENT: agitated, anxious Skin exam: PRESENT: dry, warm. ABSENT: intact - bilateral sacral region stage 3 decubitii Results Laboratory Results: 12/10/19 06:03 12/10/19 06:03 Impressions: Abdomen/Pelvis CT 12/03/19 13:35 IMPRESSION: 1.6 x 0.8 cm left proximal ureteral stone with moderate left hydronephrosis Bilateral intrarenal staghorn calculi Complex cyst versus cystic mass left lower pole kidney. Ultrasound may be useful for further characterization Renal Ultrasound 12/04/19 00:00 IMPRESSION: Queried left kidney inferior pole lesion is poorly characterized due to acoustic impedance. Recommend dedicated renal CT or renal MR imaging for definitive characterization. Chest X-Ray 12/11/19 21:19 IMPRESSION: Progressive airspace disease left lung base and adjacent small pleural effusion.. Assessment & Plan - Diagnosis (1) Recurrent UTI (urinary tract infection) Is this a current diagnosis for this admission?: Yes (2) Sepsis with metabolic encephalopathy Is this a current diagnosis for this admission?: Yes (3) Hypokalemia Is this a current diagnosis for this admission?: Yes (4) Staghorn kidney stones Is this a current diagnosis for this admission?: Yes (5) Hydronephrosis of left kidney Is this a current diagnosis for this admission?: Yes (6) Pressure ulcer of unspecified buttock, stage 3 Qualifiers: Laterality: unspecified laterality Qualified Code(s): L89.303 - Pressure u lcer of unspecified buttock, stage 3 Is this a current diagnosis for this admission?: Yes (7) Multiple sclerosis, primary chronic progressive Is this a current diagnosis for this admission?: Yes (8) Acute respiratory distress Is this a current diagnosis for this admission?: Yes (9) Aspiration into lower respiratory tract Qualifiers: Encounter type: subsequent encounter Qualified Code(s): T17.800D - Unspecified foreign body in other parts of respiratory tract causing asphyxiation, subsequent encounter Is this a current diagnosis for this admission?: Yes (10) Lucila cystitis Is this a current diagnosis for this admission?: Yes (11) Urinary incontinence due to immobility Is this a current diagnosis for this admission?: Yes (12) Yeast dermatitis Is this a current diagnosis for this admission?: Yes - Time Time Spent with patient: 25-34 minutes Level of Care: IMCU Medications reviewed and adjusted accordingly: Yes Anticipated discharge: Home with Homehealth, SNF Within: Other - Inpatient Certification Based on my medical assessment, after consideration of the patient's comorbiditi es, presenting symptoms, or acuity I expect that the services needed warrant INPATIENT care.: Yes I certify that my determination is in accordance with my understanding of [facility]'s requirements for reasonable and necessary INPATIENT services [42 CFR 412.3e].: Yes Medical Necessity: Significant Comorbidiites Make Outpatient Treatment Too Risky, Need Close Monitoring Due to Risk of Patient Decompensation, Need For IV Fluids, Need for IV Antibiotics, Risk of Complication if Not Cared For in Hospital, Risk of Diagnosis Which Will Require Inpatient Eval/Care/Monitoring Post Hospital Care: D/C [employer] Agent Documentation, D/C or Transfer Summary - Plan Summary Plan Summary: Continue current medication management. Obtain CBC with diff in am.
[2019-12-12] MEDS: NORMAL SALINE 1000 ML 1,000 ML IV PRN (16:49)
[2019-12-12] MEDS: FLUCONAZOLE 100 MG TABLET PO SCH (17:47)
[2019-12-13] MEDS: METOPROLOL TARTRATE 25 MG TABLET PO SCH ×2 (05:54→18:39)
[2019-12-13 07:05] LABS: ABSOLUTE BASOPHILS # (AUTO) 0.1 10^3/uL (0.0-0.2); ABSOLUTE EOSINOPHILS # (AUTO) 0.1 10^3/uL (0.0-0.6); ABSOLUTE LYMPHOCYTES (AUTO) 1.3 10^3/uL (0.5-4.7); ABSOLUTE MONOCYTES (AUTO) 0.6 10^3/uL (0.1-1.4); ABSOLUTE NEUT (AUTO) 7.6 10^3/uL (1.7-8.2); BASOPHILS % (AUTO) 0.5 % (0-2); EOSINOPHILS % (AUTO) 1.4 % (0-6); HEMATOCRIT 25.5 % (36.0-47.0); HEMOGLOBIN 8.4 g/dL (12.0-15.5); LYMPHOCYTES % (AUTO) 13.3 % (13-45); MEAN CORPUSCULAR HEMOGLOBIN 26.2 pg (27.0-33.4); MEAN CORPUSCULAR HGB CONC 32.8 g/dL (32.0-36.0); MEAN CORPUSCULAR VOLUME 80 fl (80-97); MONOCYTES % (AUTO) 6.3 % (3-13); PLATELET COUNT 328 10^3/uL (150-450); RED BLOOD COUNT 3.19 10^6/uL (3.72-5.28); RED CELL DISTRIBUTION WIDTH 16.2 % (11.5-14.0); SEGMENTED NEUTROPHILS % (AUTO) 78.5 % (42-78); TOTAL CELLS COUNTED % (AUTO) 100 %; WHITE BLOOD COUNT 9.7 10^3/uL (4.0-10.5)
[2019-12-13 07:24] LABS: BLOOD UREA NITROGEN 10 mg/dL (7-20); CALCIUM 8.5 mg/dL (8.4-10.2); CARBON DIOXIDE 28 mmol/L (22-30); CHLORIDE 107 mmol/L (98-107); GLUCOSE 117 mg/dL (75-110); POTASSIUM 3.7 mmol/L (3.6-5.0)
[2019-12-13 07:36] LABS: ANION GAP 3 (5-19)
[2019-12-13] MEDS: NYSTATIN CREAM 15 GM TP SCH ×2 (10:02→18:40)
[2019-12-13] MEDS: ASCORBIC ACID 500 MG TABLET NG SCH (11:48)
[2019-12-13] MEDS: VITAMIN A 10,000 UNIT CAPSULE PO SCH (11:48)
[2019-12-13] MEDS: ZINC SULFATE 220 MG CAPSULE NG SCH (11:48)
[2019-12-13] MEDS: ENOXAPARIN SODIUM INJ 40 MG/0.4 ML DISP.SYRIN SUBCUT SCH (11:49)
--- NOTE | 2019-12-13 15:52 | PDOC PROGRESS REPORT ---
Subjective Progress Note for:: 12/13/19 Subjective:: Patient seen by the bedside admitted for management of pyelonephritis and other complications Reason For Visit: RECURRENT UTI WIHT UROSEPSIS,SACRAL DECUBITUS ULCE Physical Exam Vital Signs: Temp Pulse Resp BP Pulse Ox 98.0 F 104 H 22 H 124/65 100 12/13/19 11:08 12/13/19 14:00 12/13/19 11:08 12/13/19 11:08 12/13/19 11:08 Intake & Output 12/12/19 12/13/19 12/14/19 06:59 06:59 06:59 Intake Total 400 1526 Output Total 875 950 Balance -475 576 Weight 98.2 kg 95.5 kg General appearance: PRESENT: no acute distress Eye exam: PRESENT: PERRLA Respiratory exam: PRESENT: clear to auscultation rome Cardiovascular exam: PRESENT: +S1, +S2 Results Laboratory Results: 12/13/19 06:32 12/13/19 06:32 12/13/19 12/13/19 06:32 06:32 WBC 9.7 RBC 3.19 L Hgb 8.4 L Hct 25.5 L MCV 80 MCH 26.2 L MCHC 32.8 RDW 16.2 H Plt Count 328 Seg Neutrophils % 78.5 H Sodium 138.2 Potassium 3.7 Chloride 107 Carbon Dioxide 28 Anion Gap 3 L BUN 10 Creatinine 0.41 L Est GFR ( Amer) > 60 Glucose 117 H Calcium 8.5 Impressions: Abdomen/Pelvis CT 12/03/19 13:35 IMPRESSION: 1.6 x 0.8 cm left proximal ureteral stone with moderate left hydronephrosis Bilateral intrarenal staghorn calculi Complex cyst versus cystic mass left lower pole kidney. Ultrasound may be useful for further characterization Renal Ultrasound 12/04/19 00:00 IMPRESSION: Queried left kidney inferior pole lesion is poorly characterized due to acoustic impedance. Recommend dedicated renal CT or renal MR imaging for definitive characterization. Chest X-Ray 12/11/19 21:19 IMPRESSION: Progressive airspace disease left lung base and adjacent small pleural effusion.. Assessment & Plan - Diagnosis (1) Sepsis Qualifiers: Sepsis type: sepsis due to unspecified organism Sepsis acute organ dysfunction status: unspecified Qualified Code(s): A41.9 - Sepsis, unspecified organism Is this a current diagnosis for this admission?: Yes (2) Focal pyelonephritis Is this a current diagnosis for this admission?: Yes (3) Sepsis with metabolic encephalopathy Is this a current diagnosis for this admission?: Yes - Time Time Spent with patient: 25-34 minutes Level of Care: IMCU Medications reviewed and adjusted accordingly: Yes Anticipated discharge: Home Within: Other - Plan Summary Plan Summary: Continue present management
[2019-12-13] MEDS: FLUCONAZOLE 100 MG TABLET PO SCH (18:39)
[2019-12-14] MEDS: ACETAMINOPHEN 325 MG TABLET NG PRN ×2 (00:10→10:04)
[2019-12-14] MEDS: METOPROLOL TARTRATE 25 MG TABLET PO SCH ×2 (05:03→17:41)
[2019-12-14] MEDS: NORMAL SALINE 1000 ML 1,000 ML IV PRN (05:04)
[2019-12-14] MEDS: ENOXAPARIN SODIUM INJ 40 MG/0.4 ML DISP.SYRIN SUBCUT SCH (09:37)
[2019-12-14] MEDS: ZINC SULFATE 220 MG CAPSULE NG SCH (09:38)
[2019-12-14] MEDS: ASCORBIC ACID 500 MG TABLET NG SCH (09:38)
[2019-12-14] MEDS: VITAMIN A 10,000 UNIT CAPSULE PO SCH (09:38)
[2019-12-14] MEDS: NYSTATIN CREAM 15 GM TP SCH ×2 (09:38→17:45)
[2019-12-14 12:10] LABS: HEMOGLOBIN 9.3 g/dL (12.0-15.5); MEAN CORPUSCULAR HEMOGLOBIN 25.9 pg (27.0-33.4); MEAN CORPUSCULAR VOLUME 79 fl (80-97); PLATELET COUNT 358 10^3/uL (150-450); RED BLOOD COUNT 3.57 10^6/uL (3.72-5.28); RED CELL DISTRIBUTION WIDTH 16.3 % (11.5-14.0); WHITE BLOOD COUNT 15.8 10^3/uL (4.0-10.5)
[2019-12-14 12:25] LABS: ABSOLUTE LYMPHOCYTES# (MANUAL) 0.5 10^3/uL (0.5-4.7); ABSOLUTE MONOCYTES # (MANUAL) 0.2 10^3/uL (0.1-1.4); BASOPHILS % (MANUAL) 1 % (0-2); EOSINOPHILS % (MANUAL) 0 % (0-6); LYMPHOCYTES % (MANUAL) 3 % (13-45); MONOCYTES % (MANUAL) 1 % (3-13); SEGMENTED NEUTROPHILS % (MAN) 95 % (42-78); TOTAL CELLS COUNTED 100
[2019-12-14 12:26] LABS: ANION GAP 6 (5-19); ANISOCYTOSIS 1+; BLOOD UREA NITROGEN 7 mg/dL (7-20); CALCIUM 8.8 mg/dL (8.4-10.2); CARBON DIOXIDE 27 mmol/L (22-30); CHLORIDE 103 mmol/L (98-107); GLUCOSE 110 mg/dL (75-110); PLATELET COMMENT ADEQUATE; POTASSIUM 4.1 mmol/L (3.6-5.0); TOXIC GRANULATION SLIGHT; TOXIC VACUOLATION PRESENT
--- NOTE | 2019-12-14 14:57 | PDOC PROGRESS REPORT ---
Subjective Progress Note for:: 12/14/19 Subjective:: Patient with severe MS and flaccid paralysis, showing signs of sepsis, with increased body temperature, sinus tachycardia, source of infection is not clear, get septic work-up, blood culture, urine culture chest x-ray, start empiric Zosyn Reason For Visit: RECURRENT UTI WIHT UROSEPSIS,SACRAL DECUBITUS ULCE Physical Exam Vital Signs: Temp Pulse Resp BP Pulse Ox 100.8 F H 120 H 19 118/49 L 99 12/14/19 11:25 12/14/19 14:00 12/14/19 11:25 12/14/19 11:25 12/14/19 11:25 Intake & Output 12/13/19 12/14/19 12/15/19 06:59 06:59 06:59 Intake Total 1526 1337 Output Total 950 1050 Balance 576 287 Weight 95.5 kg 94.4 kg General appearance: PRESENT: no acute distress Eye exam: PRESENT: PERRLA Respiratory exam: PRESENT: clear to auscultation rome Cardiovascular exam: PRESENT: +S1, +S2 GI/Abdominal exam: PRESENT: soft Neurological exam: PRESENT: alert Results Laboratory Results: 12/14/19 11:40 12/14/19 11:40 12/14/19 12/14/19 12/14/19 10:27 10:27 11:40 WBC Cancelled 15.8 H RBC Cancelled 3.57 L Hgb Cancelled 9.3 L Hct Cancelled 28.0 L MCV Cancelled 79 L MCH Cancelled 25.9 L MCHC Cancelled 33.0 RDW Cancelled 16.3 H Plt Count Cancelled 358 Seg Neutrophils % Cancelled Not Reportable Sodium Cancelled Potassium Cancelled Chloride Cancelled Carbon Dioxide Cancelled Anion Gap Cancelled BUN Cancelled Creatinine Cancelled Est GFR ( Amer) Cancelled Est GFR (Non-Af Amer) Cancelled Glucose Cancelled Calcium Cancelled 12/14/19 11:40 WBC RBC Hgb Hct MCV MCH MCHC RDW Plt Count Seg Neutrophils % Sodium 136.3 L Potassium 4.1 Chloride 103 Carbon Dioxide 27 Anion Gap 6 BUN 7 Creatinine 0.37 L Est GFR ( Amer) > 60 Est GFR (Non-Af Amer) Glucose 110 Calcium 8.8 Impressions: Abdomen/Pelvis CT 12/03/19 13:35 IMPRESSION: 1.6 x 0.8 cm left proximal ureteral stone with moderate left hydronephrosis Bilateral intrarenal staghorn calculi Complex cyst versus cystic mass left lower pole kidney. Ultrasound may be useful for further characterization Renal Ultrasound 12/04/19 00:00 IMPRESSION: Queried left kidney inferior pole lesion is poorly characterized due to acoustic impedance. Recommend dedicated renal CT or renal MR imaging for definitive characterization. Chest X-Ray 12/11/19 21:19 IMPRESSION: Progressive airspace disease left lung base and adjacent small pleural effusion.. Assessment & Plan - Diagnosis (1) Sepsis Qualifiers: Sepsis type: sepsis due to unspecified organism Sepsis acute organ dysfunction status: unspecified Qualified Code(s): A41.9 - Sepsis, unspecified organism Is this a current diagnosis for this admission?: Yes Plan: Patient with sepsis syndrome, get septic work-up, blood culture, urine culture, chest x-ray, start empiric IV antibiotic Zosyn (2) Focal pyelonephritis Is this a current diagnosis for this admission?: Yes (3) Sepsis with metabolic encephalopathy Is this a current diagnosis for this admission?: Yes - Time Time Spent with patient: 35 or more minutes Level of Care: IMCU Medications reviewed and adjusted accordingly: Yes Anticipated discharge: Other
[2019-12-14 15:21] LABS: INTERNATIONAL RATION (INR) 1.08; PROTHROMBIN TIME 14.1 SEC (11.4-15.4)
--- NOTE | 2019-12-14 15:34 | RADIOLOGY REPORT (SQ) ---
EXAM DESCRIPTION: CHEST SINGLE VIEW IMAGES COMPLETED DATE/TIME: 12/14/2019 3:23 pm REASON FOR STUDY: sepsis COMPARISON: 12/11/2019 EXAM PARAMETERS: NUMBER OF VIEWS: One view. TECHNIQUE: Single frontal radiographic view of the chest acquired. RADIATION DOSE: NA LIMITATIONS: None. FINDINGS: LUNGS AND PLEURA: Small left pleural effusion not significantly changed. MEDIASTINUM AND HILAR STRUCTURES: No masses. Contour normal. HEART AND VASCULAR STRUCTURES: Heart normal in size. Normal vasculature. BONES: No acute findings. HARDWARE: None in the chest. OTHER: No other significant finding. IMPRESSION: No significant change. TECHNICAL DOCUMENTATION: JOB ID: [id number] 2010 [employer]- All Rights Reserved Reading location - IP/workstation name: [email or web address]
[2019-12-14 16:14] LABS: ARTERIAL BLOOD BASE EXCESS 3.4 mmol/L; ARTERIAL BLOOD FIO2 3L; ARTERIAL BLOOD H2CO3 1.13 mmol/L (1.05-1.35); ARTERIAL BLOOD HCO3 27.2 mmol/L (20-24); ARTERIAL BLOOD O2 SATURATION 97.7 % (94-98); ARTERIAL BLOOD PCO2 37.6 mmHg (35-45); ARTERIAL BLOOD PH 7.48 (7.35-7.45); ARTERIAL BLOOD PO2 95.3 mmHg (80-100); ARTERIAL BLOOD TOTAL CO2 28.3 mmol/L (21-25)
[2019-12-14] MEDS: FLUCONAZOLE 100 MG TABLET PO SCH (17:41)
[2019-12-14] MEDS: PIPERACILLIN SODIUM/TAZOBACTAM 4.5 GM in NORMAL SALINE 100 ML IV SCH (17:44)
[2019-12-14 18:25] LABS: APPEARANCE,URINE CLOUDY; BILIRUBIN,URINE NEGATIVE (NEGATIVE); COLOR,URINE YELLOW; GLUCOSE, URINE NEGATIVE (NEGATIVE); KETONES,URINE 20 mg/dL (NEGATIVE); PROTEIN,URINE NEGATIVE (NEGATIVE); URINE SPECIFIC GRAVITY 1.011; UROBILINOGEN,URINE NEGATIVE mg/dL (<2.0)
[2019-12-15 00:30] LABS: ARTERIAL BLOOD H2CO3 1.78 mmol/L (1.05-1.35); ARTERIAL BLOOD O2 SATURATION 99.5 % (94-98); ARTERIAL BLOOD PCO2 59.1 mmHg (35-45); ARTERIAL BLOOD PH 7.32 (7.35-7.45); ARTERIAL BLOOD PO2 246.6 mmHg (80-100); ARTERIAL BLOOD TOTAL CO2 31.8 mmol/L (21-25)
[2019-12-15] MEDS: PIPERACILLIN SODIUM/TAZOBACTAM 4.5 GM in NORMAL SALINE 100 ML IV SCH ×4 (00:32→17:48)
[2019-12-15 00:33] LABS: ARTERIAL BLOOD FIO2 100%
--- NOTE | 2019-12-15 01:13 | RADIOLOGY REPORT (SQ) ---
CHEST 1 VIEW on 12/15/2019 at 12:43 AM CLINICAL INDICATION: Low oxygen saturation, shortness of breath COMPARISON: 12/14/2019 FINDINGS: There remains a small left pleural effusion. There has been some improvement in the adjacent left lower lung opacity consistent with improved atelectasis and/or pneumonia. The right lung is clear. Heart is within normal limits for size. Hilar and mediastinal contours are within normal limits. IMPRESSION: Small left pleural effusion with some improvement in adjacent left basilar atelectasis and/or pneumonia.
[2019-12-15] MEDS: METOPROLOL TARTRATE 25 MG TABLET PO SCH ×2 (05:32→17:34)
[2019-12-15 05:59] LABS: ABSOLUTE BASOPHILS # (AUTO) 0.1 10^3/uL (0.0-0.2); ABSOLUTE MONOCYTES (AUTO) 0.7 10^3/uL (0.1-1.4); ABSOLUTE NEUT (AUTO) 10.4 10^3/uL (1.7-8.2); BASOPHILS % (AUTO) 0.4 % (0-2); EOSINOPHILS % (AUTO) 0.2 % (0-6); HEMATOCRIT 25.6 % (36.0-47.0); HEMOGLOBIN 8.1 g/dL (12.0-15.5); LYMPHOCYTES % (AUTO) 8.5 % (13-45); MEAN CORPUSCULAR HEMOGLOBIN 25.1 pg (27.0-33.4); MEAN CORPUSCULAR HGB CONC 31.6 g/dL (32.0-36.0); MEAN CORPUSCULAR VOLUME 79 fl (80-97); MONOCYTES % (AUTO) 6.1 % (3-13); PLATELET COUNT 336 10^3/uL (150-450); RED BLOOD COUNT 3.22 10^6/uL (3.72-5.28); RED CELL DISTRIBUTION WIDTH 15.9 % (11.5-14.0); SEGMENTED NEUTROPHILS % (AUTO) 84.8 % (42-78); TOTAL CELLS COUNTED % (AUTO) 100 %; WHITE BLOOD COUNT 12.2 10^3/uL (4.0-10.5)
[2019-12-15 06:22] LABS: ALBUMIN 2.2 g/dL (3.5-5.0); ALKALINE PHOSPHATASE 79 U/L (38-126); ASPARTATE AMINO TRANSFERASE 19 U/L (14-36); BILIRUBIN,DIRECT 0.1 mg/dL (0.0-0.4); BILIRUBIN,TOTAL 0.4 mg/dL (0.2-1.3); BLOOD UREA NITROGEN 10 mg/dL (7-20); CALCIUM 8.6 mg/dL (8.4-10.2); GLUCOSE 119 mg/dL (75-110); POTASSIUM 4.1 mmol/L (3.6-5.0); TOTAL PROTEIN 5.9 g/dL (6.3-8.2)
[2019-12-15 06:27] LABS: CARBON DIOXIDE 30 mmol/L (22-30); CHLORIDE 105 mmol/L (98-107)
[2019-12-15 06:34] LABS: ANION GAP 3 (5-19)
--- NOTE | 2019-12-15 07:58 | EKG REPORT ---
SEVERITY:- ABNORMAL ECG - SINUS TACHYCARDIA NONSPECIFIC T ABNORMALITIES, LATERAL LEADS : Confirmed by: Ayesha Tomas 15-Dec-2019 07:57:47
[2019-12-15] MEDS: ENOXAPARIN SODIUM INJ 40 MG/0.4 ML DISP.SYRIN SUBCUT SCH (09:41)
[2019-12-15] MEDS: VITAMIN A 10,000 UNIT CAPSULE PO SCH (09:42)
[2019-12-15] MEDS: NYSTATIN CREAM 15 GM TP SCH ×2 (09:42→17:48)
[2019-12-15] MEDS: ZINC SULFATE 220 MG CAPSULE NG SCH (09:43)
[2019-12-15] MEDS: ASCORBIC ACID 500 MG TABLET NG SCH (09:43)
--- NOTE | 2019-12-15 12:43 | PDOC PROGRESS REPORT ---
Subjective Progress Note for:: 12/15/19 Subjective:: Patient's hospital stay is further complicated with recurrent episodes of aspiration with oxygen desaturation. Last episode was last night with need for BiPAP support. Patient denied any fever or chills. No reported chest pain. No nausea, vomiting, or abdominal pain. Oral intake remain a challenge. Awaiting barium cookie swallow evaluation if it can be done at 90 degree on her hospital bed. Reason For Visit: RECURRENT UTI WIHT UROSEPSIS,SACRAL DECUBITUS ULCE Physical Exam Vital Signs: Temp Pulse Resp BP Pulse Ox 97.9 F 103 H 16 123/62 100 12/15/19 12:02 12/15/19 12:02 12/15/19 12:02 12/15/19 12:02 12/15/19 12:02 Intake & Output 12/14/19 12/15/19 12/16/19 06:59 06:59 06:59 Intake Total 1337 437 100 Output Total 1050 1175 Balance 287 -738 100 Weight 94.4 kg 95.3 kg Physical Exam: General appearance: PRESENT: no acute distress Head exam: PRESENT: atraumatic, normocephalic Eye exam: PRESENT: conjunctiva pink. ABSENT: pallor, scleral icterus Respiratory exam: PRESENT: decreased breath sounds - at lung bases Cardiovascular exam: PRESENT: RRR, +S1, +S2. ABSENT: diastolic murmur, rubs, systolic murmur GI/Abdominal exam: PRESENT: normal bowel sounds, soft. ABSENT: distended, guarding, mass, organomegaly, rebound, tenderness Extremities exam: ABSENT: pedal edema Neurological exam: PRESENT: alert, awake, oriented to person, oriented to place, oriented to time, oriented to situation Psychiatric exam: ABSENT: agitated, anxious Skin exam: PRESENT: dry, warm. ABSENT: intact - bilateral sacral region stage 3 decubitii Results Laboratory Results: 12/15/19 05:11 12/15/19 05:11 12/14/19 12/14/19 12/14/19 14:55 16:01 17:48 WBC RBC Hgb Hct MCV MCH MCHC RDW Plt Count Seg Neutrophils % Carbonic Acid 1.13 HCO3/H2CO3 Ratio 24:1 ABG pH 7.48 H ABG pCO2 37.6 ABG pO2 95.3 ABG HCO3 27.2 H ABG O2 Saturation 97.7 ABG Base Excess 3.4 FiO2 3L Sodium Potassium Chloride Carbon Dioxide Anion Gap BUN Creatinine Est GFR ( Amer) Glucose Lactic Acid 0.5 L 0.6 L Calcium Total Bilirubin AST Alkaline Phosphatase Total Protein Albumin Urine Color Urine Appearance Urine pH Ur Specific [place] Urine Protein Urine Glucose (UA) Urine Ketones Urine Blood Urine RBC (Auto) 12/14/19 12/14/19 12/14/19 18:04 20:35 23:55 WBC RBC Hgb Hct MCV MCH MCHC RDW Plt Count Seg Neutrophils % Carbonic Acid 1.78 H HCO3/H2CO3 Ratio 16:1 ABG pH 7.32 L ABG pCO2 59.1 H ABG pO2 246.6 H ABG HCO3 30.0 H ABG O2 Saturation 99.5 H ABG Base Excess 3.0 FiO2 100% Sodium Potassium Chloride Carbon Dioxide Anion Gap BUN Creatinine Est GFR ( Amer) Glucose Lactic Acid 1.0 Calcium Total Bilirubin AST Alkaline Phosphatase Total Protein Albumin Urine Color YELLOW Urine Appearance CLOUDY Urine pH 7.0 Ur Specific [place] 1.011 Urine Protein NEGATIVE Urine Glucose (UA) NEGATIVE Urine Ketones 20 H Urine Blood MODERATE H Urine RBC (Auto) 34 12/15/19 12/15/19 05:11 05:11 WBC 12.2 H RBC 3.22 L Hgb 8.1 L Hct 25.6 L MCV 79 L MCH 25.1 L MCHC 31.6 L RDW 15.9 H Plt Count 336 Seg Neutrophils % 84.8 H Carbonic Acid HCO3/H2CO3 Ratio ABG pH ABG pCO2 ABG pO2 ABG HCO3 ABG O2 Saturation ABG Base Excess FiO2 Sodium 138.4 Potassium 4.1 Chloride 105 Carbon Dioxide 30 Anion Gap 3 L BUN 10 Creatinine 0.42 L Est GFR ( Amer) > 60 Glucose 119 H Lactic Acid Calcium 8.6 Total Bilirubin 0.4 AST 19 Alkaline Phosphatase 79 Total Protein 5.9 L Albumin 2.2 L Urine Color Urine Appearance Urine pH Ur Specific [place] Urine Protein Urine Glucose (UA) Urine Ketones Urine Blood Urine RBC (Auto) Impressions: Abdomen/Pelvis CT 12/03/19 13:35 IMPRESSION: 1.6 x 0.8 cm left proximal ureteral stone with moderate left hydronephrosis Bilateral intrarenal staghorn calculi Complex cyst versus cystic mass left lower pole kidney. Ultrasound may be useful for further characterization Renal Ultrasound 12/04/19 00:00 IMPRESSION: Queried left kidney inferior pole lesion is poorly characterized due to acoustic impedance. Recommend dedicated renal CT or renal MR imaging for definitive characterization. Chest X-Ray 12/14/19 00:00 IMPRESSION: Small left pleural effusion with some improvement in adjacent left basilar atelectasis and/or pneumonia. Assessment & Plan - Diagnosis (1) Recurrent UTI (urinary tract infection) Is this a current diagnosis for this admission?: Yes (2) Sepsis with metabolic encephalopathy Is this a current diagnosis for this admission?: Yes (3) Hypokalemia Is this a current diagnosis for this admission?: Yes (4) Staghorn kidney stones Is this a current diagnosis for this admission?: Yes (5) Hydronephrosis of left kidney Is this a current diagnosis for this admission?: Yes (6) Pressure ulcer of unspecified buttock, stage 3 Qualifiers: Laterality: unspecified laterality Qualified Code(s): L89.303 - Pressure ulcer of unspecified buttock, stage 3 Is this a current diagnosis for this admission?: Yes (7) Multiple sclerosis, primary chronic progressive Is this a current diagnosis for this admission?: Yes (8) Acute respiratory distress Is this a current diagnosis for this admission?: Yes (9) Aspiration into lower respiratory tract Qualifiers: Encounter type: subsequent encounter Qualified Code(s): T17.800D - Unspecified foreign body in other parts of respiratory tract causing asphyxiation, subsequent encounter Is this a current diagnosis for this admission?: Yes (10) Lucila cystitis Is this a current diagnosis for this admission?: Yes (11) Urinary incontinence due to immobility Is this a current diagnosis for this admission?: Yes (12) Yeast dermatitis Is this a current diagnosis for this admission?: Yes - Time Time Spent with patient: 25-34 minutes Level of Care: IMCU Medications reviewed and adjusted accordingly: Yes Anticipated discharge: Home with Homehealth, SNF Within: Other - Inpatient Certification Based on my medical assessment, after consideration of the patient's comorbidities, presenting symptoms, or acuity I expect that the services needed warrant INPATIENT care.: Yes I certify that my determination is in accordance with my understanding of Medicare's requirements for reasonable and necessary INPATIENT services [42 CFR 412.3e].: Yes Medical Necessity: Significant Comorbidiites Make Outpatient Treatment Too Risky, Need Close Monitoring Due to Risk of Patient Decompensation, Need For IV Fluids, Need For Continuous Telemetry Monitoring, Need for IV Antibiotics, Risk of Complication if Not Cared For in Hospital, Risk of Diagnosis Which Will Require Inpatient Eval/Care/Monitoring Post Hospital Care: D/C Relations Liaison Documentation, D/C or Transfer Summary - Plan Summary Plan Summary: Continue IV Zosyn coverage. Follow up with radiology department id cookie swallow can be completed at 90 degree in bed. Maintain on all other current management. Repeat CBC with diff and BMP in am.
[2019-12-15] MEDS ORDERED: BACLOFEN 10 MG TABLET PO PRN (15:00)
[2019-12-15] MEDS ORDERED: ACETAMINOPHEN 325 MG TABLET PO PRN (15:00)
[2019-12-15] MEDS: NORMAL SALINE 1000 ML 1,000 ML IV PRN (16:23)
[2019-12-15] MEDS: FLUCONAZOLE 100 MG TABLET PO SCH (17:33)
[2019-12-16] MEDS: PIPERACILLIN SODIUM/TAZOBACTAM 4.5 GM in NORMAL SALINE 100 ML IV SCH ×4 (01:40→20:29)
[2019-12-16] MEDS: METOPROLOL TARTRATE 25 MG TABLET PO SCH ×2 (05:46→17:08)
[2019-12-16 06:16] LABS: ABSOLUTE EOSINOPHILS # (AUTO) 0.2 10^3/uL (0.0-0.6); ABSOLUTE LYMPHOCYTES (AUTO) 1.3 10^3/uL (0.5-4.7); ABSOLUTE MONOCYTES (AUTO) 0.6 10^3/uL (0.1-1.4); ABSOLUTE NEUT (AUTO) 5.8 10^3/uL (1.7-8.2); BASOPHILS % (AUTO) 0.6 % (0-2); EOSINOPHILS % (AUTO) 2.3 % (0-6); HEMATOCRIT 23.1 % (36.0-47.0); LYMPHOCYTES % (AUTO) 16.6 % (13-45); MEAN CORPUSCULAR HEMOGLOBIN 25.5 pg (27.0-33.4); MEAN CORPUSCULAR HGB CONC 32.3 g/dL (32.0-36.0); MEAN CORPUSCULAR VOLUME 79 fl (80-97); MONOCYTES % (AUTO) 7.4 % (3-13); PLATELET COUNT 338 10^3/uL (150-450); RED BLOOD COUNT 2.93 10^6/uL (3.72-5.28); RED CELL DISTRIBUTION WIDTH 16.4 % (11.5-14.0); SEGMENTED NEUTROPHILS % (AUTO) 73.1 % (42-78); TOTAL CELLS COUNTED % (AUTO) 100 %; WHITE BLOOD COUNT 7.9 10^3/uL (4.0-10.5)
[2019-12-16 06:31] LABS: HEMOGLOBIN 7.5 g/dL (12.0-15.5)
[2019-12-16 06:37] LABS: ANION GAP 6 (5-19); BLOOD UREA NITROGEN 7 mg/dL (7-20); CALCIUM 8.6 mg/dL (8.4-10.2); CARBON DIOXIDE 28 mmol/L (22-30); CHLORIDE 103 mmol/L (98-107); GLUCOSE 75 mg/dL (75-110); POTASSIUM 3.9 mmol/L (3.6-5.0)
[2019-12-16] MEDS: ENOXAPARIN SODIUM INJ 40 MG/0.4 ML DISP.SYRIN SUBCUT SCH (09:42)
[2019-12-16] MEDS: VITAMIN A 10,000 UNIT CAPSULE PO SCH (09:42)
[2019-12-16] MEDS: ASCORBIC ACID 500 MG TABLET PO SCH (09:42)
[2019-12-16] MEDS: ZINC SULFATE 220 MG CAPSULE PO SCH (09:43)
[2019-12-16] MEDS: NYSTATIN CREAM 15 GM TP SCH ×2 (09:52→17:09)
[2019-12-16] MEDS: FLUCONAZOLE 100 MG TABLET PO SCH (17:08)
--- NOTE | 2019-12-16 17:18 | PDOC PROGRESS REPORT ---
Subjective Progress Note for:: 12/16/19 Subjective:: No reported fever or chills. No reported chest pain. No nausea, vomiting, or abdominal pain. Oral intake remain a challenge. Her hemoglobin dropped to less than 8gm/dl necessitating request for PRBC transfusion. Reason For Visit: RECURRENT UTI WIHT UROSEPSIS,SACRAL DECUBITUS ULCE Physical Exam Vital Signs: Temp Pulse Resp BP Pulse Ox 98.2 F 90 14 124/60 100 12/16/19 10:54 12/16/19 11:13 12/16/19 11:13 12/16/19 10:54 12/16/19 11:13 Intake & Output 12/15/19 12/16/19 12/17/19 06:59 06:59 06:59 Intake Total 437 1400 0 Output Total 1175 1405 Balance -738 -5 0 Weight 95.3 kg 93.6 kg Physical Exam: General appearance: PRESENT: no acute distress Head exam: PRESENT: atraumatic, normocephalic Eye exam: PRESENT: conjunctiva pink. ABSENT: pallor, scleral icterus Respiratory exam: PRESENT: decreased breath sounds - at lung bases Cardiovascular exam: PRESENT: RRR, +S1, +S2. ABSENT: diastolic murmur, rubs, systolic murmur GI/Abdominal exam: PRESENT: normal bowel sounds, soft. ABSENT: distended, gua rding, mass, organomegaly, rebound, tenderness Extremities exam: ABSENT: pedal edema Neurological exam: PRESENT: alert, awake, oriented to person, oriented to place, oriented to time, oriented to situation Psychiatric exam: ABSENT: agitated, anxious Skin exam: PRESENT: dry, warm. ABSENT: intact - bilateral sacral region stage 3 decubitii Results Laboratory Results: 12/16/19 05:47 12/16/19 05:47 12/16/19 12/16/19 12/16/19 05:47 05:47 07:20 WBC 7.9 RBC 2.93 L Hgb 7.5 L Hct 23.1 L MCV 79 L MCH 25.5 L MCHC 32.3 RDW 16.4 H Plt Count 338 Seg Neutrophils % 73.1 Sodium 137.1 Potassium 3.9 Chloride 103 Carbon Dioxide 28 Anion Gap 6 BUN 7 Creatinine 0.48 L Est GFR ( Amer) > 60 Glucose 75 Calcium 8.6 Blood Type A POSITIVE Antibody Screen NEGATIVE 12/14/19 18:04 Catheterized Urine Urine Culture - Final Pseudomonas Aeruginosa Impressions: Abdomen/Pelvis CT 12/03/19 13:35 IMPRESSION: 1.6 x 0.8 cm left proximal ureteral stone with moderate left hy dronephrosis Bilateral intrarenal staghorn calculi Complex cyst versus cystic mass left lower pole kidney. Ultrasound may be useful for further characterization Renal Ultrasound 12/04/19 00:00 IMPRESSION: Queried left kidney inferior pole lesion is poorly characterized due to acoustic impedance. Recommend dedicated renal CT or renal MR imaging for definitive characterization. Chest X-Ray 12/14/19 00:00 IMPRESSION: Small left pleural effusion with some improvement in adjacent left basilar atelectasis and/or pneumonia. Assessment & Plan - Diagnosis (1) Recurrent UTI (urinary tract infection) Is this a current diagnosis for this admission?: Yes (2) Sepsis with metabolic encephalopathy Is this a current diagnosis for this admission?: Yes (3) Hypokalemia Is this a current diagnosis for this admission?: Yes (4) Staghorn kidney stones Is this a current diagnosis for this admission?: Yes (5) Hydronephrosis of left kidney Is this a current diagnosis for this admission?: Yes (6) Pressure ulcer of unspecified buttock, stage 3 Qualifiers: Laterality: unspecified laterality Qualified Code(s): L89.303 - Pressure ulcer of unspecified buttock, stage 3 Is this a current diagnosis for this admission?: Yes (7) Multiple sclerosis, primary chronic progressive Is this a current diagnosis for this admission?: Yes (8) Acute respiratory distress Is this a current diagnosis for this admission?: Yes (9) Aspiration into lower respiratory tract Qualifiers: Encounter type: subsequent encounter Qualified Code(s): T17.800D - Unspeci fied foreign body in other parts of respiratory tract causing asphyxiation, subsequent encounter Is this a current diagnosis for this admission?: Yes (10) Lucila cystitis Is this a current diagnosis for this admission?: Yes (11) Urinary incontinence due to immobility Is this a current diagnosis for this admission?: Yes (12) Yeast dermatitis Is this a current diagnosis for this admission?: Yes (13) Anemia requiring transfusions Is this a current diagnosis for this admission?: Yes Plan: Type and cross with transfusion 2 units PRBC. Obtain stool occult blood test. May need endoscopic evaluation and colonoscopy if cause of anemia is not clear. (14) Cystitis due to Pseudomonas Is this a current diagnosis for this admission?: Yes Plan: Continue IV Zosyn coverage. Her elevated procalcitonin level is very indicative of high risk for sepsis. - Time Time Spent with patient: 25-34 minutes Level of Care: IMCU Medications reviewed and adjusted accordingly: Yes Anticipated discharge: Home with Homehealth Within: Other - Inpatient Certification Based on my medical assessment, after consideration of the patient's comorbidities, presenting symptoms, or acuity I expect that the services needed warrant INPATIENT care.: Yes I certify that my determination is in accordance with my understanding of Medicare's requirements for reasonable and necessary INPATIENT services [42 CFR 412.3e].: Yes Medical Necessity: Significant Comorbidiites Make Outpatient Treatment Too Risky, Need Close Monitoring Due to Risk of Patient Decompensation, Need For IV Fluids, Need For Continuous Telemetry Monitoring, Need for IV Antibiotics, Risk of Complication if Not Cared For in Hospital, Risk of Diagnosis Which Will Require Inpatient Eval/Care/Monitoring Post Hospital Care: D/C [employer] Documentation - Plan Summary Plan Summary: Continue current medication management. Follow up on post transfusion CBC findings.
[2019-12-16 20:36] LABS: HEMATOCRIT 31.1 % (36.0-47.0); MEAN CORPUSCULAR HGB CONC 33.4 g/dL (32.0-36.0); MEAN CORPUSCULAR VOLUME 81 fl (80-97); PLATELET COUNT 345 10^3/uL (150-450); RED BLOOD COUNT 3.86 10^6/uL (3.72-5.28); WHITE BLOOD COUNT 12.9 10^3/uL (4.0-10.5)
[2019-12-16 20:40] LABS: HEMOGLOBIN 10.4 g/dL (12.0-15.5)
[2019-12-16 21:20] LABS: ABSOLUTE MONOCYTES # (MANUAL) 0.3 10^3/uL (0.1-1.4); BAND NEUTROPHILS % (MANUAL) 1 % (3-5); BASOPHILS % (MANUAL) 2 % (0-2); EOSINOPHILS % (MANUAL) 0 % (0-6); LYMPHOCYTES % (MANUAL) 8 % (13-45); MONOCYTES % (MANUAL) 2 % (3-13); SEGMENTED NEUTROPHILS % (MAN) 87 % (42-78); TOTAL CELLS COUNTED 100
[2019-12-16 21:21] LABS: ANISOCYTOSIS 1+; HYPERSEGMENTED NEUTROPHILS PRESENT; PLATELET COMMENT ADEQUATE; TOXIC VACUOLATION PRESENT
[2019-12-16 21:27] LABS: BURR CELLS SLIGHT; POLYCHROMASIA SLIGHT
[2019-12-17] MEDS: PIPERACILLIN SODIUM/TAZOBACTAM 4.5 GM in NORMAL SALINE 100 ML IV SCH ×4 (02:48→22:16)
[2019-12-17] MEDS: METOPROLOL TARTRATE 25 MG TABLET PO SCH ×2 (05:32→17:32)
[2019-12-17] MEDS: NORMAL SALINE 1000 ML 1,000 ML IV PRN (07:52)
--- NOTE | 2019-12-17 09:07 | RADIOLOGY REPORT (SQ) ---
EXAM DESCRIPTION: COOKIE SWALLOW IMAGES COMPLETED DATE/TIME: 12/17/2019 8:56 am REASON FOR STUDY: Recurrent aspiration, pneumonia COMPARISON: None. TECHNIQUE: Videofluoroscopic swallowing examination was performed in conjunction with speech patholo gy. Videofluoroscopic imaging was obtained and reviewed and these are the findings: RADIATION DOSE: Fluoro time 3.57 minutes 1 images saved to PACS. LIMITATIONS: None FINDINGS: The patient was brought into the fluoro room and placed upright on a modified barium swall ow chair. The patient was then given multiple consistencies mixed with barium to swallow under live fluoroscopic video guidance. According to the Speech Pathologist there was laryngeal penetration see n with thin barium. All other consistencies were swallowed without incident. No definite aspiration identified.. Please refer to the speech pathology report for further details. IMPRESSION: LARYNGEAL PENETRATION, WITHOUT ASPIRATION, SEEN WITH THIN BARIUM. . PLEASE SEE SPEECH P ATHOLOGIST REPORT FOR OTHER FINDINGS AND RECOMMENDATIONS. COMMENT: None Quality ID [id number]: Final reports for procedures using fluoroscopy that document radiation exposure elisabeth ezio, or exposure time and number of fluorographic images (if radiation exposure indices are not avail able) TECHNICAL DOCUMENTATION: JOB ID: [id number] 2010 [employer]- All Rights Reserved Reading location - IP/workstation name: [email or web address] [id number]
[2019-12-17] MEDS: VITAMIN A 10,000 UNIT CAPSULE PO SCH (09:12)
[2019-12-17] MEDS: ASCORBIC ACID 500 MG TABLET PO SCH (09:12)
[2019-12-17] MEDS: ZINC SULFATE 220 MG CAPSULE PO SCH (09:13)
[2019-12-17] MEDS: NYSTATIN CREAM 15 GM TP SCH ×2 (09:18→17:32)
[2019-12-17] MEDS: ENOXAPARIN SODIUM INJ 40 MG/0.4 ML DISP.SYRIN SUBCUT SCH (09:20)
--- NOTE | 2019-12-17 11:07 | ST Inp Modified Barium Swallow ---
Medical Diagnosis - Medical Diagnoses Medical Diagnosis Description & ICD-10 Code(s): dysphagia, R13.10 - ICD-10 Tx Diagnosis Coding (1) Acute respiratory distress ICD-10 Code(s): R06.03 - ACUTE RESPIRATORY DISTRESS (2) Aspiration into lower respiratory tract ICD-10 Code(s): T17.800A - UNSP FOREIGN BODY IN OTH PRT RESP TRACT CAUSING ASPHYX, INIT ST Inpatient MBS - General Date: 12/17/19 Date of Onset: 12/07/19 - History -: Medical - per EMR: Patient admitted 12/03/2019 with low grade fever, demonstrable confusion, tachycardia, with CT revealing significant leukocytosis. CRITICAL CARE Progress note 12/07/2019 indicates aspiration into lower respiratory tract with suspicion of low level of chronic aspiration (notes speech evaluation ordered however order not entered until 12/07), acute respiratory distress, acute respiratory distress, hydronephronosis left kidney, recurrent UTI, staghorn kidney stones, diabetes mellitus type 2, hypoalbuminemia. Medications: Medications Reviewed Allergies: Refer to medical record - Subjective Current Nutritional Means: NPO - pending study, was on thin liquids and mechanical soft cut meats Current Symptoms: other - respiratory distress, high risk due to underlying medical condition (MS) - Objective Assessment: Upright - of note, positioning patient at 90 degrees is difficult due to patient discomfort. Patient was positioned at 90 degrees for study, however, is rarely positioned at 90 degrees in her room. The patient also has poor head control. Study started with patient's head upright, by end of study, head was very forward., Left Lateral - Food Trials Food Trials Used: Thin liquids, [place] thick liquids, Pureed, Regular The Patient: fed by ST - Assessment Labial Function: Within Normal Limits Lingual Function: Within Normal Limits Mandibular Function: Within Normal Limits Dentition: Partial Velo-Pharyngeal Function: Unremarkable Laryngeal Function: Weak Cough, weak voicing - Pharyngeal Stage Initiation of Pharyngeal Stage: Normal Decreased Laryngeal Elevation: Yes - mild Reduced Velo-Pharyngeal Closure: no Reduced Pressure Generation: Yes - mild Reduced Tongue Base Retraction: No Pre-Swallowing Pooling in Valleculae: Mild Pre-Swallowing Pooling in Pyriforms: None Reduced Thyro-Hyiod Approximation: Yes Reduced Epiglottic Excursion: No Reduced Pharyngeal Peristalsis: No Multiple Swallows With: Cleared w/ Liquid Assist Post Swallow Residuals in Valleculae: None Post Swallow Residuals in Pyriforms: Mild - Esophageal Stage Esophageal Stage Comments: some reduced movement of solids through UES noted, mild - Impression/Summary Laryngeal Penetration: Yes - patient demonstrated deep penetration of thin liquids with straw sips of thin liquid, no cough or clear reaction seen. Cued patient to cough, however, cough is very weak and unable to clear penetrated material. With cup sips, shallow penetration seen which did not remain in laryngeal vestibule, similar to performance with nectar liquids. Tracheal Aspiration: no - no overt aspiration seen on this study Effective Compensatory Strategies: chin down Ineffective Compensatory Strategies: throat clear & reswallow Patient Presents With: Pharyngeal stage dysph., Mild-Moderate Risk of Aspiration: Moderate - Recommendations Solid Diet Recommendations: Mechanical Soft, Chopped Meat Liquid Diet Recommendations: Thin Strict Aspitarion Precautions: Yes - discussed with RN Recommended Techniques: Fully Upright During Meal Supervision: requires assistance Other Recommendations: Patient remains at risk of aspiration due to underlying weakness and difficulty with positioning. When patient is fully upright, not using straws, and has reduced rate of feeding, risk is significantly decreased, but not eliminated. Diet recommendation is for thin liquids, mechanical soft solids with cut meats. Recommend strict standard aspiration precautions, to include fully upright for all PO, no straws, and frequent oral care. Discussed recommendations with RN and patient. RN to contact physician with recommendations. - Time Total Time: 30 Total Timed Minutes: 30
[2019-12-17] MEDS: FLUCONAZOLE 100 MG TABLET PO SCH (17:32)
--- NOTE | 2019-12-17 20:42 | PDOC PROGRESS REPORT ---
Subjective Progress Note for:: 12/17/19 Subjective:: Patient was able to participate in MBSS and found tolerant of mechanical soft diet with full aspiration precautions at feeding time. She tolerated lunch and dinner as per nursing staff today. No nausea, vomiting, or abdominal pain. No reported fever or chills. No reported chest pain or difficulty with breathing so far today. Reason For Visit: RECURRENT UTI WIHT UROSEPSIS,SACRAL DECUBITUS ULCE Physical Exam Vital Signs: Temp Pulse Resp BP Pulse Ox 97.9 F 89 16 132/69 H 99 12/17/19 15:51 12/17/19 16:36 12/17/19 16:36 12/17/19 15:51 12/17/19 16:36 Intake & Output 12/16/19 12/17/19 12/18/19 06:59 06:59 06:59 Intake Total 1500 2050 699 Output Total 1405 725 50 Balance 95 1325 649 Weight 93.6 kg 94.8 kg Physical Exam: General appearance: PRESENT: no acute distress Head exam: PRESENT: atraumatic, normocephalic Eye exam: PRESENT: conjunctiva pink. ABSENT: pallor, scleral icterus Respiratory exam: PRESENT: decreased breath sounds - at lung bases Cardiovascular exam: PRESENT: RRR, +S1, +S2. ABSENT: diastolic murmur, rubs, systolic murmur GI/Abdominal exam: PRESENT: normal bowel sounds, soft. ABSENT: distended, guarding, mass, organomegaly, rebound, tenderness Extremities exam: ABSENT: pedal edema Neurological exam: PRESENT: alert, awake, oriented to person, oriented to place, oriented to time, oriented to situation Psychiatric exam: ABSENT: agitated, anxious Skin exam: PRESENT: dry, warm. ABSENT: intact - bilateral sacral region stage 3 decubitii Results Laboratory Results: 12/16/19 20:17 12/16/19 05:47 12/16/19 20:17 WBC 12.9 H RBC 3.86 Hgb 10.4 L D Hct 31.1 L MCV 81 MCH 27.0 MCHC 33.4 RDW 16.0 H Plt Count 345 Seg Neutrophils % Not Reportable Impressions: Abdomen/Pelvis CT 12/03/19 13:35 IMPRESSION: 1.6 x 0.8 cm left proximal ureteral stone with moderate left hydronephrosis Bilateral intrarenal staghorn calculi Complex cyst versus cystic mass left lower pole kidney. Ultrasound may be useful for further characterization Renal Ultrasound 12/04/19 00:00 IMPRESSION: Queried left kidney inferior pole lesion is poorly characterized due to acoustic impedance. Recommend dedicated renal CT or renal MR imaging for definitive characterization. Chest X-Ray 12/14/19 00:00 IMPRESSION: Small left pleural effusion with some improvement in adjacent left basilar atelectasis and/or pneumonia. Modified Barium Swallow 12/17/19 00:00 IMPRESSION: LARYNGEAL PENETRATION, WITHOUT ASPIRATION, SEEN WITH THIN BARIUM. . PLEASE SEE SPEECH PATHOLOGIST REPORT FOR OTHER FINDINGS AND RECOMMENDATIONS. Assessment & Plan - Diagnosis (1) Recurrent UTI (urinary tract infection) Is this a current diagnosis for this admission?: Yes (2) Sepsis with metabolic encephalopathy Is this a current diagnosis for this admission?: Yes (3) Hypokalemia Is this a current diagnosis for this admission?: Yes (4) Staghorn kidney stones Is this a current diagnosis for this admission?: Yes (5) Hydronephrosis of left kidney Is this a current diagnosis for this admission?: Yes (6) Pressure ulcer of unspecified buttock, stage 3 Qualifiers: Laterality: unspecified laterality Qualified Code(s): L89.303 - Pressure ulcer of unspecified buttock, stage 3 Is this a current diagnosis for this admission?: Yes (7) Multiple sclerosis, primary chronic progressive Is this a current diagnosis for this admission?: Yes (8) Acute respiratory distress Is this a current diagnosis for this admission?: Yes (9) Aspiration into lower respiratory tract Qualifiers: Encounter type: subsequent encounter Qualified Code(s): T17.800D - Unspecified foreign body in other parts of respiratory tract causing asphyxiation, subsequent encounter Is this a current diagnosis for this admission?: Yes (10) Lucila cystitis Is this a current diagnosis for this admission?: Yes (11) Urinary incontinence due to immobility Is this a current diagnosis for this admission?: Yes (12) Yeast dermatitis Is this a current diagnosis for this admission?: Yes (13) Anemia requiring transfusions Is this a current diagnosis for this admission?: Yes (14) Cystitis due to Pseudomonas Is this a current diagnosis for this admission?: Yes - Time Time Spent with patient: 25-34 minutes Level of Care: IMCU Medications reviewed and adjusted accordingly: Yes Anticipated discharge: Home with Homehealth Within: Other - Inpatient Certification Based on my medical assessment, after consideration of the patient's comorbidi ties, presenting symptoms, or acuity I expect that the services needed warrant INPATIENT care.: Yes I certify that my determination is in accordance with my understanding of [facility]'s requirements for reasonable and necessary INPATIENT services [42 CFR 412.3e].: Yes Medical Necessity: Significant Comorbidiites Make Outpatient Treatment Too Risky, Need Close Monitoring Due to Risk of Patient Decompensation, Need For IV Fluids, Need For Continuous Telemetry Monitoring, Need for IV Antibiotics, Risk of Complication if Not Cared For in Hospital, Risk of Diagnosis Which Will Require Inpatient Eval/Care/Monitoring Post Hospital Care: D/C Chief Port Director Documentation - Plan Summary Plan Summary: Continue current medication management. If she continue to improve probably disc harge home with home health agency services.
[2019-12-18] MEDS: PIPERACILLIN SODIUM/TAZOBACTAM 4.5 GM in NORMAL SALINE 100 ML IV SCH (03:24)
[2019-12-18] MEDS: METOPROLOL TARTRATE 25 MG TABLET PO SCH ×2 (06:02→17:15)
[2019-12-18 06:25] LABS: HEMATOCRIT 33.8 % (36.0-47.0); HEMOGLOBIN 11.2 g/dL (12.0-15.5); MEAN CORPUSCULAR HEMOGLOBIN 26.9 pg (27.0-33.4); MEAN CORPUSCULAR HGB CONC 33.1 g/dL (32.0-36.0); MEAN CORPUSCULAR VOLUME 81 fl (80-97); PLATELET COUNT 333 10^3/uL (150-450); RED BLOOD COUNT 4.16 10^6/uL (3.72-5.28); RED CELL DISTRIBUTION WIDTH 16.9 % (11.5-14.0); WHITE BLOOD COUNT 8.1 10^3/uL (4.0-10.5)
[2019-12-18 06:39] LABS: ANION GAP 6 (5-19); BLOOD UREA NITROGEN 7 mg/dL (7-20); CALCIUM 8.9 mg/dL (8.4-10.2); CARBON DIOXIDE 29 mmol/L (22-30); CHLORIDE 103 mmol/L (98-107); GLUCOSE 88 mg/dL (75-110); POTASSIUM 3.9 mmol/L (3.6-5.0)
[2019-12-18 07:25] LABS: ABSOLUTE LYMPHOCYTES# (MANUAL) 0.3 10^3/uL (0.5-4.7); ABSOLUTE MONOCYTES # (MANUAL) 0.3 10^3/uL (0.1-1.4); BASOPHILS % (MANUAL) 0 % (0-2); EOSINOPHILS % (MANUAL) 3 % (0-6); LYMPHOCYTES % (MANUAL) 4 % (13-45); MONOCYTES % (MANUAL) 4 % (3-13); SEGMENTED NEUTROPHILS % (MAN) 89 % (42-78); TOTAL CELLS COUNTED 100
[2019-12-18 07:26] LABS: ANISOCYTOSIS 1+; PLATELET COMMENT ADEQUATE
[2019-12-18] MEDS: ZINC SULFATE 220 MG CAPSULE PO SCH (09:50)
[2019-12-18] MEDS: VITAMIN A 10,000 UNIT CAPSULE PO SCH (09:50)
[2019-12-18] MEDS: ASCORBIC ACID 500 MG TABLET PO SCH (09:50)
[2019-12-18] MEDS: NYSTATIN CREAM 15 GM TP SCH ×2 (09:51→17:15)
[2019-12-18] MEDS: ENOXAPARIN SODIUM INJ 40 MG/0.4 ML DISP.SYRIN SUBCUT SCH (09:51)
[2019-12-18] MEDS: LEVOFLOXACIN 250 MG TABLET PO SCH (09:52)
--- NOTE | 2019-12-18 17:01 | PDOC PROGRESS REPORT ---
Subjective Progress Note for:: 12/18/19 Subjective:: Patient denied any chest pain or difficulty with breathing. Tolerating oral feeding with full aspiration precautions. No nausea, vomiting, or abdominal pain. No reported fever or chills. Reason For Visit: RECURRENT UTI WIHT UROSEPSIS,SACRAL DECUBITUS ULCE Physical Exam Vital Signs: Temp Pulse Resp BP Pulse Ox 98.6 F 102 H 20 131/70 H 99 12/18/19 07:09 12/18/19 07:09 12/18/19 07:09 12/18/19 07:09 12/18/19 07:09 Intake & Output 12/17/19 12/18/19 12/19/19 06:59 06:59 06:59 Intake Total 2050 1099 Output Total 725 475 Balance 1325 624 Weight 94.8 kg 92.3 kg Physical Exam: General appearance: PRESENT: no acute distress Head exam: PRESENT: atraumatic, normocephalic Eye exam: PRESENT: conjunctiva pink. ABSENT: pallor, scleral icterus Respiratory exam: PRESENT: decreased breath sounds - at lung bases Cardiovascular exam: PRESENT: RRR, +S1, +S2. ABSENT: diastolic murmur, rubs, systolic murmur GI/Abdominal exam: PRESENT: normal bowel sounds, soft. ABSENT: distended, guarding, mass, organomegaly, rebound, tenderness Extremities exam: ABSENT: pedal edema Neurological exam: PRESENT: alert, awake, oriented to person, oriented to place, oriented to time, oriented to situation Psychiatric exam: ABSENT: agitated, anxious Skin exam: PRESENT: dry, warm. ABSENT: intact - bilateral sacral region stage 3 decubitii Results Laboratory Results: 12/18/19 05:24 12/18/19 05:24 12/18/19 12/18/19 05:24 05:24 WBC 8.1 RBC 4.16 Hgb 11.2 L Hct 33.8 L MCV 81 MCH 26.9 L MCHC 33.1 RDW 16.9 H Plt Count 333 Seg Neutrophils % Not Reportable Sodium 138.1 Potassium 3.9 Chloride 103 Carbon Dioxide 29 Anion Gap 6 BUN 7 Creatinine 0.51 L Est GFR ( Amer) > 60 Glucose 88 Calcium 8.9 Impressions: Abdomen/Pelvis CT 12/03/19 13:35 IMPRESSION: 1.6 x 0.8 cm left proximal ureteral stone with moderate left hydronephrosis Bilateral intrarenal staghorn calculi Complex cyst versus cystic mass left lower pole kidney. Ultrasound may be useful for further characterization Renal Ultrasound 12/04/19 00:00 IMPRESSION: Queried left kidney inferior pole lesion is poorly characterized due to acoustic impedance. Recommend dedicated renal CT or renal MR imaging for definitive characterization. Chest X-Ray 12/14/19 00:00 IMPRESSION: Small left pleural effusion with some improvement in adjacent left basilar atelectasis and/or pneumonia. Modified Barium Swallow 12/17/19 00:00 IMPRESSION: LARYNGEAL PENETRATION, WITHOUT ASPIRATION, SEEN WITH THIN BARIUM. . PLEASE SEE SPEECH PATHOLOGIST REPORT FOR OTHER FINDINGS AND RECOMMENDATIONS. Assessment & Plan - Diagnosis (1) Recurrent UTI (urinary tract infection) Is this a current diagnosis for this admission?: Yes (2) Sepsis with metabolic encephalopathy Is this a current diagnosis for this admission?: Yes (3) Hypokalemia Is this a current diagnosis for this admission?: Yes (4) Staghorn kidney stones Is this a current diagnosis for this admission?: Yes (5) Hydronephrosis of left kidney Is this a current diagnosis for this admission?: Yes (6) Pressure ulcer of unspecified buttock, stage 3 Qualifiers: Laterality: unspecified laterality Qualified Code(s): L89.303 - Pressure ulcer of unspecified buttock, stage 3 Is this a current diagnosis for this admission?: Yes (7) Multiple sclerosis, primary chronic progressive Is this a current diagnosis for this admission?: Yes (8) Acute respiratory distress Is this a current diagnosis for this admission?: Yes (9) Aspiration into lower respiratory tract Qualifiers: Encounter type: subsequent encounter Qualified Code(s): T17.800D - Unspe cified foreign body in other parts of respiratory tract causing asphyxiation, subsequent encounter Is this a current diagnosis for this admission?: Yes (10) Lucila cystitis Is this a current diagnosis for this admission?: Yes (11) Urinary incontinence due to immobility Is this a current diagnosis for this admission?: Yes (12) Yeast dermatitis Is this a current diagnosis for this admission?: Yes (13) Anemia requiring transfusions Is this a current diagnosis for this admission?: Yes (14) Cystitis due to Pseudomonas Is this a current diagnosis for this admission?: Yes - Time Time Spent with patient: 25-34 minutes Level of Care: IMCU Anticipated discharge: Home with Homehealth Within: Other - Inpatient Certification Based on my medical assessment, after consideration of the patient's comorbidities, presenting symptoms, or acuity I expect that the services needed warrant INPATIENT care.: Yes I certify that my determination is in accordance with my understanding of Medicare's requirements for reasonable and necessary INPATIENT services [42 CFR 412.3e].: Yes Medical Necessity: Significant Comorbidiites Make Outpatient Treatment Too Risky, Need Close Monitoring Due to Risk of Patient Decompensation, Need For IV Fluids, Need For Continuous Telemetry Monitoring, Need for IV Antibiotics, Risk of Complication if Not Cared For in Hospital, Risk of Diagnosis Which Will Require Inpatient Eval/Care/Monitoring Post Hospital Care: D/C [place] Clerk Documentation - Plan Summary Plan Summary: Start on oral Levofloxacin therapy and D/C IV Zosyn therapy. Continue all other current medication management.
[2019-12-18] MEDS: FLUCONAZOLE 100 MG TABLET PO SCH (17:15)
[2019-12-18] MEDS: NORMAL SALINE 1000 ML 1,000 ML IV PRN (17:16)
[2019-12-19] MEDS: METOPROLOL TARTRATE 25 MG TABLET PO SCH ×2 (06:19→17:14)
[2019-12-19] MEDS: VITAMIN A 10,000 UNIT CAPSULE PO SCH (09:27)
[2019-12-19] MEDS: ASCORBIC ACID 500 MG TABLET PO SCH (09:27)
[2019-12-19] MEDS: ZINC SULFATE 220 MG CAPSULE PO SCH (09:27)
[2019-12-19] MEDS: LEVOFLOXACIN 250 MG TABLET PO SCH (09:27)
[2019-12-19] MEDS: NYSTATIN CREAM 15 GM TP SCH ×2 (09:28→17:15)
[2019-12-19] MEDS: ENOXAPARIN SODIUM INJ 40 MG/0.4 ML DISP.SYRIN SUBCUT SCH (09:28)
[2019-12-19 15:37] VITALS: BP 115/50
--- NOTE | 2019-12-19 16:44 | PDOC DISCHARGE SUMMARY ---
Impression - Admit/DC Date/PCP Admission Date/Primary Care Provider: 12/03/19 14:39 QUINN MARCANO Discharge Date: 12/19/19 - Discharge Diagnosis (1) Recurrent UTI (urinary tract infection) Is this a current diagnosis for this admission?: Yes (2) Sepsis with metabolic encephalopathy Is this a current diagnosis for this admission?: Yes (3) Hypokalemia Is this a current diagnosis for this admission?: Yes (4) Staghorn kidney stones Is this a current diagnosis for this admission?: Yes (5) Hydronephrosis of left kidney Is this a current diagnosis for this admission?: Yes (6) Pressure ulcer of unspecified buttock, stage 3 Is this a current diagnosis for this admission?: Yes (7) Multiple sclerosis, primary chronic progressive Is this a current diagnosis for this admission?: Yes (8) Acute respiratory distress Is this a current diagnosis for this admission?: Yes (9) Aspiration into lower respiratory tract Is this a current diagnosis for this admission?: Yes (10) Lucila cystitis Is this a current diagnosis for this admission?: Yes (11) Urinary incontinence due to immobility Is this a current diagnosis for this admission?: Yes (12) Yeast dermatitis Is this a current diagnosis for this admission?: Yes (13) Anemia requiring transfusions Is this a current diagnosis for this admission?: Yes (14) Cystitis due to Pseudomonas Is this a current diagnosis for this admission?: Yes - Assessment Summary: Patient was admitted for reported demonstrable confusion and tachycardia. Her initial ED evaluation was remarkable for laboratory evaluation abnormal urinalysis, leukocytosis, CAT scan abdomen and Pelvis confirming bilateral staghorn calculi, left proximal urethral stone with moderate left hydronephrosis, and complex versus cystic mass in the lower pole of the left kidney. There was concern for probable sepsis. Her urine culture grew Yeast for which she has been adequately treated with Diflucan. She subsequently grew Pseudomonas from Padilla catheter urine sample. Her hospitalization was further complicated with recurrent aspiration pneumonitis/pneumonia necessitating brief transfer to ICU due to significant hypoxemia. Her modified barium swallow study and speech pathologist consultation did indicate safety with swallowing as long as full aspiration risk technique is adhere to and patient remain on mechanical soft diet. In view of her bilateral stage 3 sacral decubitus ulcers, she will be discharged home on urinary system management with Padilla catheter. She will remain on oral Levofloxacin 250 mg po daily x 5 days for urine culture directed antibiotic therapy. She will subsequently start Nitrofurantoin prophylactic therapy at 50 mg po qhs. She will be discharge home with reinstated home health agency services to include wound and Padilla catheter management. he will be consulted as instructed via Telehealth service upon discharge. - Additional Information Resuscitation Status: Full Code Discharge Diet: As Tolerated - with full aspiration precautions. Discharge Activity: Activity As Tolerated Referrals: QUINN MARCANO MD [Primary Care Provider] - 12/25/19 10:00 am (Need Tel eal Consultation for post acute care follow up apointment.) Prescriptions: Levofloxacin [Levaquin 250 mg Tablet] 250 mg PO DAILY #5 tablet Metoprolol Tartrate [Lopressor 25 mg Tablet] 12.5 mg PO Q12A #60 tablet Nystatin [Mycostatin Cream 15 gm] 1 applic TP BID #1 tube Nitrofurantoin Macrocrystal [Nitrofurantoin] 50 mg PO QHS #90 capsule Home Medications: Acetaminophen [Tylenol 325 mg Tablet] 650 mg PO Q6HP PRN 11/24/19 Baclofen [Baclofen 10 mg Tablet] 10 mg PO Q8HP PRN 11/24/19 Ascorbic Acid [Vitamin C] 1,000 mg PO DAILY #30 tablet 12/01/19 Vitamin A [Vitamin A 10,000 Unit Capsule] 10,000 unit PO DAILY #30 capsule 12/01/19 Whey Protein Isolate [Beneprotein] 227 gm PO TID #90 powder 12/01/19 Zinc Sulfate [Zinc-220 Capsule] 220 mg PO DAILY #30 capsule 12/01/19 Levofloxacin [Levaquin 250 mg Tablet] 250 mg PO DAILY #5 tablet 12/19/19 Metoprolol Tartrate [Lopressor 25 mg Tablet] 12.5 mg PO Q12A #60 tablet 12/19/19 Nitrofurantoin Macrocrystal [Nitrofurantoin] 50 mg PO QHS #90 capsule 12/19/19 Nystatin [Mycostatin Cream 15 gm] 1 applic TP BID #1 tube 12/19/19 History of Present Illiness History of Present Illness: INO SALDIVAR is a 54 year old female patient known to my practice who presented to the ED via EMS for reported low grade fever and questionable heart problem. Her initial ED evaluation was significant for demonstrable confusion and tachycardia. Her laboratory evaluation revealed significant leukocytosis and abnormal urinalysis with CAT scan abdomen and Pelvis confirming bilateral staghorn calculi, left proximal urethral stone with moderate left hydronephrosis, and complex versus cystic mass in the lower pole of the left kidney. She was advised hospitalization for further evaluation and management. Her morbidities are listed below. Hospital Course Hospital Course: Patient was admitted for reported demonstrable confusion and tachycardia. Her initial ED evaluation was remarkable for laboratory evaluation abnormal urinalysis, leukocytosis, CAT scan abdomen and Pelvis confirming bilateral staghorn calculi, left proximal urethral stone with moderate left hydronephrosis, and complex versus cystic mass in the lower pole of the left kidney. There was concern for probable sepsis. Her urine culture grew Yeast for which she has been adequately treated with Diflucan. She subsequently grew Pseudomonas from Padilla catheter urine sample. Her hospitalization was further complicated with recurrent aspiration pneumonitis/pneumonia necessitating brief transfer to ICU due to significant hypoxemia. Her modified barium swallow study and speech pathologist consultation did indicate safety with swallowing as long as full aspiration risk technique is adhere to and patient remain on mechanical soft diet. In view of her bilateral stage 3 sacral decubitus ulcers, she will be discharged home on urinary system management with Padilla catheter. She will remain on oral Levofloxacin 250 mg po daily x 5 days for urine culture directed antibiotic therapy. She will subsequently start Nitrofurantoin prophylactic therapy at 50 mg po qhs. She will be discharge home with reinstated home health agency services to include wound and Padilla catheter management. he will be consulted as instructed via Telehealth service upon discharge. Physical Exam Vital Signs: Temp Pulse Resp BP Pulse Ox 98.0 F 117 H 16 115/50 L 100 12/19/19 15:16 12/19/19 15:16 12/19/19 15:16 12/19/19 15:16 12/19/19 15:16 Intake & Output 12/18/19 12/19/19 12/20/19 06:59 06:59 06:59 Intake Total 1099 998 Output Total 475 1200 Balance 624 -202 Weight 92.3 kg 91.6 kg General appearance: PRESENT: no acute distress Head exam: PRESENT: atraumatic, normocephalic Eye exam: PRESENT: conjunctiva pink. ABSENT: pallor, scleral icterus Respiratory exam: PRESENT: decreased breath sounds - at lung bases Cardiovascular exam: PRESENT: RRR, +S1, +S2. ABSENT: diastolic murmur, rubs, systolic murmur GI/Abdominal exam: PRESENT: normal bowel sounds, soft. ABSENT: distended, guarding, mass, organomegaly, rebound, tenderness Extremities exam: ABSENT: pedal edema Neurological exam: PRESENT: alert, awake, oriented to person, oriented to place, oriented to time, oriented to situation Psychiatric exam: ABSENT: agitated, anxious Skin exam: PRESENT: dry, warm. ABSENT: intact - bilateral sacral region stage 3 decubitii Results Laboratory Results: WBC 8.1 10^3/uL (4.0-10.5) 12/18/19 05:24 RBC 4.16 10^6/uL (3.72-5.28) 12/18/19 05:24 Hgb 11.2 g/dL (12.0-15.5) L 12/18/19 05:24 Hct 33.8 % (36.0-47.0) L 12/18/19 05:24 MCV 81 fl (80-97) 12/18/19 05:24 MCH 26.9 pg (27.0-33.4) L 12/18/19 05:24 MCHC 33.1 g/dL (32.0-36.0) 12/18/19 05:24 RDW 16.9 % (11.5-14.0) H 12/18/19 05:24 Plt Count 333 10^3/uL (150-450) 12/18/19 05:24 Lymph % (Auto) Not Reportable 12/18/19 05:24 Swain % (Auto) Not Reportable 12/18/19 05:24 Eos % (Auto) Not Reportable 12/18/19 05:24 Baso % (Auto) Not Reportable 12/18/19 05:24 Absolute Neuts (auto) Not Reportable 12/18/19 05:24 Absolute Lymphs (auto) Not Reportable 12/18/19 05:24 Absolute Monos (auto) Not Reportable 12/18/19 05:24 Absolute Eos (auto) Not Reportable 12/18/19 05:24 Absolute Basos (auto) Not Reportable 12/18/19 05:24 Total Counted 100 12/18/19 05:24 Seg Neutrophils % Not Reportable 12/18/19 05:24 Seg Neuts % (Manual) 89 % (42-78) H 12/18/19 05:24 Band Neutrophils % 1 % (3-5) L 12/16/19 20:17 Lymphocytes % (Manual) 4 % (13-45) L 12/18/19 05:24 Monocytes % (Manual) 4 % (3-13) 12/18/19 05:24 Eosinophils % (Manual) 3 % (0-6) 12/18/19 05:24 Basophils % (Manual) 0 % (0-2) 12/18/19 05:24 Abs Neuts (Manual) 7.2 10^3/uL (1.7-8.2) 12/18/19 05:24 Abs Lymphs (Manual) 0.3 10^3/uL (0.5-4.7) L 12/18/19 05:24 Abs Monocytes (Manual) 0.3 10^3/uL (0.1-1.4) 12/18/19 05:24 Absolute Eos (Manual) 0.2 10^3/uL (0.0-0.6) 12/18/19 05:24 Abs Basophils (Manual) 0.0 10^3/uL (0.0-0.2) 12/18/19 05:24 Hypersegmented Neuts PRESENT 12/16/19 20:17 Toxic Granulation SLIGHT 12/14/19 11:40 Toxic Vacuolation PRESENT 12/16/19 20:17 Platelet Estimate Cancelled 12/14/19 10:27 Clumped Platelets PRESENT 12/03/19 12:57 Platelet Comment ADEQUATE 12/18/19 05:24 Polychromasia SLIGHT 12/16/19 20:17 Anisocytosis 1+ 12/18/19 05:24 Microcytosis SLIGHT 12/14/19 11:40 Jesus Cells SLIGHT 12/16/19 20:17 PT 14.1 SEC (11.4-15.4) 12/14/19 14:55 INR 1.08 12/14/19 14:55 Carbonic Acid 1.78 mmol/L (1.05-1.35) H 12/14/19 23:55 HCO3/H2CO3 Ratio 16:1 12/14/19 23:55 ABG pH 7.32 (7.35-7.45) L 12/14/19 23:55 ABG pCO2 59.1 mmHg (35-45) H 12/14/19 23:55 ABG pO2 246.6 mmHg (80-100) H 12/14/19 23:55 ABG HCO3 30.0 mmol/L (20-24) H 12/14/19 23:55 ABG Total CO2 31.8 mmol/L (21-25) H 12/14/19 23:55 ABG O2 Saturation 99.5 % (94-98) H 12/14/19 23:55 ABG Base Excess 3.0 mmol/L 12/14/19 23:55 VBG pH 7.42 (7.30-7.42) 12/03/19 13:30 VBG pCO2 40.6 mmHg (35-63) 12/03/19 13:30 VBG HCO3 25.5 mmol/L (20-32) 12/03/19 13:30 VBG Base Excess 0.9 mmol/L 12/03/19 13:30 FiO2 100% 12/14/19 23:55 Sodium 138.1 mmol/L (137-145) 12/18/19 05:24 Potassium 3.9 mmol/L (3.6-5.0) 12/18/19 05:24 Chloride 103 mmol/L (98-107) 12/18/19 05:24 Carbon Dioxide 29 mmol/L (22-30) 12/18/19 05:24 Anion Gap 6 (5-19) 12/18/19 05:24 BUN 7 mg/dL (7-20) 12/18/19 05:24 Creatinine 0.51 mg/dL (0.52-1.25) L 12/18/19 05:24 Est GFR ( Amer) > 60 (>60) 12/18/19 05:24 Est GFR (Non-Af Amer) Cancelled 12/14/19 10:27 Est GFR (MDRD) Non-Af > 60 (>60) 12/18/19 05:24 Glucose 88 mg/dL (75-110) 12/18/19 05:24 POC Glucose 113 mg/dL (70-110) H 12/17/19 17:45 Lactic Acid 1.0 mmol/L (0.7-2.1) 12/14/19 20:35 Calcium 8.9 mg/dL (8.4-10.2) 12/18/19 05:24 Magnesium 2.2 mg/dL (1.6-2.3) 12/05/19 04:57 Total Bilirubin 0.4 mg/dL (0.2-1.3) 12/15/19 05:11 Direct Bilirubin 0.1 mg/dL (0.0-0.4) 12/15/19 05:11 Neonat Total Bilirubin Not Reportable 12/15/19 05:11 Neonat Direct Bilirubin Not Reportable 12/15/19 05:11 Neonat Indirect Bili Not Reportable 12/15/19 05:11 AST 19 U/L (14-36) 12/15/19 05:11 ALT 7 U/L (<35) 12/15/19 05:11 Alkaline Phosphatase 79 U/L (38-126) 12/15/19 05:11 Total Protein 5.9 g/dL (6.3-8.2) L 12/15/19 05:11 Albumin 2.2 g/dL (3.5-5.0) L 12/15/19 05:11 EGFR Cancelled 12/14/19 10:27 Procalcitonin 3.02 ng/mL (0.00-0.08) H 12/14/19 14:55 Urine Color YELLOW 12/14/19 18:04 Urine Appearance CLOUDY 12/14/19 18:04 Urine pH 7.0 (5.0-9.0) 12/14/19 18:04 Ur Specific [place] 1.011 12/14/19 18:04 Urine Protein NEGATIVE mg/dL (NEGATIVE) 12/14/19 18:04 Urine Glucose (UA) NEGATIVE mg/dL (NEGATIVE) 12/14/19 18:04 Urine Ketones 20 mg/dL (NEGATIVE) H 12/14/19 18:04 Urine Blood MODERATE (NEGATIVE) H 12/14/19 18:04 Urine Nitrite (Reflex) NEGATIVE (NEGATIVE) 12/14/19 18:04 Urine Bilirubin NEGATIVE (NEGATIVE) 12/14/19 18:04 Urine Urobilinogen NEGATIVE mg/dL (<2.0) 12/14/19 18:04 Leukocyte Esterase Rfl LARGE (NEGATIVE) H 12/14/19 18:04 Urine RBC (Auto) 34 /HPF 12/14/19 18:04 Urine Bacteria (Auto) TRACE /HPF 12/14/19 18:04 Urine WBC (Reflex) > 182 /HPF 12/14/19 18:04 Urine WBC Clumps MANY /HPF 12/14/19 18:04 Squamous Epi Cells Auto 1 /HPF 12/14/19 18:04 Urine Mucus (Auto) RARE /LPF 12/14/19 18:04 Urine Yeast (Budding) PRESENT /HPF 12/03/19 13:08 Urine Ascorbic Acid 20 (NEGATIVE) H 12/14/19 18:04 Slides for Path Review Cancelled 12/14/19 10:27 Blood Type A POSITIVE 12/16/19 07:20 Blood Type Confirm A POSITIVE 12/16/19 07:31 Antibody Screen NEGATIVE 12/16/19 07:20 Crossmatch See Detail 12/16/19 07:20 Impressions: Chest X-Ray 12/03/19 12:39 IMPRESSION: NO ACUTE RADIOGRAPHIC FINDING IN THE CHEST. Abdomen/Pelvis CT 12/03/19 13:35 IMPRESSION: 1.6 x 0.8 cm left proximal ureteral stone with moderate left hydronephrosis Bilateral intrarenal staghorn calculi Complex cyst versus cystic mass left lower pole kidney. Ultrasound may be useful for further characterization Renal Ultrasound 12/04/19 00:00 IMPRESSION: Queried left kidney inferior pole lesion is poorly characterized due to acoustic impedance. Recommend dedicated renal CT or renal MR imaging for definitive characterization. Chest X-Ray 12/06/19 00:00 IMPRESSION: Examination somewhat limited due to patient rotation. However, there appears to be faint airspace opacities involving the left lower lung, which may represent developing airspace disease to include clinically suspected aspiration. Chest X-Ray 12/11/19 21:19 IMPRESSION: Progressive airspace disease left lung base and adjacent small pleural effusion.. Chest X-Ray 12/14/19 00:00 IMPRESSION: No significant change. Chest X-Ray 12/14/19 00:00 IMPRESSION: Small left pleural effusion with some improvement in adjacent left basilar atelectasis and/or pneumonia. Modified Barium Swallow 12/17/19 00:00 IMPRESSION: LARYNGEAL PENETRATION, WITHOUT ASPIRATION, SEEN WITH THIN BARIUM. . PLEASE SEE SPEECH PATHOLOGIST REPORT FOR OTHER FINDINGS AND RECOMMENDATIONS. Plan Health Concerns: High risk of readmission due to her morbidities. Plan of Treatment: Close monitoring with wound management and Padilla catheter management with home health agency. Maintain on Telehealth consultation follow up. Goals: Reduce readmission risk through close follow up. Time Spent: Greater than 30 Minutes - Post discharge care coordination. Stroke Is this a Stroke Patient?: No Acute Heart Failure - Is this a Heart Failure Patient?: No
== END 2019-12-19 18:43 | disposition home health service (06) | DRG 871 ==
LOC: ER 12:31 → EH 14:39 → 4N 16:52 → ICU 12-06 09:29 → 3S 12-07 12:25
PROVIDERS: ADMIT Anesthesiology; ATTEND Internal Medicine Geriatric Medicine
PROC: 30233N1 Transfusion of Nonautologous Red Blood Cells into Peripheral Vein, Percutaneous Approach (ICD-10-PCS; principal; 2019-12-16)
DX: A41.9 Sepsis, unspecified organism (principal); L89.323 Pressure ulcer of left buttock, stage 3; L89.313 Pressure ulcer of right buttock, stage 3; L89.153 Pressure ulcer of sacral region, stage 3; G93.41 Metabolic encephalopathy; J69.0 Pneumonitis due to inhalation of food and vomit; N13.6 Pyonephrosis; N20.2 Calculus of kidney with calculus of ureter; B37.41 Candidal cystitis and urethritis; E87.6 Hypokalemia; G35 Multiple sclerosis; E11.9 Type 2 diabetes mellitus without complications; E88.09 Other disorders of plasma-protein metabolism, not elsewhere classified; R09.02 Hypoxemia; E03.9 Hypothyroidism, unspecified; L30.8 Other specified dermatitis; G83.9 Paralytic syndrome, unspecified; D64.9 Anemia, unspecified; B96.5 Pseudomonas (aeruginosa) (mallei) (pseudomallei) as the cause of diseases classified elsewhere; Z87.440 Personal history of urinary (tract) infections; Z90.49 Acquired absence of other specified parts of digestive tract; Z88.2 Allergy status to sulfonamides; Z91.040 Latex allergy status; Z91.030 Bee allergy status; Z86.711 Personal history of pulmonary embolism; Z74.01 Bed confinement status; F03.90 Unspecified dementia, unspecified severity, without behavioral disturbance, psychotic disturbance, mood disturbance, and anxiety
CPT/HCPCS: 36415; 36430; 36600; 51701; 71045; 74176; 74230; 76770; 80048; 80053; 81001; 82803; 82962; 83605; 83735; 84145; 85025; 85610; 86850; 86900; 86901; 86920; 87040; 87086; 87088; 87186; 93005; 93010; 94640; 94660; 96360; 99221; 99291; J0692; J1450; J1650; J2405; J2543; J3475; J3480; J3490; J7030; J7050; P9016

== ENCOUNTER 2019-12-20 08:41 | Inpatient (IN) | payer MEDICARE, MEDICAID ==
[2019-12-20] MEDS: NORMAL SALINE 1000 ML 1,000 ML IV PRN ×2 (09:00→09:59)
[2019-12-20 09:09] LABS: ABSOLUTE BASOPHILS # (AUTO) 0.1 10^3/uL (0.0-0.2); ABSOLUTE EOSINOPHILS # (AUTO) 0.1 10^3/uL (0.0-0.6); ABSOLUTE LYMPHOCYTES (AUTO) 1.8 10^3/uL (0.5-4.7); ABSOLUTE MONOCYTES (AUTO) 0.6 10^3/uL (0.1-1.4); ABSOLUTE NEUT (AUTO) 9.7 10^3/uL (1.7-8.2); BASOPHILS % (AUTO) 0.8 % (0-2); EOSINOPHILS % (AUTO) 0.7 % (0-6); HEMATOCRIT 36.8 % (36.0-47.0); HEMOGLOBIN 12.2 g/dL (12.0-15.5); LYMPHOCYTES % (AUTO) 14.5 % (13-45); MEAN CORPUSCULAR HEMOGLOBIN 27.5 pg (27.0-33.4); MEAN CORPUSCULAR HGB CONC 33.2 g/dL (32.0-36.0); MEAN CORPUSCULAR VOLUME 83 fl (80-97); MONOCYTES % (AUTO) 4.6 % (3-13); PLATELET COUNT 435 10^3/uL (150-450); RED BLOOD COUNT 4.46 10^6/uL (3.72-5.28); RED CELL DISTRIBUTION WIDTH 17.6 % (11.5-14.0); SEGMENTED NEUTROPHILS % (AUTO) 79.4 % (42-78); TOTAL CELLS COUNTED % (AUTO) 100 %; WHITE BLOOD COUNT 12.2 10^3/uL (4.0-10.5)
[2019-12-20 09:12] LABS: VENOUS BLOOD BASE EXCESS 0.7 mmol/L; VENOUS BLOOD HCO3 29.6 mmol/L (20-32); VENOUS BLOOD PH 7.25 (7.30-7.42)
[2019-12-20 09:14] LABS: APPEARANCE,URINE SLIGHTLY-CLOUDY; BILIRUBIN,URINE NEGATIVE (NEGATIVE); COLOR,URINE YELLOW; GLUCOSE, URINE NEGATIVE (NEGATIVE); INTERNATIONAL RATION (INR) 1.15; KETONES,URINE NEGATIVE (NEGATIVE); LEUKOCYTE ESTERASE,URINE LARGE (NEGATIVE); NITRITE,URINE NEGATIVE (NEGATIVE); PROTEIN,URINE NEGATIVE (NEGATIVE); PROTHROMBIN TIME 14.8 SEC (11.4-15.4); URINE SPECIFIC GRAVITY 1.006; VENOUS BLOOD PCO2 68.8 mmHg (35-63)
[2019-12-20] MEDS ORDERED: LEVOFLOXACIN 750 MG/D5W RTU 750 MG/150 ML RTUPB IV ONE (09:17)
[2019-12-20] MEDS ORDERED: DEXTROSE 5%-WATER 250 ML with NOREPINEPHRINE BITARTRATE 4 MG IV PRN ×2 (09:18)
[2019-12-20] MEDS ORDERED: VANCOMYCIN HCL INJ 1000 MG VIAL IV ONE (09:18)
[2019-12-20 09:25] LABS: ALKALINE PHOSPHATASE 105 U/L (38-126); ANION GAP 7 (5-19); ASPARTATE AMINO TRANSFERASE 21 U/L (14-36); BILIRUBIN,DIRECT 0.3 mg/dL (0.0-0.4); BILIRUBIN,TOTAL 0.7 mg/dL (0.2-1.3); BLOOD UREA NITROGEN 8 mg/dL (7-20); CALCIUM 9.7 mg/dL (8.4-10.2); CARBON DIOXIDE 28 mmol/L (22-30); CHLORIDE 103 mmol/L (98-107); CREATINE KINASE 30 U/L (30-135); GLUCOSE 166 mg/dL (75-110); POTASSIUM 4.4 mmol/L (3.6-5.0); TOTAL PROTEIN 7.4 g/dL (6.3-8.2)
[2019-12-20] MEDS ORDERED: NOREPINEPHRINE BITARTRATE INJ/PF 4 MG/4 ML SDV IV ONE (09:35)
[2019-12-20 09:37] LABS: TROPONIN I 0.05 ng/mL
--- NOTE | 2019-12-20 09:37 | RADIOLOGY REPORT (SQ) ---
EXAM DESCRIPTION: CHEST SINGLE VIEW IMAGES COMPLETED DATE/TIME: 12/20/2019 9:21 am REASON FOR STUDY: sobr COMPARISON: 12/15/2019 EXAM PARAMETERS: NUMBER OF VIEWS: One view. TECHNIQUE: Single frontal radiographic view of the chest acquired. RADIATION DOSE: NA LIMITATIONS: None. FINDINGS: LUNGS AND PLEURA: No opacities, masses or pneumothorax. No pleural effusion. MEDIASTINUM AND HILAR STRUCTURES: No masses. Contour normal. HEART AND VASCULAR STRUCTURES: Heart normal in size. Normal vasculature. BONES: No acute findings. HARDWARE: None in the chest. OTHER: No other significant finding. IMPRESSION: NO ACUTE RADIOGRAPHIC FINDING IN THE CHEST. TECHNICAL DOCUMENTATION: JOB ID: [id number] 2010 [employer]- All Rights Reserved Reading location - IP/workstation name: [email or web address]
[2019-12-20 10:00] LABS: ARTERIAL BLOOD FIO2 65%; ARTERIAL BLOOD HCO3 26.6 mmol/L (20-24); ARTERIAL BLOOD O2 SATURATION 97.2 % (94-98); ARTERIAL BLOOD PCO2 46.5 mmHg (35-45); ARTERIAL BLOOD PH 7.38 (7.35-7.45); ARTERIAL BLOOD PO2 96.6 mmHg (80-100)
--- NOTE | 2019-12-20 10:24 | EKG REPORT ---
SEVERITY:- ABNORMAL ECG - SINUS TACHYCARDIA NONSPECIFIC T ABNORMALITIES, DIFFUSE LEADS : Confirmed by: Ayesha Tomas 20-Dec-2019 10:23:01
[2019-12-20] MEDS ORDERED: NORMAL SALINE 1000 ML 1,000 ML IV ONE (10:57)
--- NOTE | 2019-12-20 11:51 | RADIOLOGY REPORT (SQ) ---
EXAM DESCRIPTION: CHEST SINGLE VIEW IMAGES COMPLETED DATE/TIME: 12/20/2019 11:35 am REASON FOR STUDY: central line placement COMPARISON: 12/20/2019 0924 hours NUMBER OF VIEWS: One view. TECHNIQUE: Single frontal radiographic view of the chest acquired. LIMITATIONS: None. FINDINGS: Central venous access catheter placed via left subclavian approach. Catheter tip at cavo -atrial junction. No pneumothorax. Radiographic appearance of the chest otherwise stable. IMPRESSION: CENTRAL VENOUS ACCESS CATHETER IN APPROPRIATE LOCATION. NO PNEUMOTHORAX. NEW CENTRAL L INE. TECHNICAL DOCUMENTATION: JOB ID: [id number] 2010 [employer]- All Rights Reserved Reading location - IP/workstation name: [email or web address]
--- NOTE | 2019-12-20 12:26 | ER Document Report ---
Entered by VENTURA BONNER SCRIBE 12/20/19 1114 Acting as scribe for:JOHN ALEX MD ED Respiratory Problem - General Chief Complaint: Respiratory Distress Stated Complaint: RESPIRATORY DISTRESS Primary Care Provider: QUINN MARCANO MD [Primary Care Provider] - Follow up as needed Information source: Emergency Med Personnel, [facility] Records Cannot obtain history due to: Unstable vital signs Notes: This 54 year old female patient presents to the emergency department today with arrival by EMS for respiratory distress. Patient's history is provided by EMS personnel and OM records due to unstable vital signs. Patient was discharged yesterday from the hospital after being admitted for more than x2 weeks. Patient was being treated for numerous reasons including confusion, tachycardia, renal mass on left kidney, recurrent aspiration pneumonitis/pneumonia, and bilateral stage III sacral decubitus ulcers. Patient has a history of MS, x2 pulmonary embolisms, and DM. Patient hypoxic on arrival to the ED with a systolic pressure of 82. EMS personnel placed a IO in right tibia en route. TRAVEL OUTSIDE OF THE [place] IN LAST 30 DAYS: No - Related Data Allergies/Adverse Reactions: latex [Latex] Allergy (Intermediate, Verified 10/14/19 16:45) RASH/BLISTER Sulfa (Sulfonamide Antibiotics) Allergy (Intermediate, Verified 10/14/19 16:45) RASH/HIVES bee venom protein (honey bee) Allergy (Verified 10/14/19 16:45) Anaphylaxis Past Medical History - General Information source: Emergency Med Personnel, [facility] Records Cannot obtain history due to: Unstable vital signs - Social History Smoking Status: Unknown if Ever Smoked Family History: Reviewed & Not Pertinent Patient has homicidal ideation: No - Past Medical History Cardiac Medical History: Reports: Hx Pulmonary Embolism - 2 years ago Endocrine Medical History: Reports: Hx Diabetes Mellitus Type 2, Hx Hypothyroidism Musculoskeletal Medical History: Reports Hx Multiple Sclerosis Past Surgical History: Reports: Hx Section - x2, Hx Cholecystectomy - Immunizations Immunizations up to date: Yes Hx Diphtheria, Pertussis, Tetanus Vaccination: Yes Review of Systems - Review of Systems -: Yes ROS unobtainable due to patient's medical condition Physical Exam - Vital signs Vitals: Pulse Ox 99 12/20/19 08:35 - General General appearance: Alert Notes: Patient is febrile and in distress. - HEENT Head: Normocephalic, Atraumatic Eyes: Normal Extraocular movements intact: Yes Pupils: PERRL - Respiratory Respiratory status: Respiratory distress, Tachypnea Notes: Upper airway transmitted sounds. Better after suction. Patient placed on bi-pap with oxygen saturation improving to 98%. - Cardiovascular Rhythm: Tachycardia Heart sounds: Normal auscultation Notes: Hypoxic on arrival to ED. - Abdominal Inspection: Normal - Soft Distension: No distension Tenderness: Nontender - Genitourinary Notes: Patient is in a diaper. Padilla catheter is present. - Extremities Notes: Bilateral upper and lower extremities are flaccid. IO in right tibia from EMS. - Neurological Notes: Patient is awake and alert with her eyes open. Speech was normal and able to communicate some. - Psychological Associated symptoms: Normal affect, Normal mood - Skin Skin Temperature: Warm Skin Moisture: Diaphoretic Skin Color: Erythema Notes: Bilateral stage III sacral decubitus ulcers. Course - Re-evaluation Re-evalutation: 12/20/19 12:13 Patient currently is hemodynamically stable blood pressure of 105/63 with a heart rate of 91 sats are 99% respiratory rate 20 on 2 L nasal O2. 12/20/19 12:17 On arrival patient was brought in by EMS in extreme respiratory distress tachycardia tachypnea febrile sweaty and hypotensive. Insert osseous IV access had been obtained by EMS in route. Patient was been bagged by bag valve mask oxygen for support. Patient was noted to be hypoxic and a BiPAP was administered to control respirations and improve oxygenation. Another intraosseous was obtained in the left proximal tibia, and patient was fluid resuscitated with 2 L normal saline, with return of systolic blood pressure to 110 and tachycardia decreased to around 127. Patient then received and central line placement successfully obtained by on the left internal jugular. Post chest x-ray postprocedure was showing no pneumothorax and no infiltrate noted. Discussed case with the education assistant Dr. Langford, who attended patient's bedside examination by him and he determined that patient did not need to be in the intensive care unit at this time inasmuch as she has been resuscitated with fluids and is hemodynamically stable with nasal cannula O2 of 2 L with sats of 100%. Patient also received IV antibiotics for urosepsis including Levaquin and vancomycin. Discussed case with family and learned that patient was a full CODE STATUS with all supportive services as required.\ Discussed case with the primary attending Dr. Marcano who admitted patient to the [facility]. - Vital Signs Vital signs: Temp Pulse Resp BP Pulse Ox 98.2 F 18 107/67 99 12/20/19 09:04 12/20/19 12:16 12/20/19 12:16 12/20/19 12:16 12/20/19 12:14 Vital signs stable. - Laboratory Result Diagrams: 12/20/19 08:45 12/20/19 08:45 Laboratory results interpreted by me: 12/20/19 12/20/19 12/20/19 08:45 08:45 08:45 WBC 12.2 H RDW 17.6 H Absolute Neuts (auto) 9.7 H Seg Neutrophils % 79.4 H Carbonic Acid ABG pCO2 ABG HCO3 ABG Total CO2 VBG pH VBG pCO2 Creatinine 0.46 L Glucose 166 H NT-Pro-B Natriuret Pep 6640 H Albumin 3.0 L Urine Blood Urine Urobilinogen Ur Leukocyte Esterase 12/20/19 12/20/19 12/20/19 08:45 08:45 09:45 WBC RDW Absolute Neuts (auto) Seg Neutrophils % Carbonic Acid 1.40 H ABG pCO2 46.5 H ABG HCO3 26.6 H ABG Total CO2 28.0 H VBG pH 7.25 L VBG pCO2 68.8 H* Creatinine Glucose NT-Pro-B Natriuret Pep Albumin Urine Blood LARGE H Urine Urobilinogen 2.0 H Ur Leukocyte Esterase LARGE H 12/20/19 12:14 Abnormal values include a white blood cell count elevation urinary tract infection with large amount of blood and leukocyte esterase positive - Diagnostic Test Radiology reviewed: Image reviewed, Reports reviewed Radiology results interpreted by me: 12/20/19 12:15 Chest x-ray shows no acute process no infiltrate noted. Second chest x-ray shows central line placement on the left side no evidence of any pneumothorax. Again no infiltrate. - EKG Interpretation by Me Additional EKG results interpreted by me: 12/20/19 12:16 Twelve-lead EKG on arrival sinus tachycardia rate of [address]-T wave changes. Second EKG shows sinus tachycardia rate of [address]-T wave changes. Critical Care Note - Critical Care Note Total time excluding time spent on procedures (mins): 60 - Critical care time spent on patient immediate arrival in extreme respiratory distress requiring oxygen suctioning BiPAP ordering, also fluid resuscitation for hypotension, IV antibiotic administration for acute sepsis, and discussing patient's conditions and diagnosis with the education assistant and the admitting physician and discussing with family members her condition. Discharge - Discharge Clinical Impression: Respiratory distress, Sepsis, Acute respiratory distress, Dehydration, Pressure ulcer of unspecified buttock, stage 3, Multiple sclerosis, Urinary tract infection Condition: Serious Disposition: ADMITTED INPATIENT Admitting Provider: Angie Unit Admitted: IMCU Referrals: QUINN MARCANO MD [Primary Care Provider] - Follow up as needed I personally performed the services described in the documentation, reviewed and edited the documentation which was dictated to the scribe in my presence, and it accurately records my words and actions.
[2019-12-20] MEDS ORDERED: DEXTROSE 50%-WATER SYRINGE 25 GM/50 ML DOSE IV PRN (19:30)
[2019-12-20] MEDS ORDERED: GLUCAGON,HUMAN RECOMB 1 MG INJ IM PRN (19:30)
[2019-12-20] MEDS ORDERED: DEXTROSE 40% GEL 15 GM TUBE X 2 PO PRN (19:30)
[2019-12-20] MEDS ORDERED: DEXTROSE 40% GEL 15 GM TUBE PO PRN (19:30)
[2019-12-20] MEDS ORDERED: DEXTROSE 50%-WATER SYRINGE 12.5 GM/25 ML DOSE IV PRN (19:30)
--- NOTE | 2019-12-20 19:35 | PDOC CONSULTATION ---
Consultation Consult Date: 12/20/19 Provider Consulted: SURGICAL SURGICALIST MD Consult reason:: ishial decubitus ulcers History of Present Illness Admission Date/PCP: 12/20/19 12:45 QUINN MARCANO History of Present Illness: INO SALDIVAR is a 54 year old female seen in consultation at the request of Dr. Marcano. She has been seen by general suregery before, and underwent bedside debridement of her bilateral ischial decubitus ulscers. She has severe MS and is currently bedridden. The nursing staff reports performing damp to dry dressing changes to her decubiti qDay. She denies any pain, shortness of breath, dizziness, nausea, vomiting, chest pain, seizures, headache. Past Medical History Cardiac Medical History: Reports: Pulmonary Embolism - 2 years ago Denies: Atrial Fibrillation, Congestive Heart Failure, Myocardial Infarction, Hyperlipidema, Hypertension Pulmonary Medical History: Denies: Asthma, Bronchitis, Chronic Obstructive Pulmonary Disease (COPD), Pneumonia, Respiratory Failure, Sleep Apnea, Tuberculosis Neurological Medical History: Denies: Migraine, Seizures Endocrine Medical History: Reports: Diabetes Mellitus Type 2, Hypothyroidism Denies: Diabetes Mellitus Type 1 Renal/ Medical History: Denies: End Stage Renal Disease Malignancy Medical History: Denies: Leukemia, Lung Cancer GI Medical History: Denies: Gastroesophageal Reflux Disease, Hiatal Hernia Musculoskeltal Medical History: Denies: Arthritis Psychiatric Medical History: Denies: Attention Deficit Hyperactivity Disorder, Bipolar Disorder, Dementia, Depression Hematology: Reports: Anemia Denies: Hemophilia, Sickle Cell Disease Infectious Medical History: Denies: HIV Past Surgical History Past Surgical History: Reports: Section - x2, Cholecystectomy, Other - bedside debridement of bilateral ischial decubitus ulcers Denies: Appendectomy, Coronary Artery Bypass Graft, Gastric Bypass Surgery, Herniorrhaphy, Hysterectomy, Mastectomy, Pacemaker, Tonsillectomy, Tubal Ligation Social History Smoking Status: Never Smoker Frequency of Alcohol Use: None Hx Recreational Drug Use: No Drugs: None Hx Prescription Drug Abuse: No Family History Family History: Reviewed & Not Pertinent Parental Family History Reviewed: Yes Children Family History Reviewed: Yes Sibling(s) Family History Reviewed.: Yes Medication/Allergy Home Medications: Baclofen [Baclofen 10 mg Tablet] 10 mg PO Q8HP PRN 11/24/19 Allergies/Adverse Reactions: latex [Latex] Allergy (Intermediate, Verified 10/14/19 16:45) RASH/BLISTER Sulfa (Sulfonamide Antibiotics) Allergy (Intermediate, Verified 10/14/19 16:45) RASH/HIVES bee venom protein (honey bee) Allergy (Verified 10/14/19 16:45) Anaphylaxis Review of Systems Constitutional: ABSENT: anorexia, chills, fatigue, fever(s), headache(s) Eyes: ABSENT: visual disturbances Ears: ABSENT: hearing changes Nose, Mouth, and Throat: ABSENT: sore throat Cardiovascular: ABSENT: chest pain Respiratory: ABSENT: cough Gastrointestinal: ABSENT: abdominal pain, bloating Genitourinary: ABSENT: dysuria Musculoskeletal: ABSENT: back pain, deformity Integumentary: PRESENT: wounds, other - worsening decubitus ulcers. ABSENT: pruritus, rash Neurological: ABSENT: confusion, convulsions, dizziness Psychiatric: ABSENT: anxiety, depression Endocrine: ABSENT: cold intolerance, heat intolerance Hematologic/Lymphatic: ABSENT: easy bleeding, easy bruising Physical Exam Vital Signs: Temp Pulse Resp BP Pulse Ox 97.3 F 88 15 138/71 H 97 12/20/19 15:29 12/20/19 15:30 12/20/19 15:29 12/20/19 15:29 12/20/19 15:29 Intake & Output 12/19/19 12/20/19 12/21/19 06:59 06:59 06:59 Intake Total 3151 Output Total 1645 Balance 1506 Weight 77.9 kg General appearance: PRESENT: no acute distress, cooperative Eye exam: PRESENT: EOMI, PERRLA. ABSENT: scleral icterus Mouth exam: PRESENT: moist, neck supple Neck exam: ABSENT: thyromegaly, tracheal deviation, tracheostomy Respiratory exam: PRESENT: unlabored. ABSENT: tachypnea, wheezes Cardiovascular exam: ABSENT: tachycardia Vascular exam: PRESENT: normal capillary refill GI/Abdominal exam: PRESENT: soft. ABSENT: distended, firm, guarding, tenderness Rectal exam: PRESENT: normal inspection Musculoskeletal exam: ABSENT: ambulatory Neurological exam: PRESENT: awake, oriented to person, oriented to place, oriented to time, oriented to situation Psychiatric exam: ABSENT: agitated, anxious, depressed Focused psych exam: ABSENT: delusional Skin exam: PRESENT: other - stage III/IV ischial decubitus ulcer bilaterally. Worsening necrosis of adjacent skin bilaterally. Results Laboratory Results: 12/20/19 08:45 12/20/19 08:45 12/20/19 12/20/19 12/20/19 08:45 08:45 08:45 WBC 12.2 H RBC 4.46 Hgb 12.2 Hct 36.8 MCV 83 MCH 27.5 MCHC 33.2 RDW 17.6 H Plt Count 435 Seg Neutrophils % 79.4 H Carbonic Acid HCO3/H2CO3 Ratio ABG pH ABG pCO2 ABG pO2 ABG HCO3 ABG O2 Saturation ABG Base Excess VBG pH VBG pCO2 VBG HCO3 VBG Base Excess FiO2 Sodium 137.9 Potassium 4.4 Chloride 103 Carbon Dioxide 28 Anion Gap 7 BUN 8 Creatinine 0.46 L Est GFR ( Amer) > 60 Glucose 166 H Lactic Acid 1.1 Calcium 9.7 Total Bilirubin 0.7 AST 21 Alkaline Phosphatase 105 Total Protein 7.4 Albumin 3.0 L Lipase 63.1 Urine Color Urine Appearance Urine pH Ur Specific [place] Urine Protein Urine Glucose (UA) Urine Ketones Urine Blood Urine Nitrite Ur Leukocyte Esterase Urine WBC (Auto) Urine RBC (Auto) 12/20/19 12/20/19 12/20/19 08:45 08:45 09:45 WBC RBC Hgb Hct MCV MCH MCHC RDW Plt Count Seg Neutrophils % Carbonic Acid 1.40 H HCO3/H2CO3 Ratio 19:1 ABG pH 7.38 ABG pCO2 46.5 H ABG pO2 96.6 ABG HCO3 26.6 H ABG O2 Saturation 97.2 ABG Base Excess 1.0 VBG pH 7.25 L VBG pCO2 68.8 H* VBG HCO3 29.6 VBG Base Excess 0.7 FiO2 65% Sodium Potassium Chloride Carbon Dioxide Anion Gap BUN Creatinine Est GFR ( Amer) Glucose Lactic Acid Calcium Total Bilirubin AST Alkaline Phosphatase Total Protein Albumin Lipase Urine Color YELLOW Urine Appearance SLIGHTLY-CLOUDY Urine pH 8.0 Ur Specific [place] 1.006 Urine Protein NEGATIVE Urine Glucose (UA) NEGATIVE Urine Ketones NEGATIVE Urine Blood LARGE H Urine Nitrite NEGATIVE Ur Leukocyte Esterase LARGE H Urine WBC (Auto) 75 Urine RBC (Auto) 34 12/20/19 12/20/19 08:45 08:45 Creatine Kinase 30 Troponin I 0.050 NT-Pro-B Natriuret Pep 6640 H Impressions: Chest X-Ray 12/20/19 08:59 IMPRESSION: NO ACUTE RADIOGRAPHIC FINDING IN THE CHEST. Assessment & Plan - Diagnosis (1) Pressure ulcer of unspecified buttock, stage 3 Qualifiers: Laterality: unspecified laterality Is this a current diagnosis for this admission?: Yes - Plan Summary Plan Summary: 54 y/o F with severe MS. She is nonambulatory. She has worsening of her bilateral ischial decubiti. Again, I would recommend an aggressive turning regimen to minimize pressure. She should also receive protein/nutritional supplementation. She will require further debridement of both right and left decubitus ulcers due to worsening necrosis and progression of her decubiti. I will perform this at the bedside tomorrow morning. Continue with damp to dry dressing changes BID for now. Antibiotics do not appear to be necessary for this problem. Risk/benefits discussed, informed consent obtained, and all questions answered.
[2019-12-20] MEDS ORDERED: VANCOMYCIN HCL 0 MG in DEXTROSE 5%-WATER 250 ML IV NR (20:00)
[2019-12-20] MEDS ORDERED: VANCOMYCIN HCL INJ 1000 MG VIAL IV PRN (23:30)
[2019-12-20] MEDS ORDERED: BACLOFEN 10 MG TABLET PO PRN (23:47)
--- NOTE | 2019-12-20 23:47 | PDOC H&P ---
History of Present Illness Admission Date/PCP: 12/20/19 12:45 [facility] Patient complains of: Difficulty with breathinhg History of Present Illness: INO SALDIVAR is a 54 year old female known to my practice who was discharged home on 12/19/2019 after presenting with altered mental status and treated for UTI as well as aspiration pneumonia/pneumonitis with respiratory decompensation and brief transfer to ICU during that admission. Also, her CT abdomen and pelvis revealed staghorn calculi with hydronephrosis as possible predisposing factor for her recurrent UTI. Complicating her medical morbidities is development of bilateral sacral decubitus ulcers and her underlying immobility due to advance multiple sclerosis. She was brought back to the ED via EMS due to development of respiratory distress. Family reported that patient tolerated oral feeding at lunch and diner but was left in recumbent position after diner and found in respiratory distress this morning. EMS personnel found her hypotensive with need for IO infusion therapy. Her initial ED evaluation was significant for hypotension, tachycardia, tachypnea, leukocytosis, abnormal urinalysis, and hypercapnia. Her morbidities are as listed below. She was advised hospitalization for further evaluation and treatment. Past Medical History Cardiac Medical History: Reports: Pulmonary Embolism - 2 years ago Denies: Atrial Fibrillation, Congestive Heart Failure, Myocardial Infarction, Hyperlipidema, Hypertension Pulmonary Medical History: Denies: Asthma, Bronchitis, Chronic Obstructive Pulmonary Disease (COPD), Pneumonia, Respiratory Failure, Sleep Apnea, Tuberculosis Neurological Medical History: Denies: Migraine, Seizures Endocrine Medical History: Reports: Diabetes Mellitus Type 2, Hypothyroidism Denies: Diabetes Mellitus Type 1 Renal/ Medical History: Denies: End Stage Renal Disease Malignancy Medical History: Denies: Leukemia, Lung Cancer GI Medical History: Denies: Gastroesophageal Reflux Disease, Hiatal Hernia Musculoskeltal Medical History: Denies: Arthritis Psychiatric Medical History: Denies: Attention Deficit Hyperactivity Disorder, Bipolar Disorder, Dementia, Depression Hematology: Reports: Anemia Denies: Hemophilia, Sickle Cell Disease Infectious Medical History: Denies: HIV Past Surgical History Past Surgical History: Reports: Section - x2, Cholecystectomy Denies: Appendectomy, Coronary Artery Bypass Graft, Gastric Bypass Surgery, Herniorrhaphy, Hysterectomy, Mastectomy, Pacemaker, Tonsillectomy, Tubal Ligation Social History Smoking Status: Never Smoker Frequency of Alcohol Use: None Hx Recreational Drug Use: No Drugs: None Hx Prescription Drug Abuse: No - Advance Directive Resuscitation Status: Full Code Family History Family History: Reviewed & Not Pertinent Parental Family History Reviewed: Yes Children Family History Reviewed: Yes Sibling(s) Family History Reviewed.: Yes Medication/Allergy Home Medications: Baclofen [Baclofen 10 mg Tablet] 10 mg PO Q8HP PRN 11/24/19 Allergies/Adverse Reactions: latex [Latex] Allergy (Intermediate, Verified 10/14/19 16:45) RASH/BLISTER Sulfa (Sulfonamide Antibiotics) Allergy (Intermediate, Verified 10/14/19 16:45) RASH/HIVES bee venom protein (honey bee) Allergy (Verified 10/14/19 16:45) Anaphylaxis Review of Systems Constitutional: ABSENT: chills, fever(s), headache(s), weight gain, weight loss Eyes: ABSENT: visual disturbances Ears: ABSENT: hearing changes Cardiovascular: ABSENT: chest pain, dyspnea on exertion, edema, orthropnea, palpitations Respiratory: PRESENT: dyspnea. ABSENT: cough, hemoptysis Gastrointestinal: ABSENT: abdominal pain, constipation, diarrhea, hematemesis, hematochezia, nausea, vomiting Genitourinary: PRESENT: other - indwelling Padilla catheter. ABSENT: dysuria, hematuria Musculoskeletal: ABSENT: joint swelling Integumentary: ABSENT: rash, wounds Neurological: PRESENT: abnormal gait - due to advance multiople sclerosis, abnormal speech - due to advance multiople sclerosis, focal weakness - due to advance multiople sclerosis. ABSENT: confusion, dizziness, syncope Psychiatric: ABSENT: anxiety, depression, homidical ideation, suicidal ideation Endocrine: ABSENT: cold intolerance, heat intolerance, polydipsia, polyuria Hematologic/Lymphatic: ABSENT: easy bleeding, easy bruising, lymphadenopathy Allergic/Immunologic: ABSENT: seasonal rhinorrhea Physical Exam Vital Signs: Temp Pulse Resp BP Pulse Ox 97.3 F 88 15 138/71 H 97 12/20/19 15:29 12/20/19 15:30 12/20/19 15:29 12/20/19 15:29 12/20/19 15:29 Intake & Output 12/19/19 12/20/19 12/21/19 06:59 06:59 06:59 Intake Total 3151 Output Total 1645 Balance 1506 Weight 77.9 kg Physical Exam: General appearance: PRESENT: no acute distress Head exam: PRESENT: atraumatic, normocephalic Eye exam: PRESENT: conjunctiva pink, EOMI, PERRLA. ABSENT: scleral icterus Ear exam: PRESENT: normal external ear exam Mouth exam: PRESENT: dry mucosa Neck exam: ABSENT: thyromegaly Respiratory exam: PRESENT: clear to auscultation [place], decreased breath sounds - at lung bases Cardiovascular exam: PRESENT: RRR, +S1, +S2, tachycardia. ABSENT: diastolic murmur, rubs, systolic murmur Vascular exam: ABSENT: pallor GI/Abdominal exam: PRESENT: normal bowel sounds, soft. ABSENT: distended, guarding, mass, organolmegaly, rebound, tenderness : Indwelling Padilla catheter. Rectal exam: PRESENT: deferred Extremities exam: ABSENT: pedal edema Musculoskeletal exam: PRESENT: deformity - related to her advanced multiple sclerosis spastic contracture deformity Neurological exam: PRESENT: alert, awake, oriented to person, oriented to place, oriented to time, oriented to situation, abnormal gait - bedbound due to advanced multiple sclerosi Psychiatric exam: PRESENT: appropriate affect, normal mood. ABSENT: homicidal ideation, suicidal ideation Skin exam: PRESENT: dry, warm, other - stage 3 bilateral sacral decubitii ulcers Results Laboratory Results: 12/20/19 08:45 12/20/19 08:45 12/20/19 12/20/19 12/20/19 08:45 08:45 08:45 WBC 12.2 H RBC 4.46 Hgb 12.2 Hct 36.8 MCV 83 MCH 27.5 MCHC 33.2 RDW 17.6 H Plt Count 435 Seg Neutrophils % 79.4 H Carbonic Acid HCO3/H2CO3 Ratio ABG pH ABG pCO2 ABG pO2 ABG HCO3 ABG O2 Saturation ABG Base Excess VBG pH VBG pCO2 VBG HCO3 VBG Base Excess FiO2 Sodium 137.9 Potassium 4.4 Chloride 103 Carbon Dioxide 28 Anion Gap 7 BUN 8 Creatinine 0.46 L Est GFR ( Amer) > 60 Glucose 166 H Lactic Acid 1.1 Calcium 9.7 Total Bilirubin 0.7 AST 21 Alkaline Phosphatase 105 Total Protein 7.4 Albumin 3.0 L Lipase 63.1 Urine Color Urine Appearance Urine pH Ur Specific [place] Urine Protein Urine Glucose (UA) Urine Ketones Urine Blood Urine Nitrite Ur Leukocyte Esterase Urine WBC (Auto) Urine RBC (Auto) 12/20/19 12/20/19 12/20/19 08:45 08:45 09:45 WBC RBC Hgb Hct MCV MCH MCHC RDW Plt Count Seg Neutrophils % Carbonic Acid 1.40 H HCO3/H2CO3 Ratio 19:1 ABG pH 7.38 ABG pCO2 46.5 H ABG pO2 96.6 ABG HCO3 26.6 H ABG O2 Saturation 97.2 ABG Base Excess 1.0 VBG pH 7.25 L VBG pCO2 68.8 H* VBG HCO3 29.6 VBG Base Excess 0.7 FiO2 65% Sodium Potassium Chloride Carbon Dioxide Anion Gap BUN Creatinine Est GFR ( Amer) Glucose Lactic Acid Calcium Total Bilirubin AST Alkaline Phosphatase Total Protein Albumin Lipase Urine Color YELLOW Urine Appearance SLIGHTLY-CLOUDY Urine pH 8.0 Ur Specific [place] 1.006 Urine Protein NEGATIVE Urine Glucose (UA) NEGATIVE Urine Ketones NEGATIVE Urine Blood LARGE H Urine Nitrite NEGATIVE Ur Leukocyte Esterase LARGE H Urine WBC (Auto) 75 Urine RBC (Auto) 34 12/20/19 12/20/19 08:45 08:45 Creatine Kinase 30 Troponin I 0.050 NT-Pro-B Natriuret Pep 6640 H Impressions: Chest X-Ray 12/20/19 08:59 IMPRESSION: NO ACUTE RADIOGRAPHIC FINDING IN THE CHEST. Assessment & Plan - Diagnosis (1) Acute respiratory distress Is this a current diagnosis for this admission?: Yes Plan: See admitting attending physician orders for details about care plan. (2) Urinary tract infection Qualifiers: Is this a current diagnosis for this admission?: Yes Plan: See admitting attending physician orders for details about care plan. (3) Pressure ulcer of unspecified buttock, stage 3 Qualifiers: Laterality: unspecified laterality Is this a current diagnosis for this admission?: Yes Plan: See admitting attending physician orders for details about care plan. (4) Sepsis Qualifiers: Sepsis type: sepsis due to unspecified organism Sepsis acute organ dysfunction status: with acute organ dysfunction Severe sepsis acute organ dysfunction type: acute respiratory failure Acute respiratory failure type: with hypercapnia Severe sepsis shock status: unspecified Qualified Code(s): A41.9 - Sepsis, unspecified organism; R65.20 - Severe sepsis without septic shock; J96.02 - Acute respiratory failure with hypercapnia Is this a current diagnosis for this admission?: Yes Plan: See admitting attending physician orders for details about care plan. (5) Staghorn kidney stones Is this a current diagnosis for this admission?: Yes Plan: See admitting attending physician orders for details about care plan. (6) Hydronephrosis of left kidney Is this a current diagnosis for this admission?: Yes Plan: See admitting attending physician orders for details about care plan. (7) Multiple sclerosis, primary chronic progressive Is this a current diagnosis for this admission?: Yes Plan: See admitting attending physician orders for details about care plan. - Time Time Spent: 50 to 70 Minutes Medications reviewed and adjusted accordingly: Yes Anticipated discharge: SNF Anticipated DC Timeframe: Other - Inpatient Certification Based on my medical assessment, after consideration of the patient's comorbidities, presenting symptoms, or acuity I expect that the services needed warrant INPATIENT care.: Yes I certify that my determination is in accordance with my understanding of Medicare's requirements for reasonable and necessary INPATIENT services [42 CFR 412.3e].: Yes Medical Necessity: Significant Comorbidiites Make Outpatient Treatment Too Risky, Need Close Monitoring Due to Risk of Patient Decompensation, Need For IV Fluids, Need For Continuous Telemetry Monitoring, Need for IV Antibiotics, Need for Surgery, Risk of Complication if Not Cared For in Hospital, Risk of Diagnosis Which Will Require Inpatient Eval/Care/Monitoring Post Hospital Care: D/C or Transfer Summary - Plan Summary Plan Summary: See admitting attending physician orders for details about care plan.
[2019-12-20] MEDS ORDERED: VANCOMYCIN HCL 1,000 MG in DEXTROSE 5%-WATER 250 ML IV ONE (23:59)
[2019-12-21] MEDS: PANTOPRAZOLE SODIUM 40 MG TABLET.DR PO SCH (06:14)
[2019-12-21 07:29] LABS: ALBUMIN 2.3 g/dL (3.5-5.0); ALKALINE PHOSPHATASE 75 U/L (38-126); ANION GAP 6 (5-19); ASPARTATE AMINO TRANSFERASE 21 U/L (14-36); BILIRUBIN,DIRECT 0.1 mg/dL (0.0-0.4); BILIRUBIN,TOTAL 0.6 mg/dL (0.2-1.3); BLOOD UREA NITROGEN 6 mg/dL (7-20); CALCIUM 8.7 mg/dL (8.4-10.2); CARBON DIOXIDE 26 mmol/L (22-30); CHLORIDE 106 mmol/L (98-107); GLUCOSE 79 mg/dL (75-110); TOTAL PROTEIN 6.1 g/dL (6.3-8.2)
[2019-12-21 07:34] LABS: POTASSIUM 3.4 mmol/L (3.6-5.0)
[2019-12-21 08:31] LABS: ABSOLUTE EOSINOPHILS # (AUTO) 0.1 10^3/uL (0.0-0.6); ABSOLUTE LYMPHOCYTES (AUTO) 0.7 10^3/uL (0.5-4.7); ABSOLUTE MONOCYTES (AUTO) 0.5 10^3/uL (0.1-1.4); ABSOLUTE NEUT (AUTO) 5.9 10^3/uL (1.7-8.2); BASOPHILS % (AUTO) 0.6 % (0-2); EOSINOPHILS % (AUTO) 1.4 % (0-6); HEMATOCRIT 27.8 % (36.0-47.0); LYMPHOCYTES % (AUTO) 9.8 % (13-45); MEAN CORPUSCULAR HGB CONC 33.2 g/dL (32.0-36.0); MEAN CORPUSCULAR VOLUME 82 fl (80-97); MONOCYTES % (AUTO) 6.7 % (3-13); PLATELET COUNT 245 10^3/uL (150-450); RED BLOOD COUNT 3.42 10^6/uL (3.72-5.28); RED CELL DISTRIBUTION WIDTH 17.2 % (11.5-14.0); SEGMENTED NEUTROPHILS % (AUTO) 81.5 % (42-78); TOTAL CELLS COUNTED % (AUTO) 100 %; WHITE BLOOD COUNT 7.2 10^3/uL (4.0-10.5)
[2019-12-21 08:39] LABS: HEMOGLOBIN 9.2 g/dL (12.0-15.5)
[2019-12-21] MEDS: ENOXAPARIN SODIUM INJ 40 MG/0.4 ML DISP.SYRIN SUBCUT SCH (09:27)
[2019-12-21] MEDS: LEVOFLOXACIN 500 MG/D5W RTU 500 MG/100 ML RTUPB IV SCH (09:30)
[2019-12-21] MEDS: VANCOMYCIN HCL 1,000 MG in DEXTROSE 5%-WATER 250 ML IV SCH (12:43)
[2019-12-21] MEDS ORDERED: LIDOCAINE 1% INJ-PF (10 MG/ML) 30 ML SDV ONE (16:33)
[2019-12-21] MEDS ORDERED: LIDOCAINE 1.5%/EPINEPHRINE INJ-PF 30 ML SDV ONE (16:42)
--- NOTE | 2019-12-21 17:03 | Operative Report ---
Nonrecallable Operative Report DATE OF SURGERY: 12/21/19 PREOPERATIVE DIAGNOSIS: Lateral ischial decubiti, with necrotic skin and tissue present. POSTOPERATIVE DIAGNOSIS: Stage IV bilateral ischial decubiti OPERATION: 1. Sharp, excisional debridement of skin, fat, and muscle of left ischial decubitus (2 cm x 2 cm). 2. Sharp, excisional debridement of skin, fat, and muscle of right ischial decubitus (5 cm x 7 cm). SURGEON: JOSE COLEMAN ANESTHESIA: Local - 1% lidocaine with epinephrine TISSUE REMOVED OR ALTERED: Skin, fatty tissue, and muscle of bilateral ischial decubiti. COMPLICATIONS: None apparent ESTIMATED BLOOD LOSS: Minimal PROCEDURE: Procedure in detail: After informed consent was obtained from the patient, she was rolled into the right lateral decubitus position. 1% lidocaine with epinephrine was used to infiltrate the skin. The left ischial decubitus ulcer was debrided. Skin, fatty tissue, and muscle was debrided away sharply using a scalpel and scissors. Once all nonviable tissue was removed, a dressing was placed, the patient was rolled to the left lateral decubitus position, and a ttention was turned to the right ischial decubitus. The right ischial decubitus ulcer was much larger. Again, 1% lidocaine with epinephrine was used to infiltrate the skin. Using a scalpel and scissors, sharp, excisional debridement was performed. Skin, fatty tissue, and nonviable muscle was excised from the patient. Once this was completed, a dressing was placed, and the procedure was concluded. All sponge, instrument, and needle counts were correct x2. Condition: Fair.
--- NOTE | 2019-12-21 17:04 | Progress Note ---
Provider Note Provider Note: Status post debridement of ischial decubitus ulcers. The ulcers are worsening. Skin, fatty tissue, and muscle were debrided away sharply. The patient has stage IV ulcers bilaterally. Patient will require an aggressive turning regimen, otherwise they will continue to worsen. Continue with damp to dry dressing changes twice daily. Surgery will sign off at this time. Please renotify with any questions or concerns.
--- NOTE | 2019-12-21 17:37 | PDOC PROGRESS REPORT ---
Subjective Progress Note for:: 12/21/19 Subjective:: No reported fever or chills. No chest pain or difficulty with her breathing. S/P bilateral ischial pressure ulcer debridement. She remain on IV Vancomycin and Cefepime coverage. Reason For Visit: ACUTE RESPIRATORY DISTRESS,SEPSIS,URINARY TRACT Physical Exam Vital Signs: Temp Pulse Resp BP Pulse Ox 98.4 F 116 H 28 H 124/66 96 12/21/19 15:56 12/21/19 15:56 12/21/19 15:56 12/21/19 15:56 12/21/19 15:56 Intake & Output 12/20/19 12/21/19 12/22/19 06:59 06:59 06:59 Intake Total 3401 350 Output Total 2395 Balance 1006 350 Weight 79.9 kg General appearance: PRESENT: no acute distress Head exam: PRESENT: atraumatic, normocephalic Eye exam: PRESENT: conjunctiva pink. ABSENT: scleral icterus Mouth exam: PRESENT: moist Respiratory exam: PRESENT: clear to auscultation rome, decreased breath sounds - at lung bases Cardiovascular exam: PRESENT: RRR, +S1, +S2. ABSENT: diastolic murmur, rubs, systolic murmur Vascular exam: ABSENT: pallor GI/Abdominal exam: PRESENT: normal bowel sounds, soft. ABSENT: distended, guarding, mass, organolmegaly, rebound, tenderness Neurological exam: PRESENT: alert, awake. ABSENT: motor sensory deficit Psychiatric exam: PRESENT: appropriate affect, normal mood. ABSENT: homicidal ideation, suicidal ideation Skin exam: PRESENT: dry, warm, other - stage 4 bilateral ischial pressure ulcers Results Laboratory Results: 12/21/19 08:00 12/21/19 06:25 12/21/19 12/21/19 12/21/19 06:25 06:25 08:00 WBC Cancelled 7.2 RBC Cancelled 3.42 L Hgb Cancelled 9.2 L D Hct Cancelled 27.8 L MCV Cancelled 82 MCH Cancelled 27.0 MCHC Cancelled 33.2 RDW Cancelled 17.2 H Plt Count Cancelled 245 Seg Neutrophils % Cancelled 81.5 H Sodium 137.9 Potassium 3.4 L D Chloride 106 Carbon Dioxide 26 Anion Gap 6 BUN 6 L Creatinine 0.45 L Est GFR ( Amer) > 60 Glucose 79 Calcium 8.7 Total Bilirubin 0.6 AST 21 Alkaline Phosphatase 75 Total Protein 6.1 L Albumin 2.3 L 12/20/19 12/20/19 08:45 08:45 Creatine Kinase 30 Troponin I 0.050 NT-Pro-B Natriuret Pep 6640 H Impressions: Chest X-Ray 12/20/19 08:59 IMPRESSION: NO ACUTE RADIOGRAPHIC FINDING IN THE CHEST. Assessment & Plan - Diagnosis (1) Acute respiratory distress Is this a current diagnosis for this admission?: Yes (2) Urinary tract infection Qualifiers: Is this a current diagnosis for this admission?: Yes (3) Sepsis Qualifiers: Sepsis type: sepsis due to unspecified organism Sepsis acute organ dysfunction status: with acute organ dysfunction Severe sepsis acute organ dysfunction type: acute respiratory failure Acute respiratory failure type: with hypercapnia Severe sepsis shock status: unspecified Qualified Code(s): A41.9 - Sepsis, unspecified organism; R65.20 - Severe sepsis without septic shock; J96.02 - Acute respiratory failure with hypercapnia Is this a current diagnosis for this admission?: Yes (4) Staghorn kidney stones Is this a current diagnosis for this admission?: Yes (5) Hydronephrosis of left kidney Is this a current diagnosis for this admission?: Yes (6) Multiple sclerosis, primary chronic progressive Is this a current diagnosis for this admission?: Yes (7) Pressure ulcer of ischial area, stage 4 Qualifiers: Laterality: unspecified laterality Qualified Code(s): L89.304 - Pressure ulcer of unspecified buttock, stage 4 Is this a current diagnosis for this admission?: Yes - Time Time Spent with patient: 25-34 minutes Level of Care: IMCU Medications reviewed and adjusted accordingly: Yes Anticipated discharge: Home with Homehealth, SNF Anticipated DC Timeframe: Other - Inpatient Certification Based on my medical assessment, after consideration of the patient's comorbidities, presenting symptoms, or acuity I expect that the services needed warrant INPATIENT care.: Yes I certify that my determination is in accordance with my understanding of Medicare's requirements for reasonable and necessary INPATIENT services [42 CFR 412.3e].: Yes Medical Necessity: Significant Comorbidiites Make Outpatient Treatment Too Risky, Need Close Monitoring Due to Risk of Patient Decompensation, Need For IV Fluids, Need For Continuous Telemetry Monitoring, Need for IV Antibiotics, Risk of Complication if Not Cared For in Hospital, Risk of Diagnosis Which Will Require Inpatient Eval/Care/Monitoring Post Hospital Care: D/C Business Area Manager Documentation, D/C or Transfer Summary - Plan Summary Plan Summary: Continue current medication management. Maintain on specialty bed for wound management. Encouraged increase food intake. Start on oral supplementations.
[2019-12-21] MEDS: ASCORBIC ACID 500 MG TABLET PO SCH (18:30)
[2019-12-21] MEDS: POTASSI CL 20 MEQ/50 ML RIDER 20 MEQ/50 ML RTUPB IV SCH ×2 (18:30→21:17)
[2019-12-21] MEDS ORDERED: LIDOCAINE 1% INJ (10 MG/ML) 10 ML MDV INJ PRN (19:54)
[2019-12-22] MEDS: VANCOMYCIN HCL 1,000 MG in DEXTROSE 5%-WATER 250 ML IV SCH ×3 (00:14→23:03)
[2019-12-22] MEDS: PANTOPRAZOLE SODIUM 40 MG TABLET.DR PO SCH (05:43)
[2019-12-22] MEDS: ASCORBIC ACID 500 MG TABLET PO SCH ×2 (09:48→17:24)
[2019-12-22] MEDS: VITAMIN A 10,000 UNIT CAPSULE PO SCH (09:48)
[2019-12-22] MEDS: VITAMIN E (DL, ACETATE) 400 UNIT CAPSULE PO SCH (09:48)
[2019-12-22] MEDS: ZINC SULFATE 220 MG CAPSULE PO SCH (09:48)
[2019-12-22] MEDS: LEVOFLOXACIN 500 MG/D5W RTU 500 MG/100 ML RTUPB IV SCH (09:48)
[2019-12-22] MEDS: ENOXAPARIN SODIUM INJ 40 MG/0.4 ML DISP.SYRIN SUBCUT SCH (09:49)
[2019-12-22 21:39] LABS: VANCOMYCIN,TROUGH 25.5 ug/mL (5.0-20.0)
[2019-12-23] MEDS: PANTOPRAZOLE SODIUM 40 MG TABLET.DR PO SCH (06:26)
--- NOTE | 2019-12-23 08:01 | PDOC PROGRESS REPORT ---
Subjective Progress Note for:: 12/22/19 Subjective:: No reported fever or chills. No chest pain or difficulty with her breathing. P.O intake remain a challenge. Reason For Visit: ACUTE RESPIRATORY DISTRESS,SEPSIS,URINARY TRACT Physical Exam Vital Signs: Temp Pulse Resp BP Pulse Ox 98.0 F 105 H 22 H 139/68 H 100 12/22/19 16:49 12/22/19 16:49 12/22/19 16:49 12/22/19 16:49 12/22/19 16:49 Intake & Output 12/21/19 12/22/19 12/23/19 06:59 06:59 06:59 Intake Total 3401 710 410 Output Total 2395 1600 Balance 1006 -890 410 Weight 79.9 kg 77.9 kg 77.9 kg Physical Exam: General appearance: PRESENT: no acute distress Head exam: PRESENT: atraumatic, normocephalic Eye exam: PRESENT: conjunctiva pink. ABSENT: pallor, scleral icterus Mouth exam: PRESENT: moist Respiratory exam: PRESENT: clear to auscultation rome, decreased breath sounds - at lung bases Cardiovascular exam: PRESENT: RRR, +S1, +S2. ABSENT: diastolic murmur, rubs, systolic murmur GI/Abdominal exam: PRESENT: normal bowel sounds, soft. ABSENT: distended, guarding, mass, organomegaly, rebound, tenderness Neurological exam: PRESENT: alert, awake. ABSENT: motor sensory deficit Psychiatric exam: PRESENT: appropriate affect, normal mood. ABSENT: homicidal ideation, suicidal ideation Skin exam: PRESENT: dry, warm, other - stage 4 bilateral ischial pressure ulcers Results Laboratory Results: 12/21/19 08:00 12/21/19 06:25 12/20/19 11:30 Blood Blood Culture (PCR) - Final Staphylococcus Species 12/20/19 12/20/19 08:45 08:45 Creatine Kinase 30 Troponin I 0.050 NT-Pro-B Natriuret Pep 6640 H Impressions: Chest X-Ray 12/20/19 08:59 IMPRESSION: NO ACUTE RADIOGRAPHIC FINDING IN THE CHEST. Assessment & Plan - Diagnosis (1) Acute respiratory distress Is this a current diagnosis for this admission?: Yes (2) Urinary tract infection Qualifiers: Is this a current diagnosis for this admission?: Yes (3) Sepsis Qualifiers: Sepsis type: sepsis due to unspecified organism Sepsis acute organ dysfunction status: with acute organ dysfunction Severe sepsis acute organ dysfunction type: acute respiratory failure Acute respiratory failure type: with hypercapnia Severe sepsis shock status: unspecified Qualified Code(s): A41.9 - Sepsis, unspecified organism; R65.20 - Severe sepsis without septic shock; J96.02 - Acute respiratory failure with hypercapnia Is this a current diagnosis for this admission?: Yes (4) Staghorn kidney stones Is this a current diagnosis for this admission?: Yes (5) Hydronephrosis of left kidney Is this a current diagnosis for this admission?: Yes (6) Multiple sclerosis, primary chronic progressive Is this a current diagnosis for this admission?: Yes (7) Pressure ulcer of ischial area, stage 4 Qualifiers: Laterality: unspecified laterality Qualified Code(s): L89.304 - Pressure ulcer of unspecified buttock, stage 4 Is this a current diagnosis for this admission?: Yes - Time Time Spent with patient: 25-34 minutes Level of Care: IMCU Medications reviewed and adjusted accordingly: Yes Anticipated discharge: Home with Homehealth, SNF Anticipated DC Timeframe: Other - Inpatient Certification Based on my medical assessment, after consideration of the patient's comorbidities, presenting symptoms, or acuity I expect that the services needed warrant INPATIENT care.: Yes I certify that my determination is in accordance with my understanding of Medicare's requirements for reasonable and necessary INPATIENT services [42 CFR 412.3e].: Yes Medical Necessity: Significant Comorbidiites Make Outpatient Treatment Too Risky, Need Close Monitoring Due to Risk of Patient Decompensation, Need For IV Fluids, Need For Continuous Telemetry Monitoring, Need for IV Antibiotics, Risk of Complication if Not Cared For in Hospital, Risk of Diagnosis Which Will Req uire Inpatient Eval/Care/Monitoring Post Hospital Care: D/C Registered Art Therapist Documentation, D/C or Transfer Summary - Plan Summary Plan Summary: Continue current medication management. Follow up on cultured organism identification and sensitivity findings.
[2019-12-23] MEDS: ENOXAPARIN SODIUM INJ 40 MG/0.4 ML DISP.SYRIN SUBCUT SCH (10:40)
[2019-12-23] MEDS: ASCORBIC ACID 500 MG TABLET PO SCH ×2 (10:40→17:50)
[2019-12-23] MEDS: METOPROLOL TARTRATE 25 MG TABLET PO SCH ×2 (10:40→22:54)
[2019-12-23] MEDS: LEVOFLOXACIN 500 MG/D5W RTU 500 MG/100 ML RTUPB IV SCH (10:41)
[2019-12-23] MEDS: ZINC SULFATE 220 MG CAPSULE PO SCH (10:42)
[2019-12-23] MEDS: VITAMIN E (DL, ACETATE) 400 UNIT CAPSULE PO SCH (10:42)
[2019-12-23] MEDS: VITAMIN A 10,000 UNIT CAPSULE PO SCH (10:42)
[2019-12-23] MEDS: VANCOMYCIN HCL 750 MG in DEXTROSE 5%-WATER 250 ML IV SCH ×2 (11:30→22:53)
--- NOTE | 2019-12-23 19:07 | PDOC PROGRESS REPORT ---
Subjective Progress Note for:: 12/23/19 Subjective:: No reported fever or chills. No chest pain or difficulty with her breathing. Her bilateral ischial pressure ulcer and poor food intake remain a challenge and detrimental to her prognosis as well as risk of readmission. Reason For Visit: ACUTE RESPIRATORY DISTRESS,SEPSIS,URINARY TRACT Physical Exam Vital Signs: Temp Pulse Resp BP Pulse Ox 98.2 F 108 H 20 122/56 L 97 12/23/19 03:14 12/23/19 03:14 12/23/19 03:14 12/23/19 03:14 12/23/19 03:14 Intake & Output 12/22/19 12/23/19 12/24/19 06:59 06:59 06:59 Intake Total 710 660 Output Total 1600 875 Balance -890 -215 Weight 77.9 kg 77.8 kg Physical Exam: General appearance: PRESENT: no acute distress Head exam: PRESENT: atraumatic, normocephalic Eye exam: PRESENT: conjunctiva pink. ABSENT: pallor, scleral icterus Mouth exam: PRESENT: moist Respiratory exam: PRESENT: clear to auscultation rome, decreased breath sounds - at lung bases Cardiovascular exam: PRESENT: RRR, +S1, +S2. ABSENT: diastolic murmur, rubs, systolic murmur GI/Abdominal exam: PRESENT: normal bowel sounds, soft. ABSENT: distended, guarding, mass, organomegaly, rebound, tenderness Neurological exam: PRESENT: alert, awake. ABSENT: motor sensory deficit Psychiatric exam: PRESENT: appropriate affect, normal mood. ABSENT: homicidal ideation, suicidal ideation Skin exam: PRESENT: dry, warm, other - stage 4 bilateral ischial pressure ulcers Results Laboratory Results: 12/21/19 08:00 12/22/19 20:10 12/22/19 20:10 Creatinine 0.53 Est GFR ( Amer) > 60 12/20/19 11:30 Blood Blood Culture (PCR) - Final Staphylococcus Species 12/20/19 12/20/19 08:45 08:45 Creatine Kinase 30 Troponin I 0.050 NT-Pro-B Natriuret Pep 6640 H Impressions: Chest X-Ray 12/20/19 08:59 IMPRESSION: NO ACUTE RADIOGRAPHIC FINDING IN THE CHEST. Assessment & Plan - Diagnosis (1) Acute respiratory distress Is this a current diagnosis for this admission?: Yes (2) Urinary tract infection Qualifiers: Is this a current diagnosis for this admission?: Yes (3) Sepsis Qualifiers: Sepsis type: sepsis due to unspecified organism Sepsis acute organ dysfunction status: with acute organ dysfunction Severe sepsis acute organ dysfunction type: acute respiratory failure Acute respiratory failure type: with hypercapnia Severe sepsis shock status: unspecified Qualified Code(s): A41.9 - Sepsis, unspecified organism; R65.20 - Severe sepsis without septic shock; J96.02 - Acute respiratory failure with hypercapnia Is this a current diagnosis for this admission?: Yes (4) Staghorn kidney stones Is this a current diagnosis for this admission?: Yes (5) Hydronephrosis of left kidney Is this a current diagnosis for this admission?: Yes (6) Multiple sclerosis, primary chronic progressive Is this a current diagnosis for this admission?: Yes (7) Pressure ulcer of ischial area, stage 4 Qualifiers: Laterality: unspecified laterality Qualified Code(s): L89.304 - Pressure ulcer of unspecified buttock, stage 4 Is this a current diagnosis for this admission?: Yes - Time Time Spent with patient: 25-34 minutes Level of Care: IMCU Medications reviewed and adjusted accordingly: Yes Anticipated discharge: Home with Homehealth, SNF Anticipated DC Timeframe: Other - Inpatient Certification Based on my medical assessment, after consideration of the patient's comorbidities, presenting symptoms, or acuity I expect that the services needed warrant INPATIENT care.: Yes I certify that my determination is in accordance with my understanding of Medicare's requirements for reasonable and necessary INPATIENT services [42 CFR 412.3e].: Yes Medical Necessity: Significant Comorbidiites Make Outpatient Treatment Too Risky, Need Close Monitoring Due to Risk of Patient Decompensation, Need For IV Fluids, Need For Continuous Telemetry Monitoring, Need for IV Antibiotics, Risk of Complication if Not Cared For in Hospital, Risk of Diagnosis Which Will Require Inpatient Eval/Care/Monitoring Post Hospital Care: D/C Supervisor Tubing Documentation - Plan Summary Plan Summary: Continue current medication and antibiotic coverage. Emphasized need for bed rotation and wound care.
[2019-12-24] MEDS: OXYCODONE-ACETAMINOPHEN 5-325 MG TABLET PO PRN ×2 (02:20→12:20)
[2019-12-24] MEDS: PANTOPRAZOLE SODIUM 40 MG TABLET.DR PO SCH (06:38)
[2019-12-24] MEDS: LEVOFLOXACIN 500 MG/D5W RTU 500 MG/100 ML RTUPB IV SCH (11:22)
[2019-12-24] MEDS: VANCOMYCIN HCL 750 MG in DEXTROSE 5%-WATER 250 ML IV SCH ×2 (11:23→21:43)
[2019-12-24] MEDS: ZINC SULFATE 220 MG CAPSULE PO SCH (12:19)
[2019-12-24] MEDS: METOPROLOL TARTRATE 25 MG TABLET PO SCH ×2 (12:19→21:42)
[2019-12-24] MEDS: ENOXAPARIN SODIUM INJ 40 MG/0.4 ML DISP.SYRIN SUBCUT SCH (12:19)
[2019-12-24] MEDS: VITAMIN A 10,000 UNIT CAPSULE PO SCH (12:19)
[2019-12-24] MEDS: ASCORBIC ACID 500 MG TABLET PO SCH ×2 (12:19→18:50)
[2019-12-24] MEDS: VITAMIN E (DL, ACETATE) 400 UNIT CAPSULE PO SCH (12:20)
--- NOTE | 2019-12-24 18:10 | PDOC PROGRESS REPORT ---
Subjective Progress Note for:: 12/24/19 Subjective:: No reported fever or chills. No chest pain or difficulty with her breathing. Her oral intake is encouraging. Reason For Visit: ACUTE RESPIRATORY DISTRESS,SEPSIS,URINARY TRACT Physical Exam Vital Signs: Temp Pulse Resp BP Pulse Ox 98.3 F 108 H 24 H 115/58 L 99 12/24/19 03:22 12/24/19 03:22 12/24/19 03:22 12/24/19 03:22 12/24/19 03:22 Intake & Output 12/23/19 12/24/19 12/25/19 06:59 06:59 06:59 Intake Total 660 990 Output Total 875 1125 Balance -215 -135 Weight 77.8 kg 76.3 kg Physical Exam: General appearance: PRESENT: no acute distress Head exam: PRESENT: atraumatic, normocephalic Eye exam: PRESENT: conjunctiva pink. ABSENT: pallor, scleral icterus Mouth exam: PRESENT: moist Respiratory exam: PRESENT: clear to auscultation rome, decreased breath sounds - at lung bases Cardiovascular exam: PRESENT: RRR, +S1, +S2. ABSENT: diastolic murmur, rubs, systolic murmur GI/Abdominal exam: PRESENT: normal bowel sounds, soft. ABSENT: distended, guarding, mass, organomegaly, rebound, tenderness Neurological exam: PRESENT: alert, awake. ABSENT: motor sensory deficit Psychiatric exam: PRESENT: appropriate affect, normal mood. ABSENT: homicidal ideation, suicidal ideation Skin exam: PRESENT: dry, warm, other - stage 4 bilateral ischial pressure ulcers Results Laboratory Results: 12/21/19 08:00 12/22/19 20:10 12/20/19 11:30 Blood Blood Culture (PCR) - Final Staphylococcus Species 12/20/19 11:30 Blood Blood Culture - Final Staphylococcus Epidermidis 12/20/19 08:45 Catheterized Urine Urine Culture - Final NO GROWTH 2 DAYS 12/20/19 12/20/19 08:45 08:45 Creatine Kinase 30 Troponin I 0.050 NT-Pro-B Natriuret Pep 6640 H Impressions: Chest X-Ray 12/20/19 08:59 IMPRESSION: NO ACUTE RADIOGRAPHIC FINDING IN THE CHEST. Assessment & Plan - Diagnosis (1) Acute respiratory distress Is this a current diagnosis for this admission?: Yes (2) Urinary tract infection Qualifiers: Is this a current diagnosis for this admission?: Yes (3) Sepsis Qualifiers: Sepsis type: sepsis due to unspecified organism Sepsis acute organ dysf unction status: with acute organ dysfunction Severe sepsis acute organ dy sfunction type: acute respiratory failure Acute respiratory failure type: with hypercapnia Severe sepsis shock status: unspecified Qualified Code(s): A41.9 - Sepsis, unspecified organism; R65.20 - Severe sepsis without septic shock; J96.02 - Acute respiratory failure with hypercapnia Is this a current diagnosis for this admission?: Yes (4) Staghorn kidney stones Is this a current diagnosis for this admission?: Yes (5) Hydronephrosis of left kidney Is this a current diagnosis for this admission?: Yes (6) Multiple sclerosis, primary chronic progressive Is this a current diagnosis for this admission?: Yes (7) Pressure ulcer of ischial area, stage 4 Qualifiers: Laterality: unspecified laterality Qualified Code(s): L89.304 - Pressure ulcer of unspecified buttock, stage 4 Is this a current diagnosis for this admission?: Yes - Time Time Spent with patient: 25-34 minutes Level of Care: IMCU Medications reviewed and adjusted accordingly: Yes Anticipated discharge: Home with Homehealth, SNF Anticipated DC Timeframe: Other - Inpatient Certification Based on my medical assessment, after consideration of the patient's comorbidities, presenting symptoms, or acuity I expect that the services needed warrant INPATIENT care.: Yes I certify that my determination is in accordance with my understanding of Medicare's requirements for reasonable and necessary INPATIENT services [42 CFR 412.3e].: Yes Medical Necessity: Significant Comorbidiites Make Outpatient Treatment Too Risky, Need Close Monitoring Due to Risk of Patient Decompensation, Need For IV Fluids, Need For Continuous Telemetry Monitoring, Need for IV Antibiotics, Risk of Complication if Not Cared For in Hospital, Risk of Diagnosis Which Will Require Inpatient Eval/Care/Monitoring Post Hospital Care: D/C Pathology Transcriptionist Documentation, D/C or Transfer Summary - Plan Summary Plan Summary: Continue current medication management. Follow up with the family regarding disposition issues.
[2019-12-24 21:51] LABS: VANCOMYCIN,TROUGH 27.9 ug/mL (5.0-20.0)
[2019-12-25] MEDS: OXYCODONE-ACETAMINOPHEN 5-325 MG TABLET PO PRN ×2 (04:27→16:40)
[2019-12-25] MEDS: PANTOPRAZOLE SODIUM 40 MG TABLET.DR PO SCH (05:37)
[2019-12-25] MEDS: LEVOFLOXACIN 500 MG/D5W RTU 500 MG/100 ML RTUPB IV SCH (09:46)
[2019-12-25] MEDS: ENOXAPARIN SODIUM INJ 40 MG/0.4 ML DISP.SYRIN SUBCUT SCH (09:47)
[2019-12-25] MEDS: METOPROLOL TARTRATE 25 MG TABLET PO SCH ×2 (09:47→21:48)
[2019-12-25] MEDS: ASCORBIC ACID 500 MG TABLET PO SCH ×2 (09:47→17:54)
[2019-12-25] MEDS: VITAMIN E (DL, ACETATE) 400 UNIT CAPSULE PO SCH (09:47)
[2019-12-25] MEDS: ZINC SULFATE 220 MG CAPSULE PO SCH (09:47)
[2019-12-25] MEDS: VITAMIN A 10,000 UNIT CAPSULE PO SCH (09:48)
[2019-12-25] MEDS: DOXYCYCLINE HYCLATE 100 MG TABLET PO SCH ×2 (15:06→21:48)
--- NOTE | 2019-12-25 19:22 | PDOC PROGRESS REPORT ---
Subjective Progress Note for:: 12/25/19 Subjective:: No reported fever or chills. No chest pain or difficulty with her breathing. There is reported expressed pain with motion and wound care period. Her oral intake is encouraging. Reason For Visit: ACUTE RESPIRATORY DISTRESS,SEPSIS,URINARY TRACT Physical Exam Vital Signs: Temp Pulse Resp BP Pulse Ox 97.5 F 117 H 20 105/64 97 12/25/19 15:14 12/25/19 15:14 12/25/19 15:14 12/25/19 15:14 12/25/19 15:14 Intake & Output 12/24/19 12/25/19 12/26/19 06:59 06:59 06:59 Intake Total 990 880 150 Output Total 1125 1750 275 Balance -135 -870 -125 Weight 76.3 kg 77.1 kg Physical Exam: General appearance: PRESENT: no acute distress Head exam: PRESENT: atraumatic, normocephalic Eye exam: PRESENT: conjunctiva pink. ABSENT: pallor, scleral icterus Mouth exam: PRESENT: moist Respiratory exam: PRESENT: clear to auscultation rome, decreased breath sounds - at lung bases Cardiovascular exam: PRESENT: RRR, +S1, +S2. ABSENT: diastolic murmur, rubs, systolic murmur GI/Abdominal exam: PRESENT: normal bowel sounds, soft. ABSENT: distended, guarding, mass, organomegaly, rebound, tenderness Neurological exam: PRESENT: alert, awake. ABSENT: motor sensory deficit Psychiatric exam: PRESENT: appropriate affect, normal mood. ABSENT: homicidal ideation, suicidal ideation Skin exam: PRESENT: dry, warm, other - stage 4 bilateral ischial pressure ulcers Results Laboratory Results: 12/21/19 08:00 12/24/19 21:05 12/24/19 21:05 Creatinine 0.58 Est GFR ( Amer) > 60 12/20/19 08:45 Blood Blood Culture - Final NO GROWTH IN 5 DAYS 12/20/19 12/20/19 08:45 08:45 Creatine Kinase 30 Troponin I 0.050 NT-Pro-B Natriuret Pep 6640 H Impressions: Chest X-Ray 12/20/19 08:59 IMPRESSION: NO ACUTE RADIOGRAPHIC FINDING IN THE CHEST. Assessment & Plan - Diagnosis (1) Acute respiratory distress Is this a current diagnosis for this admission?: Yes (2) Urinary tract infection Qualifiers: Is this a current diagnosis for this admission?: Yes (3) Sepsis Qualifiers: Sepsis type: sepsis due to unspecified organism Sepsis acute organ dysfunction status: with acute organ dysfunction Severe sepsis acute organ dysfunction type: acute respiratory failure Acute respiratory failure type: with hypercapnia Severe sepsis shock status: unspecified Qualified Code(s): A41.9 - Sepsis, unspecified organism; R65.20 - Severe sepsis without septic shock; J96.02 - Acute respiratory failure with hypercapnia Is this a current diagnosis for this admission?: Yes (4) Staghorn kidney stones Is this a current diagnosis for this admission?: Yes (5) Hydronephrosis of left kidney Is this a current diagnosis for this admission?: Yes (6) Multiple sclerosis, primary chronic progressive Is this a current diagnosis for this admission?: Yes (7) Pressure ulcer of ischial area, stage 4 Qualifiers: Laterality: unspecified laterality Qualified Code(s): L89.304 - Pressure ulcer of unspecified buttock, stage 4 Is this a current diagnosis for this admission?: Yes - Time Time Spent with patient: 25-34 minutes Level of Care: IMCU Medications reviewed and adjusted accordingly: Yes Anticipated discharge: Home with Homehealth, SNF Anticipated DC Timeframe: Other - Inpatient Certification Based on my medical assessment, after consideration of the patient's comorbidities, presenting symptoms, or acuity I expect that the services needed warrant INPATIENT care.: Yes I certify that my determination is in accordance with my understanding of Medicare's requirements for reasonable and necessary INPATIENT services [42 CFR 412.3e].: Yes Medical Necessity: Significant Comorbidiites Make Outpatient Treatment Too Risky, Need Close Monitoring Due to Risk of Patient Decompensation, Need For IV Fluids, Need For Continuous Telemetry Monitoring, Need for Pain Control, Need for IV Antibiotics, Risk of Complication if Not Cared For in Hospital, Risk of Diagnosis Which Will Require Inpatient Eval/Care/Monitoring Post Hospital Care: D/C Airplane Cleaner Documentation, D/C or Transfer Summary - Plan Summary Plan Summary: Continue current antibiotic therapy. Increase Percocet to 5/325 mg p.o q 6 hours prn for pain management. Use diluted betadine solution as base contact with her wound to decrease bacteria load. Continue other supplemental therapy to aide wound healing.
[2019-12-26] MEDS: OXYCODONE-ACETAMINOPHEN 5-325 MG TABLET PO PRN ×2 (00:41→09:44)
[2019-12-26] MEDS: PANTOPRAZOLE SODIUM 40 MG TABLET.DR PO SCH (05:37)
[2019-12-26] MEDS: ENOXAPARIN SODIUM INJ 40 MG/0.4 ML DISP.SYRIN SUBCUT SCH (09:44)
[2019-12-26] MEDS: VITAMIN A 10,000 UNIT CAPSULE PO SCH (09:45)
[2019-12-26] MEDS: DOXYCYCLINE HYCLATE 100 MG TABLET PO SCH (09:45)
[2019-12-26] MEDS: VITAMIN E (DL, ACETATE) 400 UNIT CAPSULE PO SCH (09:45)
[2019-12-26] MEDS: METOPROLOL TARTRATE 25 MG TABLET PO SCH (09:45)
[2019-12-26] MEDS: ASCORBIC ACID 500 MG TABLET PO SCH (09:45)
[2019-12-26] MEDS: ZINC SULFATE 220 MG CAPSULE PO SCH (09:45)
[2019-12-26 11:00] LABS: VANCOMYCIN,TROUGH 14.6 ug/mL (5.0-20.0)
--- NOTE | 2019-12-26 14:39 | PDOC PROGRESS REPORT ---
Subjective Progress Note for:: 12/26/19 Subjective:: Patient had another episode of aspiration this morning with even her medication administration. No reported fever or chills. No chest pain or difficulty with her breathing. Reason For Visit: ACUTE RESPIRATORY DISTRESS,SEPSIS,URINARY TRACT Physical Exam Vital Signs: Temp Pulse Resp BP Pulse Ox 98.1 F 127 H 20 113/51 L 95 12/26/19 11:18 12/26/19 11:18 12/26/19 11:18 12/26/19 11:18 12/26/19 11:18 Intake & Output 12/25/19 12/26/19 12/27/19 06:59 06:59 06:59 Intake Total 880 240 100 Output Total 1750 750 50 Balance -870 -510 50 Weight 77.1 kg 75.5 kg Physical Exam: General appearance: PRESENT: no acute distress Head exam: PRESENT: atraumatic, normocephalic Eye exam: PRESENT: conjunctiva pink. ABSENT: pallor, scleral icterus Mouth exam: PRESENT: moist Respiratory exam: PRESENT: clear to auscultation rome, decreased breath sounds - at lung bases Cardiovascular exam: PRESENT: RRR, +S1, +S2. ABSENT: diastolic murmur, rubs, systolic murmur GI/Abdominal exam: PRESENT: normal bowel sounds, soft. ABSENT: distended, guarding, mass, organomegaly, rebound, tenderness Neurological exam: PRESENT: alert, awake. ABSENT: motor sensory deficit Psychiatric exam: PRESENT: appropriate affect, normal mood. ABSENT: homicidal ideation, suicidal ideation Skin exam: PRESENT: dry, warm, other - stage 4 bilateral ischial pressure ulcers Results Laboratory Results: 12/21/19 08:00 12/26/19 10:20 12/26/19 10:20 Creatinine 0.51 L Est GFR ( Amer) > 60 12/20/19 12/20/19 08:45 08:45 Creatine Kinase 30 Troponin I 0.050 NT-Pro-B Natriuret Pep 6640 H Impressions: Chest X-Ray 12/20/19 08:59 IMPRESSION: NO ACUTE RADIOGRAPHIC FINDING IN THE CHEST. Assessment & Plan - Diagnosis (1) Acute respiratory distress Is this a current diagnosis for this admission?: Yes (2) Urinary tract infection Qualifiers: Is this a current diagnosis for this admission?: Yes (3) Sepsis Qualifiers: Sepsis type: sepsis due to unspecified organism Sepsis acute organ dysfunction status: with acute organ dysfunction Severe sepsis acute organ dysfunction type: acute respiratory failure Acute respiratory failure type: with hypercapnia Severe sepsis shock status: unspecified Qualified Code(s): A41.9 - Sepsis, unspecified organism; R65.20 - Severe sepsis without septic shock; J96.02 - Acute respiratory failure with hypercapnia Is this a current diagnosis for this admission?: Yes (4) Staghorn kidney stones Is this a current diagnosis for this admission?: Yes (5) Hydronephrosis of left kidney Is this a current diagnosis for this admission?: Yes (6) Multiple sclerosis, primary chronic progressive Is this a current diagnosis for this admission?: Yes (7) Pressure ulcer of ischial area, stage 4 Qualifiers: Laterality: unspecified laterality Qualified Code(s): L89.304 - Pressure ulcer of unspecified buttock, stage 4 Is this a current diagnosis for this admission?: Yes - Time Time Spent with patient: 25-34 minutes Level of Care: IMCU Medications reviewed and adjusted accordingly: Yes Anticipated discharge: Home with Homehealth, SNF, Hospice Anticipated DC Timeframe: Other - Inpatient Certification Based on my medical assessment, after consideration of the patient's comorbidities, presenting symptoms, or acuity I expect that the services needed warrant INPATIENT care.: Yes I certify that my determination is in accordance with my understanding of Medicare's requirements for reasonable and necessary INPATIENT services [42 CFR 412.3e].: Yes Medical Necessity: Significant Comorbidiites Make Outpatient Treatment Too Risky, Need Close Monitoring Due to Risk of Patient Decompensation, Need For IV Fluids, Need For Continuous Telemetry Monitoring, Need for IV Antibiotics, Risk of Complication if Not Cared For in Hospital, Risk of Diagnosis Which Will Require Inpatient Eval/Care/Monitoring Post Hospital Care: D/C Electrician Control Equipment Documentation, D/C or Transfer Summary - Plan Summary Plan Summary: I had extensive discussion with patient and daughter regarding moving forward with her care plan in view of her recurrent aspiration and persistent risk a well as her poor nutritional status and decubitus ulcers. Discussed options include PEG tube placement which does not prevent aspiration but allowed administration of her medications and meet her nutritional requirement versus hospice placement in view of her advance multiple sclerosis with complications. Family will get back to me with their decision. Meanwhile I will change her pain management to IV Morphine 2 mg q 6 hours and IV Pepcid 20 mg q12 hours. Monitor heart rate for SVT and muscle spasticity problem for needed intervention.
[2019-12-26] MEDS: MORPHINE SULFATE 10 MG/ML INJ IV PRN ×2 (16:17→22:23)
[2019-12-26] MEDS: NORMAL SALINE 1000 ML 1,000 ML with POTASSIUM CHLORIDE 20 MEQ, MAGNESIUM SULFATE 8 MEQ,... IV SCH ×5 (17:44)
[2019-12-26] MEDS: FAMOTIDINE INJ/PF 20 MG/2 ML SDV IV SCH (22:23)
[2019-12-26] MEDS: DOXYCYCLINE HYCLATE 100 MG in DEXTROSE 5%-WATER 250 ML IV SCH (22:26)
[2019-12-27] MEDS: DEXTROSE 5%-NORMAL SALINE 1,000 ML IV PRN (03:58)
[2019-12-27] MEDS: MORPHINE SULFATE 10 MG/ML INJ IV PRN ×3 (05:08→17:01)
[2019-12-27] MEDS: FAMOTIDINE INJ/PF 20 MG/2 ML SDV IV SCH ×2 (10:36→21:27)
[2019-12-27] MEDS: ENOXAPARIN SODIUM INJ 40 MG/0.4 ML DISP.SYRIN SUBCUT SCH (10:36)
[2019-12-27] MEDS: DOXYCYCLINE HYCLATE 100 MG in DEXTROSE 5%-WATER 250 ML IV SCH ×2 (10:36→21:27)
--- NOTE | 2019-12-27 14:45 | PDOC PROGRESS REPORT ---
Subjective Progress Note for:: 12/27/19 Subjective:: She has advanced MS, basically debilitated, family has opted for hospice, this to be arranged by discharge planning Reason For Visit: ACUTE RESPIRATORY DISTRESS,SEPSIS,URINARY TRACT Physical Exam Vital Signs: Temp Pulse Resp BP Pulse Ox 97.5 F 105 H 16 125/62 100 12/27/19 11:37 12/27/19 11:37 12/27/19 11:37 12/27/19 11:37 12/27/19 11:37 Intake & Output 12/26/19 12/27/19 12/28/19 06:59 06:59 06:59 Intake Total 240 1373 250 Output Total 750 625 Balance -510 748 250 Weight 75.5 kg 74.2 kg Results Laboratory Results: 12/21/19 08:00 12/26/19 10:20 12/20/19 12/20/19 08:45 08:45 Creatine Kinase 30 Troponin I 0.050 NT-Pro-B Natriuret Pep 6640 H Impressions: Chest X-Ray 12/20/19 08:59 IMPRESSION: NO ACUTE RADIOGRAPHIC FINDING IN THE CHEST. Assessment & Plan - Diagnosis (1) Sepsis Qualifiers: Sepsis type: sepsis due to unspecified organism Sepsis acute organ dysfunction status: with acute organ dysfunction Severe sepsis acute organ dysfunction type: acute respiratory failure Acute respiratory failure type: with hypercapnia Severe sepsis shock status: unspecified Qualified Code(s): A41.9 - Sepsis, unspecified organism; R65.20 - Severe sepsis without septic shock; J96.02 - Acute respiratory failure with hypercapnia Is this a current diagnosis for this admission?: Yes (2) Multiple sclerosis, primary chronic progressive Is this a current diagnosis for this admission?: Yes Plan: Patient with severe disabling multiple sclerosis, recurrent hospitalization, family is opting for hospice, discharge planning will arrange for that - Time Time Spent with patient: Less than 15 minutes Level of Care: IMCU Medications reviewed and adjusted accordingly: Yes Anticipated discharge: Hospice Anticipated DC Timeframe: when bed available
[2019-12-27] MEDS: NORMAL SALINE 1000 ML 1,000 ML with POTASSIUM CHLORIDE 20 MEQ, MAGNESIUM SULFATE 8 MEQ,... IV SCH ×5 (17:01)
[2019-12-28] MEDS: DEXTROSE 5%-NORMAL SALINE 1,000 ML IV PRN ×2 (03:15→17:50)
[2019-12-28] MEDS: MORPHINE SULFATE 10 MG/ML INJ IV PRN ×2 (04:39→16:04)
[2019-12-28] MEDS: DOXYCYCLINE HYCLATE 100 MG in DEXTROSE 5%-WATER 250 ML IV SCH ×2 (09:19→21:06)
[2019-12-28] MEDS: FAMOTIDINE INJ/PF 20 MG/2 ML SDV IV SCH ×2 (09:19→21:06)
[2019-12-28] MEDS: ENOXAPARIN SODIUM INJ 40 MG/0.4 ML DISP.SYRIN SUBCUT SCH (09:20)
--- NOTE | 2019-12-28 14:45 | PDOC PROGRESS REPORT ---
Subjective Progress Note for:: 12/28/19 Subjective:: She has advanced MS, basically debilitated, family has opted for hospice, this to be arranged by discharge planning Reason For Visit: ACUTE RESPIRATORY DISTRESS,SEPSIS,URINARY TRACT Physical Exam Vital Signs: Temp Pulse Resp BP Pulse Ox 97.4 F 104 H 12 137/68 H 100 12/28/19 11:01 12/28/19 11:01 12/28/19 11:01 12/28/19 11:01 12/28/19 11:01 Intake & Output 12/27/19 12/28/19 12/29/19 06:59 06:59 06:59 Intake Total 1373 2444 250 Output Total 625 2525 700 Balance 748 81 -450 Weight 74.2 kg 75.9 kg Results Laboratory Results: 12/21/19 08:00 12/26/19 10:20 12/20/19 12/20/19 08:45 08:45 Creatine Kinase 30 Troponin I 0.050 NT-Pro-B Natriuret Pep 6640 H Impressions: Chest X-Ray 12/20/19 08:59 IMPRESSION: NO ACUTE RADIOGRAPHIC FINDING IN THE CHEST. Assessment & Plan - Diagnosis (1) Sepsis Qualifiers: Sepsis type: sepsis due to unspecified organism Sepsis acute organ dysfunction status: with acute organ dysfunction Severe sepsis acute organ dysfunction type: acute respiratory failure Acute respiratory failure type: with hypercapnia Severe sepsis shock status: unspecified Qualified Code(s): A41.9 - Sepsis, unspecified organism; R65.20 - Severe sepsis without septic shock; J96.02 - Acute respiratory failure with hypercapnia Is this a current diagnosis for this admission?: Yes (2) Multiple sclerosis, primary chronic progressive Is this a current diagnosis for this admission?: Yes - Time Time Spent with patient: Less than 15 minutes Level of Care: IMCU Medications reviewed and adjusted accordingly: Yes Anticipated discharge: SNF Anticipated DC Timeframe: when bed available
[2019-12-28] MEDS: NORMAL SALINE 1000 ML 1,000 ML with POTASSIUM CHLORIDE 20 MEQ, MAGNESIUM SULFATE 8 MEQ,... IV SCH ×5 (17:45)
[2019-12-29] MEDS: DEXTROSE 5%-NORMAL SALINE 1,000 ML IV PRN ×2 (03:59→17:47)
[2019-12-29] MEDS: MORPHINE SULFATE 10 MG/ML INJ IV PRN ×3 (04:22→21:35)
[2019-12-29] MEDS: FAMOTIDINE INJ/PF 20 MG/2 ML SDV IV SCH ×2 (10:12→21:21)
[2019-12-29] MEDS: DOXYCYCLINE HYCLATE 100 MG in DEXTROSE 5%-WATER 250 ML IV SCH ×2 (10:12→21:22)
[2019-12-29] MEDS: ENOXAPARIN SODIUM INJ 40 MG/0.4 ML DISP.SYRIN SUBCUT SCH (10:47)
--- NOTE | 2019-12-29 12:54 | PDOC PROGRESS REPORT ---
Subjective Progress Note for:: 12/29/19 Subjective:: No reported fever or chills. No chest pain or difficulty with her breathing. P.O intake almost nothing except for sips of ensure supplement. I discussed further with Usha, daughter, I was informed that family have decided to place patient in hospice care at this time and she will be in DNR status. Reason For Visit: ACUTE RESPIRATORY DISTRESS,SEPSIS,URINARY TRACT Physical Exam Vital Signs: Temp Pulse Resp BP Pulse Ox 98.1 F 102 H 22 H 121/64 100 12/28/19 19:33 12/29/19 07:00 12/28/19 19:33 12/28/19 19:33 12/28/19 19:33 Intake & Output 12/28/19 12/29/19 12/30/19 06:59 06:59 06:59 Intake Total 2444 2523 50 Output Total 2525 2600 350 Balance -81 -77 -300 Weight 75.9 kg 74.2 kg Physical Exam: General appearance: PRESENT: no acute distress Head exam: PRESENT: atraumatic, normocephalic Eye exam: PRESENT: conjunctiva pink. ABSENT: pallor, scleral icterus Mouth exam: PRESENT: fairly moist Respiratory exam: PRESENT: decreased breath sounds - at lung bases Cardiovascular exam: PRESENT: RRR, +S1, +S2. ABSENT: diastolic murmur, rubs, systolic murmur GI/Abdominal exam: PRESENT: normal bowel sounds, soft. ABSENT: distended, guarding, mass, organomegaly, rebound, tenderness Neurological exam: PRESENT: alert and awake. Psychiatric exam: PRESENT: Minimal verbal inaction. ABSENT: homicidal ideation, suicidal ideation Skin exam: PRESENT: dry, warm, other - stage 4 bilateral ischial pressure ulcers Results Laboratory Results: 12/21/19 08:00 12/26/19 10:20 12/20/19 12/20/19 08:45 08:45 Creatine Kinase 30 Troponin I 0.050 NT-Pro-B Natriuret Pep 6640 H Impressions: Chest X-Ray 12/20/19 08:59 IMPRESSION: NO ACUTE RADIOGRAPHIC FINDING IN THE CHEST. Assessment & Plan - Diagnosis (1) Acute respiratory distress Is this a current diagnosis for this admission?: Yes (2) Urinary tract infection Qualifiers: Is this a current diagnosis for this admission?: Yes (3) Sepsis Qualifiers: Sepsis type: sepsis due to unspecified organism Sepsis acute organ dysfunction status: with acute organ dysfunction Severe sepsis acute organ dysfunction type: acute respiratory failure Acute respiratory failure type: with hypercapnia Severe sepsis shock status: unspecified Qualified Code(s): A41.9 - Sepsis, unspecified organism; R65.20 - Severe sepsis without septic shock; J96.02 - Acute respiratory failure with hypercapnia Is this a current diagnosis for this admission?: Yes (4) Staghorn kidney stones Is this a current diagnosis for this admission?: Yes (5) Hydronephrosis of left kidney Is this a current diagnosis for this admission?: Yes (6) Multiple sclerosis, primary chronic progressive Is this a current diagnosis for this admission?: Yes (7) Pressure ulcer of ischial area, stage 4 Qualifiers: Laterality: unspecified laterality Qualified Code(s): L89.304 - Pressure ulcer of unspecified buttock, stage 4 Is this a current diagnosis for this admission?: Yes - Time Time Spent with patient: 25-34 minutes Level of Care: IMCU Medications reviewed and adjusted accordingly: Yes Anticipated discharge: Hospice Anticipated DC Timeframe: Other - Inpatient Certification Based on my medical assessment, after consideration of the patient's comorbidities, presenting symptoms, or acuity I expect that the services needed warrant INPATIENT care.: Yes I certify that my determination is in accordance with my understanding of Medicare's requirements for reasonable and necessary INPATIENT services [42 CFR 412.3e].: Yes Medical Necessity: Significant Comorbidiites Make Outpatient Treatment Too Risky, Need Close Monitoring Due to Risk of Patient Decompensation, Need For IV Fluids, Need For Continuous Telemetry Monitoring, Need for IV Antibiotics, Risk of Complication if Not Cared For in Hospital, Risk of Diagnosis Which Will Re quire Inpatient Eval/Care/Monitoring Post Hospital Care: D/C Math And Science Instructor Documentation - Plan Summary Plan Summary: Continue current medication management and supportive care. Patient will be made DNR status and I will request hospice placement.
[2019-12-29] MEDS: NORMAL SALINE 1000 ML 1,000 ML with POTASSIUM CHLORIDE 20 MEQ, MAGNESIUM SULFATE 8 MEQ,... IV SCH ×10 (18:08→18:18)
[2019-12-30] MEDS: MORPHINE SULFATE 10 MG/ML INJ IV PRN ×2 (03:47→15:45)
[2019-12-30] MEDS: FAMOTIDINE INJ/PF 20 MG/2 ML SDV IV SCH ×2 (09:17→22:17)
[2019-12-30] MEDS: DOXYCYCLINE HYCLATE 100 MG in DEXTROSE 5%-WATER 250 ML IV SCH ×2 (09:17→22:19)
[2019-12-30] MEDS: ENOXAPARIN SODIUM INJ 40 MG/0.4 ML DISP.SYRIN SUBCUT SCH (09:18)
--- NOTE | 2019-12-30 16:52 | PDOC DISCHARGE SUMMARY ---
Impression - Admit/DC Date/PCP Admission Date/Primary Care Provider: 12/20/19 12:45 QUINN MARCANO Discharge Date: 12/30/19 - Discharge Diagnosis (1) Acute respiratory distress Is this a current diagnosis for this admission?: Yes (2) Urinary tract infection Is this a current diagnosis for this admission?: Yes (3) Sepsis Is this a current diagnosis for this admission?: Yes (4) Staghorn kidney stones Is this a current diagnosis for this admission?: Yes (5) Hydronephrosis of left kidney Is this a current diagnosis for this admission?: Yes (6) Multiple sclerosis, primary chronic progressive Is this a current diagnosis for this admission?: Yes (7) Pressure ulcer of ischial area, stage 4 Is this a current diagnosis for this admission?: Yes - Assessment Summary: She was admitted for acute respiratory distress with septic features and urinary tract infection. Her advanced multiple sclerosis has become complicated with recurrent aspiration with oral feeding. Patient and family have arrived at hospice placement at home. Her bilateral ischial pressure ulcers have progressed to stage 4 with associated malnutrition has further complicate patient prognosis. She will be discharged to hospice program today with the stroke program coordinator or her assigned physician taking over her care plan, medication management and oversight. - Additional Information Resuscitation Status: Do Not Resuscitate Referrals: QUINN MARCANO MD [Primary Care Provider] - Follow up as needed Home Medications: Baclofen [Baclofen 10 mg Tablet] 10 mg PO Q8HP PRN 11/24/19 History of Present Illiness History of Present Illness: INO SALDIVAR is a 54 year old female known to my practice who was discharged home on 12/19/2019 after presenting with altered mental status and treated for UTI as well as aspiration pneumonia / pneumonitis with respiratory decompensation and brief transfer to ICU during that admission. Also, her CT abdomen and pelvis revealed staghorn calculi with hydronephrosis as possible predisposing factor for her recurrent UTI. Complicating her medical morbidities is development of bilateral sacral decubitus ulcers and her underlying immobility due to advance multiple sclerosis. She was brought back to the ED via EMS due to development of respiratory distress. Family reported that patient tolerated oral feeding at lunch and diner but was left in recumbent position after diner and found in respiratory distress this morning. EMS personnel found her hypotensive with need for IO infusion therapy. Her initial ED evaluation was significant for hypotension, tachycardia, tachypnea, leukocytosis, abnormal urinalysis, and hypercapnia. Her morbidities are as listed below. She was advised hospitalization for further evaluation and treatment. Hospital Course Hospital Course: She was admitted for acute respiratory distress with septic features and urinary tract infection. Her advanced multiple sclerosis has become complicated with recurrent aspiration with oral feeding. Patient and family have arrived at hospice placement at home. Her bilateral ischial pressure ulcers have progressed to stage 4 with associated malnutrition has further complicate patient prognosis. She will be discharged to hospice program today with the stroke program coordinator or her assigned physician taking over her care plan, medication management and oversight. Physical Exam Vital Signs: Temp Pulse Resp BP Pulse Ox 98.2 F 107 H 20 126/70 H 97 12/30/19 16:11 12/30/19 16:11 12/30/19 16:11 12/30/19 16:11 12/30/19 16:11 Intake & Output 12/29/19 12/30/19 12/31/19 06:59 06:59 06:59 Intake Total 2523 1946 1273 Output Total 2600 2225 Balance -77 -279 1273 Weight 74.2 kg 76.5 kg General appearance: PRESENT: no acute distress Head exam: PRESENT: atraumatic, normocephalic Eye exam: PRESENT: conjunctiva pink. ABSENT: pallor, scleral icterus Mouth exam: PRESENT: fairly moist Respiratory exam: PRESENT: decreased breath sounds - at lung bases Cardiovascular exam: PRESENT: RRR, +S1, +S2. ABSENT: diastolic murmur, rubs, systolic murmur GI/Abdominal exam: PRESENT: normal bowel sounds, soft. ABSENT: distended, guarding, mass, organomegaly, rebound, tenderness Neurological exam: PRESENT: alert and awake. Psychiatric exam: PRESENT: Minimal verbal inaction. ABSENT: homicidal ideation, suicidal ideation Skin exam: PRESENT: dry, warm, other - stage 4 bilateral ischial region pressure ulcers Results Laboratory Results: WBC 7.2 10^3/uL (4.0-10.5) 12/21/19 08:00 RBC 3.42 10^6/uL (3.72-5.28) L 12/21/19 08:00 Hgb 9.2 g/dL (12.0-15.5) L D 12/21/19 08:00 Hct 27.8 % (36.0-47.0) L 12/21/19 08:00 MCV 82 fl (80-97) 12/21/19 08:00 MCH 27.0 pg (27.0-33.4) 12/21/19 08:00 MCHC 33.2 g/dL (32.0-36.0) 12/21/19 08:00 RDW 17.2 % (11.5-14.0) H 12/21/19 08:00 Plt Count 245 10^3/uL (150-450) 12/21/19 08:00 Lymph % (Auto) 9.8 % (13-45) L 12/21/19 08:00 Hartley % (Auto) 6.7 % (3-13) 12/21/19 08:00 Eos % (Auto) 1.4 % (0-6) 12/21/19 08:00 Baso % (Auto) 0.6 % (0-2) 12/21/19 08:00 Absolute Neuts (auto) 5.9 10^3/uL (1.7-8.2) 12/21/19 08:00 Absolute Lymphs (auto) 0.7 10^3/uL (0.5-4.7) 12/21/19 08:00 Absolute Monos (auto) 0.5 10^3/uL (0.1-1.4) 12/21/19 08:00 Absolute Eos (auto) 0.1 10^3/uL (0.0-0.6) 12/21/19 08:00 Absolute Basos (auto) 0.0 10^3/uL (0.0-0.2) 12/21/19 08:00 Seg Neutrophils % 81.5 % (42-78) H 12/21/19 08:00 Platelet Estimate Cancelled 12/21/19 06:25 PT 14.8 SEC (11.4-15.4) 12/20/19 08:45 INR 1.15 12/20/19 08:45 Carbonic Acid 1.40 mmol/L (1.05-1.35) H 12/20/19 09:45 HCO3/H2CO3 Ratio 19:1 12/20/19 09:45 ABG pH 7.38 (7.35-7.45) 12/20/19 09:45 ABG pCO2 46.5 mmHg (35-45) H 12/20/19 09:45 ABG pO2 96.6 mmHg (80-100) 12/20/19 09:45 ABG HCO3 26.6 mmol/L (20-24) H 12/20/19 09:45 ABG Total CO2 28.0 mmol/L (21-25) H 12/20/19 09:45 ABG O2 Saturation 97.2 % (94-98) 12/20/19 09:45 ABG Base Excess 1.0 mmol/L 12/20/19 09:45 VBG pH 7.25 (7.30-7.42) L 12/20/19 08:45 VBG pCO2 68.8 mmHg (35-63) H* 12/20/19 08:45 VBG HCO3 29.6 mmol/L (20-32) 12/20/19 08:45 VBG Base Excess 0.7 mmol/L 12/20/19 08:45 FiO2 65% 12/20/19 09:45 Sodium 137.9 mmol/L (137-145) 12/21/19 06:25 Potassium 3.4 mmol/L (3.6-5.0) L D 12/21/19 06:25 Chloride 106 mmol/L (98-107) 12/21/19 06:25 Carbon Dioxide 26 mmol/L (22-30) 12/21/19 06:25 Anion Gap 6 (5-19) 12/21/19 06:25 BUN 6 mg/dL (7-20) L 12/21/19 06:25 Creatinine 0.51 mg/dL (0.52-1.25) L 12/26/19 10:20 Est GFR ( Amer) > 60 (>60) 12/26/19 10:20 Est GFR (MDRD) Non-Af > 60 (>60) 12/26/19 10:20 Glucose 79 mg/dL (75-110) 12/21/19 06:25 POC Glucose 114 mg/dL (70-110) H 12/30/19 11:54 Lactic Acid 1.1 mmol/L (0.7-2.1) 12/20/19 08:45 Calcium 8.7 mg/dL (8.4-10.2) 12/21/19 06:25 Total Bilirubin 0.6 mg/dL (0.2-1.3) 12/21/19 06:25 Direct Bilirubin 0.1 mg/dL (0.0-0.4) 12/21/19 06:25 Neonat Total Bilirubin Not Reportable 12/21/19 06:25 Neonat Direct Bilirubin Not Reportable 12/21/19 06:25 Neonat Indirect Bili Not Reportable 12/21/19 06:25 AST 21 U/L (14-36) 12/21/19 06:25 ALT 10 U/L (<35) 12/21/19 06:25 Alkaline Phosphatase 75 U/L (38-126) 12/21/19 06:25 Creatine Kinase 30 U/L (30-135) 12/20/19 08:45 Troponin I 0.050 ng/mL 12/20/19 08:45 NT-Pro-B Natriuret Pep 6640 pg/mL (<125) H 12/20/19 08:45 Total Protein 6.1 g/dL (6.3-8.2) L 12/21/19 06:25 Albumin 2.3 g/dL (3.5-5.0) L 12/21/19 06:25 Lipase 63.1 U/L (23-300) 12/20/19 08:45 Random Cortisol 31.00 ug/dL (None Established) 12/20/19 08:45 Urine Color YELLOW 12/20/19 08:45 Urine Appearance SLIGHTLY-CLOUDY 12/20/19 08:45 Urine pH 8.0 (5.0-9.0) 12/20/19 08:45 Ur Specific Cardinal 1.006 12/20/19 08:45 Urine Protein NEGATIVE mg/dL (NEGATIVE) 12/20/19 08:45 Urine Glucose (UA) NEGATIVE mg/dL (NEGATIVE) 12/20/19 08:45 Urine Ketones NEGATIVE mg/dL (NEGATIVE) 12/20/19 08:45 Urine Blood LARGE (NEGATIVE) H 12/20/19 08:45 Urine Nitrite NEGATIVE (NEGATIVE) 12/20/19 08:45 Urine Bilirubin NEGATIVE (NEGATIVE) 12/20/19 08:45 Urine Urobilinogen 2.0 mg/dL (<2.0) H 12/20/19 08:45 Ur Leukocyte Esterase LARGE (NEGATIVE) H 12/20/19 08:45 Urine WBC (Auto) 75 /HPF 12/20/19 08:45 Urine RBC (Auto) 34 /HPF 12/20/19 08:45 Urine WBC Clumps FEW /HPF 12/20/19 08:45 Squamous Epi Cells Auto 2 /HPF 12/20/19 08:45 Urine Mucus (Auto) RARE /LPF 12/20/19 08:45 Urine Ascorbic Acid NEGATIVE (NEGATIVE) 12/20/19 08:45 Time Trough Drawn 1020 12/26/19 10:20 Vancomycin Trough 14.6 ug/mL (5.0-20.0) 12/26/19 10:20 Slides for Path Review Cancelled 12/21/19 06:25 12/20/19 08:45 Troponin I 0.050 NT-Pro-B Natriuret Pep 6640 H Impressions: Chest X-Ray 12/20/19 00:00 IMPRESSION: CENTRAL VENOUS ACCESS CATHETER IN APPROPRIATE LOCATION. NO P NEUMOTHORAX. NEW CENTRAL LINE. Chest X-Ray 12/20/19 08:59 IMPRESSION: NO ACUTE RADIOGRAPHIC FINDING IN THE CHEST. Plan Health Concerns: Discharge to home hospice program for palliative hospice care. Plan of Treatment: Comfort care with pain control under the management of the hospice medical billing coordinator jozef or assigned physician. Goals: Comfort care with pain control. Time Spent: Greater than 30 Minutes Stroke Is this a Stroke Patient?: No Acute Heart Failure - Is this a Heart Failure Patient?: No
[2019-12-30] MEDS: NORMAL SALINE 1000 ML 1,000 ML with POTASSIUM CHLORIDE 20 MEQ, MAGNESIUM SULFATE 8 MEQ,... IV SCH ×5 (17:25)
[2019-12-31] MEDS: DEXTROSE 5%-NORMAL SALINE 1,000 ML IV PRN (05:14)
[2019-12-31] MEDS: MORPHINE SULFATE 10 MG/ML INJ IV PRN (06:41)
[2019-12-31] MEDS: FAMOTIDINE INJ/PF 20 MG/2 ML SDV IV SCH (09:03)
[2019-12-31] MEDS: ENOXAPARIN SODIUM INJ 40 MG/0.4 ML DISP.SYRIN SUBCUT SCH (09:03)
[2019-12-31] MEDS: DOXYCYCLINE HYCLATE 100 MG in DEXTROSE 5%-WATER 250 ML IV SCH (09:04)
[2019-12-31 12:27] VITALS: BP 146/73
== END 2019-12-31 12:35 | disposition hospice, home (50) | DRG 853 ==
LOC: ER 08:41 → EH 12:45 → 3S 15:27
PROVIDERS: ADMIT Internal Medicine Geriatric Medicine; ATTEND Internal Medicine Geriatric Medicine
PROC: 0KBP0ZZ Excision of Left Hip Muscle, Open Approach (ICD-10-PCS; principal; 2019-12-21)
PROC: 0KBN0ZZ Excision of Right Hip Muscle, Open Approach (ICD-10-PCS; 2019-12-21)
PROC: 02HV33Z Insertion of Infusion Device into Superior Vena Cava, Percutaneous Approach (ICD-10-PCS; 2019-12-21)
DX: A41.9 Sepsis, unspecified organism (principal); L89.324 Pressure ulcer of left buttock, stage 4; J96.02 Acute respiratory failure with hypercapnia; J69.0 Pneumonitis due to inhalation of food and vomit; L89.314 Pressure ulcer of right buttock, stage 4; E46 Unspecified protein-calorie malnutrition; N13.30 Unspecified hydronephrosis; N39.0 Urinary tract infection, site not specified; Z51.5 Encounter for palliative care; E11.9 Type 2 diabetes mellitus without complications; D64.9 Anemia, unspecified; N20.0 Calculus of kidney; G35 Multiple sclerosis; Z66 Do not resuscitate; E03.9 Hypothyroidism, unspecified; R65.20 Severe sepsis without septic shock; Z74.01 Bed confinement status; Z86.711 Personal history of pulmonary embolism; Z88.2 Allergy status to sulfonamides; Z91.030 Bee allergy status; Z91.040 Latex allergy status
CPT/HCPCS: 36415; 36600; 51702; 71045; 80053; 80202; 81001; 82533; 82550; 82565; 82803; 82962; 83605; 83690; 83880; 84484; 85025; 85610; 87040; 87077; 87086; 87150; 87186; 93005; 93010; 94660; 96361; 96365; 96366; 99291; J1642; J1650; J1956; J2270; J3370; J3411; J3475; J3480; J3490; J7030; J7042; J7060; S0028